=== PATIENT | female | born 1990 | race Caucasian/White ===

== ENCOUNTER 2019-06-29 12:14 | Inpatient (IN) | payer OTHER, MEDICAID, SELFPAY ==
[2019-06-29] VITALS (17 sets, daily range): BP systolic 86–144; BP diastolic 51–95; PULSE 86–166; RESP 13–28; TEMP 36.3–38.6; O2SAT 92–100; BMI 48.3
--- NOTE | ~2019-06-29 | XR_ITS ---
EXAMINATION: XR abdomen/kub 1V DATE: 06/29/2019 14:17 INDICATION: Left flank pain. TECHNIQUE: A supine view of the abdomen on 2 radiographs was obtained. COMPARISON: CT abdomen and pelvis 06/29/2019 FINDINGS: There are no dilated loops of bowel. There are surgical clips from cholecystectomy. There i s contrast in the left renal collecting system and bladder. There are stones in left kidney lower leah e. The kidneys are obscured by bowel. IMPRESSION: 1. Stones in left kidney lower pole. Reviewed, dictated and finalized at location E.
--- NOTE | ~2019-06-29 | XR_ITS ---
EXAMINATION: XR retrograde pyelo w/stent RT INDICATION: Right ureteral stone TECHNIQUE: 131 fluoroscopic images are submitted for review Fluoroscopy exposure time was 37.8 second s. The DAP for this procedure was 1.96 mGym2. COMPARISON: CT from today FINDINGS: Retrograde pyelogram demonstrates moderate right hydronephrosis. Final images demonstrate a right internal ureteral stent in expected position. IMPRESSION: 1. Right hydronephrosis and right internal ureteral stent in expected position. Please refer to proce dure note for full details. Reviewed, dictated and finalized at location A. IMPRESSION: 1. Right hydronephrosis and right internal ureteral stent in expected position. Please refer to procedure note for full details.
--- NOTE | ~2019-06-29 | CT_ITS ---
EXAMINATION: CT abdomen pelvis w con DATE: 06/29/2019 13:56 INDICATION: Right flank pain. Abdominal pain. Worsening urinary tract infection. Fever. TECHNIQUE: Computed tomography (CT) of the abdomen and pelvis was performed with 100 cc Omnipaque 350 intravenous contrast. Automated exposure control and iterative reconstruction technique were employe d. Exam dose: 1566.86 mGy-cm total exam DLP. COMPARISON: 12/28/2005 CT abdomen FINDINGS: The lung bases are clear. Normal heart size. No pericardial or pleural effusion. Status post cholecystectomy. No hepatic, splenic, pancreatic, and adrenal or renal space-occupying ma ss lesion is detected. Mild splenomegaly, the spleen measuring approximately 14.4 cm height. No bile duct or pancreatic duct dilatation. There is a 3.4 x 5.5 mm obstructing calculus of the right ureter at the L5-S1 level with moderately p rominent proximal right hydronephrosis. There are 2 contiguous lower pole nonobstructing right renal calculi, measuring approximately 4.4 x 6 .5 mm and 3.6 x 6.8 mm. There is a left renal pelvis calculus measuring approximately 4.2 x 8.3 mm. There are 2 nonobstructing lower pole left renal calyceal stones, measuring 6.4 x 12 mm and 6.4 x 9.8 mm, with attenuation of 1157 and 1131 Hounsfield units, respectively. No left ureteral calculus or left hydroureteronephrosis. Normal caliber of the abdominal aorta. No intraperitoneal or retroperitoneal or pelvic mass lesion or adenopathy or ascites. Mild colonic diverticulosis. No evidence of appendicitis. No bowel obstruction, bowel wall thickening , pneumatosis or intraperitoneal free air. Small fat-containing umbilical hernia. The uterus, adnexal areas and urinary bladder are unremarkable. No suspicious osteolytic or osteoblastic lesions.. IMPRESSION: 3.4 x 5.5 mm obstructing right ureteral calculus at L5-S1 level with moderate right hydr onephrosis Bilateral nephrolithiasis Mild colonic diverticulosis Status post cholecystectomy Splenomegaly Reviewed, dictated and finalized at Location A. Reviewed, dictated and finalized at location A. IMPRESSION: 3.4 x 5.5 mm obstructing right ureteral calculus at L5-S1 level wi moderate right hydronephrosis Bilateral nephrolithiasis Mild colonic diverticulosis Status post cholecystectomy Splenomegaly
--- NOTE | 2019-06-29 12:33 | ED.ABDPAIN ---
HPI - Abdominal Pain General Chief Complaint: Urogenital-Female Stated Complaint: sent by pmd due to worsening UTI Time Seen by Provider: 06/29/19 12:29 Source: RN notes reviewed History of Present Illness HPI narrative: Patient presents emergency department from home for right flank pain. Patient states that 3 days ago she began to have dysuria. She gone to the PCP at that time and was started on Bactrim for a urinary tract infection. States she is had a total of 4 doses of Bactrim. Patient states she began to have right flank pain yesterday progressively worsened associated with fevers and nausea. Denies any vomiting or diarrhea or any other symptoms at this time Related Data Allergies Allergy/AdvReac Type Severity Reaction Status Date / Time ciprofloxacin AdvReac Unknown SWELLING Verified 06/29/19 13:24 hydromorphone AdvReac Unknown EXTREME Verified 06/29/19 13:24 STOMACH CRAMPS naproxen AdvReac Unknown Swelling Verified 06/29/19 13:24 Review of Systems Review of Systems: Narrative: Gen.: Denies fevers or chills Eyes: Denies eye pain or visual change ENT: Denies congestion Respiratory: Denies shortness of breath or cough CV: Denies chest pain or palpitations GI: Denies abdominal pain, emesis or diarrhea reports right flank pain and nausea denies current dysuria Musculoskeletal: Denies back pain or muscle pain Neuro: Denies numbness, tingling, weakness or focal weakness Skin: Denies rash Except as documented, all other systems reviewed and negative PMFSH Past Medical History Medical History (Updated 06/29/19 @ 15:27 by Alberto Ramey DO) Patient denies significant medical history Social History Social History (Updated 06/29/19 @ 12:35 by Alberto Ramey DO) Smoking status: Current every day smoker Gender identity (if verbalized by the patient): Female Exam Narrative: Exam Narrative: APPEARANCE: No acute distress, nontoxic, resting in bed EYES: EOMI HEENT: Normocephalic, atraumatic, OMM RESPIRATORY: No respiratory distress Clear to auscultation bilaterally with no rhonchi wheezing or rales. CARDIOVASCULAR: Regular rate and rhythm without murmurs rubs or gallops. ABDOMINAL: Soft, nontender, nondistended, no rebound or guarding, right flank tenderness MUSCULOSKELETAl: Moves all extremities. No clubbing, cyanosis or edema. NEURO: Awake and alert. Following commands, speech normal, no focal deficits SKIN:: Warm, dry. No rashes lesions or abrasions PSYCHIATRIC: Normal affect/mood, Course Course Emergency Course: Discussed with Clarita for urology patient to proceed to the OR at this time for stent placement by Dr. Saha Discussed with ANNETTE Saldivar presentation work-up. Agrees with admission to Dr. Mcqueen at this time Discussed with patient and family results of workup and diagnosis. Discussed need for admission. Patient and family understand and agree to current treatment plan Vital Signs Vital signs: Vital Signs Temperature 100.1 F H 06/29/19 12:17 Pulse Rate 121 H 06/29/19 12:17 Respiratory Rate 20 06/29/19 12:17 Blood Pressure 144/83 H 06/29/19 12:17 Pulse Oximetry 100 06/29/19 12:17 Temperature 101.4 F H 06/29/19 12:33 Pulse Rate 102 H 06/29/19 14:16 Respiratory Rate 22 H 06/29/19 14:16 Blood Pressure 122/87 06/29/19 14:16 Pulse Oximetry 100 06/29/19 14:15 MDM - Abdominal Pain Lab Data Result diagrams: 06/29/19 12:41 06/29/19 12:40 Labs: Lab Results 06/29/19 06/29/19 06/29/19 Range/Units 12:39 12:40 12:41 WBC 9.2 (4.5-10.0) K/mm3 RBC 4.49 (4.2-5.4) M/mm3 Hgb 12.5 (12.0-15.0) g/dL Hct 39.2 (37.0-47.0) % MCV 87.3 (80-100) fl MCH 27.8 (26-34) pg MCHC 31.9 L (32-36) g/dl RDW 14.6 H (11.5-14.5) % Plt Count 262 (150-375) k/mm3 MPV 9.9 (7.4-10.4) fl Immature Gran % (Auto) 0.5 (0-0.5) % Neut % (Auto) 77.9 H (45.5-73.1) % Lymph % (Auto) 12.8 L (18.3-
[2019-06-29 12:49] LABS: Basophils Percent Auto 0.4 % (0.2-1.2); Eosinophils Absolute Auto 0.1 K/mm3 (0-0.3); Eosinophils Percent Auto 1.4 % (0-4.4); Hematocrit 39.2 % (37.0-47.0); Hemoglobin 12.5 g/dL (12.0-15.0); Immature Granulocyte Absolute 0.05 K/mm3 (0.00-0.031); Immature Granulocyte Percent A 0.5 % (0-0.5); Lymphocytes Absolute Auto 1.18 K/mm3 (0.9-3.2); Lymphocytes Percent Auto 12.8 % (18.3-44.2); Mean Corpuscular HGB Conc 31.9 g/dl (32-36); Mean Corpuscular Hemoglobin 27.8 pg (26-34); Mean Corpuscular Volume 87.3 fl (80-100); Mean Platelet Volume 9.9 fl (7.4-10.4); Monocytes Absolute Auto 0.7 K/mm3 (0.1-0.6); Neutrophils Absolute Auto 7.2 K/mm3 (1.3-6.7); Neutrophils Percent Auto 77.9 % (45.5-73.1); Platelet Count Result 262 k/mm3 (150-375); Red Blood Count 4.49 M/mm3 (4.2-5.4); Red Cell Distribution Width 14.6 % (11.5-14.5); White Blood Count 9.2 K/mm3 (4.5-10.0)
[2019-06-29 12:56] LABS: Add Urine Microscopic? YES; Appearance Urine Clear (Clear); Bacteria Urine Trace /hpf; Bilirubin Urine Negative (Negative); Blood Urine 1+ (Negative); Color Urine Amber (Yellow); Glucose Urine UA Negative (Negative); Ketones Urine Negative (Negative); Leukocyte Esterase Ur 2+ LEU/UL (Negative); Mucus Urine Rare /lpf; Nitrate Urine Positive (Negative); Protein Urine 2+ mg/dL (Negative); RBC Urine 21-50 /hpf (0-2); Specific Grav Ur 1.021 (1.001-1.035); Squamous Epithelial Cell Urine Many /hpf (Few); WBC Urine >75 /hpf
[2019-06-29 13:06] LABS: Blood Urea Nitrogen 11 mg/dL (7-17); Calcium 9.3 mg/dL (8.4-10.2); Carbon Dioxide 21 mmol/L (22-30); Chloride 104 mmol/L (98-107); Estimated CRCL calculation 71 ml/min; Estimated Glomerular Filt Rate 48; Glucose 119 mg/dL (65-105); Potassium 3.7 mmol/L (3.4-5.0); Sodium 136 mmol/L (137-145)
[2019-06-29] MEDS: SODIUM CHLORIDE 0.9% IV 1,000 ML 999 ML IV CONT ×2 (13:13)
--- NOTE | 2019-06-29 15:27 | WPDURCON ---
Assessment and Plan Assessment and plan (1) Urinary tract infection: Code(s): N39.0 - Urinary tract infection, site not specified Status: Acute Assessment and Plan: Continue IV antibiotics, tailor to culture results. (2) Kidney stone on right side: Code(s): N20.0 - Calculus of kidney Status: Acute Assessment and Plan: Plan to go to the OR today for Cystoscopy, right ureteral stent placement. Keep NPO Obtain Consent. Admit to medicine. Urology Consult Note HPI Date Seen: 06/29/19 Requesting Physician: Aldo Saha MD Primary Care Provider: Liam Rich MD Consult Narrative Narrative: Stephanie Norman is a 28 year old female who presents to the ER with worsening right flank pain that developed four days ago with dysuria, fever and chills. She is also nauseated, but no vomiting at this time. She has a positive UA, with blood and urine cultures pending. She also is febrile, but has a normal WBC and creatinine. Her CT/KUB abdomen and pelvis shows a right mid ureteral stone with mild hydronephrosis measuring 3x5mm. She initially went to her PCP whent he dysuria and flank pain started and was given Bactrim and has had several doses but without improvment. Review of Systems Cardiovascular: Cardiovascular: Denies chest pain Respiratory: Respiratory: Reports no additional respiratory complaints Gastrointestinal: Gastrointestinal: Reports abdominal pain, Reports nausea and Denies vomiting Genitourinary: Genitourinary: Denies dysuria, Reports flank pain and Reports urinary urgency PMFSH Past Medical History Medical History Morbid obesity Patient denies significant medical history Renal stones Smoker Surgical History Surgical History History of section History of cholecystectomy Social History Social History Smoking status: Current every day smoker Gender identity (if verbalized by the patient): Female Meds Home Medications and Allergies Allergies Allergy/AdvReac Type Severity Reaction Status Date / Time ciprofloxacin AdvReac Unknown SWELLING Verified 06/29/19 13:24 hydromorphone AdvReac Unknown EXTREME Verified 06/29/19 13:24 STOMACH CRAMPS naproxen AdvReac Unknown Swelling Verified 06/29/19 13:24 Vital Signs Vital Signs - 24 hr 06/29/19 12:17 06/29/19 12:33 06/29/19 14:04 Temperature 100.1 F H 101.4 F H Pulse Rate 121 H 126 H 99 Respiratory Rate 20 13 18 Blood Pressure 144/83 H 140/95 H Pulse Oximetry 100 100 100 06/29/19 14:15 06/29/19 14:16 Temperature Pulse Rate 99 102 H Respiratory Rate 17 22 H Blood Pressure 122/87 Pulse Oximetry 100 Exam Resp: Effort & Inspection: normal respiratory effort Cardio: Rate: regular rate GI: GI Palp: Yes Tenderness to palpation present (GI) : General: Yes CVA tenderness on the right Results Labs CBC & Chem 7: 06/29/19 12:41 06/29/19 12:40 Labs: Short CBC 06/29/19 Range/Units 12:41 WBC 9.2 (4.5-10.0) K/mm3 Hgb 12.5 (12.0-15.0) g/dL Hct 39.2 (37.0-47.0) % Plt Count 262 (150-375) k/mm3 BMP 06/29/19 12:40 Sodium 136 L Potassium 3.7 Chloride 104 Carbon Dioxide 21 L BUN 11 Creatinine 1.30 H Glucose 119 H Calcium 9.3 Urine 06/29/19 Range/Units 12:39 Urine Color Jessica (Yellow) Urine Appearance Clear (Clear) Urine pH 6.0 (5.0-9.0) Ur Specific [place] 1.021 (1.001-1.035) Urine Protein 2+ H (Negative) mg/dL Urine Glucose (UA) Negative (Negative) mg/dL
--- NOTE | 2019-06-29 15:38 | WPDANESEPPF ---
Anes - Initial Pre Proc Eval Procedure: Operation Date: 06/29/19 15:30 Proposed Procedures p Cysto, RPG, Stone Ext, Stent Placement(Right) - Aldo Saha MD Date/Time: 06/29/19 15:38 Surgeon: Aldo Saha MD Pre Op Diagnosis: sent by pmd due to worsening UTI Patient Data Age: 28 Gender: F Height: 5 ft 5 in Weight: 113.5 kg Last Vital Signs Temp 38.6 C H 06/29/19 12:33 Pulse 102 H 06/29/19 14:16 Resp 22 H 06/29/19 14:16 BP 122/87 06/29/19 14:16 Pulse Ox 100 06/29/19 14:15 Allergies Allergy/AdvReac Type Severity Reaction Status Date / Time ciprofloxacin AdvReac Unknown SWELLING Verified 06/29/19 13:24 hydromorphone AdvReac Unknown EXTREME Verified 06/29/19 13:24 STOMACH CRAMPS naproxen AdvReac Unknown Swelling Verified 06/29/19 13:24 Laboratory Tests 06/29/19 06/29/19 06/29/19 12:39 12:40 12:41 WBC 9.2 K/mm3 K/mm3 (4.5-10.0) RBC 4.49 M/mm3 M/mm3 (4.2-5.4) Hgb 12.5 g/dL g/dL (12.0-15.0) Hct 39.2 % % (37.0-47.0) MCV 87.3 fl fl (80-100) MCH 27.8 pg pg (26-34) MCHC 31.9 g/dl L g/dl (32-36) RDW 14.6 % H % (11.5-14.5) Plt Count 262 k/mm3 k/mm3 (150-375) MPV 9.9 fl fl (7.4-10.4) Immature Gran % (Auto) 0.5 % % (0-0.5) Neut % (Auto) 77.9 % H % (45.5-73.1) Lymph % (Auto) 12.8 % L % (18.3-44.2) [place] % (Auto) 7.0 % % (2.6-8.5) Eos % (Auto) 1.4 % % (0-4.4) Baso % (Auto) 0.4 % % (0.2-1.2) Lymph # (Auto) 1.18 K/mm3 K/mm3 (0.9-3.2) [place] # (Auto) 0.7 K/mm3 H K/mm3 (0.1-0.6) Eos # (Auto) 0.1 K/mm3 K/mm3 (0-0.3) Baso # (Auto) 0.0 K/mm3 K/mm3 (0.0-0.1) Abs Immat Gran (auto) 0.05 K/mm3 H K/mm3 (0.00-0.031) Absolute Neuts (auto) 7.2 K/mm3 H K/mm3 (1.3-6.7) Absolute Nucleated RBC 0.0 K/mm3 K/mm3 (0.0-0.012) Nucleated RBC % 0.0 % % (0.0-0.2) Sodium 136 mmol/L L mmol/L (137-145) Potassium 3.7 mmol/L mmol/L (3.4-5.0) Chloride 104 mmol/L mmol/L (98-107) Carbon Dioxide 21 mmol/L L mmol/L (22-30) BUN 11 mg/dL mg/dL (7-17) Creatinine 1.30 mg/dL H mg/dL (0.7-1.0) Estim Creat Clear Calc 71 ml/min ml/min Estimated GFR 48 L (59 - ) Glucose 119 mg/dL H mg/dL (65-105) Lactic Acid Calcium 9.3 mg/dL mg/dL (8.4-10.2) Urine Color Jessica (Yellow) Urine Appearance Clear (Clear) Urine pH 6.0 (5.0-9.0) Ur Specific [place] 1.021 (1.001-1.035) Urine Protein 2+ mg/dL H mg/dL (Negative) Urine Glucose (UA) Negative mg/dL mg/dL (Negative) Urine Ketones Negative mg/dL mg/dL (Negative) Ur Blood (Man) 1+ H (Negative) Urine Nitrate Positive H (Negative) Urine Bilirubin Negative (Negative) Urine Urobilinogen 4.0 mg/dL H mg/dL (<2.0) Leukocyte Esterase Rfl 2+ MAGDA/UL H MAGDA/UL (Negative) Urine RBC 21-50 /hpf H /hpf (0-2) Urine WBC >75 /hpf H /hpf Ur Squamous Epith Cells Many /hpf H /hpf (Few) Urine Bacteria Trace /hpf /hpf Urine Mucus Rare /lpf /lpf 06/29/19 12:41 WBC RBC Hgb Hct MCV MCH MCHC RDW Plt Count MPV Immature Gran % (Auto) Neut % (Auto) Lymph % (Auto) [place] % (Auto) Eos % (Auto) Baso % (Auto) Lymph # (Auto) [place] # (Auto) Eos # (Auto) Baso # (Auto) Abs Immat Gran (auto) Absolute Neuts (auto) Absolute Nucleated RBC Nucleated RBC % Sodium Potassium Chloride Carbon Dioxide BUN Creatinine Estim Creat Clear
[2019-06-29] MEDS: LACTATED RINGERS 1,000 ML 30 ML IV CONT ×3 (15:45→16:57)
[2019-06-29] MEDS: LIDOCAINE HCL 2% GEL UROJET 10 ML PKG MUCOUS MEM (16:12)
--- NOTE | 2019-06-29 16:26 | PM.PROC ---
Procedure Note - Detailed Date of procedure: 06/29/19 Pre-op diagnosis: sent by pmd due to worsening UTI Right ureteral stone, abnormal urinalysis consistent with infection, fever Procedure performed: Cystoscopy, right retrograde pyelogram, right ureteral stent placement Description of procedure: She was correctly identified and informed consent was obtained. She find the operating room. She was given anesthesia. She was prepped and draped in a sterile fashion after being placed in the lithotomy position. A time-out performed. Cystoscopy revealed a normal bladder. She had a single ureteral orifice bilaterally. I did a gentle retrograde pyelogram on the right. I reviewed the retrograde pyelogram. She has significant obesity but she appeared to have a single collecting system bilaterally without duplication. I placed a guidewire to the kidney. There is then significant purulence seen coming from the kidney. I placed a 4.8 variable length stent in standard fashion. Proximal coil in the renal pelvis. Distal coil in the bladder. The bladder was drained. She was awakened and transferred to the PACU in stable condition. Implants: 4.8 variable length stent Anesthesia: GLMA Surgeon: Aldo Saha MD Estimated blood loss (mL): 0 Drains: Yes (Stent) Packing: No Pathology: none sent Complications: No immediate complications Condition: stable Disposition: PACU
[2019-06-29] MEDS: MIDAZOLAM HCL 2 MG/2 ML VIAL IV PUSH (17:20)
--- NOTE | 2019-06-29 18:45 | ADMGEN ---
This patient, Stephanie Norman, was admitted to Medical Room 345-. Patient/family oriented to hospital policies and general routines including ID bracelet, bed and alarms, visiting hours, pain management, procedures, bathroom and other care routines, personal items, smoking policy, room service/diet, and visiting hours. Valuables list has been completed. Information on how to activate the Rapid Response Team has been discussed. Patient/Family are encouraged to report perceived risks to care and to ask questions if they do not understand what they are told or what they should do.
[2019-06-29] MEDS: OXYBUTYNIN CHLORIDE 5 MG TABLET PO (18:54)
[2019-06-29] MEDS: PHENAZOPYRIDINE HCL 100 MG TABLET 200 MG PO (18:54)
--- NOTE | 2019-06-29 20:23 | PM.IMHP ---
H&P: HPI History of Present Illness Chief complaint: sepsis/uti/right kidney stone Narrative: Stephanie Norman is a 28 year old female Who has a history of having kidney stones in the past. The patient stated that she had kidney stones approximately 12 years ago and she passed some on her own. The patient stated that she has a [id number] child and that she had urinary tract infections throughout her whole . The patient came to the emergency room from home for complaints of right flank pain. She saw her primary care doctor about 3 days ago who treated her with Bactrim for urinary tract infection. She had dysuria at that time. She has had a total of 4 doses of Bactrim so far and she was progressively getting worse and had a low-grade fever. She stated her temperature did not get over 100. She denies any nausea vomiting or diarrhea at that time. But today she was nauseated. Her temperature was recorded as 101.4 the T-max. Creatinine 1.3. Abdominal pelvis CT was read as 3.4 x 5.5 mm obstructing right ureteral calculus at L5-S1 level with moderate right hydronephrosis. Bilateral nephrolithiasis. Mild colonic diverticulosis. Bilateral nephro lysis. Is post cholecystectomy. Splenomegaly. Urology was consulted. The patient was taken for his cystoscopy with stone extraction and a right ureterstent placement. The patient has been treated with Rocephin for urinary tract infection. Date of service 06/29/2019 Review of Systems Review of Systems: All systems reviewed & are unremarkable except as noted in HPI and below Constitutional: Constitutional: Reports as per HPI and Reports no additional constitutional complaints Eyes: Eyes: Reports as per HPI and Reports no additional eye complaints ENT: Reports system reviewed and no additional complaints, except as documented and Reports Normal hearing present Cardiovascular: Cardiovascular: Reports no additional cardiovascular complaints Respiratory: Respiratory: Reports no additional respiratory complaints and Reports no additional respiratory complaints Gastrointestinal: Gastrointestinal: Reports as per HPI and Reports no additional gastrointestinal complaints Musculoskeletal: Musculoskeletal: Reports no additional musculoskeletal complaints Integumentary/Breasts: Skin/Breast: Reports system reviewed and no additional complaints, except as docu and Reports as per HPI Neurologic: Reports system reviewed and no additional complaints, except as documented, Reports as per HPI and Reports Normal hearing present Psychiatric: Psychiatric: Reports no additional psychiatric complaints and Reports as per HPI Endocrine: Endocrine: Reports no additional endocrine complaints Hematologic/Lymphatic: Hematologic/Lymphatic: Reports no additional hematologic/lymphatic complaints Allergic/Immunologic: Allergic/Immunologic: Reports no additional allergic/immunologic complaints PMFSH Past Medical History Medical History Morbid obesity Obesity BMI 48 Patient denies significant medical history Renal stones Smoker Surgical History Surgical History (Updated 06/29/19 @ 20:34 by Janna Burns NP) History of section x2 History of cholecystectomy History of gastric surgery sleeve 11 years ago S/P ureteral stent placement Family History Family History (Updated 06/29/19 @ 20:37 by Janna Burns NP) Father Lung cancer Hypertension Mother Hypertension Family history of thyroid problem Heart problem Depression Sibling Pneumonia is from pneumonia Social History Social History (Updated 06/29/19 @ 20:38 by Janna Burns NP) Social History: the patient is and her is the surrogate decision maker. Patient wishes to be full code. The patient has 2 step children and 2 biological children. 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 For 10 years. No alcohol marijuana or illi
[2019-06-29] MEDS: SODIUM CHLORIDE 0.9% IV 1,000 ML 125 ML IV CONT (23:54)
[2019-06-30] VITALS (7 sets, daily range): BP systolic 113–133; BP diastolic 71–88; PULSE 80–97; RESP 14–21; TEMP 36.4–37.5; O2SAT 99–100
[2019-06-30 00:21] LABS: Lactic Acid Reflex 1.1 mmol/L (0.7-2.1)
[2019-06-30 06:12] LABS: Basophils Absolute Auto 0.1 K/mm3 (0.0-0.1); Basophils Percent Auto 0.5 % (0.2-1.2); Eosinophils Absolute Auto 0.2 K/mm3 (0-0.3); Eosinophils Percent Auto 1.8 % (0-4.4); Hematocrit 29.8 % (37.0-47.0); Hemoglobin 9.5 g/dL (12.0-15.0); Immature Granulocyte Absolute 0.04 K/mm3 (0.00-0.031); Immature Granulocyte Percent A 0.4 % (0-0.5); Lymphocytes Absolute Auto 0.83 K/mm3 (0.9-3.2); Lymphocytes Percent Auto 7.6 % (18.3-44.2); Mean Corpuscular HGB Conc 31.9 g/dl (32-36); Mean Corpuscular Hemoglobin 27.6 pg (26-34); Mean Corpuscular Volume 86.6 fl (80-100); Mean Platelet Volume 9.7 fl (7.4-10.4); Monocytes Percent Auto 9.1 % (2.6-8.5); Neutrophils Absolute Auto 8.8 K/mm3 (1.3-6.7); Neutrophils Percent Auto 80.6 % (45.5-73.1); Platelet Count Result 188 k/mm3 (150-375); Red Blood Count 3.44 M/mm3 (4.2-5.4); Red Cell Distribution Width 14.9 % (11.5-14.5); White Blood Count 10.9 K/mm3 (4.5-10.0)
[2019-06-30 06:26] LABS: Blood Urea Nitrogen 8 mg/dL (7-17); Carbon Dioxide 24 mmol/L (22-30); Chloride 109 mmol/L (98-107); Estimated CRCL calculation 78 ml/min; Estimated Glomerular Filt Rate 48; Glucose 116 mg/dL (65-105); Potassium 4.1 mmol/L (3.4-5.0); Sodium 138 mmol/L (137-145)
[2019-06-30] MEDS: SODIUM CHLORIDE 0.9% IV 1,000 ML 125 ML IV CONT ×2 (08:17→17:20)
[2019-06-30] MEDS: OXYBUTYNIN CHLORIDE 5 MG TABLET PO ×3 (08:20→17:22)
[2019-06-30] MEDS: PHENAZOPYRIDINE HCL 100 MG TABLET 200 MG PO ×3 (08:20→17:22)
--- NOTE | 2019-06-30 10:11 | WPDANESPN ---
Anes - Prog Note Post-Op Date/Time: 06/30/19 10:11 Cardiovascular status: normal Respiratory status: normal Airway patency: baseline Mental status: baseline Post-Op hydration status: normal Vital Signs: Last Vital Signs Temp 36.8 C 06/30/19 08:00 Pulse 82 06/30/19 08:00 Resp 20 06/30/19 08:00 BP 115/74 06/30/19 08:00 Pulse Ox 100 06/30/19 08:00 I/O: Intake & Output 06/29/19 06/30/19 06/30/19 23:59 07:59 15:59 Intake Total 1979 1400 240 Output Total 100 2049 250 Balance 1880 -650 -10 Laboratory Tests 06/30/19 05:56 06/30/19 05:56 06/29/19 06/29/19 06/29/19 12:39 12:40 12:41 WBC 9.2 RBC 4.49 Hgb 12.5 Hct 39.2 MCV 87.3 MCH 27.8 MCHC 31.9 L RDW 14.6 H Plt Count 262 MPV 9.9 Immature Gran % (Auto) 0.5 Neut % (Auto) 77.9 H Lymph % (Auto) 12.8 L [place] % (Auto) 7.0 Eos % (Auto) 1.4 Baso % (Auto) 0.4 Lymph # (Auto) 1.18 [place] # (Auto) 0.7 H Eos # (Auto) 0.1 Baso # (Auto) 0.0 Abs Immat Gran (auto) 0.05 H Absolute Neuts (auto) 7.2 H Absolute Nucleated RBC 0.0 Nucleated RBC % 0.0 Sodium 136 L Potassium 3.7 Chloride 104 Carbon Dioxide 21 L BUN 11 Creatinine 1.30 H Estim Creat Clear Calc 71 Estimated GFR 48 L Glucose 119 H Lactic Acid Calcium 9.3 Urine Color Jessica Urine Appearance Clear Urine pH 6.0 Ur Specific [place] 1.021 Urine Protein 2+ H Urine Glucose (UA) Negative Urine Ketones Negative Ur Blood (Man) 1+ H Urine Nitrate Positive H Urine Bilirubin Negative Urine Urobilinogen 4.0 H Leukocyte Esterase Rfl 2+ H Urine RBC 21-50 H Urine WBC >75 H Ur Squamous Epith Cells Many H Urine Bacteria Trace Urine Mucus Rare 05/22/20 05/22/20 05/23/20 12:41 23:57 05:56 WBC 10.9 H RBC 3.44 L Hgb 9.5 L D Hct 29.8 L MCV 86.6 MCH 27.6 MCHC 31.9 L RDW 14.9 H Plt Count 188 MPV 9.7 Immature Gran % (Auto) 0.4 Neut % (Auto) 80.6 H Lymph % (Auto) 7.6 L [place] % (Auto) 9.1 H Eos % (Auto) 1.8 Baso % (Auto) 0.5 Lymph # (Auto) 0.83 L [place] # (Auto) 1.0 H Eos # (Auto) 0.2 Baso # (Auto) 0.1 Abs Immat Gran (auto) 0.04 H Absolute Neuts (auto) 8.8 H Absolute Nucleated RBC 0.0 Nucleated RBC % 0.0 Sodium Potassium Chloride Carbon Dioxide BUN Creatinine Estim Creat Clear Calc Estimated GFR Glucose Lactic Acid 2.0 1.1 Calcium Urine Color Urine Appearance Urine pH Ur Specific [place] Urine Protein Urine Glucose (UA) Urine Ketones Ur Blood (Man) Urine Nitrate Urine Bilirubin Urine Urobilinogen Leukocyte Esterase Rfl Urine RBC Urine WBC Ur Squamous Epith Cells Urine Bacteria Urine Mucus 06/30/19 05:56 WBC RBC Hgb Hct MCV MCH MCHC RDW Plt Count MPV Immature Gran % (Auto) Neut % (Auto) Lymph % (Auto) [place] % (Auto) Eos % (Auto) Baso % (Auto) Lymph # (Auto) [place] # (Auto) Eos # (Auto) Baso # (Auto) Abs Immat Gran (auto) Absolute Neuts (auto) Absolute Nucleated RBC Nucleated RBC % Sodium 138 Potassium 4.1 Chloride 109 H Carbon Dioxide 24 BUN 8 Creatinine 1.30 H Estim Creat Clear Calc 78 Estimated GFR 48 L Glucose 116 H Lactic Acid Calcium 8.0 L Urine Color Urine Appearance Urine pH Ur Specific [place] Urine Protein Urine Glucose (UA) Urine Ketones Ur Blood (Man) Urine Nitrate Urine Bilirubin Urine Urobilinogen Leukocyte Esterase Rfl Urine RBC Urine WBC Ur Squamous Epith Cells Urine Bacteria Urine Mucus Post-procedural complaints: none Patient Feedback: Patient satisfied with anesthetic care.
--- NOTE | 2019-06-30 11:49 | WPDUROPN2 ---
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 em- tachycardic overnight, now VSS this AM and feels much better. good uop, wbc okay, creat stable, cultures still pending. Review of Systems Review of Systems: All systems reviewed & are unremarkable except as noted in HPI and below Exam Const: General: comfortable and no acute distress Eyes: General: appearance normal, both eyes and all related structures Resp: Effort & Inspection: normal respiratory effort Auscultation: no wheezes Cardio: Rate: regular rate and not tachycardic Rhythm: regular rhythm Skin: General skin exam: normal color and no rashes or lesions noted Neuro: Cognition (Neuro): normal cognition Speech: normal speech Psych: Mental Status: mental status grossly normal Affect: Anxious affect present Objective Data Vital Signs Vital Signs: Vital Signs - 24 hr 06/29/19 12:17 06/29/19 12:33 06/29/19 14:04 Temperature 37.8 C H 38.6 C H Pulse Rate 121 H 126 H 99 Respiratory Rate 20 13 18 Blood Pressure 144/83 H 140/95 H Pulse Oximetry 100 100 100 06/29/19 14:15 06/29/19 14:16 06/29/19 15:35 Temperature 36.3 C L Pulse Rate 99 102 H 93 Respiratory Rate 17 22 H 20 Blood Pressure 122/87 110/68 Pulse Oximetry 100 99 06/29/19 16:27 06/29/19 16:42 06/29/19 16:57 Temperature 36.3 C L Pulse Rate 92 86 118 H Respiratory Rate 20 15 28 H Blood Pressure 86/51 L 96/63 L 130/91 H Pulse Oximetry 98 100 100 06/29/19 17:12 06/29/19 17:27 06/29/19 17:42 Temperature Pulse Rate 166 H 145 H 143 H Respiratory Rate 18 26 H 17 Blood Pressure 108/87 123/77 125/73 Pulse Oximetry 92 98 94 06/29/19 17:57 06/29/19 18:00 06/29/19 19:27 Temperature 37.6 C Pulse Rate 150 H 150 H 123 H Respiratory Rate 20 20 16 Blood Pressure 129/73 127/70 117/60 Pulse Oximetry 93 95 98 06/29/19 21:11 06/29/19 23:29 06/30/19 04:00 Temperature 36.8 C 36.7 C 36.4 C Pulse Rate 98 87 Respiratory Rate 16 14 Blood Pressure 120/68 113/76 Pulse Oximetry 98 99 06/30/19 08:00 Temperature 36.8 C Pulse Rate 82 Respiratory Rate 20 Blood Pressure 115/74 Pulse Oximetry 100 Intake/Output Intake/Output: Intake & Output 06/27/19 06/28/19 06/29/19 06/30/19 23:59 23:59 23:59 23:59 Intake Total 4130 1640 Output Total 100 2300 Balance 4030 -660 Meds/Results Medications: Active Medications Generic Name Dose Route Start Last Admin Trade Name Freq PRN Reason Stop Dose Admin Fentanyl Citrate 25 mcg 06/29/19 20:08 Sublimaze IV PUSH Q4H PRN Pain Rated 7-10 Ceftriaxone Sodium/Dextrose 1 gm in 50 mls @ 100 mls/hr 06/30/19 14:00 Rocephin 1 Gm/D5w 50 Ml IVPB Q24H ADDISON Acetaminophen 1,000 mg in 100 mls @ 400 mls/hr 06/29/19 20:08 06/30/19 06:19 Ofirmev 1,000 Mg Ivpb IVPB 06/30/19 20:09 Infused Q6H PRN Infusion Pain Rated 4-6 Sodium Chloride 1,000 mls @ 125 mls/hr 06/29/19 23:50 06/30/19 08:17 Normal Saline Iv IV CONT 125 mls/hr .Q8H ADDISON Administration Ondansetron HCl 4 mg 06/29/19 15:40 Zofran Inj IV PUSH ONCE PRN Nausea Oxybutynin Chloride 5 mg 06/29/19 18:09 06/30/19 08:20 Ditropan PO 5 mg TID ADDISON Administration Phenazopyridine HCl 200 mg 06/29/19 18:09 06/29
--- NOTE | 2019-06-30 14:41 | PM.IMPN ---
Progress Note: A&P Assessment and Plan (1) Sepsis: Qualifiers: Sepsis type: sepsis due to unspecified organism Sepsis acute organ dysfunction status: unspecified Qualified Code(s): A41.9 - Sepsis, unspecified organism Code(s): A41.9 - Sepsis, unspecified organism Status: Acute Assessment and Plan: She met SIRS criteria at presentation with tachycardia and fever tmax 101.4F. The presumed source is UTI. Blood cultures were obtained and are pending. WBC is 10,900 with a neutrophil predominance. Await blood cultures Continue IV fluids Continue to monitor (2) Pyelonephritis: Code(s): N12 - Tubulo-interstitial nephritis, not specified as acute or chronic Status: Acute Assessment and Plan: She endorsed recent onset of dysuria and was treated with bactrim initially but her sx continued to worsen and she developed right flank pain, fever, and nausea. She completed 4 doses of bactrim. She was also found to have an obstructing calculi (3.4x5.5mm) of the right ureter and is s/p right ureteral stent placement which revealed significant purulence coming from the kidney. Continue empiric ceftriaxone Continue IV fluids Continue analgesics PRN Await final urine cultures and sensitivities Urology has recommended 14 days of antibiotic therapy (3) Kidney stone on right side: Code(s): N20.0 - Calculus of kidney Status: Acute Assessment and Plan: The patient presented with right flank pain, low-grade fever, and nausea. CT abd/pelvis revealed 3.4 x 5.5 mm obstructing right ureteral calculus at L5-S1 level with moderate right hydronephrosis and bilateral nephrolithiasis. She underwent cystoscopy with right retrograde pyelogram and right ureteral stent placement by urology 06/29/19. Management per nephrology Continue to strain urine Continue analgesics Continue IV fluids (4) Obesity: Qualifiers: Obesity type: unspecified obesity type Obesity classification: adult class 3 (BMI >= 40) Serious obesity comorbidity presence: without serious comorbidity Body mass index: BMI 45.0-49.9 Qualified Code(s): E66.01 - Morbid (severe) obesity due to excess calories; Z68.42 - Body mass index (BMI) 45.0-49.9, adult Code(s): E66.9 - Obesity, unspecified Status: Chronic Assessment and Plan: She is s/p gastric sleeve 11 years ago. Continue to encourage lifestyle interventions of diet and exercise (5) Acute renal failure: Qualifiers: Acute renal failure type: unspecified Qualified Code(s): N17.9 - Acute kidney failure, unspecified Code(s): N17.9 - Acute kidney failure, unspecified Status: Acute Assessment and Plan: Cr is 1.3 and BUN 11. BUN:Cr ratio suggests post-renal etiology, likely due to her obstructing stone with hydronephrosis. Labs from 02/2014 reveal Cr 0.7 and BUN 9. Continue IV fluids Continue to monitor Time Spent With Patient Time with patient: 15 - 25 minutes Subjective Date/time seen: 06/30/19 14:41 Interval history: Mrs. Norman is seen and examined at bedside in follow-up for nephrolithiasis and UTI. She reports mild right flank discomfort this afternoon which is well-controlled on tylenol. She reports that she just voided and I visualized two stones in the strained urine. She denies nausea and vomiting. She reports that her appetite is good. She denies diarrhea and constipation. She denies subjective fever and chills. She denies headaches, dizziness, and lightheadedness. Review of Systems Review of Systems: All systems reviewed & are unremarkable except as noted in HPI and below Exam Narrative: Exam Narrative: General: Obese, well-developed 28 y.o. female sitting in the morse's position in bed in no acute distress. HEENT: Normocephalic and atraumatic. Conjunctivae and lids normal. EOMI. Mucous membranes moist. Neck: Supple without lymphadenopathy or [place]
[2019-07-01] MEDS: SODIUM CHLORIDE 0.9% IV 1,000 ML 125 ML IV CONT ×2 (01:39→10:13)
[2019-07-01 06:00] VITALS: BP 106/72; PULSE 78; RESP 20; TEMP 36.1; O2SAT 98
[2019-07-01 06:25] LABS: Basophils Absolute Auto 0.1 K/mm3 (0.0-0.1); Basophils Percent Auto 0.7 % (0.2-1.2); Eosinophils Absolute Auto 0.3 K/mm3 (0-0.3); Eosinophils Percent Auto 3.8 % (0-4.4); Hematocrit 29.5 % (37.0-47.0); Hemoglobin 9.1 g/dL (12.0-15.0); Immature Granulocyte Absolute 0.05 K/mm3 (0.00-0.031); Immature Granulocyte Percent A 0.6 % (0-0.5); Lymphocytes Absolute Auto 1.79 K/mm3 (0.9-3.2); Mean Corpuscular HGB Conc 30.8 g/dl (32-36); Mean Corpuscular Hemoglobin 27.2 pg (26-34); Mean Corpuscular Volume 88.1 fl (80-100); Mean Platelet Volume 10.2 fl (7.4-10.4); Monocytes Absolute Auto 1.1 K/mm3 (0.1-0.6); Monocytes Percent Auto 11.8 % (2.6-8.5); Neutrophils Absolute Auto 5.7 K/mm3 (1.3-6.7); Neutrophils Percent Auto 63.1 % (45.5-73.1); Platelet Count Result 184 k/mm3 (150-375); Red Blood Count 3.35 M/mm3 (4.2-5.4); Red Cell Distribution Width 15.2 % (11.5-14.5)
[2019-07-01 06:39] LABS: Blood Urea Nitrogen 5 mg/dL (7-17); Carbon Dioxide 25 mmol/L (22-30); Chloride 111 mmol/L (98-107); Estimated CRCL calculation 100 ml/min; Estimated Glomerular Filt Rate > 60; Glucose 89 mg/dL (65-105); Potassium 3.5 mmol/L (3.4-5.0); Sodium 140 mmol/L (137-145)
[2019-07-01] MEDS: OXYBUTYNIN CHLORIDE 5 MG TABLET PO ×2 (08:12→12:11)
[2019-07-01] MEDS: PHENAZOPYRIDINE HCL 100 MG TABLET 200 MG PO ×2 (08:12→12:11)
--- NOTE | 2019-07-01 11:49 | PM.DS ---
DS: Admitting Diagnosis Admitting Diagnosis Admitting Diagnosis: Urinary tract infection, site not specified DS: Discharge Diagnosis Discharge Diagnosis (1) Sepsis: Qualifiers: Sepsis acute organ dysfunction status: unspecified Sepsis type: sepsis due to unspecified organism Qualified Code(s): A41.9 - Sepsis, unspecified organism Code(s): A41.9 - Sepsis, unspecified organism Status: Acute (2) Pyelonephritis: Code(s): N12 - Tubulo-interstitial nephritis, not specified as acute or chronic Status: Acute (3) Kidney stone on right side: Code(s): N20.0 - Calculus of kidney Status: Acute (4) Obesity: Qualifiers: Body mass index: BMI 45.0-49.9 Obesity classification: adult class 3 (BMI >= 40) Obesity type: unspecified obesity type Serious obesity comorbidity presence: without serious comorbidity Qualified Code(s): E66.01 - Morbid (severe) obesity due to excess calories; Z68.42 - Body mass index (BMI) 45.0-49.9, adult Code(s): E66.9 - Obesity, unspecified Status: Chronic (5) Acute renal failure: Qualifiers: Acute renal failure type: unspecified Qualified Code(s): N17.9 - Acute kidney failure, unspecified Code(s): N17.9 - Acute kidney failure, unspecified Status: Resolved DS: Summary Hospital Course Reason for hospitalization: Flank pain, dysuria, nausea Hospital Course: Mrs. Norman is a 28 y.o. female with PMH significant for morbid obesity, tobacco dependence, and hx of nephrolithiasis who presented to the emergency department for the evaluation of flank pain with associated nausea and fever. She reported dysuria 3 days prior and was prescribed bactrim and completed 4 doses. Subsequently, she developed the aforementioned complaints so she presented to the ED for further evaluation. Initial workup in the ED revealed UA suspicious for UTI, WBC 9,200, Hb 12.5, Hct 39.2, CO2 21, Cr 1.3, and BUN 11. She met SIRS criteria at presentation with tachycardia and fever tmax 101.4F. Blood cultures were obtained and she was treated with IV fluids. IV ceftriaxone was initiated. CT abd/pelvis revealed 3.4 x 5.5 mm obstructing right ureteral calculus at L5-S1 level with moderate right hydronephrosis and bilateral nephrolithiasis. Urology was consulted and she was admitted to the hospitalist service for further evaluation and treatment. She underwent cystoscopy with right retrograde pyelogram and right ureteral stent placement by urology 06/29/19. Purulence was seen coming from the right kidney on cystoscopy indicating pyelonephritis. Urology recommended she continue PO antibiotics for 14 day. Urine culture revealed E. coli susceptible to ceftriaxone so she was discharged on PO cefdinir. I discussed the importance of smoking cessation and lifestyle interventions for weight loss. Renal function returned to baseline with Cr 1.00 and BUN 5 on the day of discharge. She was discharged in stable condition on the morning of 07/01/19 with instructions to follow-up with urology for stent removal outpatient. Time spent discussing smoking cessation with patient: more than 10 minutes Status at Discharge Functional status at discharge: independent ambulation Overall status at discharge: patient is back to baseline Time Spent with Patient Time attestation: Total time spent providing and/or coordinating discharge services: 30 minutes Exam Narrative: Exam Narrative: Vital Signs at Presentation: Temp Pulse Resp BP Pulse Ox 100.1 F H 121 H 20 144/83 H 100 06/29/19 12:17 06/29/19 12:17 06/29/19 12:17 06/29/19 12:17 06/29/19 12:17 Vital Signs at Discharge: Temp Pulse Resp BP Pulse Ox 97.0 F L 78 20 106/72 98 07/01/19
--- NOTE | 2019-07-05 08:35 | PC.NURSE ---
Blood cx are negative.
== END 2019-07-01 12:45 | disposition home or self-care (01) | DRG 660 ==
LOC: ANHED 15:00 → ANHSURGERY 15:27 → ANH3MED 18:24 → ANHED 07-05 09:31 → ANH3MED 07-05 09:40 → ANHED 07-05 09:40 → ANHSURGERY 07-05 09:40
PROVIDERS: Family Medicine; Physician Assistant; Urology; Admitting Provider Hospitalist; Emergency Provider Emergency Medicine; PCP Emergency Medicine; Visit Provider Internal Medicine
PROC: 0T768DZ Dilation of Right Ureter with Intraluminal Device, Via Natural or Artificial Opening Endoscopic (ICD-10-PCS; CPT 52352; principal; 2019-06-29 15:30)
DX: N17.9 Acute kidney failure, unspecified (principal); Z68.42 Body mass index [BMI] 45.0-49.9, adult; N13.6 Pyonephrosis; E66.01 Morbid (severe) obesity due to excess calories; B96.20 Unspecified Escherichia coli [E. coli] as the cause of diseases classified elsewhere; F17.210 Nicotine dependence, cigarettes, uncomplicated; Z98.84 Bariatric surgery status
CPT/HCPCS: 36415; 74018; 74177; 74420; 80048; 81001; 81025; 83605; 85025; 87040; 87077; 87086; 87088; 87186; 96361; 96374; 96375; 99285; A9270; C1769; C2617; J0131; J0696; J2250; J2405; J2704; J3010; J7030; J7120; Q9966; Q9967

== ENCOUNTER 2019-07-10 08:33 | Outpatient (CLI) | payer OTHER, MEDICAID, SELFPAY ==
[2019-07-10 09:12] LABS: Add Urine Microscopic? YES; Appearance Urine Cloudy (Clear); Bacteria Urine Trace /hpf; Bilirubin Urine Negative (Negative); Blood Urine 2+ (Negative); Budding Yeast Urine Present /hpf; Color Urine Yellow (Yellow); Glucose Urine UA Negative (Negative); Ketones Urine Negative (Negative); Leukocyte Esterase Ur 3+ LEU/UL (Negative); Mucus Urine Rare /lpf; Nitrate Urine Negative (Negative); Protein Urine 1+ mg/dL (Negative); RBC Urine 21-50 /hpf (0-2); Specific Grav Ur 1.012 (1.001-1.035); Squamous Epithelial Cell Urine Many /hpf (Few); Transitional Epi Cells Urine Rare /hpf (None Seen); Urobilinogen Urine Negative mg/dL (<2.0); WBC Urine 51-75 /hpf
== END 2019-07-10 08:34 | disposition home or self-care (01) ==
LOC: ANHLAB 08:35
PROVIDERS: PCP Emergency Medicine; Visit Provider Urology
DX: N20.0 Calculus of kidney (principal)
CPT/HCPCS: 81001; 87086

== ENCOUNTER 2019-07-11 00:29 | Outpatient (CLI) | payer OTHER, MEDICAID, SELFPAY ==
[2019-07-11 17:43] LABS: SARS-CoV-2 RNA PCR Negative
== END 2019-07-11 00:30 | disposition home or self-care (01) ==
LOC: ANHCOVIDDT 00:29
PROVIDERS: PCP Emergency Medicine; Visit Provider Urology
DX: Z01.818 Encounter for other preprocedural examination (principal); Z11.59 Encounter for screening for other viral diseases
CPT/HCPCS: 87635; C9803; U0003

== ENCOUNTER 2019-07-13 01:53 | Day surgery (SDC) | payer OTHER, MEDICAID, SELFPAY ==
[2019-07-09 09:33] VITALS: BMI 48.2
[2019-07-13] VITALS (7 sets, daily range): BP systolic 114–119; BP diastolic 72–89; PULSE 79–93; RESP 13–20; TEMP 36–36.8; O2SAT 94–99
--- NOTE | ~2019-07-13 | XR_ITS ---
EXAMINATION: XR fluoroscopy no charge DATE: 07/13/2019 11:37 INDICATION: Right ureteral stent placement TECHNIQUE: 3 fluoroscopic spot images of the abdomen and pelvis were obtained during procedure perfor med by Dr. Saha. Radiologist was not present for the imaging or procedure. The amount of fluorosco py time used during this procedure was 0.1 minutes. COMPARISON: 06/29/2019 FINDINGS: [employer] Hand image demonstrates a right internal ureteral stent in expected position. There are couple uncha nged stones project over the lower pole of the left kidney. The previously seen stones in the right u reter and kidney are not clearly visualized on the fluoroscopic images. Final image demonstrates manav lisette of the prior internal ureteral stent with a ureteroscope in the distal ureter and a wire extendin g more cephalad along the right ureter into the renal pelvis. IMPRESSION: 1. Fluoroscopy utilized during urologic procedure including removal of a prior right internal uretera l stent. See procedure note for further detail. 2. Left-sided nephrolithiasis. Reviewed, dictated and finalized at location A. IMPRESSION: 1. Fluoroscopy utilized during urologic procedure including removal of a prior right internal ureteral stent. See procedure note for further detail. 2. Left-sided nephrolithiasis.
--- NOTE | 2019-07-13 07:20 | WPDHPUPDATE1 ---
History and Physical Update Update Date/Time: 07/13/19 07:20 History and Physical has been reviewed, including an updated exam of the patient. There are NO changes in the patient's condition. Risks, benefits, and alternatives have been discussed and questions answered. Patient agrees to proceed with procedure.
[2019-07-13] MEDS: LACTATED RINGERS 1,000 ML 30 ML IV CONT (10:30)
[2019-07-13] MEDS: ceFAZolin 3 GM/D5W 100 ML 100 ML IVPB (11:12)
[2019-07-13] MEDS: LIDOCAINE HCL 2% GEL UROJET 10 ML PKG MUCOUS MEM (11:30)
--- NOTE | 2019-07-13 11:37 | P.OP_ITS ---
Procedure Note - Detailed Date of procedure: 07/13/19 Pre-op diagnosis: right ureteral stone Post-op diagnosis: same Procedure performed: Cystoscopy, right ureteroscopy, stone extraction Description of procedure: She was correctly identified informed consent obtained. She from the operating room. She was given general anesthesia. She was placed in dorsal thigh position. She was prepped and draped in a sterile fashion. Time-out performed. I performed cystoscopy. The bladder is normal other than the ureteral stent. It was grasped and brought out to the meatus. A guidewire was placed into the kidney. I performed ureteroscopy. I went up to the mid ureter. The stone was encountered and it was basketed intact. I removed the stone in its entirety. I reperformed ureteroscopy and there was no significant trauma to the ureter and no significant manipulation. I opted to not leave ureteral stent per the patient request if I felt was reasonable. The guidewires and removed she is awake and transferred to the PACU in stable co ndition. Implants: None Anesthesia: GETA Surgeon: Aldo Saha MD Estimated blood loss (mL): 0 Drains: No Packing: No Pathology: yes (Stone) Complications: No immediate complications Disposition: PACU
[2019-07-13] MEDS: TRAMADOL HCL 50 MG TABLET PO (12:19)
== END 2019-07-13 13:08 | disposition home or self-care (01) ==
PROVIDERS: PCP Emergency Medicine; Visit Provider Urology
PROC: (CPT 52352; principal; 2019-07-13 12:15)
DX: N20.1 Calculus of ureter (principal)
CPT/HCPCS: 52352; 82365; 88300; A9270; C1769; J0690; J1100; J2250; J2405; J2704; J3010; J7120

== ENCOUNTER 2020-01-03 14:12 | Emergency (ER) | payer OTHER, MEDICAID, SELFPAY ==
--- NOTE | ~2020-01-03 | CT_ITS ---
EXAMINATION: CT abdomen pelvis wo con DATE: 01/03/2020 15:23 INDICATION: Right flank pain. Right abdominal pain. TECHNIQUE: Computed tomography (CT) of the abdomen and pelvis was performed without intravenous contr ast. Automated exposure control and iterative reconstruction technique were employed. The dose-length product was 1426.11 mGy-cm. COMPARISON: CT abdomen and pelvis 06/29/2019 FINDINGS: The visualized portions of the lung bases are clear without pneumonia or pleural effusion. The heart size is normal. No pericardial effusion. There are surgical changes of the stomach. There i s a small sliding hiatal hernia. There is diffuse hepatic steatosis. There are changes of cholecystec franklyn. There is mild splenomegaly measuring 14.1 cm, likely secondary to obesity. The pancreas and adr enal glands are normal. There are 2 stones in right kidney with the larger measuring 6 mm. There is a symmetric edema around right kidney. There is mild right hydronephrosis and hydroureter. There is a 4 mm stone in distal right ureter. There are 3 stones in left kidney measuring up to 9 mm. The appendi x is normal. There are no dilated loops of bowel. There are no pathologically enlarged lymph nodes. T here is no free intraperitoneal fluid. There is mild thoracolumbar spondylosis. There is mild chronic height loss of multiple thoracic vertebral bodies. IMPRESSION: 1. 4 mm stone in distal right ureter with mild right hydronephrosis and hydroureter. 2. Bilateral nonobstructing kidney stones. Reviewed, dictated and finalized at location A. [employer]ON [employer]IST IMPRESSION: 1. 4 mm stone in distal right ureter with mild right hydronephrosis and hydrour eter. 2. Bilateral nonobstructing kidney stones.
[2020-01-03 14:17] VITALS: BP 127/85; PULSE 117; RESP 16; TEMP 37.2; O2SAT 100
[2020-01-03] MEDS: ONDANSETRON INJ 4 MG/2 ML VIAL IV PUSH (14:58)
[2020-01-03] MEDS: SODIUM CHLORIDE 0.9% IV 1,000 ML 999 ML IV CONT (14:58)
[2020-01-03] MEDS: fentaNYL CITRATE INJ (*CRX) 100 MCG/2 ML VIAL 50 MCG IV PUSH (14:59)
[2020-01-03 15:11] LABS: Hematocrit 39.5 % (37.0-47.0); Hemoglobin 12.6 g/dL (12.0-15.0); Mean Corpuscular HGB Conc 31.9 g/dl (32-36); Mean Corpuscular Hemoglobin 28.5 pg (26-34); Mean Corpuscular Volume 89.4 fl (80-100); Platelet Count Result 237 k/mm3 (150-375); Red Blood Count 4.42 M/mm3 (4.2-5.4); Red Cell Distribution Width 14.5 % (11.5-14.5); White Blood Count 13.1 K/mm3 (4.5-10.0)
[2020-01-03 15:22] LABS: Add Urine Microscopic? YES; Appearance Urine Clear (Clear); Bacteria Urine 1+ /hpf; Bilirubin Urine Negative (Negative); Blood Urine 3+ (Negative); Color Urine Amber (Yellow); Glucose Urine UA Negative (Negative); Ketones Urine Negative (Negative); Leukocyte Esterase Ur 2+ LEU/UL (Negative); Nitrate Urine Positive (Negative); Protein Urine 2+ mg/dL (Negative); RBC Urine >75 /hpf (0-2); Specific Grav Ur 1.018 (1.001-1.035); Squamous Epithelial Cell Urine Many /hpf (Few); WBC Urine >75 /hpf
[2020-01-03 15:25] LABS: Anion Gap 12 mmol/L (8-16); Blood Urea Nitrogen 14 mg/dL (7-17); Calcium 8.5 mg/dL (8.4-10.2); Carbon Dioxide 22 mmol/L (22-30); Chloride 109 mmol/L (98-107); Estimated CRCL calculation 88 ml/min; Estimated Glomerular Filt Rate 58; Glucose 83 mg/dL (65-105); Potassium 3.7 mmol/L (3.4-5.0); Sodium 143 mmol/L (137-145)
[2020-01-03 15:31] LABS: Band Neutrophils Percent 14 % (0-6); Lymphocytes Absolute Manual 0.26 K/mm3 (1.1-4.5); Monocytes Absolute Manual 0.78 K/mm3 (0.1-0.90); Monocytes Percent Manual 6 % (3-9); Neutrophils Absolute Manual 12.05 K/mm3 (1.7-7.2); Neutrophils Percent Manual 78 % (46-73); Platelet Estimate Adequate (Adequate); Total Cells Counted 100
--- NOTE | 2020-01-03 15:51 | ED.GENADULT ---
HPI - General Adult General Chief complaint: Back Pain/Injury Stated complaint: R FLANK PAIN, HX KIDNEY STONES Time Seen by Provider: 01/03/20 14:21 History of Present Illness HPI narrative: Patient is a 29-year-old female who presents to the ER with abdominal pain. Patient reports symptoms began yesterday. Starts in her right flank and goes to her right upper and lower abdomen. Associate with urinary frequency. She has had no dysuria or fever or chills. She has had some nausea with vomiting. Feels similar to previous kidney stone she is passed. She tried taking some Azo to see if that would help this morning. Patient is currently on the last day of her period. Related Data Allergies Allergy/AdvReac Type Severity Reaction Status Date / Time ciprofloxacin AdvReac Unknown SWELLING Verified 07/13/19 10:40 hydromorphone AdvReac Unknown EXTREME Verified 07/13/19 10:40 STOMACH CRAMPS naproxen AdvReac Unknown Swelling Verified 07/13/19 10:40 Review of Systems Review of Systems: All systems reviewed & are unremarkable except as noted in HPI and below Constitutional: Constitutional: Denies chills, Denies fever(s) and Denies weakness ENT: Denies nasal congestion and Denies sore throat Gastrointestinal: Gastrointestinal: Reports abdominal pain, Denies diarrhea, Reports nausea and Reports vomiting Genitourinary: Genitourinary: Reports nocturia, Denies dysuria and Reports flank pain PMFSH Past Medical History Medical History Morbid obesity Obesity BMI 48 Patient denies significant medical history Renal stones Smoker Surgical History Surgical History (Updated 06/29/19 @ 20:34 by Janna Burns NP) History of section x2 History of cholecystectomy History of gastric surgery sleeve 11 years ago S/P ureteral stent placement Family History Family History (Updated 06/29/19 @ 20:37 by Janna Burns NP) Father Lung cancer Hypertension Mother Hypertension Family history of thyroid problem Heart problem Depression Sibling Pneumonia is from pneumonia Social History Social History (Updated 06/29/19 @ 20:38 by Janna Burns NP) Social History: the patient is and her is the surrogate decision maker. Patient wishes to be full code. The patient has 2 step children and 2 biological children. The patient works for the [employer]. She continues to smoke half pack a cigarettes a day. For 10 years. No alcohol marijuana or illicit drugs. Smoking packs per day: 0.5 Smoking cigarettes per day: 10.0 Years smoked: 15 Smoking pack-years: 7.50 Smoking status: Current every day smoker Tobacco type: cigarettes Second hand tobacco smoke exposure: Yes Alcohol intake: current Substance use: never Substance use type: does not use Gender identity (if verbalized by the patient): Female Spiritual care concerns: No Exam Narrative: Exam Narrative: GENERAL: Uncomfortable appearing, well-nourished, and in no acute distress. HEAD: Normocephalic, atraumatic. ENT: Mucous membranes moist. CHEST: Clear to auscultation. No respiratory distress. HEART: Regular rate and rhythm. Normal peripheral pulses. ABDOMEN: Soft, tender palpation right upper and right lower quadrants, nondistended, right flank pain. EXTREMITIES: Normal range of motion. No edema. NEURO: Alert and oriented x3. PSYCH: Normal mood and affect. Course Course Emergency Course: Patient informed of results. Feels like she could manage her pain at home. Discussed case with urology. Patient will receive some antibiotics and be discharged on antibiotics/Flomax/pain control. Patient has received a liter of fluid. Vital Signs Vital signs: Vital Signs Temperature 99 F 01/03/20 14:17 Pulse Rate 117 H 01/03/20 14:17 Respiratory Rate 16 01/03/20 14:17 Blood Pressure 127/85 01/03/20 14:17 Pulse Oximetry 100 01/03/20 14:17 Temperature 99 F
[2020-01-03 17:15] VITALS: BP 90/56; PULSE 88; RESP 16
--- NOTE | 2020-01-10 16:20 | PC.NURSE ---
Late Entry note: Per APR, NS was stopped and 1000cc infused 01/03/20 @ 1537. Per Apr, Ceftriaxone was stopped and 50cc infused 01/03/20 @ 1637.
== END 2020-01-03 17:17 | disposition home or self-care (01) ==
PROVIDERS: Emergency Provider Emergency Medicine; PCP Emergency Medicine
DX: N13.2 Hydronephrosis with renal and ureteral calculous obstruction (principal); N39.0 Urinary tract infection, site not specified; E66.01 Morbid (severe) obesity due to excess calories; Z68.42 Body mass index [BMI] 45.0-49.9, adult; Z87.442 Personal history of urinary calculi; F17.210 Nicotine dependence, cigarettes, uncomplicated
CPT/HCPCS: 36415; 74176; 80048; 81001; 81025; 85025; 87077; 87086; 87088; 87186; 96361; 96374; 96375; 99284; J0696; J2405; J3010; J7030

== ENCOUNTER → 2021-07-24 05:00 | Outpatient (CLI) | payer OTHER, MEDICAID, SELFPAY ==
[2021-07-24 11:59] LABS: SARS-CoV-2 RNA PCR Negative
== END ==
PROVIDERS: PCP Emergency Medicine; Visit Provider Emergency Medicine
DX: Z20.822 Contact with and (suspected) exposure to COVID-19 (principal)
CPT/HCPCS: C9803; U0003; U0005

== ENCOUNTER 2022-06-15 00:45 | Inpatient (IN) | payer OTHER, MEDICAID, SELFPAY ==
[2022-06-15] VITALS (10 sets, daily range): BP systolic 108–152; BP diastolic 64–104; PULSE 78–97; RESP 12–18; TEMP 36.5–37.2; O2SAT 96–100
--- NOTE | ~2022-06-15 | XR_ITS ---
XR abdomen/kub 1V 06/15/2022 08:40 Indication: Right ureteral stone Procedure: KUB Comparison: CT dated 06/15/2022 and KUB dated 06/29/2019 Findings: There are bilateral renal stones, largest on the right measuring 1.5 cm. There are cholecys tectomy clips. Bowel gas pattern is nonobstructive. No acute osseous abnormality. There is levoscolio sis. There are pelvic phleboliths. Impression: 1: Bilateral nephrolithiasis. Reviewed, dictated and finalized at location L. Impression: 1: Bilateral nephrolithiasis.
--- NOTE | ~2022-06-15 | CT_ITS ---
Non-contrast CT scan of the Abdomen and Pelvis Clinical indication: Right flank pain Technique: 2.5 mm axial scans were obtained through the abdomen and pelvis without intravenous or or al contrast. Dose reduction technique was used on this scan by utilizing automated exposure control a nd iterative reconstruction technique. The dose-length product (DLP) was 1250.89 mGy-cm. COMPARISON: 01/03/2020 Findings: Images through the lung bases reveal no abnormalities. Nonobstructing left lower pole renal stones measuring up to 8 mm in diameter. No left ureteral stone or left hydronephrosis. There is a 6 x 4 mm stone in the very proximal right ureter (axial image 89), with mild right hydronephrosis. Additional nonobstructing right renal stone measures 1 cm in diamete r. The liver, spleen, pancreas, and adrenals appear normal. Cholecystectomy clips are present. There is no aortic aneurysm. There is no evidence of bowel obstruction. There is evidence of prior bariatric surgery. Normal appen damari. Images through the pelvis were performed. There is no evidence of ascites or lymphadenopathy. Urinary bladder unremarkable. No adnexal mass seen. Impression: 6 x 4 mm stone in the very proximal right ureter, with mild right hydronephrosis. Additional bilateral nonobstructing stones, as detailed above. Reviewed, dictated and finalized at location M. Impression: 6 x 4 mm stone in the very proximal right ureter, with mild right hydronephrosi s. Additional bilateral nonobstructing stones, as detailed above.
--- NOTE | ~2022-06-15 | XR_ITS ---
EXAMINATION: XR retrograde pyelo w/stent RT DATE: 06/15/2022 14:30 CDT INDICATION: RIGHT STENT PLACEMENT . TECHNIQUE: 6 fluoroscopic images of the abdomen and pelvis were obtained during right ureteral stent placement performed by the surgeon. I was not present in the operating room. Fluoroscopy exposure lacie e was 23.9 seconds. DAP [id number] mGym2. COMPARISON: CT abdomen and pelvis 06/15/2022 FINDINGS: 6 mm proximal right ureteral stone. Contrast fills a mildly dilated collecting system and subsequent images. Post stent deployment image demonstrates the distal coil over the bladder. IMPRESSION: Fluoroscopic documentation of right ureteral stent placement. Please refer to the operative note for complete procedural details . Reviewed, dictated and finalized at location K. IMPRESSION: Fluoroscopic documentation of right ureteral stent placement. Please refer to [facility]al del rio operative note for complete procedural details .
--- NOTE | 2022-06-15 02:42 | ED.ABDPAIN ---
HPI - Abdominal Pain General Chief Complaint: Abdominal Pain <LITTLE Dyer Last Filed: 06/15/22 02:56> Stated Complaint: right low back pain, radiates to abd <LITTLE Dyer Last Filed: 06/15/22 02:56> Time Seen by Provider: 06/15/22 02:36 <LITTLE Dyer Last Filed: 06/15/22 02:56> History of Present Illness HPI narrative: 31-year-old female with history of kidney stones here for evaluation of right flank pain x3 hours. Patient states that the pain woke her up from her sleep, and is present in her right flank and wraps around to her right lower quadrant. History of kidney stones and states feels very similar. Reports nausea but no vomiting. Took 4 ibuprofen without relief of her symptoms. No urinary symptoms, fevers, chills. Her kidney stone in 2019 required a stent. <LITTLE Dyer Last Filed: 06/15/22 02:56> Related Data Allergies/Adverse Reactions: Allergies Allergy/AdvReac Type Severity Reaction Status Date / Time ciprofloxacin AdvReac Unknown SWELLING Verified 06/15/22 02:41 hydromorphone AdvReac Unknown EXTREME Verified 06/15/22 02:41 STOMACH CRAMPS naproxen AdvReac Unknown Swelling Verified 06/15/22 02:41 <LITTLE Dyer Last Filed: 06/15/22 02:56> Review of Systems Review of Systems: Gen.: Denies fevers or chills Eyes: Denies eye pain or visual change ENT: Denies congestion Respiratory: Denies shortness of breath or cough CV: Denies chest pain or palpitations GI: Reports nausea : denies burning, urgency, frequency or hematuria Musculoskeletal: Reports back pain Neuro: Denies numbness, tingling, weakness or focal weakness Skin: Denies rash Except as documented, all other systems reviewed and negative <LITTLE Dyer Last Filed: 06/15/22 02:56> [facility] Past Medical History Medical History: Medical History Morbid obesity Obesity BMI 48 Patient denies significant medical history Renal stones Smoker <Margarita Montejo PA-C - Last Filed: 06/15/22 02:56> Surgical History Surgical History: Surgical History History of section x2 History of cholecystectomy History of gastric surgery sleeve 11 years ago S/P ureteral stent placement <Margarita Montejo PA-C - Last Filed: 06/15/22 02:56> Family History Family History: Family History (Updated 06/29/19 @ 20:37 by Janna Burns NP) Father Lung cancer Hypertension Mother Hypertension Family history of thyroid problem Heart problem Depression Sibling Pneumonia is from pneumonia <Margarita Montejo PA-C - Last Filed: 06/15/22 02:56> Social History Social History: Social History (Updated 06/29/19 @ 20:38 by Janna Burns NP) Social History: the patient is and her is the surrogate decision maker. Patient wishes to be full code. The patient has 2 step children and 2 biological children. 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 For 10 years. No alcohol marijuana or illicit drugs. Smoking packs per day: 0.5 Smoking cigarettes per day: 10.0 Years smoked: 15 Smoking pack-years: 7.50 Smoking status: Current every day smoker Tobacco type: cigarettes Second hand tobacco smoke exposure: Yes Alcohol intake: current Substance use: never Substance use type: does not use Gender identity (if verbalized by the patient): Female Spiritual care concerns: No <Margarita Montejo PA-C - Last Filed: 06/15/22 02:56> Exam Narrative: APPEARANCE: Well appearing, no pain in distress, well-nourished. Head: Normocephalic and atraumatic. EYES: PERRLA/EOMI, conjunctivae clear NOSE: No nasal drainage EARS: External ear normal in appearance THROAT: Oropharynx is clear. Mucous membranes are moist
[2022-06-15] MEDS: MORPHINE SULFATE (*CRX) 4 MG/ML INJ IV PUSH (02:57)
[2022-06-15] MEDS: ONDANSETRON INJ 4 MG/2 ML VIAL IV PUSH (02:57)
[2022-06-15] MEDS: SODIUM CHLORIDE 0.9% IV 1,000 ML 999 ML IV CONT (02:57)
[2022-06-15 03:20] LABS: Basophils Absolute Auto 0.1 K/mm3 (0.0-0.1); Basophils Percent Auto 0.5 % (0.2-1.2); Eosinophils Absolute Auto 0.2 K/mm3 (0-0.3); Eosinophils Percent Auto 1.7 % (0-4.4); Hematocrit 40.7 % (37.0-47.0); Hemoglobin 12.9 g/dL (12.0-15.0); Immature Granulocyte Absolute 0.04 K/mm3 (0.00-0.031); Immature Granulocyte Percent A 0.4 % (0-0.5); Lymphocytes Percent Auto 9.7 % (18.3-44.2); Mean Corpuscular HGB Conc 31.7 g/dl (32-36); Mean Corpuscular Hemoglobin 28.9 pg (26-34); Mean Corpuscular Volume 91.1 fl (80-100); Mean Platelet Volume 9.7 fl (7.4-10.4); Monocytes Absolute Auto 0.1 K/mm3 (0.1-0.6); Monocytes Percent Auto 0.7 % (2.6-8.5); Platelet Count Result 223 k/mm3 (150-375); Red Blood Count 4.47 M/mm3 (4.2-5.4); Red Cell Distribution Width 14.9 % (11.5-14.5); White Blood Count 10.3 K/mm3 (4.5-10.0)
[2022-06-15 03:27] LABS: Appearance Urine Turbid (Clear); Bacteria Urine 4+ /hpf; Bilirubin Urine Negative (Negative); Blood Urine 1+ (Negative); Color Urine Yellow (Yellow); Glucose Urine UA Negative (Negative); Ketones Urine Negative (Negative); Leukocyte Esterase Ur 3+ LEU/UL (Negative); Nitrate Urine Negative (Negative); Non Pathogenic Casts 0-2; Protein Urine Trace mg/dL (Negative); Specific Grav Ur 1.018 (1.001-1.035); Squamous Epithelial Cell Urine Occasional /hpf (Few); Urobilinogen Urine 0.2 mg/dL (<2.0); WBC Urine >100 /hpf
[2022-06-15 03:38] LABS: Alanine Aminotransferase 47 U/L (6-35); Albumin Level 4.2 g/dL (3.5-5.1); Alkaline Phosphatase 86 U/L (38-126); Anion Gap 7 mmol/L (8-16); Aspartate Amino Transferase 34 U/L (14-36); Bilirubin,Total 0.6 mg/dL (0.2-1.3); Blood Urea Nitrogen 13 mg/dL (7-17); Calcium 8.7 mg/dL (8.4-10.2); Carbon Dioxide 26 mmol/L (22-30); Chloride 105 mmol/L (98-107); Estimated CRCL calculation 117 ml/min; Estimated Glomerular Filt Rate > 60; Glucose 103 mg/dL (65-110); Potassium 3.7 mmol/L (3.4-5.0); Sodium 138 mmol/L (137-145)
[2022-06-15 04:00] LABS: Add Urine Microscopic? YES
[2022-06-15] MEDS: PROCHLORPERAZINE EDISYLATE 10 MG/2 ML VIAL IV PUSH (04:13)
--- NOTE | 2022-06-15 05:28 | PM.IMHP ---
H&P: HPI History of Present Illness Date/Time: 06/15/22 05:28 Chief Complaint: right flank pain Narrative: this is a 31-year-old female with past medical history significant for morbid obesity, kidney stones, tobacco dependence smokes half a pack a day, patient presents to the emergency room due to right-sided flank pain with radiation to the groin area, denies any fevers rigors or chills had some nausea and vomiting, rates her pain at 10/10 in intensity at its worst for only relieved by pain medication patient has been in her usual state of health up until this point, denies hematuria, denies pain or burning with urination. preliminary workup was significant for CT of abdomen and pelvis was reported as: Non-contrast CT scan of the Abdomen and Pelvis Clinical indication: Right flank pain Technique:? 2.5 mm axial scans were obtained through the abdomen and pelvis without intravenous or oral contrast. Dose reduction technique was used on this scan by utilizing automated exposure control and iterative reconstruction technique. The dose-length product (DLP) was 1250.89 mGy-cm. COMPARISON: 01/03/2020 Findings:? Images through the lung bases reveal no abnormalities. Nonobstructing left lower pole renal stones measuring up to 8 mm in diameter. No left ureteral stone or left hydronephrosis. There is a 6 x 4 mm stone in the very proximal right ureter (axial image 89), with mild right hydronephrosis. Additional nonobstructing right renal stone measures 1 cm in diameter. The liver, spleen, pancreas, and adrenals appear normal. Cholecystectomy clips are present. There is no aortic aneurysm. ? There is no evidence of bowel obstruction. There is evidence of prior bariatric surgery. Normal appendix. Images through the pelvis were performed. There is no evidence of ascites or lymphadenopathy. Urinary bladder unremarkable. No adnexal mass seen. Impression: 6 x 4 mm stone in the very proximal right ureter, with mild right hydronephrosis. patient is been admitted for further evaluation management and treatment. Review of Systems Review of Systems: right-sided flank pain, nausea, vomit Constitutional: Constitutional: Denies chills, Denies fever(s) and Denies night sweats Eyes: Eyes: Denies change in vision ENT: Denies dysphagia and Denies odynophagia Cardiovascular: Cardiovascular: Denies chest pain, Denies radiating jaw, neck or arm pain, Denies palpitations and Denies dyspnea Respiratory: Respiratory: Denies chest congestion, Denies cough, Denies excessive phlegm production and Denies dyspnea Gastrointestinal: Gastrointestinal: Denies dyspepsia, Denies heartburn, Denies diarrhea, Reports nausea and Reports vomiting Genitourinary: Genitourinary: Denies dysuria and Reports flank pain Integumentary/Breasts: Skin/Breast: Denies rash Neurologic: Denies focal weakness and Denies Sensory deficit (Neuro) Psychiatric: Psychiatric: Reports no additional psychiatric complaints and Reports as per HPI Endocrine: Endocrine: Denies cold intolerance, Denies flushing, Denies heat intolerance, Denies polyphagia, Denies polydipsia and Denies palpitations Hematologic/Lymphatic: Hematologic/Lymphatic: Reports no additional hematologic/lymphatic complaints and Reports as per HPI Allergic/Immunologic: Allergic/Immunologic: Reports no additional allergic/immunologic complaints and Reports as per HPI PMFSH Past Medical History Medical History Depression Morbid obesity Renal stones Smoker Surgical History Surgical History History of section x2 History of cholecystectomy History of gastric surgery sleeve 11 years ago S/P ureteral stent placement Family History Family History Father Lung cancer Hypertension Mother Hypertension Family history of thyroid problem Heart problem Depression Si
[2022-06-15] MEDS: SODIUM CHLORIDE 0.9% IV 1,000 ML 125 ML IV CONT (06:11)
--- NOTE | 2022-06-15 06:16 | PC.NURSE ---
This patient, Stephanie Norman, was admitted to Medical Room 340-01. Patient/family oriented to hospital policies and general routines including ID bracelet, bed and alarms, visiting hours, pain management, procedures, bathroom and other care routines, personal items, smoking policy, room service/diet, and visiting hours. Information on how to activate the Rapid Response Team has been discussed. Patient/Family are encouraged to report perceived risks to care and to ask questions if they do not understand what they are told or what they should do.
--- NOTE | 2022-06-15 08:39 | PM.IMPN ---
Progress Note: A&P Assessment and Plan (1) Ureterolithiasis: Code(s): N20.1 - Calculus of ureter Status: Acute Assessment and Plan: Patient presented with right flank pain radiating to her right lower abdomen. She has h/o kidney stones with ureteral stent placed in 2019. CT abdomen/pelvis demonstrates 6x4 mm proximal right ureter with mild hydronephrosis, additional 1 cm stone nonobstructing right renal stone also noted, and 8 mm nonobstructing stone left lower pole Urology consulted. NPO for possible stent placement continue IV fluids supportive care with IV analgesics and antiemetics. (2) UTI (urinary tract infection): Qualifiers: Hematuria presence: without hematuria Urinary tract infection type: acute cystitis Qualified Code(s): N30.00 - Acute cystitis without hematuria Code(s): N39.0 - Urinary tract infection, site not specified Status: Acute Assessment and Plan: UA with 3+ leukocytes esterase, 4+ bacteria, >100 WBC, occasional squamous cells and no nitrates. WBC 10.3 on admission. Rocephin 1 gram IV given in ED on 06/15/22. c continue IV Rocephin and adjust antibiotics per urine culture. (3) Obesity: Qualifiers: Body mass index: BMI 45.0-49.9 Obesity classification: adult class 3 (BMI >= 40) Obesity type: unspecified obesity type Serious obesity comorbidity presence: without serious comorbidity Qualified Code(s): E66.01 - Morbid (severe) obesity due to excess calories; Z68.42 - Body mass index (BMI) 45.0-49.9, adult Code(s): E66.9 - Obesity, unspecified Status: Chronic Assessment and Plan: BMI 46. Recommend weight loss with lifestyle modifications. (4) Depression: Qualifiers: Active/Remission status: remission status unspecified Depression Type: major depressive disorder Major depression recurrence: unspecified whether recurrent Qualified Code(s): F32.9 - Major depressive disorder, single episode, unspecified Code(s): F32.A - Depression, unspecified Status: Chronic Assessment and Plan: Chronic, does not appear to be in acute exacerbation. Continue Auvelity if patient is able to bring from home. Time Spent With Patient Time: minutes time spent with patient assessment, patient education, review of labs, vitals and nursing documentation. All questions answered to the best of my ability. Subjective Date/time seen: 06/15/22 08:39 Exam Narrative: General: No acute distress.? Mental Status/Psych: Awake, alert and oriented x4 with clear speech. Pleasant and cooperative. Skin: Skin fair, warm, dry and intact without rashes or lesions. No open wounds. Good turgor.? HEENT: Normocephalic. Sclera is non-icteric. Pupils equal and round. Oral mucosa pink and moist. Neck: No JVD. Heart: S1 and S2 regular rate and rhythm. No murmurs, gallops, or rubs auscultated. Chest: Respirations even and unlabored. Lung sounds are clear to auscultation without wheezes, rhonchi, or rales. Abdomen: Soft, obese and non-tender to palpation.? Bowel sounds present in all 4 quadrants. No guarding. Extremities:? No edema, erythema or calf tenderness. Point tenderness right knee with palpation. No effusion. Grossly normal ROM. Neurological: No focal deficits. Sensation intact all extremities Objective Data Vital Signs Vital Signs: Vital Signs - 24 hr 06/15/22 00:49 06/15/22 02:38 06/15/22 03:52 Temperature 98.1 F 97.8 F Pulse Rate 85 78 Respiratory Rate 16 15 Blood Pressure 152/104 H 144/100 H Pulse Oximetry 99 99 Oxygen Delivery Room Air 06/15/22 04:54 06/15/22 06:01 Temperature 98.2 F Pulse Rate 96 92 Respiratory Rate 15 18 Blood Pressure 108/64 121/73 Pulse Oximetry 98 96 Oxygen Delivery Intake/Output Intake/Output: Intake & Output 06/12/22 06/13/22 06/14/22 06/15/22 23:59 23:59 23:59 23:59 Intake Total 1050 Balance 1050 Meds/Results Medications:
--- NOTE | 2022-06-15 13:45 | WPDANESEPPF ---
Anes - Initial Pre Proc Eval Procedure: Operation Date: 06/15/22 15:00 Proposed Procedures p Cystoscopy, Right Retrograde Pyelogram, Right Stent Placement, Possible Right Ureteroscopy, Possible Right Stone Extraction, Possiblel Jeraldium Laser - Bertt Stauffer MD Date/Time: 06/15/22 13:45 Surgeon: Jun Munguia MD Pre Op Diagnosis: Right-sided Ureterolithiasis w/obstruction and UTI Patient Data Age: 31 Gender: F Height: 1.65 m Weight: 127.2 kg Last Vital Signs Temp 36.8 C 06/15/22 06:01 Pulse 92 06/15/22 06:01 Resp 18 06/15/22 06:01 BP 121/73 06/15/22 06:01 Pulse Ox 96 06/15/22 06:01 O2 Del Method Room Air 06/15/22 00:49 Allergies Allergy/AdvReac Type Severity Reaction Status Date / Time ciprofloxacin AdvReac Unknown SWELLING Verified 06/15/22 02:41 hydromorphone AdvReac Unknown EXTREME Verified 06/15/22 02:41 STOMACH CRAMPS naproxen AdvReac Unknown Swelling Verified 06/15/22 02:41 Home Medications Medication Instructions Recorded Confirmed Type dextromethorphan IR 45 1 tablet PO BID 06/15/22 06/15/22 History mg-bupropion ER 105 mg biphasic tablet (Auvelity) Laboratory Tests 06/15/22 06/15/22 02:58 02:59 WBC 10.3 H K/mm3 (4.5-10.0) RBC 4.47 M/mm3 (4.2-5.4) Hgb 12.9 g/dL (12.0-15.0) Hct 40.7 % (37.0-47.0) MCV 91.1 fl (80-100) MCH 28.9 pg (26-34) MCHC 31.7 L g/dl (32-36) RDW 14.9 H % (11.5-14.5) Plt Count 223 k/mm3 (150-375) MPV 9.7 fl (7.4-10.4) Immature Gran % (Auto) 0.4 % (0-0.5) Neut % (Auto) 87.0 H % (45.5-73.1) Lymph % (Auto) 9.7 L % (18.3-44.2) Bowie % (Auto) 0.7 L % (2.6-8.5) Eos % (Auto) 1.7 % (0-4.4) Baso % (Auto) 0.5 % (0.2-1.2) Lymph # (Auto) 1.00 K/mm3 (0.9-3.2) Bowie # (Auto) 0.1 K/mm3 (0.1-0.6) Eos # (Auto) 0.2 K/mm3 (0-0.3) Baso # (Auto) 0.1 K/mm3 (0.0-0.1) Abs Immat Gran (auto) 0.04 H K/mm3 (0.00-0.031) Absolute Neuts (auto) 9.0 H K/mm3 (1.3-6.7) Absolute Nucleated RBC 0.0 K/mm3 (0.0-0.012) Nucleated RBC % 0.0 % (0.0-0.2) Sodium 138 mmol/L (137-145) Potassium 3.7 mmol/L (3.4-5.0) Chloride 105 mmol/L (98-107) Carbon Dioxide 26 mmol/L (22-30) Anion Gap 7 L mmol/L (8-16) BUN 13 mg/dL (7-17) Creatinine 0.80 mg/dL (0.7-1.0) Estim Creat Clear Calc 117 ml/min Estimated GFR > 60 (59 - ) Glucose 103 mg/dL (65-110) Calcium 8.7 mg/dL (8.4-10.2) Total Bilirubin 0.6 mg/dL (0.2-1.3) AST 34 U/L (14-36) ALT 47 H U/L (6-35) Alkaline Phosphatase 86 U/L (38-126) Total Protein 7.0 g/dL (6.3-8.2) Albumin 4.2 g/dL (3.5-5.1) Urine Color Yellow (Yellow) Urine Appearance Turbid H (Clear) Urine pH 6.0 (5.0-9.0) Ur Specific Howell 1.018 (1.001-1.035) Urine Protein Trace mg/dL (Negative) Urine Glucose (UA) Negative mg/dL (Negative) Urine Ketones Negative mg/dL (Negative) Ur Blood (Man) 1+ H (Negative) Urine Nitrate Negative (Negative) Urine Bilirubin Negative (Negative) Urine Urobilinogen 0.2 mg/dL (<2.0) Leukocyte Esterase Rfl 3+ H MAGDA/UL (Negative) Urine RBC 3-5 H /hpf (0-2) Urine WBC >100 H /hpf Ur Squamous Epith Cells Occasional /hpf (Few) Urine Bacteria 4+ H /hpf Urine Casts 0-2 Patient hx anesthesia problems: none Family hx anesthesia problems: none Results Review: All pre-operative results and documents have been reviewed as part of the pre-operative evaluation. [facility] Past Medical History Medical History Depression Morbid obesity Renal stones Smoker Surgical History Surgical History (Reviewed 06/15/22 @ 13
--- NOTE | 2022-06-15 14:04 | WPDURCON ---
Assessment and Plan Assessment and plan (1) Ureterolithiasis: Code(s): N20.1 - Calculus of ureter Status: Acute Assessment and Plan: Plan for cysto, right retrograde pyelogram, right ureteral stent placement. Given her urinary tract infection will need to get over this acute event and plan on outpatient ureteroscopy with laser in the future. (2) UTI (urinary tract infection): Qualifiers: Hematuria presence: without hematuria Urinary tract infection type: acute cystitis Qualified Code(s): N30.00 - Acute cystitis without hematuria Code(s): N39.0 - Urinary tract infection, site not specified Status: Acute Assessment and Plan: Awaiting final cultures. See above Urology Consult Note HPI Date Seen: 06/15/22 Time Seen: 14:04 Requesting Physician: Jun Munguia MD Primary Care Provider: Liam Rich MD Consult Narrative Reason for consult: Obstructing right ureteral calculus with urinary tract infection Narrative: Stephanie Norman is a 31 year old female with prior history of stones requiring intervention. She presented the emergency room with right flank pain. She was found to have a 6 x 4 mm obstructing right proximal stone with some mild hydro. Her urinalysis also had bacteria with greater than 100 white cells present. She is admitted for further management. At the present time she is resting comfortably but does have narcotics on board. She also has a 1 cm stone in the kidney on the right. An 8 mm stone in the left kidney. Review of Systems Review of Systems: All systems reviewed & are unremarkable except as noted in HPI and below PMFSH Past Medical History Medical History Depression Morbid obesity Renal stones Smoker Surgical History Surgical History History of section x2 History of cholecystectomy History of gastric surgery sleeve 11 years ago S/P ureteral stent placement Family History Family History Father Lung cancer Hypertension Mother Hypertension Family history of thyroid problem Heart problem Depression Sibling Pneumonia is from pneumonia Social History Social History Social History: the patient is and her is the surrogate decision maker. Patient wishes to be full code. The patient has 2 step children and 2 biological children. 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 For 10 years. No alcohol marijuana or illicit drugs. Smoking packs per day: 0.5 Smoking cigarettes per day: 10.0 Years smoked: 15 Smoking pack-years: 7.50 Smoking status: Current every day smoker Tobacco type: cigarettes Second hand tobacco smoke exposure: Yes Alcohol intake: current Substance use: never Substance use type: does not use Lack of Transportation: No Lack of Food: Never True Current Housing: I Have Housing Concerned About Future Housing: Decline to Answer Difficulty Paying Gas/Electric Bills: Decline to Answer Difficulty Paying for Meds: Decline to Answer Currently Unemployed: Decline to Answer Education: Associate Degree Difficulty w/ Childcare or Family Care: No Gender identity (if verbalized by the patient): Female Spiritual care concerns: No Meds Home Medications and Allergies Home Medications Medication Instructions Recorded Confirmed Type dextromethorphan IR 45 1 tablet PO BID 06/15/22 06/15/22 History mg-bupropion ER 105 mg biphasic tablet (Auvelity) Allergies Allergy/AdvReac Type Severity Reaction Status Date / Time ciprofloxacin AdvReac Unknown SWELLING Verified 06/15/22 02:41 hydromorphone AdvReac Unknown EXTREME Verified 06/15/22 02:41 STOMACH CRAMPS naproxen AdvReac Unknown Sw
--- NOTE | 2022-06-15 14:07 | WPDHPUPDATE1 ---
History and Physical Update Update Date/Time: 06/15/22 14:07 History and Physical has been reviewed, including an updated exam of the patient. There are NO changes in the patient's condition. Risks, benefits, and alternatives have been discussed and questions answered. Patient agrees to proceed with procedure. Proceed with cysto, right retrograde pyelogram, right ureteral stent placement
[2022-06-15] MEDS: LACTATED RINGERS 1,000 ML 30 ML IV CONT (14:14)
--- NOTE | 2022-06-15 14:39 | SUR.OPER ---
4.8FR STENT RIGHT EXP 2025-03-28, LOT [id number]
[2022-06-15] MEDS: LIDOCAINE HCL 2% GEL UROJET 10 ML PKG MUCOUS MEM (14:42)
--- NOTE | 2022-06-15 14:42 | P.OP_ITS ---
Procedure Note - Detailed Date of Procedure 06/15/22 Pre-op Diagnosis Right-sided Ureterolithiasis w/obstruction and UTI Post-op Diagnosis Same Procedure Performed Cystoscopy, right retrograde pyelogram, right ureteral stent placement 4.8 [place] contour Surgeon Brett Stauffer MD Anesthesia General Description of Procedure Patient is taken the operative suite correctly identified. Once anesthesia was obtained she was placed in dorsal lithotomy position and prepped and draped usual sterile fashion. Twenty-two South African scope was inserted the bladder. The right ureteral orifice was cannulated with a Mobile catheter a pyelogram was performed. Contrast made its way into the kidney. Was unable to visualize the stone. Five guidewire was then inserted up to the kidney. 4.8 [place] contour stent was placed with the proximal end coiled in the renal pelvis and the distal in the bladder. There was some debris which was seen coming from the ureteral orifice. Bladder was drained. 2% viscous lidocaine was inserted urethra patient is taken recovery stable condition. Will plan on a outpatient cysto retrograde right ureteroscopy with laser and stent exchange once she gets over her acute infection. This completes the taken please send a copy to my office Estimated Blood Loss 0 Drains Yes Packing No Pathology None sent Complications No immediate complications Condition Stable Disposition PACU
--- NOTE | 2022-06-15 17:05 | PM.DS ---
DS: Admitting Diagnosis Discharge Date 06/15/2022 Admitting Diagnosis Ureterolithiasis UTI (urinary tract infection) DS: Discharge Diagnosis Discharge Diagnosis (1) Ureterolithiasis: Code(s): N20.1 - Calculus of ureter Status: Acute Assessment and Plan: Patient presented with right flank pain radiating to her right lower abdomen. She has h/o kidney stones with ureteral stent placed in 2019. CT abdomen/pelvis demonstrates 6x4 mm proximal right ureter with mild hydronephrosis, additional 1 cm stone nonobstructing right renal stone also noted, and 8 mm nonobstructing stone left lower pole Urology consulted. Treated with IV fluids, IV analgesics and antiemetics. 06/15/22 patient underwent ureteral stent placement. (2) UTI (urinary tract infection): Qualifiers: Hematuria presence: without hematuria Urinary tract infection type: acute cystitis Qualified Code(s): N30.00 - Acute cystitis without hematuria Code(s): N39.0 - Urinary tract infection, site not specified Status: Acute Assessment and Plan: UA with 3+ leukocytes esterase, 4+ bacteria, >100 WBC, occasional squamous cells and no nitrates. WBC 10.3 on admission. Rocephin 1 gram IV given in ED on 06/15/22. Transitioned to cefdinir 300 mg PO BID x6 more days for total 7-day course. urine culture results had not yet been finalized prior to discharge. (3) Obesity: Qualifiers: Body mass index: BMI 45.0-49.9 Obesity classification: adult class 3 (BMI >= 40) Obesity type: unspecified obesity type Serious obesity comorbidity presence: without serious comorbidity Qualified Code(s): E66.01 - Morbid (severe) obesity due to excess calories; Z68.42 - Body mass index (BMI) 45.0-49.9, adult Code(s): E66.9 - Obesity, unspecified Status: Chronic Assessment and Plan: BMI 46. Recommend weight loss with lifestyle modifications. (4) Depression: Qualifiers: Active/Remission status: remission status unspecified Depression Type: major depressive disorder Major depression recurrence: unspecified whether recurrent Qualified Code(s): F32.9 - Major depressive disorder, single episode, unspecified Code(s): F32.A - Depression, unspecified Status: Chronic Assessment and Plan: Chronic, does not appear to be in acute exacerbation. Continue Auvelity if patient is able to bring from home. DS: Summary Hospital Course Reason for hospitalization: Right flank pain Hospital Course: Patient is a 31-year-old female with morbid obesity, kidney stones, and tobacco dependence, who presented to the emergency room due to right-sided flank pain with radiation to the groin area. The patient started just prior to presentation and was similar to previous pain with kidney stones. She denied fevers, rigors, or chills. She had some nausea and vomiting. The pain was 10/10 in intensity at its worst and relieved only by IV pain medication. she denied hematuria, pain or burning with urination. Preliminary workup was significant for CT of abdomen and pelvis showed right proximal ureteral stone 6x4 mm with mild right hydronephrosis. She was treated with IV Rocephin 1 gram for abnormal UA concerning for UTI, IV morphine and IV zofran. She was admitted to the medical floor for further management. Urology was consulted and she underwent cystoscopy with right ureteral stent placement and retrograde pyelograam. She returned to the medical floor with significantly improved CVA tenderness, nausea and vomiting. She was tolerating diet and vitals were stable post-procedure. She was cleared by Urology to discharge home. She was transitioned to oral cefdinir 300 mg PO BID x 6 more days to start 06/16/22. She was given stone collection kit for analysis if passed. She will follow up with Urology in 1 week. Status at Discharge Cognitive/behavioral status at discharge: AOx4 Functional status at discharge:
--- NOTE | 2022-06-15 18:01 | PC.NURSE ---
Spoke with Dr Anderson, quality control engineer for urology, and it is ok for the patient to discharge . Follow up with Dr Stauffer in one week.
--- NOTE | 2022-06-15 18:14 | PC.NURSE ---
Pt discharging with mother. Patient educated not to drive self.
== END 2022-06-15 18:30 | disposition home or self-care (01) | DRG 690 ==
LOC: ANHED 04:52 → ANH3MED 05:29
PROVIDERS: Physician Assistant; Urology; Admitting Provider Internal Medicine; Emergency Provider Emergency Medicine; PCP Emergency Medicine; Visit Provider Nurse Practitioner Family
PROC: 0T9680Z Drainage of Right Ureter with Drainage Device, Via Natural or Artificial Opening Endoscopic (ICD-10-PCS; CPT 52352; principal; 2022-06-15 15:00)
DX: N13.6 Pyonephrosis (principal); Z68.42 Body mass index [BMI] 45.0-49.9, adult; E66.9 Obesity, unspecified; F32.A Depression, unspecified; F17.210 Nicotine dependence, cigarettes, uncomplicated; Z87.442 Personal history of urinary calculi; Z98.84 Bariatric surgery status
CPT/HCPCS: 36415; 74018; 74176; 74420; 80053; 81001; 81025; 85025; 87077; 87086; 87186; 96361; 96365; 96375; 99285; C1758; C1769; C2617; G0378; J0696; J0780; J2250; J2270; J2405; J2704; J3010; J7030; J7120

== ENCOUNTER 2022-06-22 14:33 | Outpatient (CLI) | payer OTHER, MEDICAID, SELFPAY ==
[2022-06-22 15:33] LABS: Prothrombin Time 13.6 Seconds (11.1-14.7)
[2022-06-22 15:34] LABS: Partial Thromboplastin Time 36.7 SECONDS (22.3-36.8)
== END 2022-06-22 14:34 | disposition home or self-care (01) ==
LOC: ANHSURGERY 14:37
PROVIDERS: Visit Provider Urology
DX: N20.1 Calculus of ureter (principal); Z01.818 Encounter for other preprocedural examination
CPT/HCPCS: 36415; 85610; 85730; 87086; 87088

== ENCOUNTER 2022-06-25 01:52 | Day surgery (SDC) | payer OTHER, MEDICAID, SELFPAY ==
[2022-06-18 14:28] VITALS: BMI 46.5
--- NOTE | 2022-06-18 14:31 | PC.NURSE ---
Report to the Outpatient Waiting Room, entrance under the green pavilion located off [facility], at time 10:30 on date 06/25/22. Planned Procedure Time: 12:30. Time changes happen often and if your time is changed the preop area will call you the afternoon before. - You and your visitor will be asked to self-screen and do not enter if you have any COVID symptoms. - A mask is optional within the hospital at this time. Patients may have clear liquids (water, carbonated beverages, clear teas, apple juice) until 3 hours prior to surgery with a maximum of 20 ounces. - No food from midnight until time of surgery Take the following medications with a SIP of water the morning of surgery: ANTIBIOTIC, AUVELITY DO NOT STOP ANY OF YOUR OTHER PRESCRIPTION MEDICATIONS PRIOR TO SURGERY?EXCEPT THE FOLLOWING Medications to discontinue per physician: VITAMINS Date to take last dose: 06/21/22 Please no make-up, nail pashto, hairspray, perfume, deodorant, or body powder the day of surgery. No jewelry (including any body piercings) or valuables the day of surgery, leave them at home. Please take a shower or bath the night before, or the morning of, surgery with an antibacterial soap. Wear comfortable, loose fitting clothing. - Jewelry must be removed prior to entering the operating room. Rings and piercings that are not removed may be cut off. - The hospital will not accept responsibility for valuables. - Please leave all valuables, including medications, at home the day of surgery. If you are going home after surgery, a licensed otr driver must drive you home. - NO public transportation without another adult if you receive anesthesia. - We recommend that an adult stay with you for 24 hours following discharge. - We also recommend that you do not drive, make important decision, drink alcoholic beverages, or take any drugs that were not prescribed by your health care provider for at least 24 hours after your discharge time. Follow any additional instructions given to you from your surgeon. If you or anyone in your household have experienced Covid symptoms in the past week, please notify your surgeon or the nurse liaison at the phone number below for possible testing. Telephone instructions given to PT - ALLI GIORDANO and asked if any additional questions and then verbalized understanding. Patient advised to call surgeon office or pre surgery nurse liaison [phone] if any additional questions.
--- NOTE | 2022-06-21 18:38 | PM.HPGS ---
History of Present Illness History of Present Illness Consent: Risks, benefits, and alternatives have been discussed and questions answered. Patient agrees to proceed with procedure. Chief complaint: Right ureteral kidney stone Narrative: Stephanie Norman is a 31 year old female recently admitted with right flank pain on 06/15/2022. Dr. OLGA LIDIA CRAIG is placed a right ureteral stent for an obstructing 6-8 mm right proximal ureteral stone. She additionally has larger stones in the right kidney. She was discharged and arrangements made for right ESWL. She is aware the risk including, but not limited to, perinephric hematoma, hematuria, need for additional procedures. Review of Systems Review of Systems: All systems reviewed & are unremarkable except as noted in HPI and below PMFSH Past Medical History Medical History Depression Morbid obesity Renal stones Smoker Surgical History Surgical History History of section x2 History of cholecystectomy History of gastric surgery sleeve 11 years ago S/P ureteral stent placement Family History Family History Father Lung cancer Hypertension Mother Hypertension Family history of thyroid problem Heart problem Depression Sibling Pneumonia is from pneumonia Social History Social History Social History: the patient is and her is the surrogate decision maker. Patient wishes to be full code. The patient has 2 step children and 2 biological children. 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 For 10 years. No alcohol marijuana or illicit drugs. Smoking packs per day: 0.5 Smoking cigarettes per day: 10.0 Years smoked: 20 Smoking pack-years: 10.00 Smoking status: Current every day smoker Tobacco type: cigarettes Second hand tobacco smoke exposure: Yes Alcohol intake: current Alcohol use details: VERY RARE Substance use: never Substance use type: does not use Lack of Transportation: No Lack of Food: Never True Current Housing: I Have Housing Concerned About Future Housing: Decline to Answer Difficulty Paying Gas/Electric Bills: Decline to Answer Difficulty Paying for Meds: Decline to Answer Currently Unemployed: Decline to Answer Education: Associate Degree Difficulty w/ Childcare or Family Care: No Living arrangements: with family Gender identity (if verbalized by the patient): Female Spiritual care concerns: No Meds Home Medications and Allergies Home Medications Medication Instructions Recorded Confirmed Type cefdinir 300 mg capsule 300 mg PO Q12H #12 caps 06/15/22 06/18/22 Rx dextromethorphan IR 45 1 tablet PO BID 06/15/22 06/18/22 History mg-bupropion ER 105 mg biphasic tablet (Auvelity) multivitamin 1 tablet PO DAILY 06/18/22 06/18/22 History Allergies Allergy/AdvReac Type Severity Reaction Status Date / Time ciprofloxacin AdvReac Unknown SWELLING Verified 06/18/22 14:26 hydromorphone AdvReac Unknown EXTREME Verified 06/18/22 14:26 STOMACH CRAMPS naproxen AdvReac Unknown Swelling Verified 06/18/22 14:26 Exam Const: General: no acute distress Resp: Effort & Inspection: normal respiratory effort GI: Inspection: non-distended GI Palp: No abdominal tenderness and No Guarding due to palpation present (GI) Auscultation: normal bowel sounds Assessment and Plan Assessment and plan (1) Kidney stone on right side: Code(s): N20.0 - Calculus of kidney Status: Inactive Assessment and Plan: Right ESWL
--- NOTE | 2022-06-24 09:33 | WPDANESEPPF ---
Anes - Initial Pre Proc Eval Procedure: Operation Date: 06/25/22 08:30 Proposed Procedures p Right Extracorporeal Shock Wave Lithotripsy - Demario Padilla MD Date/Time: 06/24/22 09:33 Surgeon: Demario Padilla MD Pre Op Diagnosis: Right ureteral kidney stone Patient Data Age: 31 Gender: F Height: 1.65 m Weight: 127 kg Allergies Allergy/AdvReac Type Severity Reaction Status Date / Time ciprofloxacin AdvReac Severe SWELLING Verified 06/25/22 07:16 naproxen AdvReac Severe Swelling Verified 06/25/22 07:16 hydromorphone AdvReac Intermediate EXTREME Verified 06/25/22 07:16 STOMACH CRAMPS Home Medications Medication Instructions Recorded Confirmed Type dextromethorphan IR 45 1 tablet PO BID 06/15/22 06/25/22 History mg-bupropion ER 105 mg biphasic tablet (Auvelity) multivitamin 1 tablet PO DAILY 06/18/22 06/25/22 History Patient hx anesthesia problems: none Family hx anesthesia problems: none Results Review: All pre-operative results and documents have been reviewed as part of the pre-operative evaluation. [facility] Past Medical History Medical History Depression Morbid obesity Renal stones Smoker Surgical History Surgical History History of section x2 History of cholecystectomy History of gastric surgery sleeve 11 years ago S/P ureteral stent placement Family History Family History Father Lung cancer Hypertension Mother Hypertension Family history of thyroid problem Heart problem Depression Sibling Pneumonia is from pneumonia Social History Social History Social History: the patient is and her is the surrogate decision maker. Patient wishes to be full code. The patient has 2 step children and 2 biological children. 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 She continues to smoke half pack a cigarettes a day. For 10 years. No alcohol marijuana or illicit drugs. Smoking packs per day: 0.5 Smoking cigarettes per day: 10.0 Years smoked: 20 Smoking pack-years: 10.00 Smoking status: Current every day smoker Tobacco type: cigarettes Second hand tobacco smoke exposure: Yes Alcohol intake: current Alcohol use details: VERY RARE Substance use: never Substance use type: does not use Lack of Transportation: No Lack of Food: Never True Current Housing: I Have Housing Concerned About Future Housing: Decline to Answer Difficulty Paying Gas/Electric Bills: Decline to Answer Difficulty Paying for Meds: Decline to Answer Currently Unemployed: Decline to Answer Education: Associate Degree Difficulty w/ Childcare or Family Care: No Living arrangements: with family Gender identity (if verbalized by the patient): Female Spiritual care concerns: No Anes - Eval Final PreProcedure Day of Procedure 06/24/22 09:33 Patient weight: morbidly obese Heart: regular rate and rhythm Lungs: clear to auscultation Airway: Mallampati scale class III Neurological: alert and oriented Last oral intake: >/= 8 hours ASA classification: III Emergent: no Anesthetic plan: proceed Anesthesia type and monitoring: general LMA and standard monitoring Results Review: All pre-operative results and documents have been reviewed as part of the pre-operative evaluation. Informed Consent: The patient's anesthetic plan and its attendant risks and benefits were discussed with the patient/family/POA. Questions were solicited and answers provided to the satisfaction of the patient/family/POA.
--- NOTE | ~2022-06-25 | CT_ITS ---
Non-contrast CT scan of the Abdomen and Pelvis Clinical indication: Right ureteral stone Technique: 2.5 mm axial scans were obtained through the abdomen and pelvis without intravenous or or al contrast. Dose reduction technique was used on this scan by utilizing automated exposure control a nd iterative reconstruction technique. The dose-length product (DLP) was 1135.90 mGy-cm. COMPARISON: 06/15/2022 Findings: Images through the lung bases reveal no abnormalities. 4 mm right ureteral stone has migrated into the mid ureter, adjacent to the right ureteral stent whic h is now present (axial image 127). Additional bilateral nonobstructing renal stones are otherwise st able from prior exam. Right hydronephrosis is largely resolved. The liver, spleen, pancreas, and adrenals appear normal. Cholecystectomy clips are present. There is no aortic aneurysm. There is no evidence of bowel obstruction. There is evidence of prior bariatric surgery. Images through the pelvis were performed. There is no evidence of ascites or lymphadenopathy. Urinary bladder unremarkable aside from the distal portion of the ureteral stent which is now present. No ad nexal mass seen. Impression: Status post interval placement of right ureteral stent. 4 mm stone has migrated to the mid right uret er, as detailed above. Additional bilateral nonobstructing renal stones are unchanged. Right hydronephrosis is nearly completely resolved. Reviewed, dictated and finalized at location . Impression: Status post interval placement of right ureteral stent. 4 mm stone has migrated to the mid right ureter, as detailed above. Additional bilateral nonobstructing renal stones are unchanged. Right hydronephrosis is nearly completely resolved.
--- NOTE | ~2022-06-25 | XR_ITS ---
Supine and upright views of the abdomen Clinical history: Lithotripsy COMPARISON: 06/15/2022 Findings: Bowel gas pattern is nonspecific. No evidence for obstruction or free air. Right ureteral s tent is now present. 1.3 cm ovoid stone at the right midpole is similar to prior exam. Left renal sto jeffery are unchanged from prior exam, measuring up to approximately 1 cm in diameter. Osseous structures are intact. Impression: Stable bilateral renal stones, as detailed above. Right ureteral stent now present. Reviewed, dictated and finalized at location . Impression: Stable bilateral renal stones, as detailed above. Right ureteral stent now present.
--- NOTE | 2022-06-25 06:50 | WPDHPUPDATE1 ---
History and Physical Update Update Date/Time: 06/25/22 06:50 History and Physical has been reviewed, including an updated exam of the patient. There are NO changes in the patient's condition. Risks, benefits, and alternatives have been discussed and questions answered. Patient agrees to proceed with procedure.
[2022-06-25 07:03] VITALS: BP 125/77; PULSE 90; RESP 16; TEMP 36.2; O2SAT 99
[2022-06-25] MEDS: LACTATED RINGERS 1,000 ML 30 ML IV CONT (07:25)
--- NOTE | 2022-06-25 07:28 | SUR.PREOP ---
pt went to ct scan to visualize kidney stones as ordered by dr hamilton [id number]
[2022-06-25] MEDS: ceFAZolin 3 GM/D5W 100 ML 100 ML IVPB (08:34)
--- NOTE | 2022-06-25 09:23 | P.OP_ITS ---
Procedure Note - Detailed Date of Procedure 06/25/22 Pre-op Diagnosis Right ureteral and kidney stone Post-op Diagnosis Same Procedure Performed cystoscopy, right ureteral stent removal, right ureteroscopy with laser lithotripsy and stone extraction, stent replacement and right ESWL Surgeon Demario Padilla MD Anesthesia General Description of Procedure presents right ureteral stone was situated over the sacrum so opted to do endoscopic procedure for that stone and ESWL to her 12-13 mm right lower calycea l stone. After the uneventful induction of general anesthesia she was prepped and draped in routine sterile fashion while in dorsal lithotomy position. Twenty-one F rigid cystoscope was placed in the indwelling stent is grasped and brought to the external with a meatus. A 0.035 in glidewire was advanced to the right renal pelvis. Right ureteroscopy was undertaken with a short tapered semi-rigid ureteral scope. Her mid ureteral stone was grasped. It is too big to extract with a basket so I used a 200 micron holmium laser fiber to fracture into tiny pieces, all of which were extracted with a 1 5 F disposable stone basket. She was then repositioned in the supine position and the door knee a Lithotripter was used to administer 2500 shocks at a power setting of 4 to her right lower pole stone. She tolerated these procedures well was taken recovery room good condition. Drains Yes Packing No Pathology Yes Complications No immediate complications Condition Stable
[2022-06-25 10:00] VITALS: BP 133/81; PULSE 88; RESP 17; TEMP 36.1; O2SAT 100
[2022-06-25 10:15] VITALS: BP 124/87; PULSE 84; RESP 15; O2SAT 97
[2022-06-25 10:30] VITALS: BP 107/76; PULSE 84; RESP 13; O2SAT 98
[2022-06-25 10:40] VITALS: BP 138/79; PULSE 86; RESP 16
== END 2022-06-25 11:22 | disposition home or self-care (01) ==
PROVIDERS: Visit Provider Urology
PROC: (CPT 50590; principal; 2022-06-25 08:30)
DX: N20.2 Calculus of kidney with calculus of ureter (principal); F17.210 Nicotine dependence, cigarettes, uncomplicated; E66.01 Morbid (severe) obesity due to excess calories; Z68.42 Body mass index [BMI] 45.0-49.9, adult
CPT/HCPCS: 52356; 50590; 36415; 74018; 74176; 82365; 85610; 85730; 87086; 87088; 88300; C1769; C1887; C2617; J0690; J1100; J2250; J2405; J2704; J3010; J7030; J7120

== ENCOUNTER 2022-07-30 10:31 | Outpatient (CLI) | payer OTHER, MEDICAID, SELFPAY ==
[2022-07-30 11:14] LABS: Prothrombin Time 13.9 Seconds (11.1-14.7)
[2022-07-30 11:15] LABS: Partial Thromboplastin Time 34.2 SECONDS (22.3-36.8)
== END 2022-07-30 10:32 | disposition home or self-care (01) ==
PROVIDERS: Visit Provider Urology
DX: Z01.818 Encounter for other preprocedural examination (principal); N20.1 Calculus of ureter
CPT/HCPCS: 36415; 85610; 85730; 87077; 87086; 87186

== ENCOUNTER 2022-08-06 00:44 | Day surgery (SDC) | payer OTHER, MEDICAID, SELFPAY ==
[2022-07-27 14:06] VITALS: BMI 47.3
--- NOTE | 2022-07-27 14:09 | PC.NURSE ---
Report to the Outpatient Waiting Room, entrance under the green pavilion located off [facility], at time 7:30 on date 08/06/22. Planned Procedure Time: 9:30. Time changes happen often and if your time is changed the preop area will call you the afternoon before. - You and your visitor will be asked to self-screen and do not enter if you have any COVID symptoms. - A mask is optional within the hospital at this time. Patients may have clear liquids (water, carbonated beverages, clear teas, apple juice) until 3 hours prior to surgery (6:30) with a maximum of 20 ounces. - No food from midnight until time of surgery Take the following medications with a SIP of water the morning of surgery: AUVELITY DO NOT STOP ANY OF YOUR OTHER PRESCRIPTION MEDICATIONS PRIOR TO SURGERY EXCEPT THE FOLLOWING Medications to discontinue per physician: VITAMIN Date to take last dose: 7 DAYS PRE-OP (PER PT) Please no make-up, nail azeri, hairspray, perfume, deodorant, or body powder the day of surgery. No jewelry (including any body piercings) or valuables the day of surgery, leave them at home. Please take a shower or bath the night before, or the morning of, surgery with an antibacterial soap. Wear comfortable, loose fitting clothing. - Jewelry must be removed prior to entering the operating room. Rings and piercings that are not removed may be cut off. - The hospital will not accept responsibility for valuables. - Please leave all valuables, including medications, at home the day of surgery. If you are going home after surgery, a licensed front end driver must drive you home. - NO public transportation without another adult if you receive anesthesia. - We recommend that an adult stay with you for 24 hours following discharge. - We also recommend that you do not drive, make important decision, drink alcoholic beverages, or take any drugs that were not prescribed by your health care provider for at least 24 hours after your discharge time. Follow any additional instructions given to you from your surgeon. If you or anyone in your household have experienced Covid symptoms in the past week, please notify your surgeon or the nurse liaison at the phone number below for possible testing. Telephone instructions given to PT - ALLI GIORDANO and asked if any additional questions and then verbalized understanding. Patient advised to call surgeon office or pre surgery nurse liaison [phone] if any additional questions.
[2022-08-06] VITALS (8 sets, daily range): BP systolic 123–146; BP diastolic 78–95; PULSE 75–83; RESP 14–20; TEMP 36.1–36.8; O2SAT 94–100
--- NOTE | ~2022-08-06 | XR_ITS ---
Supine and upright views of the abdomen Clinical history: Renal stone COMPARISON: 06/25/2022 Findings: Bowel gas pattern is nonspecific. No evidence for obstruction or free air. Left lower pole renal stones are unchanged from prior exam. No right renal stone identified. Right ureteral stent is no longer present.. Osseous structures are intact. Impression: Stable left nephrolithiasis. Previously noted right renal stone no longer visualized. Right ureteral stent has been removed since prior exam. Reviewed, dictated and finalized at location . Impression: Stable left nephrolithiasis. Previously noted right renal stone no longer visualized. Right ureteral stent has been removed since prior exam.
--- NOTE | 2022-08-06 06:22 | WPDHPUPDATE1 ---
History and Physical Update Update Date/Time: 08/06/22 06:22 History and Physical has been reviewed, including an updated exam of the patient. There are NO changes in the patient's condition. Risks, benefits, and alternatives have been discussed and questions answered. Patient agrees to proceed with procedure.
--- NOTE | 2022-08-06 07:50 | WPDANESEPPF ---
Anes - Initial Pre Proc Eval Procedure: Operation Date: 08/06/22 09:30 Proposed Procedures p Right Extracorporeal Shock Wave Lithotripsy - Demario Padilla MD Date/Time: 08/06/22 07:50 Surgeon: Demario Padilla MD Pre Op Diagnosis: right ureteral stone Patient Data Age: 31 Gender: F Height: 1.65 m Weight: 129 kg Allergies Allergy/AdvReac Type Severity Reaction Status Date / Time ciprofloxacin AdvReac Severe SWELLING Verified 07/27/22 14:06 naproxen AdvReac Severe Swelling Verified 07/27/22 14:06 hydromorphone AdvReac Intermediate EXTREME Verified 07/27/22 14:06 STOMACH CRAMPS Home Medications Medication Instructions Recorded Confirmed Type dextromethorphan IR 45 1 tablet PO BID 07/27/22 07/27/22 History mg-bupropion ER 105 mg biphasic tablet (Auvelity) multivitamin 1 tablet PO DAILY 07/27/22 07/27/22 History Patient hx anesthesia problems: post op nausea/vomiting Family hx anesthesia problems: none Results Review: All pre-operative results and documents have been reviewed as part of the pre-operative evaluation. [facility] Past Medical History Medical History Depression Morbid obesity PONV (postoperative nausea and vomiting) Renal stones Smoker Surgical History Surgical History History of section x2 History of cholecystectomy History of gastric surgery sleeve 11 years ago S/P ureteral stent placement Family History Family History Father Lung cancer Hypertension Mother Hypertension Family history of thyroid problem Heart problem Depression Sibling Pneumonia is from pneumonia Social History Social History Social History: the patient is and her is the surrogate decision maker. Patient wishes to be full code. The patient has 2 step children and 2 biological children. 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 She continues to smoke half pack a cigarettes a day. For 10 years. No alcohol marijuana or illicit drugs. Smoking packs per day: 0.5 Smoking cigarettes per day: 10.0 Years smoked: 20 Smoking pack-years: 10.00 Smoking status: Current every day smoker Tobacco type: cigarettes Second hand tobacco smoke exposure: Yes Alcohol intake: current Alcohol use details: VERY RARE Substance use: never Substance use type: does not use Lack of Transportation: No Lack of Food: Never True Current Housing: I Have Housing Concerned About Future Housing: Decline to Answer Difficulty Paying Gas/Electric Bills: Decline to Answer Difficulty Paying for Meds: Decline to Answer Currently Unemployed: Decline to Answer Education: Associate Degree Difficulty w/ Childcare or Family Care: No Living arrangements: with family Gender identity (if verbalized by the patient): Female Spiritual care concerns: No Anes - Eval Final PreProcedure Day of Procedure 08/06/22 07:50 Patient weight: morbidly obese Heart: regular rate and rhythm Lungs: clear to auscultation Airway: Mallampati scale class II Neurological: alert and oriented Last oral intake: >/= 8 hours ASA classification: III Emergent: no Anesthetic plan: proceed Anesthesia type and monitoring: general LMA and standard monitoring Results Review: All pre-operative results and documents have been reviewed as part of the pre-operative evaluation. Informed Consent: The patient's anesthetic plan and its attendant risks and benefits were discussed with the patient/family/POA. Questions were solicited and answers provided to the satisfaction of the patient/family/POA.
[2022-08-06] MEDS: LACTATED RINGERS 1,000 ML 30 ML IV CONT (08:46)
[2022-08-06] MEDS: ceFAZolin 3 GM/D5W 100 ML 100 ML IVPB (09:43)
--- NOTE | 2022-08-06 10:20 | W.PM.PROC2 ---
Procedure Note - Detailed Date of Procedure 08/06/22 Pre-op Diagnosis Left renal stones Post-op Diagnosis Same Procedure Performed Left ESWL Surgeon Demario Padilla MD Anesthesia General Description of Procedure Patient is brought to the operative suite where she was prepped and draped in routine sterile fashion while in the supine position after the uneventful induction of a general LMA anesthetic. She had 2 stones in the lower part of her left kidney. The focal point of the Lithotripter was 1st placed at the larger stone were 1550 shocks were delivered at a power setting of 4. Appeared to be good fragmentation. We did delivered an additional 750 shocks to the lower pole stone. Patient tolerated procedure well was taken recovery in good condition. Estimated Blood Loss 0 Drains No Pathology None sent Complications No immediate complications Condition Stable
--- NOTE | 2022-08-11 06:23 | PM.IMHP ---
H&P: HPI History of Present Illness Date/Time: 08/11/22 06:23 Chief Complaint: Left kidney stones Narrative: This H&P applies to procedure on 08/06. Pt. with known bilateral kidney stones. She's s/p recent ESWL to right ureteral stones and has known residual left renal stones for which she now seeks treatment. She's aware of risks of ESWL including, not limited to, residual fragments requiring additional procedures, hematuria, renal injury and perinephric hematoma. Review of Systems Review of Systems: All systems reviewed & are unremarkable except as noted in HPI and below PMFSH Past Medical History Medical History Depression Morbid obesity PONV (postoperative nausea and vomiting) Renal stones Smoker Surgical History Surgical History History of section x2 History of cholecystectomy History of gastric surgery sleeve 11 years ago S/P ureteral stent placement Family History Family History Father Lung cancer Hypertension Mother Hypertension Family history of thyroid problem Heart problem Depression Sibling Pneumonia is from pneumonia Social History Social History Social History: the patient is and her is the surrogate decision maker. Patient wishes to be full code. The patient has 2 step children and 2 biological children. 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 For 10 years. No alcohol marijuana or illicit drugs. Smoking packs per day: 0.5 Smoking cigarettes per day: 10.0 Years smoked: 20 Smoking pack-years: 10.00 Smoking status: Current every day smoker Tobacco type: cigarettes Second hand tobacco smoke exposure: Yes Alcohol intake: current Alcohol use details: VERY RARE Substance use: never Substance use type: does not use Lack of Transportation: No Lack of Food: Never True Current Housing: I Have Housing Concerned About Future Housing: Decline to Answer Difficulty Paying Gas/Electric Bills: Decline to Answer Difficulty Paying for Meds: Decline to Answer Currently Unemployed: Decline to Answer Education: Associate Degree Difficulty w/ Childcare or Family Care: No Living arrangements: with family Gender identity (if verbalized by the patient): Female Spiritual care concerns: No Meds Home Medications and Allergies Home Medications Medication Instructions Recorded Confirmed Type dextromethorphan IR 45 1 tablet PO BID 07/27/22 08/06/22 History mg-bupropion ER 105 mg biphasic tablet (Auvelity) multivitamin 1 tablet PO DAILY 07/27/22 07/27/22 History ampicillin 500 mg capsule 500 mg PO DAILY 08/06/22 08/06/22 History ampicillin 500 mg capsule 500 mg PO Q8H #10 caps 08/06/22 Rx tramadol 50 mg tablet 50 mg PO Q6H PRN pain #20 tabs 08/06/22 Rx Allergies Allergy/AdvReac Type Severity Reaction Status Date / Time ciprofloxacin AdvReac Severe SWELLING Verified 08/06/22 08:47 naproxen AdvReac Severe Swelling Verified 08/06/22 08:47 hydromorphone AdvReac Intermediate EXTREME Verified 08/06/22 08:47 STOMACH CRAMPS Exam Const: General: no acute distress Resp: Effort & Inspection: normal respiratory effort GI: Inspection: non-distended GI Palp: No abdominal tenderness and No Guarding due to palpation present (GI) Auscultation: normal bowel sounds Assessment and Plan Assessment and plan (1) Left renal stone: Code(s): N20.0 - Calculus of kidney Status: Acute Assessment and Plan: Left ESWL
== END 2022-08-06 12:04 | disposition home or self-care (01) ==
PROVIDERS: Visit Provider Urology
PROC: (CPT 50590; principal; 2022-08-06 09:30)
DX: N20.0 Calculus of kidney (principal); Z98.84 Bariatric surgery status; E66.01 Morbid (severe) obesity due to excess calories; Z68.42 Body mass index [BMI] 45.0-49.9, adult
CPT/HCPCS: 50590; 36415; 74018; 85610; 85730; 87077; 87086; 87186; J0690; J1100; J2250; J2405; J2704; J7120

== ENCOUNTER 2022-10-01 16:21 | Outpatient (CLI) | payer OTHER, MEDICAID, SELFPAY ==
[2022-10-01 17:09] LABS: Basophils Absolute Auto 0.1 K/mm3 (0.0-0.1); Basophils Percent Auto 0.5 % (0.2-1.2); Eosinophils Absolute Auto 0.2 K/mm3 (0-0.3); Eosinophils Percent Auto 1.7 % (0-4.4); Hematocrit 42.1 % (37.0-47.0); Hemoglobin 13.1 g/dL (12.0-15.0); Immature Granulocyte Absolute 0.03 K/mm3 (0.00-0.031); Immature Granulocyte Percent A 0.3 % (0-0.5); Lymphocytes Absolute Auto 3.01 K/mm3 (0.9-3.2); Mean Corpuscular HGB Conc 31.1 g/dl (32-36); Mean Corpuscular Hemoglobin 29.3 pg (26-34); Mean Corpuscular Volume 94.2 fl (80-100); Mean Platelet Volume 9.5 fl (7.4-10.4); Monocytes Absolute Auto 0.8 K/mm3 (0.1-0.6); Monocytes Percent Auto 7.7 % (2.6-8.5); Neutrophils Percent Auto 59.8 % (45.5-73.1); Platelet Count Result 254 k/mm3 (150-375); Red Blood Count 4.47 M/mm3 (4.2-5.4); Red Cell Distribution Width 14.8 % (11.5-14.5)
[2022-10-01 17:18] LABS: INR 0.9; Prothrombin Time 13.1 Seconds (11.1-14.7)
[2022-10-01 17:19] LABS: Partial Thromboplastin Time 33.5 SECONDS (22.3-36.8)
[2022-10-01 17:22] LABS: Alanine Aminotransferase 40 U/L (6-35); Albumin Level 4.3 g/dL (3.5-5.1); Alkaline Phosphatase 69 U/L (38-126); Anion Gap 4 mmol/L (8-16); Aspartate Amino Transferase 32 U/L (14-36); Bilirubin,Total 0.3 mg/dL (0.2-1.3); Blood Urea Nitrogen 14 mg/dL (7-17); Calcium 9.2 mg/dL (8.4-10.2); Carbon Dioxide 28 mmol/L (22-30); Chloride 102 mmol/L (98-107); Estimated Glomerular Filt Rate > 60; Glucose 91 mg/dL (65-110); Potassium 3.8 mmol/L (3.4-5.0); Sodium 134 mmol/L (137-145)
[2022-10-01 17:28] LABS: Hemoglobin A1C 4.9 % (<5.7)
[2022-10-01 17:35] LABS: Urine Cotinine NEGATIVE
[2022-10-01 17:44] LABS: Beta HCG Quantitative < 2.39 mIU/ML
== END 2022-10-01 16:22 | disposition home or self-care (01) ==
LOC: ANHLAB 16:24
PROVIDERS: Visit Provider Surgery
DX: E66.1 Drug-induced obesity (principal); Z81.2 Family history of tobacco abuse and dependence
CPT/HCPCS: 80053; 80307; 82375; 83036; 84443; 84702; 85025; 85610; 85730

== ENCOUNTER 2022-12-23 13:02 | Emergency (ER) | payer OTHER, MEDICAID, SELFPAY ==
[2022-12-23 13:13] VITALS: BP 114/77; PULSE 86; RESP 18; TEMP 36.8; O2SAT 98
[2022-12-23 13:14] VITALS: BP 114/77; PULSE 86; RESP 18; TEMP 36.8; O2SAT 98
--- NOTE | 2022-12-23 13:21 | ED.URI ---
HPI - URI/Sore Throat General Chief Complaint: Upper Respiratory Infection Stated Complaint: Sinus Time Seen by Provider: 12/23/22 13:19 Source: patient and RN notes reviewed Mode of arrival: ambulatory Limitations: no limitations History of Present Illness HPI Narrative: 32-year-old female presents concern for one-month history of cough, nasal congestion, rhinorrhea. She reports she had telehealth visit a week and a half ago and was given Mucinex, Tessalon Perles and an inhaler. Reports she has been using the inhaler. She denies these medications are helping. Reports cough is worsening. MD elicited complaint: cough and nasal congestion Related Data Home Medications Medication Instructions Recorded Confirmed dextromethorphan IR 45 1 tablet PO BID 07/27/22 08/31/22 mg-bupropion ER 105 mg biphasic tablet (Auvelity) multivitamin 1 tablet PO DAILY 07/27/22 08/31/22 omeprazole 40 mg capsule,delayed mg 12/23/22 release Allergies Allergy/AdvReac Type Severity Reaction Status Date / Time ciprofloxacin AdvReac Severe SWELLING Verified 12/23/22 13:14 naproxen AdvReac Severe Swelling Verified 12/23/22 13:14 hydromorphone AdvReac Intermediate EXTREME Verified 12/23/22 13:14 STOMACH CRAMPS Review of Systems Review of Systems: CONSTITUTIONAL: Denies malaise, chills, sweats, or fever. EYES: Denies visual changes, redness, or discharge. ENT: Reports rhinorrhea, congestion, sinus pain CARDIOVASCULAR: Denies chest pain, palpitations, or edema. RESPIRATORY: Reports persistent cough. Denies dyspnea. GASTROINTESTINAL: Denies abdominal pain, nausea, vomiting, diarrhea SKIN: Denies rash or itching. MUSCULOSKELETAL: Denies myalgia. NEUROLOGIC: Denies headache. All systems reviewed & are unremarkable except as noted in HPI and below PMFSH Past Medical History Medical History Depression Morbid obesity PONV (postoperative nausea and vomiting) Renal stones Smoker Surgical History Surgical History History of section x2 History of cholecystectomy History of gastric surgery sleeve 11 years ago S/P ureteral stent placement Family History Family History Father Lung cancer Hypertension Mother Hypertension Family history of thyroid problem Heart problem Depression Sibling Pneumonia is from pneumonia Social History Social History Social History: the patient is and her is the surrogate decision maker. Patient wishes to be full code. The patient has 2 step children and 2 biological children. 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 For 10 years. No alcohol marijuana or illicit drugs. Smoking packs per day: 0.5 Smoking cigarettes per day: 10.0 Years smoked: 20 Smoking pack-years: 10.00 Smoking status: Current every day smoker Tobacco type: cigarettes Second hand tobacco smoke exposure: Yes Alcohol intake: current Alcohol use details: VERY RARE Substance use: never Substance use type: does not use Lack of Transportation: No Lack of Food: Never True Current Housing: I Have Housing Concerned About Future Housing: Decline to Answer Difficulty Paying Gas/Electric Bills: Decline to Answer Difficulty Paying for Meds: Decline to Answer Currently Unemployed: Decline to Answer Education: Associate Degree Difficulty w/ Childcare or Family Care: No Living arrangements: with family Gender identity (if verbalized by the patient): Female Spiritual care concerns: No Comments At time of signature, agree with nursing past medical, surgical, social and family history. There is no relevant family history pertinent to the presenting complaint Exam Narrative: GENERAL: Well-appearing,
== END 2022-12-23 13:33 | disposition home or self-care (01) ==
PROVIDERS: Emergency Provider Nurse Practitioner; PCP Nurse Practitioner Family
DX: J32.9 Chronic sinusitis, unspecified (principal); J40 Bronchitis, not specified as acute or chronic; F17.210 Nicotine dependence, cigarettes, uncomplicated; F32.A Depression, unspecified; E66.01 Morbid (severe) obesity due to excess calories; Z68.41 Body mass index [BMI] 40.0-44.9, adult; Z98.84 Bariatric surgery status; Z96.0 Presence of urogenital implants
CPT/HCPCS: 99213; G0463

== ENCOUNTER 2024-03-09 09:49 | Day surgery (SDC) | payer OTHER, MEDICAID, SELFPAY ==
[2024-03-09] VITALS (12 sets, daily range): BP systolic 91–147; BP diastolic 63–84; PULSE 93–113; RESP 14–20; TEMP 36.2–37.3; O2SAT 97–100
--- NOTE | ~2024-03-09 | XR_ITS ---
EXAMINATION: XR retrograde pyelo w/stent LT DATE: 03/09/2024 16:15 INDICATION: Left ureteral stone. TECHNIQUE: 4 intraoperative fluoroscopic views of the abdomen and pelvis were obtained. I was not pre sent. Fluoroscopy exposure time was 26 seconds. COMPARISON: CT abdomen and pelvis 03/09/2024 FINDINGS: There is contrast in the ureters from the prior CT. The left-sided retrograde pyelogram dem onstrates mild hydronephrosis. There is a left internal ureteral stent in expected position. IMPRESSION: 1. Mild left hydronephrosis. 2. Left internal ureteral stent in expected position. Reviewed, dictated and finalized at location A. SCALER
--- NOTE | ~2024-03-09 | CT_ITS ---
EXAMINATION: CT abdomen pelvis w con DATE: 03/09/2024 13:48 INDICATION: Abdominal pain. Flank pain. TECHNIQUE: Computed tomography (CT) of the abdomen and pelvis was performed with 100 mL Omnipaque 350 intravenous contrast. Automated exposure control and iterative reconstruction technique were employe d. The dose-length product was 981.29 mGy-cm. COMPARISON: CT abdomen and pelvis 06/25/2022 FINDINGS: The visualized portions of lung bases demonstrate mild atelectasis. No pleural effusion. Th e heart size is normal. No pericardial effusion. There are surgical changes in the stomach. The liver is normal. There is a 7 mm cyst in the spleen. There are changes of cholecystectomy. The pancreas an d adrenal glands are normal. There is cortical thinning in the kidneys. There are least 4 stones in l eft kidney measuring up to 8 mm. There is a 6 mm stone at left ureteropelvic junction. There is moder ate left hydronephrosis with urothelial thickening. There is fat stranding around the left renal pelv is. There are no dilated loops of bowel. The appendix is normal. There are no pathologically enlarged lymph nodes. There is a 3.9 cm cyst in right ovary, likely a follicular cyst. There is mild chronic anterior wedging of multiple thoracic vertebral bodies. There is moderate thoracic spondylosis and mi ld lumbar spondylosis. IMPRESSION: 1. 6 mm stone at left ureteropelvic junction with moderate kyphosis and left-sided pyelitis. 2. Nonobstructing left kidney stones. 3. 3.9 cm cyst in right ovary, likely a follicular cyst. Reviewed, dictated and finalized at location A. E ECOLOGIST IMPRESSION: 1. 6 mm stone at left ureteropelvic junction with moderate kyphosis and left-si ded pyelitis. 2. Nonobstructing left kidney stones. 3. 3.9 cm cyst in right ovary, likely a follicular cyst.
--- NOTE | ~2024-03-09 | XR_ITS ---
EXAMINATION: XR abdomen/kub 1V DATE: 03/09/2024 14:18 INDICATION: Left urolithiasis TECHNIQUE: A supine view of the abdomen on 2 radiographs was obtained. COMPARISON: CT dated 03/09/2024 FINDINGS: Excreted contrast seen in the bladder, at the bilateral renal collecting systems and along the mid ri ght ureter which appears normal in caliber. Again seen is an 8 x 4 mm stone at the left ureteropelvic junction. There is asymmetric delayed mild left nephrogram. There is a small amount of contrast at t he left renal pelvis which is of lower density than the excreted contrast the right renal collecting system which could represent dilution related to the previously noted hydronephrosis. No evident cont rast along the left ureter. Cholecystectomy clips in right upper quadrant with a couple likely droppe d clips more caudally in the left and right abdomen. There is a small bowel anastomotic suture line i n the left lower quadrant. Normal bowel gas pattern. Visualized portions of the lung bases are clear. Heart size is normal. IMPRESSION: 1. Unchanged 8 x 4 mm stone at the left ureteropelvic junction. 2. Asymmetric delayed left nephrogram and decreased density of the excreted contrast at the left bay l pelvis relative to the right secondary to the previously noted hydronephrosis secondary to the UPJ stone. Reviewed, dictated and finalized at location B. DER MACHINE SETTER IMPRESSION: 1. Unchanged 8 x 4 mm stone at the left ureteropelvic junction. 2. Asymmetric delayed left nephrogram and decreased density of the excreted con trast at the left renal pelvis relative to the right secondary to the previousl y noted hydronephrosis secondary to the UPJ stone.
--- OUTSIDE RECORDS SUMMARY | 2024-03-09 10:06 | XMS_ITS | Clinical Summary ---
Author Organization [facility] Address [address] [place] [address] Phone Care Team Providers Care Actuary Clerk Name Role Phone Unknown, Notinfile Unavailable Unavailable Maddy Shen NP Primary Care Provider [phone] Allergies Active Allergy Reactions Criticality Noted Date Comments Ciprofloxacin Anxiety,Hives,Rash,S well ing Medium 02/11/2009 Hydromorphone Anxiety,Hives,Nausea & Vomiting,Stomach upset,Urticaria Medium 05/05/2018 Other reaction(s): Urticaria Naproxen Swelling Medium 02/11/2009 Patient tolerates Advil Medications omeprazole (PriLOSEC) 40 mg capsule Take 1 capsule (40 mg total) by mouth daily before breakfast 3 Active escitalopram (LEXAPRO) 5 mg tablet Take 1 tablet (5 mg total) by mouth daily 90 tablet 4 Active buPROPion XL (WELLBUTRIN XL) 300 mg 24 hr tablet Take 1 tablet (300 mg total) by mouth daily 4 Active hydrOXYzine (ATARAX) 25 mg tablet Take 1 tablet (25 mg total) by mouth 3 (three) times a day as needed 4 Active topiramate (TOPAMAX) 50 mg tabletIndicatio ns:Weight gain Take 1 tablet (50 mg total) by mouth 2 (two) times a day 180 tablet 4 07/01/19 25 Active Active Problems Problem Noted Date Diagnosed Date Hyperglycemia 11/15/2022 Overview (11/15/2022): A1c is 4.8. You are not diabetic Weight gain 08/17/2022 Assessment & Plan (08/17/2022 7:39 AM CDT): This is a significant, separately identifiable problem that was evaluated and managed on the same day as the wellness exam History of gastric bypass 08/17/2022 H/O gastric sleeve 08/16/2022 Kidney stones, calcium oxalate 08/16/2022 BMI 40.0-44.9, adult 08/16/2022 Assessment & Plan (07/01/2023 9:34 AM CDT): Discussed the patient's BMI. The BMI is above average. BMI management plan is completed. BMI Follow-up includes: nutrition counseling, exercise counseling and education provided. Assessment & Plan (05/05/2023 10:34 AM CDT): Discussed the patient's BMI. The BMI is above average. BMI management plan is completed. BMI Follow-up includes: nutrition counseling, exercise counseling and education provided. Assessment & Plan (11/15/2022 9:15 AM CDT): Discussed the patient's BMI. The BMI is above average. BMI management plan is completed. BMI Follow-up includes: nutrition counseling, exercise counseling and education provided. Assessment & Plan (08/16/2022 3:37 PM CDT): Discussed the patient's BMI. The BMI is above average. BMI management plan is completed. BMI Follow-up includes: nutrition counseling, exercise counseling and education provided. Screening for thyroid disorder 06/21/2021 Smoker 05/05/2018 Resolved Problems Problem Noted Date Diagnosed Date Resolved Date Obesity (BMI 30-39.9) 08/16/20222023 Immunizations Name Administration Dates Next Due Influenza, Quadrivalent, Spl it, Preservative Free, Intramuscular 11/15/2022 Influenza, Unspecified 08/16/2022(Deferr ed: Patient Refused),03/10/2021(Deferred: Patient Refused) MMR 08/19/2018 Tdap 08/19/2018 Surgical History Surgery Date Site/Laterality Comments GALLBLADDER SURGERY SECTION GASTRIC BYPASS Medical History Medical History Date Comments H/O gastric sleeve Obesity Kidney stones, calcium oxalate Family History Medical History Relation Name Comments ventalator Father Relation Name Status Comments Father Alive Mother Alive Social History Tobacco Use Types Packs/Day Years Used Date Smoking Tobacco: Every Day Cigarettes 0.1 15 Tobacco Cessation:Ready to Q uit: Not Asked; Counseling Given: Not Answered PHQ-2 Answer Date Recorded PHQ-2 Total Score (If total score is 3 or more points, staff should administer the PHQ-9) 1 07/01/2023 Personal Safety Answer Date Recorded Getting School Help Needed Not on file 02/04 Comments Unknown Sex and Gender Information Value Date Recorded Sex Assigned at Not on file 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 Gender Identity Not on file Sexual Orientation Straight 08/09/2022 3: 53 PM CDT Obstetrics History Last Filed Vital Signs Vital Sign Reading Time Taken Comments Blood Pressure 122/78 07/01/2023 9:30 AM CDT Pulse 88 07/01/2023 9:30 AM CDT Temperature 37.1 ??C (98.7 ??F) 07/01/2023 9:30 AM CD T Respiratory Rate - - Oxygen Saturation 97% 07/01/2023 9:30 AM CDT Inhaled Oxygen Concentration - - Weight 107.5 kg (237 lb) 07/01/2023 9:30 AM CDT Height 162.6 cm (5' 4 ) 07/01/2023 9:30 AM CDT Body Mass Index 40.68 07/01/2023 9:30 AM CDT Plan of Treatment Health Maintenance Due Date Last Done Comments Cervical Cancer Screening 1988 Hepatitis C Screening 1988 Pneumococcal vaccine <65 (1 of 2 - PCV) 1994 Varicella Vaccines (1 of 2 - 13+ 2-dose series) 2001 Hepatitis B Screening 2006 Regular Well Visit/Exam 18-64 08/17/2023 08/16/2022 Covid-19 Vaccine ( season) 2023 01/12/2021, 04/19/2020, 03/21/2020 Influenza Vaccine (#1) 2023 11/15/2022 Depression Screening 06/30/2024 07/01/2023, 05/05/2023, 11/15/2022, Additional history exists DTaP/Tdap/Td Vaccine (2 - Td or Tdap) 08/19/2028 08/19/2018 HPV Vaccines Aged Out No longer eligi ble based on patient's age to complete this topic Insurance [address] [place] [id number] [facility] CHOICE [facility]US [facility] HMO/PPO Address: [address] [place] [address] [address] [place] [id number] [facility] [employer] [facility] H[facility]/PPO Address: [address] [address] [place] [phone] Care Teams Actuary Clerk Relationship Specialty Start Date End Date Maddy Shen NP [address] [place] [address] PCP - General Internal Medicine 08/16/22 Unknown, Notinfile 07/19/22
--- OUTSIDE RECORDS SUMMARY | 2024-03-09 10:06 | XMS_ITS | Referral Summary ---
Author Organization [facility] Address [address] [place] [address] Care Team Providers Care Office Inspector Name Role Phone Kush Llanos MD Primary Care Provider [phone] Source Comments [facility],non-owned Affiliates and Associated Physician Practices is amultiple site organization consisting of ambulatory clinics and hospital sitesin [place], [place], [place] and [place]. This disclosure is being madepursuant to the Care Everywhere program and may not contain all information available regarding this patient. Last updated 17.[facility] Allergies Active Allergy Reactions Criticality Noted Date Comments Hydromorphone Urticaria Medium 05/05/2018 Naproxen Swelling 05/05/2018 Medications * Be aware that medications may not be up to date on this document. Alwaysverify current medications with the patient. Medication Sig Dispensed Refills Start Date End Date Status venlafaxine XR 24hr (EFFEXOR XR) 75 MG capsule TAKE 1 CAPSULE BY MOUTH EVERY DAY WITH FOOD 11/30/2018 Active Active Problems Problem Noted Date Diagnosed Date hydronephrosis during , antepartum, not applicable or unspecified fetus 06/05/2018 History of gastric surgery 06/05/2018 Second 05/05/2018 Abnormal ultrasound 05/05/2018 Obesity affecting , antepartum 05/06/19 19 Smoker 05/05/2018 Resolved Problems Problem Noted Date Diagnosed Date Resolved Date Depression screen- initial 4.29.19 06/05/2018 08/31/2018 Overview (08/29/2018): 06/05/2018 Stephanie Vallecillo was screened for depression using the [place] Depression Scale (EPDS) at her [facility] initial evaluation on 06/05/2018. Her initial score at baseline was 15. Based off of her score of 15, Stephanie will receive follow up call from [facility] group social worker, Jo Reyes, within the week. Patient will continue to be screened throughout , at intervals no closer than two weeks, for continued surveillance and early identification of depression until delivery. Patient reports mental health history. Diagnoses include depression, depression, anxiety. Stephanie was provided with a packet for further assistance including information on both the MOMs line and MOMs support group, 24-hr crisis services, and additional resources for further guidance and support. 06/05/18- SW aware of score, resources were given along with notification of [facility] SW follow up- pt sleeps during the day so follow up will take place via email 06/22/18-Attempted follow up X2(email)- response received 06/22/18- please see encounter dated 06.22.18 07/04/18- Attempted follow up X2(email)- no response at this time 07/06/18-Followed up with patient via email 07/06/18- please see encounter with that date 07/20/18- Follow Up EPDS score=14 07/20/18- Followed up with patient at [facility] visit, please see note dated 07.20.18 07/31/18- Followed up with patient via email 07/31/18- please see encounter on this date 08/14/18- Follow Up EPDS score=14 08/14/18- Followed up with patient at [facility] visit, please see note dated 08.14.18 08/29/18- Followed up with patient, please see encounter dated 08.29.18 abnormality in pregnan cy - renal pelvis dilation 05/05/2018 08/31/2018 Overview (08/14/2018): Images from the original note were not included. [facility] PATIENT--PLEASE CALL [phone] (ex 2) IF TRIAGED OR ADMITTED Care Provider: Dr. Kaur [facility] consultants involved: RN- Zakiya; KRISTYN- Sabra/Macy; Pediatric Urologist- Dr. Kuhn Diagnosis: Renal Pelvis Dilation follow up: (Urology): Plan for antibiotic prophylaxis, imaging at > 48h of life but <1mo, and outpatient urology follow up. (Please call clinical nurse, Katharine Jasso, at [phone] to schedule follow-up appointment) Jboss Developer: Undecided Planned surveillance: Initial [facility] appointment and consults scheduled for 06.05.18. Returning to [facility] 07.20.18 and 08.14.18 for follow-up ultrasound. Weekly BPP/NST (one week with primary OB; one week through [place]). Returning to [facility] 08.14.18 to reassess kidneys. Released from [facility] 08.14.18 Delivery location, mode, and GA: In discussion with pediatric urology (Dr. Dunbar), we agree that Stephanie can deliver in [place] per routine obstetrical indications. Delivery at 39 weeks, unless earlier delivery is warranted by equivocal or normal testing, oligohydramnios as defined by a deepest vertical pocket less than 2 cm or decreased movement. Repeat scheduled 09.01.18 at [facility] [place] Concerns: 06/05/18- Patient with history of depression, anxiety and PPD- does take Zoloft Care plan based on evaluation and is subject to change based on assessment. See Images or Cardiac under Chart Review for US/ ECHO/ MRI reports. 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 Pulse 84 02/14/2019 9:16 AM AUTISM MOTOR SPECIALIST Temperature 36.6 ??C (97.9 ??F) 02/14/2019 9:16 AM CS T Respiratory Rate 16 02/14/2019 9:16 AM AUTISM MOTOR SPECIALIST Oxygen Saturation 98% 02/14/2019 9:16 AM AUTISM MOTOR SPECIALIST Inhaled Oxygen Concentration - - Weight 136.1 kg (300 lb) 02/14/2019 9:16 AM AUTISM MOTOR SPECIALIST Height 165.1 cm (5' 5 ) 02/14/2019 9:16 AM AUTISM MOTOR SPECIALIST Body Mass Index 49.92 02/14/2019 9:16 AM AUTISM MOTOR SPECIALIST Plan of Treatment Not on file Administered Medications Care Teams Office Inspector Relationship Specialty Start Date End Date Kush Llanos MD [address] [place] [address] PCP - General 05/26/10
--- OUTSIDE RECORDS SUMMARY | 2024-03-09 10:06 | XMS_ITS | Clinical Summary ---
Author Organization [facility] Address [address] [place] [address]. [place], [place] [id number] [place] [id number] Care Team Providers Care Bricklayer Sewer Name Role Phone None, Provider MD Primary Care Provider Unavaila ble Allergies Active Allergy Reactions Criticality Noted Date Comments Ciprofloxacin Rash Low 01/23/2021 Hydromorphone Hives Medium 05/05/2018 Other reaction(s): Urticaria Naproxen Swelling Medium 05/05/2018 Patient tolerates Advil Social History Tobacco Use Types Packs/Day Years Used Date Smoking Tobacco: Never Assessed Comments Unknown Sex and Gender Information Value Date Recorded Sex Assigned at Not on file Legal Sex Female 7:28 PM CDT Gender Identity Not on file Sexual Orientation Not on file Last Filed Vital Signs Vital Sign Reading Time Taken Comments Blood Pressure 138/96 01/28/2022 10:57 PM EQUIPMENT TECHNICIAN Pulse 93 01/28/2022 10:57 PM EQUIPMENT TECHNICIAN Temperature 36.6 ??C (97.8 ??F) 01/28/2022 10:[address] Respiratory Rate 18 01/28/2022 10:57 PM EQUIPMENT TECHNICIAN Oxygen Saturation 98% 01/28/2022 10:57 PM EQUIPMENT TECHNICIAN Inhaled Oxygen Concentration - - Weight 127 kg (280 lb) 01/28/2022 10:26 PM EQUIPMENT TECHNICIAN Height 165.1 cm (5' 5 ) 01/28/2022 10:26 PM EQUIPMENT TECHNICIAN Body Mass Index 46.59 01/28/2022 10:26 PM EQUIPMENT TECHNICIAN Plan of Treatment Health Maintenance Due Date Last Done Comments Cervical Cancer Screening Pa p Smear (Age 30 to 64) Every 3 Years 1988 Annual Physical 10/08/1991 Hepatitis C 2006 Hepatitis B Vaccines (1 of 3 - 19+ 3-dose series) 10/08/2007 Cervical Cancer Screening Pa p with HPV Testing (Age 30 to 64) Every 5 Years 2018 Cervical Cancer Screening wi th HPV 2018 COVID-19 Vaccine (2023-2 5 season) 2023 01/12/2021, 04/19/2020, 03/21/2020 Influenza Adult (#1) 2023 DTaP, Tdap and Td Vaccines ( 2 - Td or Tdap) 08/19/2028 08/19/2018 HPV Vaccines Aged Out No longer eligi ble based on patient's age to complete this topic Meningococcal B Vaccine Aged Out No l onger eligible based on patient's age to complete this topic Meningococcal Vaccine Aged Out No luz elena manuel eligible based on patient's age to complete this topic Pneumococcal Vaccine: Pediatrics (0 to 5 Years) and At-Risk Patients (6 to 64 Years) Aged Out No longer eligible b ased on patient's age to complete this topic RSV Immunizations Under 20 Months Aged Out No longer eligible b ased on patient's age to complete this topic Insurance MEDICAID DEPT OF [address] Care Teams Bricklayer Sewer Relationship Specialty Start Date End Date None, Provider, PCP - General UNKNOWN PHYSICIAN SPECIALTY 01/28/22
--- OUTSIDE RECORDS SUMMARY | 2024-03-09 10:06 | XMS_ITS | Clinical Summary ---
Author Organization [facility] Address [address] [place] [address] Care Team Providers Care Sourcer Name Role Phone Kush Llanos MD Primary Care Provider [phone] Source Comments [facility],non-owned Affiliates and Associated Physician Practices is amultiple site organization consisting of ambulatory clinics and hospital sitesin [place], [place], [place] and [place]. This disclosure is being madepursuant to the Care Everywhere program and may not contain all information available regarding this patient. Last updated 17.[facility] Allergies Active Allergy Reactions Criticality Noted Date [...] Vallecillo was screened for depression using the [place] Depression Scale (EPDS) at her [facility] initial evaluation on 06/05/2018. Her initial score at baseline was 15. Based off of her score of 15, Stephanie will receive follow up call from [facility] social science professor, Jo Reyes, within the week. Patient will [...] resources were given along with notification of [facility] SW follow up- pt sleeps during the day so follow up will take place via email 06/22/18-Attempted follow up X2(email)- response received 06/22/18- please see encounter dated 06.22.18 07/04/18- Attempted follow up X2(email)- no response at this time 07/06/18-Followed up with patient via email 07/06/18- please see encounter with that date 07/20/18- Follow Up EPDS score=14 07/20/18- Followed up with patient at [facility] visit, please see note dated 07.20.18 07/31/18- Followed up with patient via email 07/31/18- please see encounter on this date 08/14/18- Follow Up EPDS score=14 08/14/18- Followed up with patient at [facility] visit, please see note dated 08.14.18 08/29/18- Followed up with patient, please see encounter dated 08.29.18 abnormality in pregnan cy - renal pelvis dilation 05/05/2018 08/31/2018 Overview (08/14/2018): Images from the original note were not included. [facility] PATIENT--PLEASE CALL [phone] (ex 2) IF TRIAGED OR ADMITTED Care Provider: Dr. Kaur [facility] consultants involved: RN- Zakiya; KRISTYN- Sabra/Macy; Pediatric Urologist- Dr. Kuhn Diagnosis: Renal Pelvis Dilation follow up: (Urology): Plan for antibiotic prophylaxis, imaging at > 48h of life but <1mo, and outpatient urology follow up. (Please call clinical nurse, Katharine Jasso, at [phone] to schedule follow-up appointment) Air Quality Specialist: Undecided Planned surveillance: Initial [facility] appointment and consults scheduled for 06.05.18. Returning to [facility] 07.20.18 and 08.14.18 for follow-up ultrasound. Weekly BPP/NST (one week with primary OB; one week through [place]). Returning to [facility] 08.14.18 to reassess kidneys. Released from [facility] 08.14.18 Delivery location, mode, and GA: In discussion with pediatric urology (Dr. Dunbar), we agree that Stephanie can deliver in [place] per routine obstetrical indications. Delivery at 39 weeks, unless earlier delivery is warranted by equivocal or normal testing, oligohydramnios as defined by a deepest vertical pocket less than 2 cm or decreased movement. 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 Pulse 84 02/14/2019 9:16 AM WATER HYDRANT INSTALLER Temperature 36.6 ??C (97.9 ??F) 02/14/2019 9:16 AM CS T Respiratory Rate 16 02/14/2019 9:16 AM WATER HYDRANT INSTALLER Oxygen Saturation 98% 02/14/2019 9:16 AM WATER HYDRANT INSTALLER Inhaled Oxygen Concentration - - Weight 136.1 kg (300 lb) 02/14/2019 9:16 AM WATER HYDRANT INSTALLER Height 165.1 cm (5' 5 ) 02/14/2019 9:16 AM WATER HYDRANT INSTALLER Body Mass Index 49.92 02/14/2019 9:16 AM WATER HYDRANT INSTALLER Plan of Treatment Health Maintenance Due Date Last Done Comments PAP SMEAR 1990 HIV SCREENING 10/08/2003 HEPATITIS C SCREENING 10/03/2006 DTAP/TDAP/TD VACCINES (1 - Tdap) 10/08/2007 HEPATITIS B VACCINE (1 of 3 - 19+ 3-dose series) 10/08/2007 PNEUMOCOCCAL VACCINE (1 of 2 - PCV) 10/08/2007 COVID-19 VACCINE (1 - 2023-2 5 season) 2023 INFLUENZA VACCINE (#1) 2023 DEPRESSION SCREENING 02/08/2024 ZOSTER VACCINE (1 of 2) 2038 HIB VACCINE Aged Out No longer eligi ble based on patient's age to complete this topic HPV VACCINE Aged Out No longer eligi ble based on patient's age to complete this topic MENINGOCOCCAL (Group B) VACCINE Aged Out No longer eligible based on patient's age to complete this topic MENINGOCOCCAL VACCINE Aged Out No luz elena manuel eligible based on patient's age to complete this topic Care Teams Sourcer Relationship Specialty Start Date End Date Kush Llanos MD [address] [place] [address] PCP - General 05/26/10
--- OUTSIDE RECORDS SUMMARY | 2024-03-09 10:06 | XMS_ITS | Clinical Summary ---
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 Gender Identity Not on file Sexual Orientation Not on file Plan of Treatment Health Maintenance Due Date Last Done Comments Hepatitis C Virus (HCV) Screening 1990 Hepatitis B Immunization (1 of 3 - 19+ 3-dose series) 10/08/2007 Pap Smear 2009 Cervical Cancer Screening (CCS) 2018 HPV/Cotest 2018 Influenza Immunization (#1) 2023 SARS-COV-2 Immunization ( season) 2023 01/12/2021, 04/19/2020, 03/21/2020 Respiratory Syncytial Virus (RSV) Immunization (Adult) (1 - 1-dose 75+ series) 10/08/2063 DTaP/Tdap/Td Immunization Discontinued 08/19/2018 TdaP Immunization Completed 08/19/2018 Meningococcal Immunization (ACWY) Aged Out No longer eligible based on patient's age to complete this topic Pneumococcal Immunization Combined Aged Out No longer eligible based on patient's age to complete this topic Rotavirus Immunization Aged Out No lo nger eligible based on patient's age to complete this topic
--- OUTSIDE RECORDS SUMMARY | 2024-03-09 10:06 | XMS_ITS | Referral Summary ---
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 Gender Identity Not on file Sexual Orientation Straight 08/09/2022 3: 53 PM CDT Last Filed Vital Signs Vital Sign Reading [...] 07/01/2023 9:30 AM CDT Plan of Treatment Not on file Insurance [facility] CHOICE PLUS Member Subscriber Plan / Payer (Ef fective 2022-Present) Name:Ester Jakithompson Benito Relation to Subscriber:Self Name:EsterStephanie Payer ID:[id number] ([facility]) Type:[facility] HMO/PPO Address: [place] [id number] Care Teams Director Of Clinical Applications Relationship Specialty Start Date End Date Maddy Shen NP [address] [facility] [place] [address] [place] [address] PCP - General Internal Medicine 08/16/22 Unknown, Notinfile 07/19/22
--- OUTSIDE RECORDS SUMMARY | 2024-03-09 10:06 | XMS_ITS | Patient Health Summary ---
Author Organization [facility] Address [address] [place] [address] Care Team Providers Care Break Off Worker Name Role Phone Kush Llanos MD Primary Care Provider [phone] [facility],non-owned Affiliates and Associated Physician Practices is amultiple site organization consisting of ambulatory clinics and hospital sitesin [place], [place], [place] and [place]. This disclosure is being madepursuant to the Care Everywhere program and may not contain all information available regarding this patient. Last updated 17.[facility] Allergies * Hydromorphone(Urticaria) -Medium Criticality * Naproxen(Swelling) Medications * Be aware that medications may not be up to date on this document. Alwaysverify current medications with the patient. * venlafaxine XR 24hr (EFFEXOR XR) 75 MG capsule(Started 11/30/2018) TAKE 1 CAPSULE BY MOUTH EVERY DAY WITH FOOD Active Problems Problem Noted Date Diagnosed Date hydronephrosis during , antepartum, not applicable or unspecified fetus 06/05/2018 History of gastric surgery 06/05/2018 Second 05/05/2018 Abnormal ultrasound 05/05/2018 Obesity affecting , antepartum 05/06/19 19 Smoker 05/05/2018 Resolved Problems Problem Noted Date Diagnosed Date Resolved Date Depression screen- initial 4.29.19 06/05/2018 08/31/2018 abnormality in pregnan cy - renal pelvis dilation 05/05/2018 08/31/2018 Social History Tobacco Use Types Packs/Day Years [...] Comments Blood Pressure 118/80 02/14/2019 9:16 AM 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 Pulse 84 02/14/2019 9:16 AM DRIVER WHEELCHAIR Temperature 36.6 ??C (97.9 ??F) 02/14/2019 9:16 AM CS T Respiratory Rate 16 02/14/2019 9:16 AM DRIVER WHEELCHAIR Oxygen Saturation 98% 02/14/2019 9:16 AM DRIVER WHEELCHAIR Inhaled Oxygen Concentration - - Weight 136.1 kg (300 lb) 02/14/2019 9:16 AM DRIVER WHEELCHAIR Height 165.1 cm (5' 5 ) 02/14/2019 9:16 AM DRIVER WHEELCHAIR Body Mass Index 49.92 02/14/2019 9:16 AM DRIVER WHEELCHAIR Procedures * SKIN TEST PPD - POINT OF CARE(Performed 12/14/2018) Performed for PPD screening test * NON-STRESS TEST(Performed 08/15/2018) * BIOPHYSICAL PROFILE W NST(Performed 08/14/2018) Performed for Obesity affecting , antepartum (HCC), hydronephrosis during ,antepartum, not applicable or unspecified fetus (HCC) * BIOPHYSICAL PROFILE W NST(Performed 08/04/2018) Performed for Obesity affecting , antepartum (HCC), hydronephrosis during ,antepartum, not applicable or unspecified fetus (HCC) * SONOGRAM - COMPLETE(Performed 07/20/2018) * SONOGRAM - COMPLETE(Performed 06/27/2018) Performed for Evaluate anatomy not seen on prior sonogram, Obesity affecting , antepartum (HCC), abnormality affecting management of mother, single or unspecified fetus (HCC) * SONOGRAM - COMPLETE(Performed 06/05/2018) Performed for abnormality affecting management of mother, single or unspecified fetus (HCC) * SONOGRAM - COMPLETE(Performed 05/05/2018) Performed for Second (HCC) Results * SKIN TEST PPD - POINT OF CARE (12/14/2018 10:44 AM DRIVER WHEELCHAIR) PPD 0 MM Comment:negative Other MISCELLANEOUS SAMPLE S / Unknown 12/14/2018 10:44 AM DRIVER WHEELCHAIR Tanvi Unger FINANCIAL SALES ASSOCIATE-RESEARCH PROGRAMMER LAB - POINT OF CARE ORDERABLES * NON-STRESS TEST (08/15/2018 6:48 PM CDT) Anatomical Region Laterality Modality Other Narrative 08/15/2018 6:48 PM CDT Cassandra Haney RN ? 08/14/2018 ??9:47 AM Name: ??Stephanie Norman Date of : ??1990 Today's Date: ??08/14/2018 ?NST RESULTS (JACK) OBJECTIVE FINDINGS , Pulse: 88, ??, BP: 124/80 NST Indication(s): Other (Comment) (UTD) Uterine Irritability: No Contractions: Not present OBJECTIVE FINDINGS Movement: Present Monitoring Mode: External Baseline: 125 BPM Variability: Moderate Decelerations: None Accelerations: Yes OTHER INFORMATION Cassandra Haney RN Tammy Russell MD [facility] ORDERABLES * BIOPHYSICAL PROFILE W NST (08/14/2018 8:06 AM CDT) Only the most recent of2 resultswithin the time period is included. Anatomical Region Laterality Modality Other 08/14/2018 8:06 AM CDT Narrative 08/14/2018 10:25 AM CDT ?[facility] ? [facility] ?FAX: [phone] Pat. Name: ?STEPHANIE NORMAN Pat. No: ?[id number] Study Date: ?? 08/14/2018 ??8:06am , Age: ? 1990, 27 Pregnancies: ?? 2, Para 1 Height: ? 65 in Weight: ? 266 lb LMP: ?Unknown GA by Base: ?? 36w3d ?? SHANNON: 09/08/2018 GA by US: ? 36w3d ?? SHANNON: 09/08/2018 GA Selected: ??36w3d [facility] SHANNON: ?09/08/2018 Referring MD: Homero Kaur MD Nurses' Aide: ??Salma Michel [facility] CPT4: ? 87392,82133 BMI: ?44.26 Hist/Ind: ? urinary tract dilation: A2-3 ?Class III obesity ?History of gastic sleeve ?Prior CD MEASUREMENTS & AGE ? GROWTH EVALUATION Measurement ??GA ? Range ? Srce %for GA Ratios ----- ---- ------- BPD ??9.2 cm 37w1d (08t0l-82u1f) Hadl BPD 78% FL/BPD 0.76 (0.71 - 0.87) HC ??33.9 cm 39w0d (24a1d-22v2m) Hadl HC ??82% FL/AC ??0.22 (0.20 - 0.24) AC ??32.0 cm 36w0d (58c4s-70f8f) Hadl AC ??47% HC/AC ??1.06 (0.92 - 1.11) FL ?? 6.9 cm 35w4d (08r1y-32w6t) Hadl FL ??25% CI ? 0.76 (0.70 - 0.86) HL ?? 5.8 cm 33w5d (60z5d-45u0l) Fran HL ??<05 GA for sonogram 36w3d (93j8k-89v4i) ?? Weight Estimate: based on (BPD,HC,AC,FL) Hadlock ?Weight: 2900 gm (2476-3323gm) Had ? : 6lbs, 6oz ? Normal: 2905 gm (2179- 3631gm) Had ? Wt% ? 49% for 36w3d Heart Rate: 122 bpm Amniotic Fluid Index: 18.3cm (07.6-24.7) Q1: 5.0cm ??Q2: 3.2cm ??Q3: 5.1cm ??Q4: 5.0cm ?? Biophysical Profile: 11/16 Breathin ?? Tone: 2 ?? NST: 2 Movement: ??2 ?? AFV: ??2 EVAL, PLACENTA Presentation: cephalic Placenta: posterior Heart Rate: 122 bpm Amniotic Fluid Volume: normal CLINICAL SUMMARY Study Number: 6 ?? This is complicated by bilateral urinary tract dilation. Both kidneys have increased echogenicity. ??The left kidney has central and peripheral calyceal dilatation; a renal polar length 60 mm (greater than the 95th percentile) and a pelvic diameter of 16 mm. ??There is left proximal ureteral nephrosis. ??The right renal polar length 51 mm (greater than the 95th percentile) and a pelvic dilation 10 mm. ??While the bladder wall is prominent in thickness, it does not appear greater than 3 mm. ??The amniotic fluid volume is normal, which is reassuring. ?? NST: baseline 120, moderate variability, appropriate accelerations without significant decelerations; Impression: Reactive. IMPRESSION: Single live IUP at 36w3d. ?? Overall appropriate growth normal amniotic fluid. bilateral urinary tract dilation A 2-3 --Generally stable compared to last exam No bladder wall hypertrophy Short humerus Reassuring testing. ?? See separate discussion note. RECOMMEND: Continue weekly 10 point biophysical profile Thank you for the opportunity to participate in the care of your patient. Tammy Russell MD <Electronic Signature> ??08/14/2018 10:15am Roxi Cavazos MD [facility] ORDERABLES * SONOGRAM - COMPLETE (07/20/2018 11:38 AM CDT) Only the most recent of4 resultswithin the time period is included. Anatomical Region Laterality Modality Other 07/20/2018 11:3 8 AM CDT Narrative 07/20/2018 4:55 PM CDT ?[facility] ? [facility] ?FAX: [phone] Pat. Name: ?STEPHANIE NORMAN Pat. No: ?[id number] Study Date: ?? 07/20/2018 ??11:38am , Age: ? 1990, 27 Pregnancies: ?? 2, Para 1 Height: ? 65 in Weight: ? 266 lb LMP: ?Unknown GA by Base: ?? 32w6d ?? SHANNON: 09/08/2018 GA by US: ? 33w5d ?? SHANNON: 09/02/2018 GA Selected: ??32w6d (From Known E) SHANNON: ?09/08/2018 Referring MD: Homero Kaur MD Nurses' Aide: ??Salma Michel RDMS CPT4: ? 18649 BMI: ?44.26 Hist/Ind: ? urinary tract dilation: A2-3 ?Class III obesity ?History of gastic sleeve ?Prior CD MEASUREMENTS & AGE ? GROWTH EVALUATION Measurement ??GA ? Range ? Srce %for GA Ratios ----- ---- ------- BPD ??8.8 cm 35w4d (28f3o-66l7q) Hadl BPD 97% FL/BPD 0.71 (0.71 - 0.87* HC ??31.9 cm 35w6d (90p7d-73c9i) Hadl HC ??87% FL/AC ??0.21 (0.20 - 0.24) AC ??29.3 cm 33w2d (31r2o-71t0l) Hadl AC ??65% HC/AC ??1.09 (0.95 - 1.14) FL ?? 6.2 cm 32w2d (44r2r-26i4v) Hadl FL ??22% CI ? 0.78 (0.70 - 0.86) HL ?? 5.4 cm 31w2d (87y0k-02f7h) Fran HL ??23% GA for sonogram 33w5d (49j3i-87f8m) ?? Weight Estimate: based on (HL,BPD,HC,AC,FL) Avg ? Weight: 2203 gm (1882-2525gm) Had ? : 4lbs, 13oz ? Normal: 2133 gm (1600- 2666gm) Had ? Wt% ? 60% for 32w6d Heart Rate: 134 bpm Amniotic Fluid Index: 19.4cm (08.3-24.5) Q1: 5.1cm ??Q2: 5.1cm ??Q3: 5.1cm ??Q4: 4.1cm ?? EVAL, PLACENTA Presentation: cephalic Umbilical Cord: 3 Vessels Placenta: posterior Heart Rate: 134 bpm Amniotic Fluid Volume: normal Anatomy!Normal!Abnormal!Suboptimal!Prev. Seen!Comments Cranium ?! ?! ?! ?! ? x ?! Mdl (CSP/Thal! ?! ?! ?! ? x ?! Ventricles ?? ! ?! ?! ?! ? x ?! Choroid Plexu! ?! ?! ?! ? x ?! Cerebellum ?? ! ?! ?! ?! ? x ?! Cisterna M. ??! ?! ?! ? x ?! ?! Profile ?! ?! ?! ?! ? x ?! Nasal Bone ?? ! ?! ?! ?! ? x ?! Lip ?! ?! ?! ?! ? x ?! Spine ?! ?! ?! ? x ?! ?! Lungs ?! ?! ?! ?! ? x ?! 4 Chamber Hea! ?? x ??! ?! ?! ? x ?! LVOT ? ! ?! ?! ? x ?! ?! RVOT ? ! ?! ?! ? x ?! ?! 3 Vessel View! ?! ?! ?! ? x ?! Cross-over ?? ! ?! ?! ? x ?! ?! Ductal Arch ??! ?! ?! ? x ?! ?! Aortic Arch ??! ?! ?! ? x ?! ?! Caval View ?? ! ?! ?! ?! ? x ?! Situs ?! ?! ?! ?! ? x ?! Diaphragm ?! ?! ?! ?! ? x ?! Stomach ?! ?! ?! ?! ? x ?! Bowel ?! ?! ?! ?! ? x ?! Kidneys ?! ?! ?x ?? ! ?! ?! Bladder ?! ?! ?! ?! ? x ?! 3 Vessel Cord! ?! ?! ?! ? x ?! Cord In! ?! ?! ?! ? x ?! Upper Extremi! ?! ?! ?! ? x ?! Hands ?! ?! ?! ? x ?! ?! Lower Extreme! ?! ?! ?! ? x ?! Feet ? ! ?! ?! ?! ? x ?! External Sanjuana! ?! ?! ?! ? x ?! Placental Cor! ?! ?! ?! ? x ?! CLINICAL SUMMARY Study Number: 4 ?? A single fetus is identified cephalic presentation. ??The measurements today are consistent with appropriate growth compared to the previous examination. ??The SHANNON selected is based on a prior ultrasound. ??The amniotic fluid volume is normal. ??The placenta is posterior. ??The patient was advised that ultrasound does not allow detection of all structural or chromosomal abnormalities. Bilateral UTD A2-3 was again seen today. The left renal pelvis measures 1.6 cm and the right renal pelvis measures 0.78 cm. The left kidney does have calyceal involvement, although there is normal-appearing renal parenchyma. There is proximal dilation of the left ureter to 0.76 cm. The bladder appears normal. The genitalia appears normal. IMPRESSION: ?? Single IUP at 32w6d ?? Appropriate growth. ?? Bilateral UTD A2-3, left > right. Normal bladder and amniotic fluid. COUNSELING: Stephanie was previously counseled regarding the potential underlying etiologies and need for follow-up for further investigation. Today we discussed the progression of the dilation of the left kidney, which further increases the likelihood of requiring intervention. While the right kidney also has mild dilation, it is not as extensive as that on the left. This picture is less concerning for a lower urinary tract obstruction than the previous evaluation. ??In discussion with pediatric urology (Dr. Dunbar), we agree that Stephanie can deliver in [place] and be scheduled for outpatient urologic evaluation. We will evaluate the kidneys one more time around 36 weeks to ensure that this plan remains appropriate closer to the time of anticipated delivery. We recommend weekly BPP/NST until delivery. Delivery can be per routine obstetric indications. RECOMMEND: - Weekly NST/BPP/RADHA - Reassess kidney appearance at 36 weeks at [facility] - If stable continue to plan delivery at [place] - Plan for antibiotic prophylaxis, imaging at > 48h of life, and outpatient urology follow up. ?? Consult time: total time spent discussing the above issues was 45 minutes Thank you for allowing us the opportunity to care for your patient. Roxi Cavazos MD <Electronic Signature> ??07/20/2018 04:55pm Roxi Cavazos MD [facility] ORDERABLES Care Teams Break Off Worker Relationship Specialty Start Date End Date Kush Llanos MD [address] [facility] [place] [id number] PCP - General 05/26/10
--- OUTSIDE RECORDS SUMMARY | 2024-03-09 10:06 | XMS_ITS | Data Portability ---
Author Organization [facility] Address [address] [place] [address] Care Team Providers Care Wash Operator Name Role Phone CHRIS HARO Primary Care Provider [phone] KIM HERNADEZ Primary Care Provider [phone] Assessment Encounter Date Assessment Date Assessment LastModified by Organization Details LastModified Time 07/30/2022 07/30/2022 Annual gynecological exam performed. Patient will come back in a year unless there are new symptoms. Not available 07/30/2022 12:33:30 Plan of Treatment Reminders Order Date Submit Date Provider Last Modified By Organization Details Last Modified Time Details Appointments None recorded. Lab dhea-sulfat e, serum 2022 023 [facility] (Lab), [address] , [place], [address], 3 13:04:57 hormone panel, serum or plasma 2022 023 [facility] (Lab), [address], [place], [address], 3 13:04:58 progesteron e, serum 2022 023 [facility] (Lab), [address] [place], [address], 3 13:04:58 prolactin, serum 2022 023 [facility] (Lab), [address], [place], [address], 3 13:04:58 shbg (sex hormone-bin ding globulin), serum 2022 023 [facility] (Lab), [address], [place], [address], 3 13:04:59 TSH, serum or plasma 2022 023 [facility] (Lab), [address], [place], [address], 3 13:04:59 testosteron e free/testos terone total, ratio, serum 2022 023 [facility] (Lab), [address], [place], [address], 3 13:05:00 hsv-2 igg Ab, serum 2024 025 [facility] (Lab), [address], [place], [address], 5 11:36:41 HBsAg (hepatitis B surface Ag), serum 2024 025 [facility] (Lab), [address], [place], [address], 5 11:36:41 hsv-1 igg Ab, serum 2024 025 [facility] (Lab), [address], [place], [address], 5 11:36:41 unlisted lab - women's health swab plus, EULOGIO 2024 025 [facility] (Lab), [address], [place], [address], 5 15:54:07 herpes simplex, culture, unspecified specimen 2024 025 [facility] (Lab), [address], [place], [address], 5 15:54:08 Referral None recorded. Procedures None recorded. Surgeries hysteroscop y, with endometrial ablation (SURG) 2022 023 [email or web address] [facility], [address], [place], [address], 3 11:23:34 Imaging US, pelvis, complete 2022 023 [email or web address] [facility], [address], [address], [place], [address], 3 15:37:05 US, pelvis 2022 023 [email or web address] [facility], [address], [address], [place], [address], 3 19:01:04 US, transvagina l 2022 023 [email or web address] [facility], [address], [address], [place], [address], 3 19:01:04 Medication Orders Addyi 100 mg tablet 2020 021 [email or web address] [facility], [address] [facility], [place], [address], 5 12:24:18 NuvaRing 0.12 mg-0.015 mg/24 hr vaginal 2020 021 [email or web address] [facility], [address], [place], [address], 3 12:35:15 spironolact one 100 mg tablet 2022 023 [facility], [address] [place], [address], 3 12:25:12 metformin ER 500 mg tablet,exte nded release 24 hr 2022 023 [email or web address] [facility], [address] [place] [address], [address], 5 12:25:02 nystatin-tr iamcinolone 100,000 unit/gram-0 .1 % topical ointment 2024 025 [facility], [facility] [place], [address], 5 12:45:26 fluconazole 150 mg tablet 2024 025 [facility], [address] [place] [address], [address], 5 12:45:25 Patient TargetsNo targets recorded. Patient InstructionsNo instructions recorded. Reason for Referral None Reported. Results Created Date Observation Date Name Description Value Unit Range Abnormal Flag Note LastModifiedBy Organization Detail LastModifiedTime 07/31/19 23 07/30/2022 IMAGE GUIDE D PAP AND HPV REGAR DLESS image guided Pap, HPV regardless of Pap result SEE RESULT S BELOW CASE REPOR T: Cytol ogy Gynec ologi karol Repor t Case: [id number] Autho akil conner Provi kimberly: Stephan Mora Colle cted: 07/30 1426 COMB SETTER Order ing Locat ion: [place] [facility] Recei sri: 08/02 0625 First Scree n: Filippognjomar r, Kelly ica Rescr een: Jacky Almanzar am, CT Speci men: Scree matilda Pap - Image d, Cervi x STATE MENT OF ADEQU ACY: Satis facto ry for evalu ation Trans forma tion zone compo nent prese nt FINAL DIAGN OSIS: Negat yoli for Intra epith elial Lesio n or Malig francoise (NIL) . Elect martinez morales tan d by Jacky Almanzar am, CT on 2022 at 1:17 PM ----- ----- ----- ----- ----- ----- ----- ----- ----- ----- ----- ----- ----- ----- ----- ----- ----- ---- HPV RESUL TS: HPV mRNA E6/E7 : No HPV mRNA Detec bandar NOTE: This high risk HPV mRNA assay detec ts fourt een high- risk HPV types (16, 18, 31, 33, 35, 39, 45, 51, 52, 56, 58, 59, 66, 68) witho ut diffe renti ation . COMME NT: This speci men was revie wed by a Cytot echno logis t and/o r Patho logis t (as indic ated in this repor t) after evalu ation using the Thinp rep Imagi ng Syste m. CLINI KAROL INFOR MATIO N: Menst rual Statu s: LMP (if appli cable ): Clini karol Histo ry/Pr eviou s Pap: Type of Neopl padmaja (if appli cable ): Signi fican t Clini karol Findi ngs: Other Histo ry: Hormo jeffery (if appli cable ): PAP EDUCA OSMANY L NOTE: The Pap Test is a scree matilda test with an inher ent false negat yoli rate. Liqui d-bas ed sampl ing may decre ase, but will not elimi madonna, false negat yoli resul ts. A negat yoli resul t does not precl ude the prese nce and/o r devel opmen t of disea se, since the prese nce of abnor mal cells in the sampl e depen ds on the locat ion of the lesio n and sampl ing techn ique. Kandi nued regul ar scree matilda is the best metho d of cance r preve ntion . If repor bandar cytol ogic findi ng do not corre late with physi karol and/o r histo rical findi ngs, fur er inves tigat ion is recom heidi d, as clini madai clarke nted. Not Available [facility] (Lab) [address] [facility], [place], [address], 08/03/2022 14:20:53 07/31/19 23 07/30/2022 DHEA SULFA TE DHEA-sulfate 138 ug/dL Femal e Range s Age(y ) Range (ug/d L) 10-15 34-28 0 15-20 65-36 8 20-25 148-4 07 25-35 99-34 0 35-45 61-33 7 45-55 35-25 6 55-65 19-20 5 65-75 9-246 > 75 12-15 4 Not Available [facility] (Lab) [address] [facility], [place], [address], 08/07/2022 13:04:57 07/31/19 23 07/30/2022 PROGE STERO NE progesterone 0.54 NG/mL This assay was perfo rmed using [employer] ratio n reage nts and test kits. Value s obtai choco with other assay metho ds or kits canno t be used inter de la fuente eay . Femal e Proge stero ne Range s: Folli cular phase 0.06- 0.89 ng/mL Ovula tion phase 0.12- 12.00 ng/mL Lutea l phase 1.83- 23.90 ng/mL Postm enopa usal< 0.05- 0.13 ng/mL Healt hy Pregn ant Women 1st Trime ster1 1.0-4 4.30 2nd Trime ster2 5.40- 83.30 3rd Trime ster5 8.70- 214.0 0 Not Available [facility] (Lab) [address] [facility], [place], [address], 08/07/2022 13:04:58 07/31/19 23 07/30/2022 PROLA CTIN prolactin, total 16.00 NG/mL 4.79-2 3.30 This assay was perfo rmed using [employer] ratio n reage nts and test kits. Value s obtai choco with other assay metho ds or kits canno t be used inter de la fuente eably . Not Available [facility] (Lab) [address] [place], [address], 08/07/2022 13:04:58 07/31/1907/30/2022 FSH, LH, ESTRA DIOL estradiol 227.0 pg/mL This assay was perfo rmed using [employer] ratio n reage nts and test kits. Value s obtai choco with other assay metho ds or kits canno t be used inter [facility] . Femal e Estra diol Range s: Folli cular phase 12.4- 233 pg/mL Ovula tion phase 41.0- 398 pg/mL Lutea l phase 22.3- 341 pg/mL Postm enopa usal< 5-138 pg/mL Healt hy Pregn ant Women 1st Trime ster1 54-32 43 pg/mL 2nd Trime ster1 561-2 1280 pg/mL 3rd Trime ster8 525-> 07975 pg/mL Not Available [facility] (Lab) [address] [place], [address], 08/07/2022 13:04:58 07/31/19 23 07/30/2022 FSH, LH, ESTRA DIOL FSH 8.0 mIU/m L This assay was perfo rmed using [employer] ratio n reage nts and test kits. Value s obtai choco with other assay metho ds or kits canno t be used inter [facility] . Femal es Folli cular : 3.5-1 2.5 mIU/m L Ovula tion: 4.7-2 1.5 mIU/m L Lutea l: 1.7-7 .7 mIU/m L Postm enopa use: 25.8- 134.8 mIU/m L Not Available [facility] (Lab) [address] [place], [address], 08/07/2022 13:04:58 07/31/19 23 07/30/2022 FSH, LH, ESTRA DIOL LH 38.2 mIU/m L This assay was perfo rmed using [employer] ratio n reage nts and test kits. Value s obtai choco with other assay metho ds or kits canno t be used inter de la fuente eably . Femal es Mid-F ollic ular: 2.4-1 2.6 mIU/m L Mid-C ycle: 14.0- 95.6 mIU/m L Mid-L uteal : 1.0-1 1.4 mIU/m L Postm enopa use: 7.7-5 8.5 mIU/m L Not Available [facility] (Lab) [address] [place], [address], 08/07/2022 13:04:58 07/31/19 23 07/30/2022 TSH, REFLE X FREE T4 TSH 1.80 uIU/m L 0.30-5 .33 Not Available [facility] (Lab) [address] [place], [address], 08/07/2022 13:04:59 07/31/19 23 07/30/2022 HUMAN SEX HORMO NE CAMRYN NG GLOBU KEO sex hormone binding globulin 20.4 nmole s/L 18.2-1 35.5 Not Available [facility] (Lab) [address] [facility], [place], [address], 08/07/2022 13:04:59 07/31/19 23 07/30/2022 TESTO STERO NE, FREE( DIALY SIS) AND TOTAL (LC/M S/MS) testosterone , total 40 NG/dL 2-45 For addit ional infor bharti guillen e refer to http: //john rodas.que stdia gnost ics.c om/fa q/Tot alTes monet Beltran [facility] (This link is being provi ded for infor bridgett spear/ educa osmany madrid purpo ses only. ) This test was devel oped and its jaswinder tical perfo rmanc e broderick cteri stics have been deter mined by [facility]. It has not been clear ed or appro sri by the FDA. This assay has been valid ated pursu ant to the CLIA regul ation s and is used for clini karol purpo ses. Not Available [facility] (Lab) [address] [facility], [place], [address], 08/07/2022 13:05:00 07/31/19 23 07/30/2022 TESTO STERO NE, FREE( DIALY SIS) AND TOTAL (LC/M S/MS) testosterone , free 8.0 pg/mL 0.1-6. 4 high This test was devel oped and its jaswinder tical perfo rmanc e broderick cteri stics have been deter mined by [facility]. It has not been clear ed or appro sri by the FDA. This assay has been valid ated pursu ant to the CLIA regul ation s and is used for clini karol purpo ses. Perfo rming Organ izati on Infor matalena n: Site ID: [id number] Name: [facility] [place] Addre ss: [id number] [place] [address] Direc tor: Herman malone M.D. Not Available [facility] (Lab) [address] [facility], [place], [address], 08/07/2022 13:05:00 02/08/1902/09/2024 HBSAG /HCV/ HIV/R VT HIV antigen/anti body Nonrea ctive nonrea ctive HIV-1 antig en and HIV-1 /HIV- 2 antib odies were not detec bandar. No labor atory evide nce of HIV infec tion. Not Available [facility] (Lab) [address] [facility], [place], [address], 02/10/2024 11:36:40 02/08/1902/09/2024 HBSAG /HCV/ HIV/R VT hepatitis B surface antigen Non-re active non-re active This assay was perfo rmed using [employer] ratio n reage nts and test kits. Value s obtai choco with other assay metho ds or kits canno t be used inter de la fuente eably . Not Available [facility] (Lab) [address] [facility], [place], [address], 02/10/2024 11:36:40 02/08/19 25 02/09/2024 HBSAG /HCV/ HIV/R VT hepatitis C antibody Non-re active non-re active Antib odies to HCV Not Detec bandar, does not exclu de the possi bilit y of expos ure to HCV. Not Available [facility] (Lab) [address] [facility], [place], [address], 02/10/2024 11:36:40 02/08/19 25 02/09/2024 HBSAG /HCV/ HIV/R VT RPR screen Nonrea ctive nonrea ctive Not Available [facility] (Lab) [address] [facility], [place], [address], 02/10/2024 11:36:40 02/08/19 25 02/09/2024 HERPE S SMPLE X VIRUS TYPE 1 SPECI FIC AB, IGG herpes simplex virus 1 IgG Negati ve negati ve Not Available [facility] (Lab) [address] [facility], [place], [address], 02/10/2024 11:36:41 02/08/19 25 02/09/2024 HERPE S SMPLE X VIRUS TYPE 1 SPECI FIC AB, IGG herpes simplex virus 1 IgG, quant 0.5 ai 0.0-0. 8 Not Available [facility] (Lab) [address] [place], [address], 02/10/2024 11:36:41 02/08/19 25 02/09/2024 HERPE S SIMPL EX VIRUS TYPE 2 SPECI FIC AB, IGG herpes simplex virus 2 IgG Positi ve negati ve abnormal Not Available [facility] (Lab) [address] [place], [address], 02/10/2024 11:36:41 02/08/19 25 02/09/2024 HERPE S SIMPL EX VIRUS TYPE 2 SPECI FIC AB, IGG herpes simples virus 2 IgG, quant >8.0 ai 0.0-0. 8 high Not Available [facility] (Lab) [address] [place], [address], 02/10/2024 11:36:41 02/08/1902/09/2024 [facility], EULOGIO bacterial vaginosis (bv), tma Negati ve negati ve Not Available [facility] (Lab) [address] [facility], [place], [address], 02/16/2024 15:54:07 02/08/19 25 02/09/2024 [facility] SWAB [facility]US, EULOGIO eileen species, tma Negati ve negati ve Not Available [facility] (Lab) [address] [place], [address], 02/16/2024 15:54:07 02/08/19 25 02/09/2024 [facility] SWAB [facility]US, EULOGIO eileen glabrata, tma Negati ve negati ve Not Available [facility] (Lab) [address] [place], [address], 02/16/2024 15:54:07 02/08/19 25 02/09/2024 [facility] SWAB [facility]US, EULOGIO trichomonas vaginalis, tma Negati ve negati ve Not Available [facility] (Lab) [address] [place], [address], 02/16/2024 15:54:07 02/08/19 25 02/09/2024 [facility] SWAB [facility]US, EULOGIO chlamydia trachomatis, PCR Negati ve negati ve Not Available [facility] (Lab) [address] [place], [address], 02/16/2024 15:54:07 02/08/19 25 02/09/2024 [facility] SWAB [facility]US, EULOGIO neisseria gonorrhoeae, PCR Negati ve negati ve Bacte rial vagin osis detec ts the follo wing bacte dalia assoc iated with bacte rial vagin osis (BV): Lacto bacil juliana (L. gasse ri, L. crisp atus and L. jense ricardo), Gardn erell a vagin jimi, and Atopo bium vagin ae. A singl e quali tativ e resul t is repor bandar base on instr ument softw are to deter mine BV posit yoli or negat yoli statu s. The [facility] speci es group tests for C. albic ans, C. tropi calis , C. parap rocio is, C. dubli niens is. Testi ng is perfo rmed using the Trans cript ion Media bandar Ampli ficat ion metho d. Tests for Consuelo da glabr lukas, Trich omona s vagin jimi, Chlam ydia trach omati s, and Neiss eria gonor rhoea e are also inclu ded in this panel . Not Available [facility] (Lab) [address] [place], [address], 02/16/2024 15:54:07 02/08/19 25 02/09/2024 CULTU RE: HERPE S SIMPL EX VIRUS (HSV) , REFLE X TYPIN G source LESION SCRAPI NG Not Available [facility] (Lab) [address] [place], [address], 02/16/2024 15:54:08 02/08/19 25 02/09/2024 CULTU RE: HERPE S SIMPL EX VIRUS (HSV) , REFLE X TYPIN G hsv culture, body fluid NOT ISOLAT ED Perfo rming Organ izati on Infor matio n: Site ID: CB Name: [facility] jessica [facility] Addre ss: [address] [place] [address] Dire tor: Malathi Sutton s Not Available [facility] (Lab) [address] [place], [address], 02/16/2024 15:54:08 08/03/19 23 08/02/2022 US, pelvi s No observ ation record ed. [email or web address] [facility] [address], [place], [address], 08/02/2022 12:30:13 08/03/19 23 08/02/2022 US, trans vagin al No observ ation record ed. [email or web address] [facility] [address], [place], [address], 08/02/2022 12:29:52 08/03/19 23 08/02/2022 US, pelvi s No observ ation record ed. ISAK Shari [address], [place], [address], 08/17/2022 11:38:26 Result Notes None recorded. Problems Name Problem SNOMED Code Status Onset Date Resolution Date Notes Provider Name and Address Organization Details Recorded Time Decrease d sexual function [id number] Active 2020 Ingrid lovell [facility] 09:56:50 Antenata l screenin g for malforma tion Completed 201803/27/2020 Encounte r for antenata l screenin g for malforma tions;Pr actice ID: 0001 Ingrid lovell [facility] 11:40:14 Normal pregnanc y in multigra carlos [id number] 4106 Completed 201803/27/2020 Encounte r for suprvsn of normal pregnanc y, second trimeste r;Practi ce ID: 0001 Ingrid lovell, [facility] 11:41:02 Mental disorder in mother complica ting pregnanc y [id number] Completed 201803/27/2020 Oth mental disorder s comp pregnanc y, second trimeste r;Practi ce ID: 0001 Ingrid lovell [facility] 11:41:01 Gestatio n period, 25 weeks 65482125 Completed 201803/27/2020 25 weeks gestatio n of pregnanc y;Practi ce ID: 0001 Ingrid lovell, [facility] 11:40:49 Urinary tract infectio n in pregnanc y 384389338 Completed 201803/27/2020 Infect of prt urinary tract in pregnanc y, third trimeste r;Practi ce ID: 0001 Ingrid lovell, [facility] 11:41:22 Gestatio n period, 30 weeks 62910631 Completed 201803/27/2020 30 weeks gestatio n of pregnanc y;Practi ce ID: 0001 Ingrid lovell, [facility] 11:40:50 Severe obesity complica ting pregnanc y [id number] 011314 Completed 201803/27/2020 Obesity complica ting pregnanc y, third trimeste r;Practi ce ID: 0001 Ingrid lovell, [facility] 11:41:12 Gestatio n period, 32 weeks 7327484 Completed 201803/27/2020 32 weeks gestatio n of pregnanc y;Practi ce ID: 0001 Ingrid lovell, [facility] 11:40:51 Body mass index 30+ - obesity 837287924 Completed 201803/27/2020 Body mass index (BMI) 45.0-49. 9, adult;Pr actice ID: 0001 Ingrid lovell, [facility] 11:40:16 Clinical finding Completed 201803/27/2020 Obesity, unspecif ied;Prac nishant ID: 0001 Ingrid lovell, [facility] 11:40:45 Gestatio n period, 33 weeks 45008534 Completed 201803/27/2020 33 weeks gestatio n of pregnanc y;Practi ce ID: 0001 Ingrid lovell, [facility] 11:40:53 Gestatio n period, 34 weeks 37679857 Completed 201803/27/2020 34 weeks gestatio n of pregnanc y;Practi ce ID: 0001 Ingrid lovell, [facility] 11:40:[address] Concept Completed 201803/27/2020 Maternal care for oth abnormal ity and damage, unsp;Pra ctice ID: 0001 Ingrid lovell, [facility] 11:41:14 Gestatio n period, 35 weeks 72462525 Completed 201803/27/2020 35 weeks gestatio n of pregnanc y;Practi ce ID: 0001 Ingrid lovell, [facility] 11:40:55 Pregnanc y, childbir th and puerperi um finding Completed 201803/27/2020 Oth pregnanc y related conditio ns, third trimeste r;Practi ce ID: 0001 Ingrid lovell, [facility] 11:40:[address] Concept Completed 201803/27/2020 Decrease d movement s, third trimeste r, unsp;Pra ctice ID: 0001 Ingrid lovell, [facility] 11:41:[address] Concept Completed 201803/27/2020 Matern care for abnlt fetl hrt rate or rhym, 3rd tri, unsp;Pra ctice ID: 0001 Ingrid Thompson nas, [facility] 11:41:17 Gestatio n period, 36 weeks [id number] Completed 201803/27/2020 36 weeks gestatio n of pregnanc y;Practi ce ID: 0001 Ingrid lovell [facility] 11:40:57 Uterine scar from previous surgery affectin g pregnanc y 90021603 Completed 201803/27/2020 Matern care for low transver se scar from prev del;Prac nishant ID: 0001 [facility] 11:41:25 heart finding Completed 201803/27/2020 Abnlt in heart rate and rhythm comp labor and delivery ;Practic e ID: 0001 [facility] 11:40:44 Steriliz ation procedur e Completed 201803/27/2020 Encounte r for steriliz ation;Pr actice ID: 0001 Ingrid lovell [facility] 11:41:20 Single live [id number] Completed 201803/27/2020 Single live ;Pr actice ID: 0001 Ingrid lovell, [facility] 11:41:13 Gestatio n period, 37 weeks 09756563 Completed 201803/27/2020 37 weeks gestatio n of pregnanc y;Practi ce ID: 0001 Ingrid lovell [facility] 11:40:58 Procedur e on genitour inary system Completed 201803/27/2020 Encounte r for surgical aftcr followin g surgery on the sys;Prac nishant ID: 0001 [facility] 11:41:10 Postoper ative care Completed 201803/27/2020 Encounte r for surgical aftcr followin g surgery on the sys;Prac nishant ID: 0001 Ingrid lovell [facility] 11:41:05 Emotiona l state finding Completed 201803/27/2020 Other specifie d anxiety disorder s;Practi ce ID: 0001 Ingrid lvoell, [facility] 11:40:18 Pregnanc y, childbir th and puerperi um finding Completed 201803/27/2020 Encntr for suprvsn of normal first preg, second trimeste r;Record ed Elsewher e: No Locat ion: [facility] S ource: EHR Bag Machine Set Up Operator shabbir: N Hienti ce ID: 0001 Reece lable Time: 10:00:00 AM Ingrid lovell [facility] 11:41:09 Pelvic and perineal pain 796847230 Completed 201803/27/2020 Pelvic and perineal pain;Rec orded Elsewher e: No Locat ion: [facility] S ource: EHR Bag Machine Set Up Operator shabbir: N Hienti ce ID: 0001 Reece lable Time: 09:45:00 AM Ingrid lovell, [facility] 11:41:[address] Concept Completed 201603/27/2020 Encntr for order entry clerk exam (general ) (routine ) w/o abn findings ;Practic e ID: 0001 Ingrid lovell, [facility] 11:41:19 Pregnanc y test negative 133160412 Completed 201603/27/2020 Encounte r for pregnanc y test, result negative ;Practic e ID: 0001 Ingrid lovell, [facility] 11:41:07 Pregnanc y detectio n examinat ion Completed 201703/27/2020 Encounte r for pregnanc y test, result positive ;Practic e ID: 0001 Ingrid lovell, [facility] 11:41:06 Uterine size for dates discrepa ncy Completed 201703/27/2020 Uterine size-piotr e discrepa ncy, first trimeste r;Practi ce ID: 0001 Ingrid lovell, [facility] 11:41:26 Gestatio n less than 9 weeks [id number] Completed 201703/27/2020 Less than 8 weeks gestatio n of pregnanc y;Practi ce ID: [id number] Ingrid lovell, [facility] 11:40:47 Gestatio n period, 9 weeks [id number] Completed 201803/27/2020 9 weeks gestatio n of pregnanc y;Practi ce ID: 0001 Ingrid lovell, [facility] 11:40:59 Antenata l screenin g Completed 201803/27/2020 Encounte r for other specifie d antenata l screenin g;Practi ce ID: 0001 Ingrid lovell, [facility] 11:40:13 Urinary tract infectio us disease [id number] Completed 201803/27/2020 UTI;Larry rded Elsewher e: No Locat ion: [facility] S ource: EHR Bag Machine Set Up Operator shabbir: N Practi ce ID: [id number] Reece lable Time: 01:30:00 PM Ingrid lovell, [facility] 11:41:23 Evaluati on finding Completed 201803/27/2020 Hematuri a, unspecif ied;Larry rded Elsewher e: No Locat ion: [facility] S ource: EHR Bag Machine Set Up Operator shabbir: N Practi ce ID: [id number] Reece lable Time: 10:30:00 AM Ingrid Thompson [facility] 11:40:42 Problem Notes None recorded. Procedures Surgical History Date Name Laterality Status Provider Name and Address Organization Details Recorded Time 10/29/19 23 Gastric Bypass completed [facility] 02/09/2024 12:15:31 07/31/19 23 Date of Last Pap Smear completed [facility] 02/07/2024 09:45:34 08/19/19 19 section completed Ingrid Kingston [facility] 03/27/2020 12:41:06 08/19/19 19 ligation of bilateral fallopian tubes completed Ingrid Kingston [facility] 03/27/2020 12:41:14 02/07/19 10 section completed Ingrid Kingston [facility] 03/27/2020 12:41:22 laparoscopic sleeve gastrectomy completed [facility] 03/27/2020 12:41:44 Imaging Results Imaging Date Name Status LastModified by Organization Details LastModified Time 08/02/2022 US, pelvis completed [email or web address] [place], [place], [address], 08/02/2022 12:30:13 08/02/2022 US, transvaginal completed [email or web address] [facility] [address], [place], [address], 08/02/2022 12:29:52 08/02/2022 US, pelvis completed ISAK Shari [address], [place], [address], 08/17/2022 11:38:26 Procedure Notes None recorded. Medical Equipment None Reported. Allergies Allergen ID Allergen Name Allergen Category Reaction Reaction Severity Criticality Documentation Date Start Date Code Code System Note Provider Name and Address Organization Details Recorded Time 86998 naproxen medicatio n Not available Not available Not available 01/25/2020 7258 RxNorm Ingrid Thompson [facility], [facility] 1 11:42:58 00101 Cipro medicatio n hives moderate Not available 07/30/202252977 3 RxNorm Jessica Santillan [facility], [facility] 3 12:33:57 Medications Name Sig Start Date Stop Date Status Note LastModified by Organization Details LastModified Time amoxicill in 500 mg capsule TAKE 1 CAPSULE BY MOUTH EVERY 8 HOURS UNTIL FINISHED 06/23 completed Not Available Not Available Not Available neomycin- polymyxin -hydrocor t 3.5 mg/mL-10, 000 unit/mL-1 % ear solution INSTILL FOUR DROPS INTO THE RIGHT EAR IN THE MORNING, AT NOON AND AT BEDTIME FOR 7 DAYS 07/30 completed Not Available Not Available Not Available Effexor XR 75 mg capsule,e xtended release TAKE 1 CAPSULE BY MOUTH EVERY DAY WITH FOOD 03/31 completed Not Available Not Available Not Available clindamyc in HCl 300 mg capsule TAKE ONE CAPSULE BY MOUTH FOUR TIMES DAILY 07/30 completed Not Available Not Available Not Available azithromy jorge 250 mg tablet 06/23 completed Not Available Not Available Not Available ibuprofen 800 mg tablet TAKE 1 TABLET BY MOUTH EVERY 6 HOURS NEEDED FOR PAIN 06/23 completed Not Available Not Available Not Available fluconazo le 150 mg tablet take 1 tablet by oral route once 2024 active Not Available Not Available Not Avai lable ampicilli n 500 mg capsule TAKE 1 CAPSULE BY MOUTH EVERY 8 HOURS 02/06 completed Not Available Not Available Not Available valacyclo vir 1 gram tablet Take 1 tablet every 12 hours by oral route for 10 days. 2024 active Not Available Not Available Not Avai lable cephalexi n 250 mg capsule take 1 capsule by oral route every 6 hours 10/13 completed Prescrib ed Elsewher e: No Locat ion: [facility] M odify By: wali reagan DateTime : 07/05/19 19 01:30:00 PM Not Available Not Available Not Available hydrocodo ne 5 mg-acetam inophen 325 mg tablet TAKE 1 TABLET BY MOUTH EVERY 6 HOURS NEEDED FOR PAIN 06/23 completed Not Available Not Available Not Available phenazopy ridine 200 mg tablet TAKE 1 TABLET BY MOUTH THREE TIMES DAILY NEEDED 02/08 completed Not Available Not Available Not Available spironola ctone 100 mg tablet TAKE 1 TABLET BY MOUTH ONCE DAILY active Not Available Not Available No t Available phentermi ne 37.5 mg tablet TAKE 1 TABLET BY MOUTH ONCE DAILY BEFORE BREAKFAS T 02/08 completed Not Available Not Available Not Available acetamino phen 300 mg-codein e 30 mg tablet TAKE 1 TABLET BY MOUTH EVERY 6 HOURS NEEDED FOR PAIN 07/30 completed Not Available Not Available Not Available valacyclo vir 500 mg tablet Take 1 tablet every day by oral route. 2024 active Not Available Not Available Not Avai lable sulfameth oxazole 800 mg-trimet hoprim 160 mg tablet TAKE 1 TABLET BY MOUTH TWICE DAILY FOR 7 DAYS 02/06 completed Not Available Not Available Not Available Reglan 10 mg tablet take 1 tablet by oral route 4 times every day 30 minutes before meals and at bedtime 10/13 completed Prescrib ed Elsewher e: No Locat ion: [facility] M odify By: wali Braun r DateTime : 01/19/20 18 09:00:00 AM Not Available Not Available Not Available tramadol 50 mg tablet TAKE 1 TABLET BY MOUTH EVERY 6 HOURS NEEDED 02/08 completed Not Available Not Available Not Available ketorolac 10 mg tablet TAKE 1 TABLET EVERY 6 HOURS 07/30 completed Not Available Not Available Not Available nystatin- triamcino lone 100,000 unit/gram -0.1 % topical ointment APPLY TO THE AFFECTED AREA(S) BY TOPICAL ROUTE 2 TIMES PER DAY 2024 active Not Available Not Available Not Avai lable amoxicill in 875 mg tablet TAKE 1 TABLET BY MOUTH TWICE DAILY FOR 10 DAYS 02/06 completed Not Available Not Available Not Available Zoloft 50 mg tablet take 1 tablet by oral route every day 10/13 completed Prescrib ed Elsewher e: No Locat ion: [facility] M odify By: [email or web address] Encounte r DateTime : 05/18/19 09:00:00 AM Not Available Not Available Not Available tamsulosi n 0.4 mg capsule TAKE 1 CAPSULE BY MOUTH EVERY DAY 07/30 completed Not Available Not Available Not Available phenazopy ridine 100 mg tablet TAKE 1 TABLET BY MOUTH IN THE MORNING AND AT NOON AND AT BEDTIME NEEDED FOR BLADDER SPASMS FOR UP TO 2 DAYS 07/30 completed Not Available Not Available Not Available hydrocodo ne 7.5 mg-acetam inophen 325 mg tablet TAKE 1 TABLET BY MOUTH EVERY 6 HOURS NEEDED 07/30 completed Not Available Not Available Not Available cephalexi n 500 mg capsule TAKE 1 CAPSULE BY MOUTH TWICE DAILY 02/08 completed Not Available Not Available Not Available pantopraz ole 40 mg tablet,de layed release TAKE 1 TABLET BY MOUTH ONCE DAILY 02/08 completed Not Available Not Available Not Available oseltamiv ir 75 mg capsule TAKE 1 CAPSULE BY MOUTH TWICE DAILY FOR 5 DAYS 02/06 completed Not Available Not Available Not Available hydroxyzi ne HCl 25 mg tablet TAKE 1 TABLET BY MOUTH THREE TIMES DAILY NEEDED active Not Available Not Available No t Available methylpre dnisolone 4 mg tablets in a dose pack TAKE DIRECTED 07/30 completed Not Available Not Available Not Available albuterol sulfate HFA 90 mcg/actua tion aerosol inhaler INHALE 2 PUFFS BY MOUTH 4 TIMES DAILY NEEDED FOR SHORTNES S OF BREATH OR WHEEZING 02/08 completed Not Available Not Available Not Available Zoloft 100 mg tablet TAKE 1 TABLET BY MOUTH EVERY DAY 03/31 completed Not Available Not Available Not Available cefdinir 300 mg capsule TAKE 1 CAPSULE BY MOUTH EVERY 12 HOURS (NEXT DOSE 06/16/22 IN THE MORNING) 07/30 completed Not Available Not Available Not Available fluticaso ne propionat e 50 mcg/actua tion nasal spray,nickolas pension 07/30 completed Not Available Not Available Not Available metformin ER 500 mg tablet,ex tended release 24 hr TAKE 1 TABLET BY MOUTH ONCE DAILY 02/08 completed Not Available Not Available Not Available amoxicill in 875 mg-potass ium clavulana te 125 mg tablet TAKE 1 TABLET BY MOUTH EVERY 12 HOURS UNTIL GONE 02/06 completed Not Available Not Available Not Available hydroxyzi ne pamoate 25 mg capsule TAKE 1 CAPSULE BY MOUTH TWICE DAILY NEEDED FOR ANXIETY 02/06 completed Not Available Not Available Not Available NuvaRing 0.12 mg-0.015 mg/24 hr vaginal insert 1 vaginal ring by vaginal route every month leave in place for 3 weeks, remove for 1 week 07/30 completed Not Available Not Available Not Available escitalop heber 10 mg tablet TAKE 1 & 1/2 (ONE & ONE-HALF ) TABLETS BY MOUTH ONCE DAILY active Not Available Not Available No t Available atomoxeti ne 18 mg capsule TAKE 1 CAPSULE BY MOUTH ONCE DAILY 02/08 completed Not Available Not Available Not Available bupropion HCl XL 300 mg 24 hr tablet, extended release TAKE 1 TABLET BY MOUTH ONCE DAILY 02/08 completed Not Available Not Available Not Available bupropion HCl XL 150 mg 24 hr tablet, extended release TAKE 1 TABLET BY MOUTH IN THE MORNING active Not Available Not Available No t Available escitalop heber 5 mg tablet TAKE 1 TABLET BY MOUTH ONCE DAILY 02/06 completed Not Available Not Available Not Available topiramat e 50 mg tablet TAKE 1 TABLET BY MOUTH TWICE DAILY 02/08 completed Not Available Not Available Not Available nitrofura ntoin monohydra te/macroc rystals 100 mg capsule TAKE 1 CAPSULE BY MOUTH TWICE DAILY FOR 7 DAYS 02/06 completed Not Available Not Available Not Available lisdexamf etamine 30 mg capsule TAKE 1 CAPSULE BY MOUTH ONCE DAILY 02/06 completed Not Available Not Available Not Available lisdexamf etamine 40 mg capsule TAKE 1 CAPSULE BY MOUTH ONCE DAILY active Not Available Not Available No t Available Contrave 8 mg-90 mg tablet,ex tended release active Not Available Not Available Not Available lisdexamf etamine 10 mg capsule TAKE 1 CAPSULE BY MOUTH ONCE DAILY 02/06 completed Not Available Not Available Not Available Addyi 100 mg tablet TAKE 1 TABLET BY MOUTH ONCE DAILY 02/08 completed Not Available Not Available Not Available Wegovy 0.25 mg/0.5 mL subcutane ous pen injector 02/08 completed Not Available Not Available Not Available Auvelity 45 mg-105 mg tablet, extended release TAKE 1 TABLET BY MOUTH TWICE DAILY active Not Available Not Available No t Available Vitals Date Recorded Body height Body mass index (BMI) Body weight Systolic blood pressure Diastolic blood pressure Provider Name and Address Organization Details Last Updated DateTime 06/23/2020 167.64 cm 45.4 kg/m2 372197.4 6 g 130 mm[Hg] 79 mm[Hg] Ingrid Thompson [facility] 1 15:41:10 Date Recorded Body height Body mass index (BMI) Body weight Systolic blood pressure Diastolic blood pressure Provider Name and Address Organization Details Last Updated DateTime 07/30/2022 167.64 cm 46.2 kg/m2 042919.4 2 g 126 mm[Hg] 81 mm[Hg] Jessica Santillan [facility] 3 12:33:52 Date Recorded Body height Body mass index (BMI) Body weight Systolic blood pressure Diastolic blood pressure Provider Name and Address Organization Details Last Updated DateTime 08/23/2022 167.64 cm 46.2 kg/m2 394950.4 2 g 134 mm[Hg] 87 mm[Hg] Cristel Roland [facility] 3 12:02:39 Date Recorded Body height Body mass index (BMI) Body weight Systolic blood pressure Diastolic blood pressure Provider Name and Address Organization Details Last Updated DateTime 02/09/2024 167.64 cm 33.6 kg/m2 68921.93 g 120 mm[Hg] 83 mm[Hg] THANH Washburn [facility] 5 12:23:44 Social History Question Answer Notes LastModified by Organizat ion Details LastModified Time Do You Have An Advance Directive? No [email or web address] Information not available 06/23/2020 What Is Your Level Of Alcohol Consumption? None [email or web address] Information not available 02/09/2024 How Many Years Have You Consumed Alcohol? 10 Information not available 07/30/2022 Are You Blind Or Do You Have Difficulty Seeing? No [email or web address] Information not available 06/23/2020 What Is Your Level Of Caffeine Consumption? Heavy Information not available 06/23/2020 How Much Tobacco Do You Chew? None [email or web address] Information not available 06/23/2020 In The 14 Days Before Symptom Onset, Have You Had Close Contact With A Laboratory-confir med COVID-19 While That Case Was Ill? No [email or web address] Information not available 06/23/2020 In The 14 Days Before Symptom Onset, Have You Had Close Contact With A Person Who Is Under Investigation For COVID-19 While That Person Was Ill? No [email or web address] Information not available 06/23/2020 Have You Been To An Area Known To Be High Risk For COVID-19? No [email or web address] Information not available 06/23/2020 Are You Deaf Or Do You Have Serious Difficulty Hearing? No [email or web address] Information not available 06/23/2020 What Type Of Diet Are You Following? REGULAR Information not available 06/23/2020 What Is The Highest Grade Or Level Of School You Have Completed Or The Highest Degree You Have Received? 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 No [email or web address] Information not available 06/23/2020 Do You Use Protection During Sex? No [email or web address] Information not available 06/23/2020 Do You Use Your Seat Belt Or Car Seat Routinely? Yes [email or web address] Information not available 06/23/2020 Do You Have Smoke And Carbon Monoxide Detectors In Your Home? Yes [email or web address] Information not available 06/23/2020 At What Age Did You Start Smoking Tobacco? 15 [email or web address] Information not available 06/23/2020 How Much Tobacco Do You Smoke? 1 PPW [email or web address] Information not available 02/09/2024 Do You Feel Stressed (tense, Restless, Nervous, Or Anxious, Or Unable To Sleep At Night)? [id number] [email or web address] Information not available 06/23/2020 Do You Use Any Illicit Or Recreational Drugs? No [email or web address] Information not available 06/23/2020 Do You Use Sunscreen Routinely? Yes Information not available 06/23/2020 How Many Years Have You Smoked Tobacco? 18 [email or web address] Information not available 02/09/2024 Have You Used IV Drugs? No [email or web address] Information not available 06/23/2020 Sex: Unknown Functional Status Question Answer Note LastModified by Organization D etails LastModified Time Are you able to walk? YESWOREST [email or web address] Information not available 06/23/2020 What is your exercise level? Moderate [email or web address] Information not available 06/23/2020 Mental Status None recorded. Family History Relationship Description Onset Age of this Age Resolved Age Notes LastModified by Organization Details LastModified Time Father Hypertensive disorder Not available 2020 11:54:01 Sister Hypertensive disorder Not available 2020 11:54:21 Medical History Condition Response Allergies (Food, seasonal, environmental ) N Other N Breast Cancer N Drug/Latex Allergies/Reactions N Blood Transfusion N Dermatologic Disorders N Lung Disease N Defects or Inherited Disease N Breast Problem N Gestational Diabetes N Hematologic disorders N Anesthesia Complications N History of STI N Deep Vein Thrombosis N Polycystic ovary syndrome N Anxiety Disorder Y Autoimmune disease N Arthritis N Infertility N Polyps N Acid Reflux (GERD) N History of abnormal pap N Cancer N Stroke N Varicosities N Neurologic/Epilepsy N Endometriosis N High Cholesterol N Headaches N Fibromyalgia N Kidney Disease N Heart Problems N Kidney or Bladder Problems Y Thyroid Problems N GI Problems N Eating Disorder N Anemia N Art (IVF or FET) N Psychiatric Illness N Ovarian Cancer N Diabetes N Pulmonary (TB, Asthma) N Hepatitis/Liver Disease N Eczema N Urinary Tract Infection Y Abuse/Domestic Violence N Asthma N Trauma/Violence N Depression/ depression N Heart Disease N Pre-Eclampsia N Hypertension N Osteoporosis N Thrombophilias N Gynecological History Statement/Question Response Date of LMP 01/11/2024 On BCP's at Conception? N N Was last menstrual period normal N STIs/STDs N HPV Vaccine N Duration of Flow (days) 6 Current Control Method Tubal Ligat ion Age at First Child 18 Are cycles usually normal N Frequency of Cycle (Q days) 28 Sexually Active? Y Menses Monthly Y Age of first menstrual cycle 8 Date of Last Pap Smear 07/30/2022 Sexual Problems? Y Desired Control Method IUD LMP Definite N Obstetrics History GPAL:G 2 P 2 0 0 2 Type Value Full Term 2 Living 2 Total 2 Past Encounters Encounter ID Performer Location Encounter Start Date Encounter Closed Date Diagnosis/Indication Diagnosis SNOMED-CT Code Diagnosis ICD10 Code Diagnosis Note [id number] Zonia Membreno [facility] [address] [address] 03/31/2020 09:41:43 03/31/2020 14:59:29 Gynecologic examination 37012326 Z01.419 Take Calcium with Vitamin D 1200mg daily if not receiving in daily diet. It is strongly advised to have an annual flu shot and up can obtain at most pharmacies . If you have not had a TDap shot in the last 10 years you should obtain one as well. Discussed with patient & provided with informatio n regarding Gardisil vaccine to prevent the 4 strains for HPV that cause cervical cancer if under age 26. Encourage safe sexual practices, to use condoms and limit partners if not already in a monogamous relationsh ip. Do monthly self breast exams. Have mammogram yearly or every other year depending on family history. BRCA testing is now available for patients with strong genetic history of female cancer. If interested contact the office. Engage in daily exercise of low impact aerobic exercise 45-60 minutes 4-5 times weekly. Avoid tobacco and illicit drugs as well as using moderation with alcohol intake less than 1-2 8 oz beverages daily. This lifestyle behavior pattern will lead to less health conditions and longer life span. If BMI greater than 25 weight watchers or dietary consult advised. Patient received above instructio ns, and questions have been answered. If you have any questions please call or respond to this email. Patient was made aware of the patient portal and may obtain a paper copy of today's plan if desired. Dysmenorrhea [id number] N 94.6 Discussed options for cramping. Pt has used nuvaring in the past and would like to restart. Discussed all control options in great detail. She is aware of the risks and benefits. She does not have any medical condition that is contraindi cated with the use of estrogen containing control. Pt will place the nuvaring on the first tuesday following the start of her period. She is aware it is not effective for control the first month. She is also aware of the importance of timely insertion and removal. Encouraged use of condoms as the nuvaring does not protect against STD's. Will return in 3 months for med check. Consent was read and signed. Pt verbalized understand ing. Lack of libido 057970550 R68.82 Discussed possible causes of decreased/ absent libido. She currently is under alot of stress. Her youngest child has multiple therapies d/t possible autisim. [id number] Zonia Membreno [facility] [address] [address] 06/23/2020 15:35:50 06/24/2020 21:35:51 Contraception care management 473080254 Z30.9 Happy with nuvaring and would like to continue. Reduced libido 2203069 R 68.82 We have discussed possible contributi ng factors. Pt has a very busy life along with stressors that could be contributi ng factors. We have discussed counseling but pt is very busy and would have a hard time adding that to her schedule. She is very interested in Addyi. We have discussed risk vs benefits. I also spoke with Dr Holden and went over patient history with her and she feels we could consider trying addyi. Pt will follow up in 1 month. [id number] [facility] [address] [address] 07/30/2022 12:09:19 07/30/2022 13:21:24 Gynecologic examination 41018510 Z01.419 Take Calcium with Vitamin D 1200mg daily if not receiving in daily diet. It is strongly advised to have an annual flu shot and up can obtain at most pharmacies . If you have not had a TDap shot in the last 10 years you should obtain one as well. Discussed with patient & provided with informatio n regarding Gardisil vaccine to prevent the 4 strains for HPV that cause cervical cancer if under age 26. Encourage safe sexual practices, to use condoms and limit partners if not already in a monogamous relationsh ip. Do monthly self breast exams. Have mammogram yearly or every other year depending on family history. BRCA testing is now available for patients with strong genetic history of female cancer. If interested contact the office. Engage in daily exercise of low impact aerobic exercise 45-60 minutes 4-5 times weekly. Avoid tobacco and illicit drugs as well as using moderation with alcohol intake less than 1-2 8 oz beverages daily. This lifestyle behavior pattern will lead to less health conditions and longer life span. If BMI greater than 25 weight watchers or dietary consult advised. Patient received above instructio ns, and questions have been answered. If you have any questions please call or respond to this email. Patient was made aware of the patient portal and may obtain a paper copy of today's plan if desired. Pap/hpv sent STD Screen sent Genetic Screen discussed Colon Screen pcp Dexa Screen na Routine Labs ordered Menorrhagia [id number] N9 2.0 US to be updatedDis cussed options: IUD/BC methods/en do ablationOp ts for consult Endo ablation Abnormal u terine bleeding [id number] 9100 N93.9 Heavy mensesWill review at consult with Dr. Kaur [id number] Tati Coulter [facility] [address],[facility] [place] [address] 08/02/2022 10:58:40 08/02/2022 11:35:57 Menorrhagia 729970904 N92.0 [id number] Homero Kaur MD [facility] [address],[facility] [place] [address] 08/23/2022 11:57:04 08/23/2022 12:42:04 Female hirsutism 04554880 L68.0 this patient is a 28-year-ol d female presents for follow-up on menorrhagi a. She wants endometria l ablation. We reviewed endometria l ablation. We reviewed the video. We talked about success and failure. We talked about preoperati ve medication s. talked about her still some an elevated testostero ne. We spent over 20 minutes face-to-fa ce. More than 50% was counseling . We decided to treat elevated testostero ne and [place] is a with metformin and spironolac tone. She will follow-up in 1 month. Menorrhagia 217150065 N9 2.0 [id number] PAVITHRA RAO NP [facility] [address],[facility] [place] [address] 02/09/2024 12:14:31 02/09/2024 13:05:30 Vaginal irritation 070903249 N89.8 Discussed empirical treatment with nystatin/t riamcinolo ne topical ointment and fluconazol e for suspected yeast infection based on reported symptoms and physical exam findings.Jessica iscussed vulvar care guidelines in addition to laundry/sk in irritants to avoid.Vagi nitis panel sent. Venereal d isease screening 048467789 Z11.3 Pt requested STI testing for GC/CT/tric h.Discusse d the various types of STDs, related symptoms and the potential consequenc es (including effects on fertility) of STD infections . Reviewed ways to limit exposure and prevention techniques .Patient also requests bloodwork for HSV 1 & 2 IgG as she was told in the past she had HSV, but states that she could never find record of this and has never had any previous outbreaks. HSV culture collected from excoriated skin area of concern. Health Concerns Section Related Observation LastModified by Organization Detai ls LastModified Time None Recorded Concern Status LastModified by Organization Details LastModified Time None Recorded Advance Directives Directive N: Payers Encounter Date Sequence Insurance Name Policy Number Policy Quigley Covered Member ID Quigley Member ID Guarantor Name 06/23/[address] [facility] [id number] [facility] [id number] [facility] 06/23/2020 2 [place] [facility] [id number] [facility] 07/30/[address] [facility] [id number] [facility] [id number] [facility] 07/30/2022 2 [place]: [facility] [id number] [facility] 08/02/[address] [facility] [id number] [facility] [id number] [facility] 08/02/2022 2 MEDICAID-[place]: [facility] [place] [id number] [facility] 08/23/[address] [facility] [id number] [facility] [place] [id number] [facility] 08/23/2022 2 MEDICAID-[place]: [facility] [id number] [facility] 02/09/[address] [facility] [id number] [facility] [place] [id number] [facility] 02/09/2024 2 [place] [facility] [id number] Stephanie Norman Notes Date Note Type Note Provider Name and Address Organization Details Recorded Time 06/23/2020 text/html Here to follow u p on nuvaring. Wants to discuss low libido again. Zonia lovell [facility] 07/03/2020 16:47:54 07/30/2022 text/html Annual GYNReport ed bypatient.Menstrua l cycle:Menorrhagia Urinary symptoms:No hematuria; No incontinence Vulva:No genital lesion Vagina:Normal vaginal discharge Breast:No breast pain; No breast lump; No nipple discharge Current Contraception:Sati sfied with current contraception; Tubal ligation Sexual complaints:No sexual complaints; No pain during intercourse; Normal libido Menopausal Symptoms:No menopausal symptoms; Normal vaginal lubrication Psychological symptoms:No depression; No anxiety; No PMDD Preventive measures:Encourage self breast examination; Encourage regular exercise; Encourage no tobacco use; Encourage regular mammograms starting age 40 [facility] [address], [place], [address], [facility] 07/30/2022 13:14:32 08/23/2022 text/html this patient is a 28-year-old female presents for follow-up on menorrhagia. She wants endometrial ablation. We reviewed endometrial ablation. We reviewed the video. We talked about success and failure. We talked about preoperative medications. talked about her still some an elevated testosterone. We spent over 20 minutes [id number]. More than 50% was counseling. We decided to treat elevated testosterone and [place] is a with metformin and spironolactone. She will follow-up in 1 month. Homero Kaur MD [address], [place], [address], [facility] 08/23/2022 12:35:08 02/09/2024 text/html Patient here wit h c/o a vaginal bump that has caused burning and pain near vaginal opening that first started one week ago. Patient states that the bump has resolved but she still feels pain. Reports clear vaginal discharge, denies odor. Reports some vaginal itching.Patient states that she was told she had HSV several years ago, but was never shown records of this or had any outbreaks. PAVITHRA RAO, ANNETTE [address], [place], [address], [facility] 02/09/2024 13:04:49 OBGyn Episode Ob Episode Information Episode Created Date Number of Fetuses Patient Bloodtype Patient rh Status Prepregnancy Weight lbs Domestic Partner Domestic Partner Phone Father Name Brick Sorter Status 03/27/19 21 1 CLOSED Fetus Data First Name Last Name Admitted to NICU Weight (g) Sex Living Outcome Pediatric Complications Fetus ID Race Codes Race Delivery Type Full Term [id number] Repeat Fuad Calculation Initial Ufad Date Initial Exam Date Initial Exam Provider Initial Ultrasound Date Last Menstrual Period Date Ultra Sound Weeks Gestation 0 Eighteen To Twenty Week Fuad Update Ultra Sound Date Fundal Height At Umbil Quickening Date Ultra Sound Latest Weeks Gestation Final Fuad Confirmed By Final Fuad Confirmed Date Final Fuad Date Ultra Sound Latest Days Gestation 0 0 Menstrual History Last Menstrual Date Menses Monthly On Bcp Conception Prior Menses Frequency Hcg Plus Date Menarche Onset Age Delivery Information Delivery Date Delivery Type Labor Anesthesia Weeks Gestation Incision Type Labor Labor Length Hrs Delivered By Post Complications Tubal Sterilization Discharge Date Comments 9 Discharge Information Feeding Method Contraceptive Method Maternal HG B and HCT Levels Ob Episode Information Episode Created Date Number of Fetuses Patient Bloodtype Patient rh Status Prepregnancy Weight lbs Domestic Partner Domestic Partner Phone Father Name Brick Sorter Status 03/27/19 21 1 CLOSED Fetus Data First Name Last Name Admitted to NICU Weight (g) Sex Living Outcome Pediatric Complications Fetus ID Race Codes Race Delivery Type [id number] Primary Fuad Calculation Initial Fuad Date Initial Exam Date Initial Exam Provider Initial Ultrasound Date Last Menstrual Period Date Ultra Sound Weeks Gestation 0 Eighteen To Twenty Week Fuad Update Ultra Sound Date Fundal Height At Umbil Quickening Date Ultra Sound Latest Weeks Gestation Final Fuad Confirmed By Final Fuad Confirmed Date Final Fuad Date Ultra Sound Latest Days Gestation 0 0 Menstrual History Last Menstrual Date Menses Monthly On Bcp Conception Prior Menses Frequency Hcg Plus Date Menarche Onset Age Delivery Information Delivery Date Delivery Type Labor Anesthesia Weeks Gestation Incision Type Labor Labor Length Hrs Delivered By Post Complications Tubal Sterilization Discharge Date Comments 0 Discharge Information Feeding Method Contraceptive Method Maternal HG B and HCT Levels
--- NOTE | 2024-03-09 10:31 | ED.ABDPAIN ---
HPI - Abdominal Pain General Chief Complaint: Abdominal Pain <LITTLE Willson Last Filed: 03/09/24 18:14> Stated Complaint: kidney stone <LITTLE Willson Last Filed: 03/09/24 18:14> Time Seen by Provider: 03/09/24 10:30 <ILTTLE Willson Last Filed: 03/09/24 18:14> Source: patient <LITTLE Willson Last Filed: 03/09/24 18:14> Mode of arrival: ambulatory <LITTLE Willson Last Filed: 03/09/24 18:14> Limitations: no limitations <LITTLE Willson Last Filed: 03/09/24 18:14> History of Present Illness HPI narrative: This is a 33-year-old female that presents to the emergency department for left flank pain. Ongoing since earlier this morning. Associated with nausea. Reports history of kidney stones in her pain feels similar. Denies fevers, vomiting, dysuria, hematuria. <LITTLE Willson Last Filed: 03/09/24 18:14> Related Data Home Medications: Home Medications ?Medication ?Instructions ?Recorded ?Confirmed ?Last Taken ?Type dextromethorphan IR 45 1 tablet PO BID 07/27/22 08/31/22 08/06/22 History mg-bupropion ER 105 mg biphasic tablet (Auvelity) multivitamin 1 tablet PO DAILY 07/27/22 08/31/22 Unknown History omeprazole 40 mg capsule,delayed mg 12/23/22 Unknown History release <LITTLE Willson Last Filed: 03/09/24 18:14> Allergies/Adverse Reactions: Allergies Allergy/AdvReac Type Severity Reaction Status Date / Time ciprofloxacin AdvReac Severe SWELLING Verified 03/09/24 15:04 naproxen AdvReac Severe Swelling Verified 03/09/24 15:04 hydromorphone AdvReac Intermediate EXTREME Verified 03/09/24 15:04 STOMACH CRAMPS <LITTLE Willson Last Filed: 03/09/24 18:14> Review of Systems Review of Systems: CONSTITUTIONAL: Denies fever GASTROINTESTINAL: Report abdominal pain, nausea. Denies vomiting GENITOURINARY: Denies dysuria or hematuria. <Margarita Burnett PA-C - Last Filed: 03/09/24 18:14> All systems reviewed & are unremarkable except as noted in HPI and below <Margarita Burnett PA-C - Last Filed: 03/09/24 18:14> [facility] Past Medical History Medical History: Medical History (Updated 03/09/24 @ 18:14 by Margarita Burnett PA-C) Urinary tract infection PONV (postoperative nausea and vomiting) Depression Renal stones Smoker Morbid obesity <Margarita Burnett PA-C - Last Filed: 03/09/24 18:14> Surgical History Surgical History: Surgical History History of gastric surgery sleeve 11 years ago S/P ureteral stent placement History of cholecystectomy History of section x2 <Margarita Burnett PA-C - Last Filed: 03/09/24 18:14> Family History Family History: Family History Father Lung cancer Hypertension Mother Hypertension Family history of thyroid problem Heart problem Depression Sibling Pneumonia is from pneumonia <Margarita Burnett PA-C - Last Filed: 03/09/24 18:14> Social History Social History: Social History Social History: the patient is and her is the surrogate decision maker. Patient wishes to be full code. The patient has 2 step children and 2 biological children. The patient works for the [employer]. She continues to smoke half pack a cigarettes a day. For 10 years. No alcohol marijuana or illicit drugs. Smoking packs per day: 0.5 Smoking cigarettes per day: 10.0 Years smoked: 20 Smoking pack-years: 10.00 Smoking status: Current every day smoker Tobacco type: cigarettes Second hand tobacco smoke exposure: Yes Alcohol intake: current Alcohol use details: VERY RARE Substance use: never Substance use type: does not use Lack of Transportation: No Lack of Food: Never True Current Housing: I Have Housing Concerned About Future Housing: Decline to Answer Difficulty Paying Gas/Electric Bills: Decline to Answer Difficulty Paying for Meds: Decline to Answer Currently Unemployed: Decline to Answer Education: Associate Degree Difficulty w/ Childcare or Family Care: No Living arrangements: with family Gender identity (if verbalized by the patient): Female Spiritual care concerns: No <LITTLE Willson Last Filed: 03/09/24 18:14> Exam Narrative: GENERAL: Uncomfortable, well-nourished, and in no acute distress. HEAD: Normocephalic, atraumatic. EYES: EOMI. CHEST: No respiratory distress. HEART: Regular rate ABDOMEN: Soft, nontender EXTREMITIES: Normal range of motion. No edema. SKIN: Warm, dry, no rash. NEURO: No focal deficits. Alert and oriented x3. PSYCH: Normal mood and affect <Margarita Burnett PA-C - Last Filed: 03/09/24 18:14> Course Course Emergency Course: patient updated on her workup and agrees with plan of care <Margarita Burnett PA-C - Last Filed: 03/09/24 18:14> [employer]/PA Physician Supervision For this patient encounter, I reviewed the [employer] or PA documentation, treatment plan, and medical decision making; and I had [id number] time with this patient. <Sherman Chao MD - Last Filed: 03/09/24 22:35> Consultations Consultation #1: spoke with urology about patient and workup. patient will be taken to OR for stent placement <Margarita Burnett PA-C - Last Filed: 03/09/24 18:14> Date: 03/09/24 <Margarita Burnett PA-C - Last Filed: 03/09/24 18:14> Consultation #2: Spoke with hospitalist about patient and workup who accepts admission <LITTLE Willson Last Filed: 03/09/24 18:14> Date: 03/09/24 <LITTLE Willson Last Filed: 03/09/24 18:14> Vital Signs Vital signs: Vital Signs Temperature 98.4 F 03/09/24 09:52 Pulse Rate 105 H 03/09/24 09:52 Respiratory Rate 16 03/09/24 09:52 Blood Pressure 147/84 H 03/09/24 09:52 Pulse Oximetry 100 03/09/24 09:52 Oxygen Delivery Room Air 03/09/24 09:52 Temperature 97.1 F L 03/09/24 16:21 Pulse Rate 97 03/09/24 17:48 Respiratory Rate 16 03/09/24 17:48 Blood Pressure 100/63 03/09/24 17:48 Pulse Oximetry 100 03/09/24 17:48 Oxygen Delivery Room Air 03/09/24 17:48 Oxygen Flow Rate 8 03/09/24 16:35 <Margarita Burnett PA-C - Last Filed: 03/09/24 18:14> Vital Signs Temperature 98.4 F 03/09/24 09:52 Pulse Rate 105 H 03/09/24 09:52 Respiratory Rate 16 03/09/24 09:52 Blood Pressure 147/84 H 03/09/24 09:52 Pulse Oximetry 100 03/09/24 09:52 Oxygen Delivery Room Air 03/09/24 09:52 Temperature 97.1 F L 03/09/24 16:21 Pulse Rate 97 03/09/24 17:48 Respiratory Rate 16 03/09/24 17:48 Blood Pressure 100/63 03/09/24 17:48 Pulse Oximetry 100 03/09/24 17:48 Oxygen Delivery Room Air 03/09/24 17:48 Oxygen Flow Rate 8 03/09/24 16:35 <Sherman Chao MD - Last Filed: 03/09/24 22:35> MDM - Abdominal Pain MDM Narrative Medical decision making narrative: Patient presents the emergency department for left flank pain. Ongoing since earlier this morning. She is afebrile and nontoxic appearing. Tachycardic upon arrival, this normalized with IV fluids. Initial white blood cell count was noted to be critically low, this was repeated and is now normal. Metabolic panel with normal kidney function. Urine with evidence of infection. This was sent for culture. Blood cultures obtained as well. Patient started on IV antibiotics, hydrated with IV fluids CT abdomen and pelvis shows a 6mm stone at the left UPJ. With left-sided hydronephrosis and pyelitis. spoke with urology about patient and workup. patient will be taken to OR for stent placement. patient updated on her workup and agrees with plan of care <Margarita Burnett PA-C - Last Filed: 03/09/24 18:14> Differential Diagnosis Differential diagnosis: Likely calculus of kidney and other (UTI) <Margarita Burnett PA-C - Last Filed: 03/09/24 18:14> Lab Data Attestation: I reviewed the patient's lab results. <Margarita Burnett PA-C - Last Filed: 03/09/24 18:14> Result diagrams: 03/09/24 13:07 03/09/24 10:44 <Margarita Burnett PA-C - Last Filed: 03/09/24 18:14> Labs: Lab Results 03/09/24 03/09/24 Range/Units 10:44 13:07 WBC 1.7 L* 5.2 (4.5-10.0) K/mm3 RBC 4.20 3.68 L (4.2-5.4) M/mm3 Hgb 11.7 L 10.2 L (12.0-15.0) g/dL Hct 37.8 33.2 L (37.0-47.0) % MCV 90.0 90.2 (80-100) fl MCH 27.9 27.7 (26-34) pg MCHC 31.0 L 30.7 L (32-36) g/dl RDW 15.0 H 14.8 H (11.5-14.5) % Plt Count 176 160 (150-375) k/mm3 MPV 9.0 9.8 (7.4-10.4) fl Immature Gran % (Auto) Marsh Buggy Operator 0.2 Neut % (Auto) Marsh Buggy Operator 94.6 H Lymph % (Auto) Marsh Buggy Operator 3.6 L Jenkins % (Auto) Marsh Buggy Operator 0.8 L Eos % (Auto) Marsh Buggy Operator 0.4 Baso % (Auto) Marsh Buggy Operator 0.4 Lymph # (Auto) Marsh Buggy Operator 0.19 L Jenkins # (Auto) Marsh Buggy Operator 0.0 L Eos # (Auto) Marsh Buggy Operator 0.0 Baso # (Auto) Marsh Buggy Operator 0.0 Abs Immat Gran (auto) Marsh Buggy Operator 0.01 Absolute Neuts (auto) Marsh Buggy Operator 5.0 Absolute Nucleated RBC Marsh Buggy Operator 0.000 Total Counted 100 Neutrophils % (Manual) 62 (46-73) % Band Neutrophils % 2 (0-6) % Lymphocytes % (Manual) 27 (18-44) % Monocytes % (Manual) 6 (3-9) % Eosinophils % (Manual) 2 (0-4) % Basophils % (Manual) 0 (0-1) % Nucleated RBC % Marsh Buggy Operator 0.0 Abs Neuts (Manual) 1.08 L (1.7-7.2) K/mm3 Abs Lymphs (Manual) 0.45 L (1.1-4.5) K/mm3 Abs Monocytes (Manual) 0.10 (0.1-0.90) K/mm3 Absolute Eos (Manual) 0.03 (0.02-0.50) K/mm3 Abs Basophils (Manual) 0.00 (0.0-0.1) K/mm3 Platelet Estimate Adequate Adequate (Adequate) Schistocytes None seen None seen Sodium 142 (137-145) mmol/L Potassium 3.9 (3.4-5.0) mmol/L Chloride 108 H (98-107) mmol/L Carbon Dioxide 22 (22-30) mmol/L Anion Gap 12 (4-12) mmol/L BUN 23 H (7-17) mg/dL Creatinine 0.97 (0.7-1.0) mg/dL Estim Creat Clear Calc 79 ml/min Estimated GFR > 60 (59 - ) Glucose 79 (65-110) mg/dL Calcium 8.9 (8.4-10.2) mg/dL Total Bilirubin 0.6 (0.2-1.3) mg/dL AST 65 H (14-36) U/L ALT 25 (6-35) U/L Alkaline Phosphatase 59 (38-126) U/L Total Protein 7.0 (6.3-8.2) g/dL Albumin 3.9 (3.5-5.1) g/dL Lipase 97 (23-300) U/L Urine Color Yellow (Yellow) Urine Appearance Cloudy H (Clear) Urine pH 5.5 (5.0-9.0) Ur Specific Ragan 1.025 (1.001-1.035) Urine Protein Trace (Negative) mg/dL Urine Glucose (UA) Negative (Negative) mg/dL Urine Ketones Trace H (Negative) mg/dL Ur Blood (Man) 1+ H (Negative) Urine Nitrate Negative (Negative) Urine Bilirubin Negative (Negative) Urine Urobilinogen 0.2 (<2.0) mg/dL Leukocyte Esterase Rfl 3+ H (Negative) MAGDA/UL Urine RBC 6-10 H (0-2) /hpf Urine WBC >100 H (0-3) /hpf Ur Squamous Epith Cells Occasional (Few) /hpf Urine Bacteria 4+ /hpf Urine Casts 0-2 Urine Test Negative <Margarita Burnett PA-C - Last Filed: 03/09/24 18:14> Lab Results 03/09/24 03/09/24 Range/Units 10:44 13:07 WBC 1.7 L* 5.2 (4.5-10.0) K/mm3 RBC 4.20 3.68 L (4.2-5.4) M/mm3 Hgb 11.7 L 10.2 L (12.0-15.0) g/dL Hct 37.8 33.2 L (37.0-47.0) % MCV 90.0 90.2 (80-100) fl MCH 27.9 27.7 (26-34) pg MCHC 31.0 L 30.7 L (32-36) g/dl RDW 15.0 H 14.8 H (11.5-14.5) % Plt Count 176 160 (150-375) k/mm3 MPV 9.0 9.8 (7.4-10.4) fl Immature Gran % (Auto) Marsh Buggy Operator 0.2 Neut % (Auto) Marsh Buggy Operator 94.6 H Lymph % (Auto) Marsh Buggy Operator 3.6 L Jenkins % (Auto) Marsh Buggy Operator 0.8 L Eos % (Auto) Marsh Buggy Operator 0.4 Baso % (Auto) Marsh Buggy Operator 0.4 Lymph # (Auto) Marsh Buggy Operator 0.19 L Jenkins # (Auto) Marsh Buggy Operator 0.0 L Eos # (Auto) Marsh Buggy Operator 0.0 Baso # (Auto) Marsh Buggy Operator 0.0 Abs Immat Gran (auto) Marsh Buggy Operator 0.01 Absolute Neuts (auto) Marsh Buggy Operator 5.0 Absolute Nucleated RBC Marsh Buggy Operator 0.000 Total Counted 100 Neutrophils % (Manual) 62 (46-73) % Band Neutrophils % 2 (0-6) % Lymphocytes % (Manual) 27 (18-44) % Monocytes % (Manual) 6 (3-9) % Eosinophils % (Manual) 2 (0-4) % Basophils % (Manual) 0 (0-1) % Nucleated RBC % Marsh Buggy Operator 0.0 Abs Neuts (Manual) 1.08 L (1.7-7.2) K/mm3 Abs Lymphs (Manual) 0.45 L (1.1-4.5) K/mm3 Abs Monocytes (Manual) 0.10 (0.1-0.90) K/mm3 Absolute Eos (Manual) 0.03 (0.02-0.50) K/mm3 Abs Basophils (Manual) 0.00 (0.0-0.1) K/mm3 Platelet Estimate Adequate Adequate (Adequate) Schistocytes None seen None seen Sodium 142 (137-145) mmol/L Potassium 3.9 (3.4-5.0) mmol/L Chloride 108 H (98-107) mmol/L Carbon Dioxide 22 (22-30) mmol/L Anion Gap 12 (4-12) mmol/L BUN 23 H (7-17) mg/dL Creatinine 0.97 (0.7-1.0) mg/dL Estim Creat Clear Calc 79 ml/min Estimated GFR > 60 (59 - ) Glucose 79 (65-110) mg/dL Calcium 8.9 (8.4-10.2) mg/dL Total Bilirubin 0.6 (0.2-1.3) mg/dL AST 65 H (14-36) U/L ALT 25 (6-35) U/L Alkaline Phosphatase 59 (38-126) U/L Total Protein 7.0 (6.3-8.2) g/dL Albumin 3.9 (3.5-5.1) g/dL Lipase 97 (23-300) U/L Urine Color Yellow (Yellow) Urine Appearance Cloudy H (Clear) Urine pH 5.5 (5.0-9.0) Ur Specific Ragan 1.025 (1.001-1.035) Urine Protein Trace (Negative) mg/dL Urine Glucose (UA) Negative (Negative) mg/dL Urine Ketones Trace H (Negative) mg/dL Ur Blood (Man) 1+ H (Negative) Urine Nitrate Negative (Negative) Urine Bilirubin Negative (Negative) Urine Urobilinogen 0.2 (<2.0) mg/dL Leukocyte Esterase Rfl 3+ H (Negative) MAGDA/UL Urine RBC 6-10 H (0-2) /hpf Urine WBC >100 H (0-3) /hpf Ur Squamous Epith Cells Occasional (Few) /hpf Urine Bacteria 4+ /hpf Urine Casts 0-2 Urine Test Negative <Sherman Chao MD - Last Filed: 03/09/24 22:35> Imaging Data Radiologist's impression: ITS Impressions Abdomen/Pelvis CT 03/09/24 13:49 IMPRESSION: 1. 6 mm stone at left ureteropelvic junction with moderate kyphosis and left-sided pyelitis. 2. Nonobstructing left kidney stones. 3. 3.9 cm cyst in right ovary, likely a follicular cyst. Abdomen X-Ray 03/09/24 14:20 IMPRESSION: 1. Unchanged 8 x 4 mm stone at the left ureteropelvic junction. 2. Asymmetric delayed left nephrogram and decreased density of the excreted contrast at the left renal pelvis relative to the right secondary to the previously noted hydronephrosis secondary to the UPJ stone. Retrograde Pyelogram 03/09/24 16:33 IMPRESSION: 1. Mild left hydronephrosis. 2. Left internal ureteral stent in expected position. <Margarita Burnett PA-C - Last Filed: 03/09/24 18:14> ITS Impressions Abdomen/Pelvis CT 03/09/24 13:49 IMPRESSION: 1. 6 mm stone at left ureteropelvic junction with moderate kyphosis and left-sided pyelitis. 2. Nonobstructing left kidney stones. 3. 3.9 cm cyst in right ovary, likely a follicular cyst. Abdomen X-Ray 03/09/24 14:20 IMPRESSION: 1. Unchanged 8 x 4 mm stone at the left ureteropelvic junction. 2. Asymmetric delayed left nephrogram and decreased density of the excreted contrast at the left renal pelvis relative to the right secondary to the previously noted hydronephrosis secondary to the UPJ stone. Retrograde Pyelogram 03/09/24 16:33 IMPRESSION: 1. Mild left hydronephrosis. 2. Left internal ureteral stent in expected position. <Sherman Chao MD - Last Filed: 03/09/24 22:35> Critical Care Time Critical Care Time Critical Care Time: No <Margarita Burnett PA-C - Last Filed: 03/09/24 18:14> Discharge Plan Discharge Clinical Impression: Ureterolithiasis, Acute UTI <Margarita Burnett PA-C - Last Filed: 03/09/24 18:14> Patient Disposition: Still a Patient <Margarita Burnett PA-C - Last Filed: 03/09/24 18:14> Condition: Stable <Margarita Burnett PA-C - Last Filed: 03/09/24 18:14>
[2024-03-09 10:50] LABS: Hematocrit 37.8 % (37.0-47.0); Hemoglobin 11.7 g/dL (12.0-15.0); Mean Corpuscular Hemoglobin 27.9 pg (26-34); Platelet Count Result 176 k/mm3 (150-375)
[2024-03-09 10:57] LABS: Add Urine Microscopic? YES; Appearance Urine Cloudy (Clear); Bacteria Urine 4+ /hpf; Bilirubin Urine Negative (Negative); Blood Urine 1+ (Negative); Color Urine Yellow (Yellow); Glucose Urine UA Negative (Negative); Ketones Urine Trace mg/dL (Negative); Leukocyte Esterase Ur 3+ LEU/UL (Negative); Nitrate Urine Negative (Negative); Non Pathogenic Casts 0-2; Protein Urine Trace mg/dL (Negative); Specific Grav Ur 1.025 (1.001-1.035); Squamous Epithelial Cell Urine Occasional /hpf (Few); Urobilinogen Urine 0.2 mg/dL (<2.0); WBC Urine >100 /hpf (0-3); pH Urine 5.5 (5.0-9.0)
[2024-03-09 11:06] LABS: White Blood Count 1.7 K/mm3 (4.5-10.0)
[2024-03-09 11:07] LABS: Alanine Aminotransferase 25 U/L (6-35); Albumin Level 3.9 g/dL (3.5-5.1); Alkaline Phosphatase 59 U/L (38-126); Anion Gap 12 mmol/L (4-12); Aspartate Amino Transferase 65 U/L (14-36); Bilirubin,Total 0.6 mg/dL (0.2-1.3); Blood Urea Nitrogen 23 mg/dL (7-17); Calcium 8.9 mg/dL (8.4-10.2); Carbon Dioxide 22 mmol/L (22-30); Chloride 108 mmol/L (98-107); Estimated CRCL calculation 79 ml/min; Estimated Glomerular Filt Rate > 60; Glucose 79 mg/dL (65-110); Lipase 97 U/L (23-300); Potassium 3.9 mmol/L (3.4-5.0); Sodium 142 mmol/L (137-145)
--- OUTSIDE RECORDS SUMMARY | 2024-03-09 11:09 | XMS_ITS | Clinical Summary ---
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
--- OUTSIDE RECORDS SUMMARY | 2024-03-09 11:09 | XMS_ITS | Clinical Summary ---
Author Organization [facility] Address [address] [place] [address] Care Team Providers Care Automated Process Operator Name Role Phone Kush Llanos MD Primary Care Provider [phone] Source Comments [facility],non-owned Affiliates and Associated Physician Practices is amultiple site organization consisting of ambulatory clinics and hospital sitesin [place], [place], [place] and [place]. This disclosure is being madepursuant to the Care Everywhere program and may not contain all information available regarding this patient. Last updated 17.[facility] Allergies Active Allergy Reactions Criticality Noted Date [...] Vallecillo was screened for depression using the Pol[place] Depression Scale (EPDS) at her [facility] initial evaluation on 06/05/2018. Her initial score at baseline was 15. Based off of her score of 15, Stephanie will receive follow up call from [facility] social media director, Jo Reyes, within the week. Patient will [...] resources were given along with notification of [facility] SW follow up- pt sleeps during the day so follow up will take place via email 06/22/18-Attempted follow up X2(email)- response received 06/22/18- please see encounter dated 06.22.18 07/04/18- Attempted follow up X2(email)- no response at this time 07/06/18-Followed up with patient via email 07/06/18- please see encounter with that date 07/20/18- Follow Up EPDS score=14 07/20/18- Followed up with patient at [facility] visit, please see note dated 07.20.18 07/31/18- Followed up with patient via email 07/31/18- please see encounter on this date 08/14/18- Follow Up EPDS score=14 08/14/18- Followed up with patient at [facility] visit, please see note dated 08.14.18 08/29/18- Followed up with patient, please see encounter dated 08.29.18 abnormality in pregnan cy - renal pelvis dilation 05/05/2018 08/31/2018 Overview (08/14/2018): Images from the original note were not included. [facility] PATIENT--PLEASE CALL [phone] (ex 2) IF TRIAGED OR ADMITTED Care Provider: Dr. Kaur [facility] consultants involved: RN- Zakiya; KRISTYN- Sabra/Macy; Pediatric Urologist- Dr. Kuhn Diagnosis: Renal Pelvis Dilation follow up: (Urology): Plan for antibiotic prophylaxis, imaging at > 48h of life but <1mo, and outpatient urology follow up. (Please call clinical nurse, Katharine Jasso, at [phone] to schedule follow-up appointment) Luster Repairer: Undecided Planned surveillance: Initial [facility] appointment and consults scheduled for 06.05.18. Returning to [facility] 07.20.18 and 08.14.18 for follow-up ultrasound. Weekly BPP/NST (one week with primary OB; one week through [place]). Returning to [facility] 08.14.18 to reassess kidneys. Released from [facility] 08.14.18 Delivery location, mode, and GA: In discussion with pediatric urology (Dr. Dunbar), we agree that Stephanie can deliver in [place] per routine obstetrical indications. Delivery at 39 weeks, unless earlier delivery is warranted by equivocal or normal testing, oligohydramnios as defined by a deepest vertical pocket less than 2 cm or decreased movement. Repeat scheduled 09.01.18 at [place] Handbook Writer Concerns: 06/05/18- Patient with history of depression, [...] Comments Blood Pressure 118/80 02/14/2019 9:16 AM JAPANESE INTERPRETER Pulse 84 02/14/2019 9:16 AM JAPANESE INTERPRETER Temperature 36.6 ??C (97.9 ??F) 02/14/2019 9:16 AM CS T Respiratory Rate 16 02/14/2019 9:16 AM JAPANESE INTERPRETER Oxygen Saturation 98% 02/14/2019 9:16 AM JAPANESE INTERPRETER Inhaled Oxygen Concentration - - Weight 136.1 kg (300 lb) 02/14/2019 9:16 AM JAPANESE INTERPRETER Height 165.1 cm (5' 5 ) 02/14/2019 9:16 AM JAPANESE INTERPRETER Body Mass Index 49.92 02/14/2019 9:16 AM JAPANESE INTERPRETER Plan of Treatment Health Maintenance Due Date [...] age to complete this topic Care Teams Automated Process Operator Relationship Specialty Start Date End Date Kush Llanos MD [address] [place] [id number] PCP - General 05/26/10
--- OUTSIDE RECORDS SUMMARY | 2024-03-09 11:09 | XMS_ITS | Referral Summary ---
Author Organization [facility] Address [address] [place] [address] Care Team Providers Care Land Surveyor Manager Name Role Phone Kush Llanos MD Primary Care Provider [phone] Source Comments [facility],non-owned Affiliates and Associated Physician Practices is amultiple site organization consisting of ambulatory clinics and hospital sitesin [place], [place], [place] and [place]. This disclosure is being madepursuant to the Care Everywhere program and may not contain all information available regarding this patient. Last updated 17.[facility] Allergies Active Allergy Reactions Criticality Noted Date [...] Vallecillo was screened for depression using the [place] Depression Scale (EPDS) at her [facility] initial evaluation on 06/05/2018. Her initial score at baseline was 15. Based off of her score of 15, Stephanie will receive follow up call from [facility] psychosocial rehabilitation counselor, Jo Reyes, within the week. Patient will [...] resources were given along with notification of [facility] SW follow up- pt sleeps during the day so follow up will take place via email 06/22/18-Attempted follow up X2(email)- response received 06/22/18- please see encounter dated 06.22.18 07/04/18- Attempted follow up X2(email)- no response at this time 07/06/18-Followed up with patient via email 07/06/18- please see encounter with that date 07/20/18- Follow Up EPDS score=14 07/20/18- Followed up with patient at [facility] visit, please see note dated 07.20.18 07/31/18- Followed up with patient via email 07/31/18- please see encounter on this date 08/14/18- Follow Up EPDS score=14 08/14/18- Followed up with patient at [facility] visit, please see note dated 08.14.18 08/29/18- Followed up with patient, please see encounter dated 08.29.18 abnormality in pregnan cy - renal pelvis dilation 05/05/2018 08/31/2018 Overview (08/14/2018): Images from the original note were not included. [facility] PATIENT--PLEASE CALL [phone] (ex 2) IF TRIAGED OR ADMITTED Care Provider: Dr. Kaur [facility] consultants involved: RN- Zakiya; KRISTYN- Sabra/Macy; Pediatric Urologist- Dr. Kuhn Diagnosis: Renal Pelvis Dilation follow up: (Urology): Plan for antibiotic prophylaxis, imaging at > 48h of life but <1mo, and outpatient urology follow up. (Please call clinical nurse, Katharine Jasso, at [phone] to schedule follow-up appointment) Clinic Supervisor: Undecided Planned surveillance: Initial [facility] appointment and consults scheduled for 06.05.18. Returning to [facility] 07.20.18 and 08.14.18 for follow-up ultrasound. Weekly BPP/NST (one week with primary OB; one week through [place]). Returning to [facility] 08.14.18 to reassess kidneys. Released from [facility] 08.14.18 Delivery location, mode, and GA: In discussion with pediatric urology (Dr. Dunbar), we agree that Stephanie can deliver in [place] per routine obstetrical indications. Delivery at 39 weeks, unless earlier delivery is warranted by equivocal or normal testing, oligohydramnios as defined by a deepest vertical pocket less than 2 cm or decreased movement. Repeat scheduled 09.01.18 at [place] Multiple Games Dealer Concerns: 06/05/18- Patient with history of depression, [...] Comments Blood Pressure 118/80 02/14/2019 9:16 AM PRESS SMITH HELPER Pulse 84 02/14/2019 9:16 AM PRESS SMITH HELPER Temperature 36.6 ??C (97.9 ??F) 02/14/2019 9:16 AM CS T Respiratory Rate 16 02/14/2019 9:16 AM PRESS SMITH HELPER Oxygen Saturation 98% 02/14/2019 9:16 AM PRESS SMITH HELPER Inhaled Oxygen Concentration - - Weight 136.1 kg (300 lb) 02/14/2019 9:16 AM PRESS SMITH HELPER Height 165.1 cm (5' 5 ) 02/14/2019 9:16 AM PRESS SMITH HELPER Body Mass Index 49.92 02/14/2019 9:16 AM PRESS SMITH HELPER Plan of Treatment Not on file Administered Medications Care Teams Land Surveyor Manager Relationship Specialty Start Date End Date Kush Llanos MD [address] [place] [address] PCP - General 05/26/10
--- OUTSIDE RECORDS SUMMARY | 2024-03-09 11:09 | XMS_ITS | Clinical Summary ---
Author Organization [facility] Address [address] [place] [address] Care Team Providers Care Meat Carrier Name Role Phone Unavailable Primary Care Provider Unavailabl e Immunizations Immunization Administration Dates Next Due Covid-19, Mrna, Lnp-s, PF, 5 0 mcg/0.25 mL dose (Moderna) 01/12/2021 Social History Tobacco Use Types Packs/Day Years Used Date Smoking Tobacco: Never Assessed Comments Unknown Sex and Gender Information Value Date Recorded Sex Assigned at Not on file Legal Sex Female 1:55 PM SURGICAL BRACE MAKER Gender Identity Not on file Sexual Orientation [...]
--- OUTSIDE RECORDS SUMMARY | 2024-03-09 11:09 | XMS_ITS | Patient Health Summary ---
Author Organization [facility] Address [address] [place] [address] Care Team Providers Care Clean Up Supervisor Name Role Phone Kush Llanos MD Primary Care Provider [phone] Note from Formerly named [facility],non-owned Affiliates and Associated Physician Practices is amultiple site organization consisting of ambulatory clinics and hospital sitesin [place], [place]. This disclosure is being madepursuant to the Care Everywhere program and may not contain all information available regarding this patient. Last updated 17.[facility] Allergies * Hydromorphone(Urticaria) -Medium Criticality * Naproxen(Swelling) [...] Comments Blood Pressure 118/80 02/14/2019 9:16 AM CLINICAL TECHNICIAN Pulse 84 02/14/2019 9:16 AM CLINICAL TECHNICIAN Temperature 36.6 ??C (97.9 ??F) 02/14/2019 9:16 AM CS T Respiratory Rate 16 02/14/2019 9:16 AM CLINICAL TECHNICIAN Oxygen Saturation 98% 02/14/2019 9:16 AM CLINICAL TECHNICIAN Inhaled Oxygen Concentration - - Weight 136.1 kg (300 lb) 02/14/2019 9:16 AM CLINICAL TECHNICIAN Height 165.1 cm (5' 5 ) 02/14/2019 9:16 AM CLINICAL TECHNICIAN Body Mass Index 49.92 02/14/2019 9:16 AM CLINICAL TECHNICIAN Procedures * SKIN TEST PPD - POINT [...] - POINT OF CARE (12/14/2018 10:44 AM CLINICAL TECHNICIAN) PPD 0 MM Comment:negative Other MISCELLANEOUS SAMPLE S / Unknown 12/14/2018 10:44 AM CLINICAL TECHNICIAN Tanvi Unger PHYSICAL FITNESS TRAINER-ROTARY DRYER OPERATOR LAB - POINT OF CARE ORDERABLES * [...] INFORMATION Cassandra Haney RN Tammy Russell MD [facility] ORDERABLES * BIOPHYSICAL PROFILE W NST (08/14/2018 8:06 AM CDT) Only the most recent of2 resultswithin the time period is included. Anatomical Region Laterality Modality Other 08/14/2018 8:06 AM CDT Narrative 08/14/2018 10:25 AM CDT ?[facility] ? [facility] ?FAX: [phone] Pat. Name: ?STEPHANIE NORMAN Pat. No: ?[id number] Study Date: ?? 08/14/2018 ??8:06am , Age: ? 1990, 27 Pregnancies: ?? 2, Para 1 Height: ? 65 in Weight: ? 266 lb LMP: ?Unknown GA by Base: ?? 36w3d ?? SHANNON: 09/08/2018 GA by US: ? 36w3d ?? SHANNON: 09/08/2018 GA Selected: ??36w3d (From [employer]) SHANNON: ?09/08/2018 Referring MD: Homero Kaur MD Gastroenterology Nurse Practitioner: ??Salma Michel [facility] CPT4: ? 23138,33612 BMI: ?44.26 Hist/Ind: ? urinary tract dilation: A2-3 ?Class III obesity ?History of gastic sleeve ?Prior CD MEASUREMENTS & AGE ? GROWTH EVALUATION Measurement ??GA ? Range ? Srce %for GA Ratios ----- ---- ------- BPD ??9.2 cm 37w1d (09f9e-89u4y) Hadl BPD 78% FL/BPD 0.76 (0.71 - 0.87) HC ??33.9 cm 39w0d (31b2e-39f9d) Hadl HC ??82% FL/AC ??0.22 (0.20 - 0.24) AC ??32.0 cm 36w0d (04i8n-47s8c) Hadl AC ??47% HC/AC ??1.06 (0.92 - 1.11) FL ?? 6.9 cm 35w4d (07e5g-78x1q) Hadl FL ??25% CI ? 0.76 (0.70 - 0.86) HL ?? 5.8 cm 33w5d (06g8w-62o1n) Fran HL ??<05 GA for sonogram 36w3d (30i2o-81c5d) ?? Weight Estimate: based on (BPD,HC,AC,FL) Hadlock [...] <Electronic Signature> ??08/14/2018 10:15am Roxi Cavazos MD [facility] ORDERABLES * SONOGRAM - COMPLETE (07/20/2018 11:38 AM CDT) Only the most recent of4 resultswithin the time period is included. Anatomical Region Laterality Modality Other 07/20/2018 11:3 8 AM CDT Narrative 07/20/2018 4:55 PM CDT ?[facility] ? [facility] ?FAX: [phone] Pat. Name: ?STEPHANIE NORMAN Pat. No: ?[id number] Study Date: ?? 07/20/2018 ??11:38am , Age: ? 1990, 27 Pregnancies: ?? 2, Para 1 Height: ? 65 in Weight: ? 266 lb LMP: ?Unknown GA by Base: ?? 32w6d ?? SHANNON: 09/08/2018 GA by US: ? 33w5d ?? SHANNON: 09/02/2018 GA Selected: ??32w6d (From Known E) SHANNON: ?09/08/2018 Referring MD: Homero Kaur MD Gastroenterology Nurse Practitioner: ??Salma Michel RDMS CPT4: ? 95643 BMI: ?44.26 Hist/Ind: ? urinary tract dilation: A2-3 ?Class III obesity ?History of gastic sleeve ?Prior CD MEASUREMENTS & AGE ? GROWTH EVALUATION Measurement ??GA ? Range ? Srce %for GA Ratios ----- ---- ------- BPD ??8.8 cm 35w4d (38p3h-92t2r) Hadl BPD 97% FL/BPD 0.71 (0.71 - 0.87* HC ??31.9 cm 35w6d (71y6p-30i7l) Hadl HC ??87% FL/AC ??0.21 (0.20 - 0.24) AC ??29.3 cm 33w2d (42o0k-91h3v) Hadl AC ??65% HC/AC ??1.09 (0.95 - 1.14) FL ?? 6.2 cm 32w2d (10w2y-56t4c) Hadl FL ??22% CI ? 0.78 (0.70 - 0.86) HL ?? 5.4 cm 31w2d (88x3q-56z9h) Fran HL ??23% GA for sonogram 33w5d (75l5k-58s3l) ?? Weight Estimate: based on (HL,BPD,HC,AC,FL) Avg [...] we agree that Stephanie can deliver in [place] and be scheduled for outpatient urologic evaluation. We will evaluate the kidneys one more time around 36 weeks to ensure that this plan remains appropriate closer to the time of anticipated delivery. We recommend weekly BPP/NST until delivery. Delivery can be per routine obstetric indications. RECOMMEND: - Weekly NST/BPP/RADHA - Reassess kidney appearance at 36 weeks at [facility] - If stable continue to plan delivery at [place] - Plan for antibiotic prophylaxis, imaging at > 48h of life, and outpatient urology follow up. ?? Consult time: total time spent discussing the above issues was 45 minutes Thank you for allowing us the opportunity to care for your patient. Roxi Cvaazos MD <Electronic Signature> ??07/20/2018 04:55pm Roxi Cavazos MD [facility] ORDERABLES Care Teams Clean Up Supervisor Relationship Specialty Start Date End Date Kush Llanos MD [address] [facility] [place] [id number] PCP - General 05/26/10
--- OUTSIDE RECORDS SUMMARY | 2024-03-09 11:09 | XMS_ITS | Referral Summary ---
Author Organization [facility] Address [address] [place] [address] Phone Care Team Providers Care Storage Battery Tester Name Role Phone Unknown, Notinfile Unavailable Unavailable Maddy Shen NP Primary Care Provider [phone] Allergies Active Allergy Reactions Criticality Noted Date [...] on file Legal Sex Female 11:17 AM ROVING TECHNICIAN Gender Identity Not on file Sexual [...] Plan of Treatment Not on file Insurance [facility] CHOICE PLUS Member Subscriber Plan / Payer (Ef fective 2022-Present) Name:Ester Jakithompson Benito Relation to Subscriber:Self Name:EsterStephanie Payer ID:[id number] ([facility]) Type:[facility] HMO/PPO Address: [place] [phone] Care Teams Storage Battery Tester Relationship Specialty Start Date End Date Maddy Shen NP [address] [facility] [address] [place] [address] PCP - General Internal Medicine 08/16/22 Unknown, Notinfile 07/19/22
--- OUTSIDE RECORDS SUMMARY | 2024-03-09 11:09 | XMS_ITS | Clinical Summary ---
Author Organization [facility] Address [address] [place] [address]. [place], [place] [address] [place] [address] Care Team Providers Care Hot Walker Name Role Phone None, Provider MD Primary [...] Comments Blood Pressure 138/96 01/28/2022 10:57 PM HARDWOOD FLOORING SPECIALIST Pulse 93 01/28/2022 10:57 PM HARDWOOD FLOORING SPECIALIST Temperature 36.6 ??C (97.8 ??F) 01/28/2022 10:[address] Respiratory Rate 18 01/28/2022 10:57 PM HARDWOOD FLOORING SPECIALIST Oxygen Saturation 98% 01/28/2022 10:57 PM HARDWOOD FLOORING SPECIALIST Inhaled Oxygen Concentration - - Weight 127 kg (280 lb) 01/28/2022 10:26 PM HARDWOOD FLOORING SPECIALIST Height 165.1 cm (5' 5 ) 01/28/2022 10:26 PM HARDWOOD FLOORING SPECIALIST Body Mass Index 46.59 01/28/2022 10:26 PM HARDWOOD FLOORING SPECIALIST Plan of Treatment Health Maintenance Due Date [...] complete this topic Insurance MEDICAID DEPT OF [address] Care Teams Hot Walker Relationship Specialty Start Date End Date None, Provider, PCP - General UNKNOWN PHYSICIAN SPECIALTY 01/28/22
[2024-03-09 11:13] LABS: Band Neutrophils Percent 2 % (0-6); Basophils Percent Manual 0 % (0-1); Eosinophils Absolute Manual 0.03 K/mm3 (0.02-0.50); Eosinophils Percent Manual 2 % (0-4); Lymphocytes Absolute Manual 0.45 K/mm3 (1.1-4.5); Lymphocytes Percent Manual 27 % (18-44); Monocytes Percent Manual 6 % (3-9); Neutrophils Absolute Manual 1.08 K/mm3 (1.7-7.2); Neutrophils Percent Manual 62 % (46-73); Platelet Estimate Adequate (Adequate); Total Cells Counted 100
[2024-03-09 11:15] LABS: Schistocytes None Seen
[2024-03-09] MEDS: ONDANSETRON INJ 4 MG/2 ML VIAL IV PUSH (12:13)
[2024-03-09] MEDS: MORPHINE SULFATE (*CRX) 4 MG/ML INJ IV PUSH ×2 (12:13→13:56)
[2024-03-09] MEDS: SODIUM CHLORIDE 0.9% IV 1,000 ML 999 ML IV CONT ×2 (12:13→14:00)
[2024-03-09 13:28] LABS: Pregnancy On Board Control Positive; Urine Pregnancy Test Negative
[2024-03-09 13:33] LABS: Basophils Percent Auto 0.4 % (0.2-1.2); Eosinophils Percent Auto 0.4 % (0-4.4); Hematocrit 33.2 % (37.0-47.0); Hemoglobin 10.2 g/dL (12.0-15.0); Immature Granulocyte Absolute 0.01 K/mm3 (0.00-0.031); Immature Granulocyte Percent A 0.2 % (0-0.5); Lymphocytes Absolute Auto 0.19 K/mm3 (0.9-3.2); Lymphocytes Percent Auto 3.6 % (18.3-44.2); Mean Corpuscular HGB Conc 30.7 g/dl (32-36); Mean Corpuscular Hemoglobin 27.7 pg (26-34); Mean Corpuscular Volume 90.2 fl (80-100); Mean Platelet Volume 9.8 fl (7.4-10.4); Monocytes Percent Auto 0.8 % (2.6-8.5); Neutrophils Percent Auto 94.6 % (45.5-73.1); Platelet Count Result 160 k/mm3 (150-375); Red Blood Count 3.68 M/mm3 (4.2-5.4); Red Cell Distribution Width 14.8 % (11.5-14.5); White Blood Count 5.2 K/mm3 (4.5-10.0)
[2024-03-09 14:04] LABS: Platelet Estimate Adequate (Adequate)
[2024-03-09 14:06] LABS: Schistocytes None Seen
--- NOTE | 2024-03-09 14:15 | PM.IMHP ---
H&P: HPI History of Present Illness Date/Time: 03/09/24 14:15 Chief Complaint: Left flank pain. Narrative: This is a 33-year-old female with history of kidney stones who presented to the emergency department for evaluation of left flank pain. The patient provides the following history. Review of Systems Review of Systems: 12 systems were reviewed and are negative except for as per HPI. [facility] Past Medical History Medical History (Updated 12/24/22 @ 00:01 by Yaima Kiser) PONV (postoperative nausea and vomiting) Depression Renal stones Smoker Morbid obesity Surgical History Surgical History History of gastric surgery sleeve 11 years ago S/P ureteral stent placement History of cholecystectomy History of section x2 Family History Family History Father Lung cancer Hypertension Mother Hypertension Family history of thyroid problem Heart problem Depression Sibling Pneumonia is from pneumonia Social History Social History Social History: the patient is and her is the surrogate decision maker. Patient wishes to be full code. The patient has 2 step children and 2 biological children. 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 For 10 years. No alcohol marijuana or illicit drugs. Smoking packs per day: 0.5 Smoking cigarettes per day: 10.0 Years smoked: 20 Smoking pack-years: 10.00 Smoking status: Current every day smoker Tobacco type: cigarettes Second hand tobacco smoke exposure: Yes Alcohol intake: current Alcohol use details: VERY RARE Substance use: never Substance use type: does not use Lack of Transportation: No Lack of Food: Never True Current Housing: I Have Housing Concerned About Future Housing: Decline to Answer Difficulty Paying Gas/Electric Bills: Decline to Answer Difficulty Paying for Meds: Decline to Answer Currently Unemployed: Decline to Answer Education: Associate Degree Difficulty w/ Childcare or Family Care: No Living arrangements: with family Gender identity (if verbalized by the patient): Female Spiritual care concerns: No Meds Home Medications and Allergies Home Medications ?Medication ?Instructions ?Recorded ?Confirmed ?Type dextromethorphan IR 45 1 tablet PO BID 07/27/22 08/31/22 History mg-bupropion ER 105 mg biphasic tablet (Auvelity) multivitamin 1 tablet PO DAILY 07/27/22 08/31/22 History albuterol sulfate 90 mcg/actuation 2 puff inhalation QID PRN 12/23/22 Rx aerosol inhaler shortness of breath or wheezing #8.5 grams doxycycline monohydrate 100 mg 100 mg PO BID 7 days #14 tabs 12/23/22 Rx tablet omeprazole 40 mg capsule,delayed mg 12/23/22 History release prednisone 20 mg tablet 40 mg (2 x 20 mg) PO DAILY 5 days 12/23/22 Rx #10 tabs Allergies Allergy/AdvReac Type Severity Reaction Status Date / Time ciprofloxacin AdvReac Severe SWELLING Verified 12/23/22 13:14 naproxen AdvReac Severe Swelling Verified 12/23/22 13:14 hydromorphone AdvReac Intermediate EXTREME Verified 12/23/22 13:14 STOMACH CRAMPS Vital Signs Vital Signs - 24 hr 03/09/24 09:52 03/09/24 12:21 03/09/24 13:22 Temperature 98.4 F Pulse Rate 105 H 113 H 99 Respiratory Rate 16 20 18 Blood Pressure 147/84 H 104/71 101/69 Pulse Oximetry 100 97 98 Oxygen Delivery Room Air H&P: Results Labs Labs: Short CBC 03/09/24 03/09/24 Range/Units 10:44 13:07 WBC 1.7 L* 5.2 (4.5-10.0) K/mm3 Hgb 11.7 L 10.2 L (12.0-15.0) g/dL Hct 37.8 33.2 L (37.0-47.0) % Plt Count 176 160 (150-375) k/mm3 BMP 03/09/24 10:44 Sodium 142 Potassium 3.9 Chloride 108 H Carbon Dioxide 22 BUN 23 H Creatinine 0.97 Glucose 79 Calcium 8.9 Liver Function 03/09/24 Range/Units 10:44 Total Bilirubin 0.6 (0.2-1.3) mg/dL AST 65 H (14-36) U/L ALT 25 (6-35) U/L Alkaline Phosphatase 59 (38-126) U/L Albumin 3.9 (3.5-5.1) g/dL Urine 01/31/25 Range/Units 10:44 Urine Color Yellow (Yellow) Urine Appearance Cloudy H (Clear) Urine pH 5.5 (5.0-9.0) Ur Specific Moon 1.025 (1.001-1.035) Urine Protein Trace (Negative) mg/dL Urine Glucose (UA) Negative (Negative) mg/dL Quality The patient has been admitted under observation status. Hospitalist MIPS Advance Care Plan I have confirmed that the patient's Advanced Care Plan is present, code status is documented, or surrogate decision maker is listed in patient medical record.: Yes Medication Reconciliation I have utilized all available resources to obtain, update and review the patients current medications (includes all prescriptions, OTC, herbals, cannabis, and nutritional supplements).: Yes
--- OUTSIDE RECORDS SUMMARY | 2024-03-09 14:35 | XMS_ITS | Clinical Summary ---
Author Organization [facility] Address [address] [place] [phone] Care Team Providers Care Program Medical Director Name Role Phone Unavailable Primary Care Provider Unavailabl e Immunizations Immunization Administration Dates Next Due Covid-19, Mrna, Lnp-s, PF, 5 0 mcg/0.25 mL dose (Moderna) 01/12/2021 Social History Tobacco Use Types Packs/Day Years Used Date Smoking Tobacco: Never Assessed Comments Unknown Sex and Gender Information Value Date Recorded Sex Assigned at Not on file Legal Sex Female 1:55 PM SUPERVISOR METALIZING Gender Identity Not on file Sexual Orientation [...]
--- OUTSIDE RECORDS SUMMARY | 2024-03-09 14:35 | XMS_ITS | Referral Summary ---
Author Organization [facility] Nintu Oy Address [address] [place] [address] Care Team Providers Care Hair Dresser Name Role Phone Kush Llanos MD Primary Care Provider [phone] Source Comments [facility],non-owned Affiliates and Associated Physician Practices is amultiple site organization consisting of ambulatory clinics and hospital sitesin [place], [place], [place] and [place]. This disclosure is being madepursuant to the Care Everywhere program and may not contain all information available regarding this patient. Last updated 17.[facility] Nintu Oy Allergies Active Allergy Reactions Criticality Noted Date [...] Vallecillo was screened for depression using the [place] Depression Scale (EPDS) at her [facility] initial evaluation on 06/05/2018. Her initial score at baseline was 15. Based off of her score of 15, Stephanie will receive follow up call from [facility] administrator social welfare, Jo Reyes, within the week. Patient will [...] resources were given along with notification of [facility] SW follow up- pt sleeps during the day so follow up will take place via email 06/22/18-Attempted follow up X2(email)- response received 06/22/18- please see encounter dated 06.22.18 07/04/18- Attempted follow up X2(email)- no response at this time 07/06/18-Followed up with patient via email 07/06/18- please see encounter with that date 07/20/18- Follow Up EPDS score=14 07/20/18- Followed up with patient at [facility] visit, please see note dated 07.20.18 07/31/18- Followed up with patient via email 07/31/18- please see encounter on this date 08/14/18- Follow Up EPDS score=14 08/14/18- Followed up with patient at [facility] visit, please see note dated 08.14.18 08/29/18- Followed up with patient, please see encounter dated 08.29.18 abnormality in pregnan cy - renal pelvis dilation 05/05/2018 08/31/2018 Overview (08/14/2018): Images from the original note were not included. [facility] PATIENT--PLEASE CALL [phone] (ex 2) IF TRIAGED OR ADMITTED Care Provider: Dr. Kaur [facility] consultants involved: RN- Zakiya; KRISTYN- Sabra/Macy; Pediatric Urologist- Dr. Kuhn Diagnosis: Renal Pelvis Dilation follow up: (Urology): Plan for antibiotic prophylaxis, imaging at > 48h of life but <1mo, and outpatient urology follow up. (Please call clinical nurse, Katharine Jasso, at [phone] to schedule follow-up appointment) Geological Technical Officer: Undecided Planned surveillance: Initial [facility] appointment and consults scheduled for 06.05.18. Returning to [facility] 07.20.18 and 08.14.18 for follow-up ultrasound. Weekly BPP/NST (one week with primary OB; one week through [place]). Returning to [facility] 08.14.18 to reassess kidneys. Released from [facility] 08.14.18 Delivery location, mode, and GA: In discussion with pediatric urology (Dr. Dunbar), we agree that Stephanie can deliver in [place] per routine obstetrical indications. Delivery at 39 weeks, unless earlier delivery is warranted by equivocal or normal testing, oligohydramnios as defined by a deepest vertical pocket less than 2 cm or decreased movement. Repeat scheduled 09.01.18 at [place] Manager Medical Device Concerns: 06/05/18- Patient with history of depression, [...] Comments Blood Pressure 118/80 02/14/2019 9:16 AM BUILDING PRESSURE WASHER Pulse 84 02/14/2019 9:16 AM BUILDING PRESSURE WASHER Temperature 36.6 ??C (97.9 ??F) 02/14/2019 9:16 AM CS T Respiratory Rate 16 02/14/2019 9:16 AM BUILDING PRESSURE WASHER Oxygen Saturation 98% 02/14/2019 9:16 AM BUILDING PRESSURE WASHER Inhaled Oxygen Concentration - - Weight 136.1 kg (300 lb) 02/14/2019 9:16 AM BUILDING PRESSURE WASHER Height 165.1 cm (5' 5 ) 02/14/2019 9:16 AM BUILDING PRESSURE WASHER Body Mass Index 49.92 02/14/2019 9:16 AM BUILDING PRESSURE WASHER Plan of Treatment Not on file Administered Medications Care Teams Hair Dresser Relationship Specialty Start Date End Date Kush Llanos MD [address] [place] [address] PCP - General 05/26/10
--- OUTSIDE RECORDS SUMMARY | 2024-03-09 14:35 | XMS_ITS | Clinical Summary ---
Author Organization [facility] Address [address] [place] [address]. [place], [place] [id number] [place] [address] Care Team Providers Care Preventive Medicine Specialist Name Role Phone None, Provider MD Primary [...] Comments Blood Pressure 138/96 01/28/2022 10:57 PM SCIENTIST PROPAGATOR Pulse 93 01/28/2022 10:57 PM SCIENTIST PROPAGATOR Temperature 36.6 ??C (97.8 ??F) 01/28/2022 10:[address] Respiratory Rate 18 01/28/2022 10:57 PM SCIENTIST PROPAGATOR Oxygen Saturation 98% 01/28/2022 10:57 PM SCIENTIST PROPAGATOR Inhaled Oxygen Concentration - - Weight 127 kg (280 lb) 01/28/2022 10:26 PM SCIENTIST PROPAGATOR Height 165.1 cm (5' 5 ) 01/28/2022 10:26 PM SCIENTIST PROPAGATOR Body Mass Index 46.59 01/28/2022 10:26 PM SCIENTIST PROPAGATOR Plan of Treatment Health Maintenance Due Date [...] complete this topic Insurance MEDICAID DEPT OF [address] Care Teams Preventive Medicine Specialist Relationship Specialty Start Date End Date None, Provider, PCP - General UNKNOWN PHYSICIAN SPECIALTY 01/28/22
--- OUTSIDE RECORDS SUMMARY | 2024-03-09 14:35 | XMS_ITS | Clinical Summary ---
Author Organization [facility] Address [address] [place] [address] Care Team Providers Care Cylinder Head Assembler Name Role Phone Kush Llanos MD Primary Care Provider [phone] Source Comments [facility],non-owned Affiliates and Associated Physician Practices is amultiple site organization consisting of ambulatory clinics and hospital sitesin [place], [place], [place] and [place]. This disclosure is being madepursuant to the Care Everywhere program and may not contain all information available regarding this patient. Last updated 17.[facility] Allergies Active Allergy Reactions Criticality Noted Date [...] Vallecillo was screened for depression using the [place] Depression Scale (EPDS) at her [facility] initial evaluation on 06/05/2018. Her initial score at baseline was 15. Based off of her score of 15, Stephanie will receive follow up call from [facility] social media manager, Jo Reyes, within the week. Patient will [...] resources were given along with notification of [facility] SW follow up- pt sleeps during the day so follow up will take place via email 06/22/18-Attempted follow up X2(email)- response received 06/22/18- please see encounter dated 06.22.18 07/04/18- Attempted follow up X2(email)- no response at this time 07/06/18-Followed up with patient via email 07/06/18- please see encounter with that date 07/20/18- Follow Up EPDS score=14 07/20/18- Followed up with patient at [facility] visit, please see note dated 07.20.18 07/31/18- Followed up with patient via email 07/31/18- please see encounter on this date 08/14/18- Follow Up EPDS score=14 08/14/18- Followed up with patient at [facility] visit, please see note dated 08.14.18 08/29/18- Followed up with patient, please see encounter dated 08.29.18 abnormality in pregnan cy - renal pelvis dilation 05/05/2018 08/31/2018 Overview (08/14/2018): Images from the original note were not included. [facility] PATIENT--PLEASE CALL [phone] (ex 2) IF TRIAGED OR ADMITTED Care Provider: Dr. Kaur [facility] consultants involved: RN- Zakiya; KRISTYN- Sabra/Macy; Pediatric Urologist- Dr. Kuhn Diagnosis: Renal Pelvis Dilation follow up: (Urology): Plan for antibiotic prophylaxis, imaging at > 48h of life but <1mo, and outpatient urology follow up. (Please call clinical nurse, Katharine Jasso, at [phone] to schedule follow-up appointment) Hydroblaster: Undecided Planned surveillance: Initial [facility] appointment and consults scheduled for 06.05.18. Returning to [facility] 07.20.18 and 08.14.18 for follow-up ultrasound. Weekly BPP/NST (one week with primary OB; one week through [place]). Returning to [facility] 08.14.18 to reassess kidneys. Released from [facility] 08.14.18 Delivery location, mode, and GA: In discussion with pediatric urology (Dr. Dunbar), we agree that Stephanie can deliver in [place] per routine obstetrical indications. Delivery at 39 weeks, unless earlier delivery is warranted by equivocal or normal testing, oligohydramnios as defined by a deepest vertical pocket less than 2 cm or decreased movement. Repeat scheduled 09.01.18 at [place] Project Facilitator Concerns: 06/05/18- Patient with history of depression, [...] Comments Blood Pressure 118/80 02/14/2019 9:16 AM AQUARIST Pulse 84 02/14/2019 9:16 AM AQUARIST Temperature 36.6 ??C (97.9 ??F) 02/14/2019 9:16 AM CS T Respiratory Rate 16 02/14/2019 9:16 AM AQUARIST Oxygen Saturation 98% 02/14/2019 9:16 AM AQUARIST Inhaled Oxygen Concentration - - Weight 136.1 kg (300 lb) 02/14/2019 9:16 AM AQUARIST Height 165.1 cm (5' 5 ) 02/14/2019 9:16 AM AQUARIST Body Mass Index 49.92 02/14/2019 9:16 AM AQUARIST Plan of Treatment Health Maintenance Due Date [...] age to complete this topic Care Teams Cylinder Head Assembler Relationship Specialty Start Date End Date Kush Llanos MD [address] [place] [id number] PCP - General 05/26/10
--- OUTSIDE RECORDS SUMMARY | 2024-03-09 14:35 | XMS_ITS | Referral Summary ---
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 [facility] [place] [id number] [facility] CHOICE PLUS [facility] HMO/PPO Address: [address] [address] [place] [address] [facility] HMO/PPO Address: [place] [phone] Care Teams Science Faculty Member Relationship Specialty Start Date End Date Maddy Shen NP [address] [facility] [address] [place] [address] PCP - General Internal Medicine 08/16/22 Unknown, Notinfile 07/19/22
--- OUTSIDE RECORDS SUMMARY | 2024-03-09 14:35 | XMS_ITS | Clinical Summary ---
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 Gender Identity Not on file Sexual Orientation [...] age to complete this topic Insurance [address] [facility] [address] [place] [id number] [facility] CHOICE PLUS [facility] H[facility]/PPO Address: [address] [place] [address] [address] [facility] [address] [place] [id number] [facility] CHOICE PLUS [facility] HMO/PPO Address: [address] [address] [place] [phone] Care Teams Medical Coding Specialist Relationship Specialty Start Date End Date Maddy Shen NP [address] [place] [address] [place] [address] PCP - General Internal Medicine 08/16/22 Unknown, Notinfile 07/19/22
--- OUTSIDE RECORDS SUMMARY | 2024-03-09 14:35 | XMS_ITS | Patient Health Summary ---
Author Organization [facility] Address [address] [place] [address] Care Team Providers Care Protective Signal Superintendent Name Role Phone Kush Llanos MD Primary Care Provider [phone] Note from [facility],non-owned Affiliates and Associated Physician Practices is amultiple site organization consisting of ambulatory clinics and hospital sitesin [place], [place], [place] and [place]. This disclosure is being madepursuant to the Care Everywhere program and may not contain all information available regarding this patient. Last updated 17.[facility] Allergies * Hydromorphone(Urticaria) -Medium Criticality * [...] Comments Blood Pressure 118/80 02/14/2019 9:16 AM PLANT AND INSTRUMENT ENGINEER Pulse 84 02/14/2019 9:16 AM PLANT AND INSTRUMENT ENGINEER Temperature 36.6 ??C (97.9 ??F) 02/14/2019 9:16 AM CS T Respiratory Rate 16 02/14/2019 9:16 AM PLANT AND INSTRUMENT ENGINEER Oxygen Saturation 98% 02/14/2019 9:16 AM PLANT AND INSTRUMENT ENGINEER Inhaled Oxygen Concentration - - Weight 136.1 kg (300 lb) 02/14/2019 9:16 AM PLANT AND INSTRUMENT ENGINEER Height 165.1 cm (5' 5 ) 02/14/2019 9:16 AM PLANT AND INSTRUMENT ENGINEER Body Mass Index 49.92 02/14/2019 9:16 AM PLANT AND INSTRUMENT ENGINEER Procedures * SKIN TEST PPD - POINT [...] - POINT OF CARE (12/14/2018 10:44 AM PLANT AND INSTRUMENT ENGINEER) PPD 0 MM Comment:negative Other MISCELLANEOUS SAMPLE S / Unknown 12/14/2018 10:44 AM PLANT AND INSTRUMENT ENGINEER Tanvi Unger EXPERIMENTAL ROCKET SLED MECHANIC-FILTER PLANT SUPERVISOR LAB - POINT OF CARE ORDERABLES * [...] INFORMATION Cassandra Haney RN Tammy Russell MD [facility] ORDERABLES * BIOPHYSICAL PROFILE W NST (08/14/2018 8:06 AM CDT) Only the most recent of2 resultswithin the time period is included. Anatomical Region Laterality Modality Other 08/14/2018 8:06 AM CDT Narrative 08/14/2018 10:25 AM CDT ?[facility] ? [facility] ?FAX: [phone] Pat. Name: ?STEPHANIE NORMAN Pat. No: ?[id number] Study Date: ?? 08/14/2018 ??8:06am , Age: ? 1990, 27 Pregnancies: ?? 2, Para 1 Height: ? 65 in Weight: ? 266 lb LMP: ?Unknown GA by Base: ?? 36w3d ?? SHANNON: 09/08/2018 GA by US: ? 36w3d ?? SHANNON: 09/08/2018 GA Selected: ??36w3d (From [employer]nc) SHANNON: ?09/08/2018 Referring MD: Homero Kaur MD Loading Machine Operator: ??Salma Michel [facility] CPT4: ? 50506,40314 BMI: ?44.26 Hist/Ind: ? urinary tract dilation: A2-3 ?Class III obesity ?History of gastic sleeve ?Prior CD MEASUREMENTS & AGE ? GROWTH EVALUATION Measurement ??GA ? Range ? Srce %for GA Ratios ----- ---- ------- BPD ??9.2 cm 37w1d (83v3e-46h6t) Hadl BPD 78% FL/BPD 0.76 (0.71 - 0.87) HC ??33.9 cm 39w0d (46d3n-32s0f) Hadl HC ??82% FL/AC ??0.22 (0.20 - 0.24) AC ??32.0 cm 36w0d (29y2x-59z1b) Hadl AC ??47% HC/AC ??1.06 (0.92 - 1.11) FL ?? 6.9 cm 35w4d (29h8e-37z4s) Hadl FL ??25% CI ? 0.76 (0.70 - 0.86) HL ?? 5.8 cm 33w5d (85a8q-98n9n) Fran HL ??<05 GA for sonogram 36w3d (47l8z-63n0j) ?? Weight Estimate: based on (BPD,HC,AC,FL) Hadlock [...] <Electronic Signature> ??08/14/2018 10:15am Roxi Cavazos MD [facility] ORDERABLES * SONOGRAM - COMPLETE (07/20/2018 11:38 AM CDT) Only the most recent of4 resultswithin the time period is included. Anatomical Region Laterality Modality Other 07/20/2018 11:3 8 AM CDT Narrative 07/20/2018 4:55 PM CDT ?[facility] ? [facility] ?FAX: [phone] Pat. Name: ?STEPHANIE NORMAN Pat. No: ?[id number] Study Date: ?? 07/20/2018 ??11:38am , Age: ? 1990, 27 Pregnancies: ?? 2, Para 1 Height: ? 65 in Weight: ? 266 lb LMP: ?Unknown GA by Base: ?? 32w6d ?? SHANNON: 09/08/2018 GA by US: ? 33w5d ?? SHANNON: 09/02/2018 GA Selected: ??32w6d (From Known E) SHANNON: ?09/08/2018 Referring MD: Homero Kaur MD Loading Machine Operator: ??Salma Michel RDMS CPT4: ? 00834 BMI: ?44.26 Hist/Ind: ? urinary tract dilation: A2-3 ?Class III obesity ?History of gastic sleeve ?Prior CD MEASUREMENTS & AGE ? GROWTH EVALUATION Measurement ??GA ? Range ? Srce %for GA Ratios ----- ---- ------- BPD ??8.8 cm 35w4d (12m2j-93e8d) Hadl BPD 97% FL/BPD 0.71 (0.71 - 0.87* HC ??31.9 cm 35w6d (50f4h-57l8g) Hadl HC ??87% FL/AC ??0.21 (0.20 - 0.24) AC ??29.3 cm 33w2d (40a0u-65r1t) Hadl AC ??65% HC/AC ??1.09 (0.95 - 1.14) FL ?? 6.2 cm 32w2d (00p4m-39i5i) Hadl FL ??22% CI ? 0.78 (0.70 - 0.86) HL ?? 5.4 cm 31w2d (81y2e-39i1p) Fran HL ??23% GA for sonogram 33w5d (24b5k-46v6i) ?? Weight Estimate: based on (HL,BPD,HC,AC,FL) Avg [...] we agree that Stephanie can deliver in [place] and be scheduled for outpatient urologic evaluation. We will evaluate the kidneys one more time around 36 weeks to ensure that this plan remains appropriate closer to the time of anticipated delivery. We recommend weekly BPP/NST until delivery. Delivery can be per routine obstetric indications. RECOMMEND: - Weekly NST/BPP/RADHA - Reassess kidney appearance at 36 weeks at [facility] - If stable continue to plan delivery at [place] - Plan for antibiotic prophylaxis, imaging at > 48h of life, and outpatient urology follow up. ?? Consult time: total time spent discussing the above issues was 45 minutes Thank you for allowing us the opportunity to care for your patient. Roxi Cavazos MD <Electronic Signature> ??07/20/2018 04:55pm Roxi Cavazos MD [facility] ORDERABLES Care Teams Protective Signal Superintendent Relationship Specialty Start Date End Date Kush Llanos MD [address] [facility] [place] [address] PCP - General 05/26/10
--- NOTE | 2024-03-09 14:49 | P.CONUR_ITS ---
Assessment and Plan Assessment and plan (1) Left renal stone: Code(s): N20.0 - Calculus of kidney Status: Acute Assessment and Plan: Plan for cystoscopy, left retrograde pyelogram, left ureteral stent placement in the face of this infection. Will plan on seeing her as an outpatient for repeat culture and KUB as well as scheduling of lithotripsy (2) UTI (urinary tract infection): Qualifiers: Hematuria presence: without hematuria Urinary tract infection type: a cute cystitis Qualified Code(s): N30.00 - Acute cystitis without hematuria Code(s): N39.0 - Urinary tract infection, site not specified Status: Acute Assessment and Plan: Patient to be discharged with Bactrim 1 p.o. b.i.d. for 7 days. If she develops fevers or other issues she knows to return to the hospital. Urology Consult Note HPI Date Seen: 03/09/24 Time Seen: 14:49 Requesting Physician: Brett Stauffer MD Primary Care Provider: Maddy Shen, CEMENT PRODUCTION PLANT OPERATOR Consult Narrative Reason for consult: Obstructing 6-8 mm left UPJ stone with UTI Narrative: Stephanie Norman is a 33 year old female who presented to the emergency room with left flank pain. Evaluation in the emergency room revealed a 6-8 mm left UPJ stone with hydro. She also has what appears to be urinary tract infection. Her white count however is normal and she is afebrile. Given the possible infection were going to proceed with cysto left retrograde left stent placement today. Patient really wants to go home and if she does well in recovery room I think that could be accomplished. Will plan on seeing her as an outpatient and repeating a KUB and urine culture and scheduling her for lithotripsy Review of Systems 2 Review of Systems: All systems reviewed & are unremarkable except as noted in HPI and below PMFSH Past Medical History Medical History PONV (postoperative nausea and vomiting) Depression Renal stones Smoker Morbid obesity Surgical History Surgical History History of gastric surgery sleeve 11 years ago S/P ureteral stent placement History of cholecystectomy History of section x2 Family History Family History Father Lung cancer Hypertension Mother Hypertension Family history of thyroid problem Heart problem Depression Sibling Pneumonia is from pneumonia Social History Social History Social History: the patient is and her is the surrogate decision maker. Patient wishes to be full code. The patient has 2 step children and 2 biological children. The patient works for the [employer] district. She continues to smoke half pack a cigarettes a day. For 10 years. No alcohol marijuana or illicit drugs. Smoking packs per day: 0.5 Smoking cigarettes per day: 10.0 Years smoked: 20 Smoking pack-years: 10.00 Smoking status: Current every day smoker Tobacco type: cigarettes Second hand tobacco smoke exposure: Yes Alcohol intake: current Alcohol use details: VERY RARE Substance use: never Substance use type: does not use Lack of Transportation: No Lack of Food: Never True Current Housing: I Have Housing Concerned About Future Housing: Decline to Answer Difficulty Paying Gas/Electric Bills: Decline to Answer Difficulty Paying for Meds: Decline to Answer Currently Unemployed: Decline to Answer Education: Associate Degree Difficulty w/ Childcare or Family Care: No Living arrangements: with family Gender identity (if verbalized by the patient): Female Spiritual care concerns: No Meds Home Medications and Allergies Home Medications ?Medication ?Instructions ?Recorded ?Confirmed ?Type dextromethorphan IR 45 1 tablet PO BID 07/27/22 08/31/22 History mg-bupropion ER 105 mg biphasic tablet (Auvelity) multivitamin 1 tablet PO DAILY 07/27/22 08/31/22 History albuterol sulfate 90 mcg/actuation 2 puff inhalation QID PRN 12/23/22 Rx aerosol inhaler shortness of breath or wheezing #8.5 grams doxycycline monohydrate 100 mg 100 mg PO BID 7 days #14 tabs 12/23/22 Rx tablet omeprazole 40 mg capsule,delayed mg 12/23/22 History release prednisone 20 mg tablet 40 mg (2 x 20 mg) PO DAILY 5 days 12/23/22 Rx #10 tabs Allergies Allergy/AdvReac Type Severity Reaction Status Date / Time ciprofloxacin AdvReac Severe SWELLING Verified 12/23/22 13:14 naproxen AdvReac Severe Swelling Verified 12/23/22 13:14 hydromorphone AdvReac Intermediate EXTREME Verified 12/23/22 13:14 STOMACH CRAMPS Vital Signs Vital Signs - 24 hr 03/09/24 09:52 03/09/24 12:21 03/09/24 13:22 Temperature 36.9 C Pulse Rate 105 H 113 H 99 Respiratory Rate 16 20 18 Blood Pressure 147/84 H 104/71 101/69 Pulse Oximetry 100 97 98 Oxygen Delivery Room Air 03/09/24 14:28 Temperature Pulse Rate 101 H Respiratory Rate 18 Blood Pressure 102/73 Pulse Oximetry 100 Oxygen Delivery Exam 2 Const: General: cooperative and comfortable Resp: Effort & Inspection: normal respiratory effort Cardio: Rate: regular rate Rhythm: regular rhythm Results Labs 03/09/24 13:07 03/09/24 10:44 Labs: Short CBC 03/09/24 03/09/24 Range/Units 10:44 13:07 WBC 1.7 L* 5.2 (4.5-10.0) K/mm3 Hgb 11.7 L 10.2 L (12.0-15.0) g/dL Hct 37.8 33.2 L (37.0-47.0) % Plt Count 176 160 (150-375) k/mm3 BMP 03/09/24 10:44 Sodium 142 Potassium 3.9 Chloride 108 H Carbon Dioxide 22 BUN 23 H Creatinine 0.97 Glucose 79 Calcium 8.9 Liver Function 03/09/24 Range/Units 10:44 Total Bilirubin 0.6 (0.2-1.3) mg/dL AST 65 H (14-36) U/L ALT 25 (6-35) U/L Alkaline Phosphatase 59 (38-126) U/L Albumin 3.9 (3.5-5.1) g/dL Urine 03/09/24 Range/Units 10:44 Urine Color Yellow (Yellow) Urine Appearance Cloudy H (Clear) Urine pH 5.5 (5.0-9.0) Ur Specific [place] 1.025 (1.001-1.035) Urine Protein Trace (Negative) mg/dL Urine Glucose (UA) Negative (Negative) mg/dL
--- NOTE | 2024-03-09 14:52 | WPDHPUPDATE1 ---
History and Physical Update Update Date/Time: 03/09/24 14:52 History and Physical has been reviewed, including an updated exam of the patient. There are NO changes in the patient's condition. Risks, benefits, and alternatives have been discussed and questions answered. Patient agrees to proceed with procedure. Proceed with cystoscopy, left retrograde pyelogram, left ureteral stent placement
[2024-03-09] MEDS: LACTATED RINGERS 1,000 ML 30 ML IV CONT (15:04)
--- NOTE | 2024-03-09 15:30 | P.PNAN_ITS ---
Anes - Initial Pre Proc Eval Procedure: Operation Date: 03/09/24 16:30 Proposed Procedures p Cystoscopy, Left Retrograde Pyelogram, Left Stent Placement - Brett Stauffer MD Date/Time: 03/09/24 15:30 Surgeon: Brett Stauffer MD Pre Op Diagnosis: kidney stone Patient Data Age: 33 Gender: F Height: 1.63 m Weight: 92.5 kg Last Vital Signs Temp 37.3 C 03/09/24 14:55 Pulse 105 H 03/09/24 14:55 Resp 16 03/09/24 14:55 BP 118/74 03/09/24 14:55 Pulse Ox 100 03/09/24 14:55 O2 Del Method Room Air 03/09/24 09:52 Allergies Allergy/AdvReac Type Severity Reaction Status Date / Time ciprofloxacin AdvReac Severe SWELLING Verified 03/09/24 15:04 naproxen AdvReac Severe Swelling Verified 03/09/24 15:04 hydromorphone AdvReac Intermediate EXTREME Verified 03/09/24 15:04 STOMACH CRAMPS Home Medications ?Medication ?Instructions ?Recorded ?Confirmed ?Type dextromethorphan IR 45 1 tablet PO BID 07/27/22 08/31/22 History mg-bupropion ER 105 mg biphasic tablet (Auvelity) multivitamin 1 tablet PO DAILY 07/27/22 08/31/22 History albuterol sulfate 90 mcg/actuation 2 puff inhalation QID PRN 12/23/22 Rx aerosol inhaler shortness of breath or wheezing #8.5 grams doxycycline monohydrate 100 mg 100 mg PO BID 7 days #14 tabs 12/23/22 Rx tablet omeprazole 40 mg capsule,delayed mg 12/23/22 History release prednisone 20 mg tablet 40 mg (2 x 20 mg) PO DAILY 5 days 12/23/22 Rx #10 tabs Laboratory Tests 03/09/24 03/09/24 10:44 13:07 WBC 1.7 L* K/mm3 5.2 K/mm3 (4.5-10.0) (4.5-10.0) RBC 4.20 M/mm3 3.68 L M/mm3 (4.2-5.4) (4.2-5.4) Hgb 11.7 L g/dL 10.2 L g/dL (12.0-15.0) (12.0-15.0) Hct 37.8 % 33.2 L % (37.0-47.0) (37.0-47.0) MCV 90.0 fl 90.2 fl (80-100) (80-100) MCH 27.9 pg 27.7 pg (26-34) (26-34) MCHC 31.0 L g/dl 30.7 L g/dl (32-36) (32-36) RDW 15.0 H % 14.8 H % (11.5-14.5) (11.5-14.5) Plt Count 176 k/mm3 160 k/mm3 (150-375) (150-375) MPV 9.0 fl 9.8 fl (7.4-10.4) (7.4-10.4) Immature Gran % (Auto) [facility] Sales Representative 0.2 % (0-0.5) Neut % (Auto) [facility] Sales Representative 94.6 H % (45.5-73.1) Lymph % (Auto) [facility] Sales Representative 3.6 L % (18.3-44.2) [place] % (Auto) [facility] Sales Representative 0.8 L % (2.6-8.5) Eos % (Auto) [facility] Sales Representative 0.4 % (0-4.4) Baso % (Auto) [facility] Sales Representative 0.4 % (0.2-1.2) Lymph # (Auto) [facility] Sales Representative 0.19 L K/mm3 (0.9-3.2) [place] # (Auto) [facility] Sales Representative 0.0 L K/mm3 (0.1-0.6) Eos # (Auto) [facility] Sales Representative 0.0 K/mm3 (0-0.3) Baso # (Auto) [facility] Sales Representative 0.0 K/mm3 (0.0-0.1) Abs Immat Gran (auto) [facility] Sales Representative 0.01 K/mm3 (0.00-0.031) Absolute Neuts (auto) [facility] Sales Representative 5.0 K/mm3 (1.3-6.7) Absolute Nucleated RBC [facility] Sales Representative 0.000 K/mm3 (0.0-0.012) Total Counted 100 Neutrophils % (Manual) 62 % (46-73) Band Neutrophils % 2 % (0-6) Lymphocytes % (Manual) 27 % (18-44) Monocytes % (Manual) 6 % (3-9) Eosinophils % (Manual) 2 % (0-4) Basophils % (Manual) 0 % (0-1) Nucleated RBC % [facility] Sales Representative 0.0 % (0.0-0.2) Abs Neuts (Manual) 1.08 L K/mm3 (1.7-7.2) Abs Lymphs (Manual) 0.45 L K/mm3 (1.1-4.5) Abs Monocytes (Manual) 0.10 K/mm3 (0.1-0.90) Absolute Eos (Manual) 0.03 K/mm3 (0.02-0.50) Abs Basophils (Manual) 0.00 K/mm3 (0.0-0.1) Platelet Estimate Adequate Adequate (Adequate) (Adequate) Schistocytes None seen None seen Sodium 142 mmol/L (137-145) Potassium 3.9 mmol/L (3.4-5.0) Chloride 108 H mmol/L (98-107) Carbon Dioxide 22 mmol/L (22-30) Anion Gap 12 mmol/L (4-12) BUN 23 H mg/dL (7-17) Creatinine 0.97 mg/dL (0.7-1.0) Estim Creat Clear Calc 79 ml/min Estimated GFR > 60 (59 - ) Glucose 79 mg/dL (65-110) Calcium 8.9 mg/dL (8.4-10.2) Total Bilirubin 0.6 mg/dL (0.2-1.3) AST 65 H U/L (14-36) ALT 25 U/L (6-35) Alkaline Phosphatase 59 U/L (38-126) Total Protein 7.0 g/dL (6.3-8.2) Albumin 3.9 g/dL (3.5-5.1) Lipase 97 U/L (23-300) Urine Color Yellow (Yellow) Urine Appearance Cloudy H (Clear) Urine pH 5.5 (5.0-9.0) Ur Specific [place] 1.025 (1.001-1.035) Urine Protein Trace mg/dL (Negative) Urine Glucose (UA) Negative mg/dL (Negative) Urine Ketones Trace H mg/dL (Negative) Ur Blood (Man) 1+ H (Negative) Urine Nitrate Negative (Negative) Urine Bilirubin Negative (Negative) Urine Urobilinogen 0.2 mg/dL (<2.0) Leukocyte Esterase Rfl 3+ H MAGDA/UL (Negative) Urine RBC 6-10 H /hpf (0-2) Urine WBC >100 H /hpf (0-3) Ur Squamous Epith Cells Occasional /hpf (Few) Urine Bacteria 4+ /hpf Urine Casts 0-2 Urine Test Negative Patient hx anesthesia problems: none Family hx anesthesia problems: none Results Review: All pre-operative results and documents have been reviewed as part of the pre- operative evaluation. [facility] Past Medical History Medical History PONV (postoperative nausea and vomiting) Depression Renal stones Smoker Morbid obesity Surgical History Surgical History History of gastric surgery sleeve 11 years ago S/P ureteral stent placement History of cholecystectomy History of section x2 Family History Family History Father Lung cancer Hypertension Mother Hypertension Family history of thyroid problem Heart problem Depression Sibling Pneumonia is from pneumonia Social History Social History Social History: the patient is and her is the surrogate decision maker. Patient wishes to be full code. The patient has 2 step children and 2 biological children. 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 For 10 years. No alcohol marijuana or illicit drugs. Smoking packs per day: 0.5 Smoking cigarettes per day: 10.0 Years smoked: 20 Smoking pack-years: 10.00 Smoking status: Current every day smoker Tobacco type: cigarettes Second hand tobacco smoke exposure: Yes Alcohol intake: current Alcohol use details: VERY RARE Substance use: never Substance use type: does not use Lack of Transportation: No Lack of Food: Never True Current Housing: I Have Housing Concerned About Future Housing: Decline to Answer Difficulty Paying Gas/Electric Bills: Decline to Answer Difficulty Paying for Meds: Decline to Answer Currently Unemployed: Decline to Answer Education: Associate Degree Difficulty w/ Childcare or Family Care: No Living arrangements: with family Gender identity (if verbalized by the patient): Female Spiritual care concerns: No Anes - Eval Final PreProcedure Day of Procedure 01/31/25 15:30 Patient weight: obese Heart: tachycardia Lungs: clear to auscultation Airway: Mallampati scale class II Neurological: alert and oriented Last oral intake: >/= 8 hours ASA classification: II Emergent: yes Anesthetic plan: proceed Anesthesia type and monitoring: general ETT and standard monitoring Results Review: All pre-operative results and documents have been reviewed as part of the pre- operative evaluation. Informed Consent: The patient's anesthetic plan and its attendant risks and benefits were discussed with the patient/family/POA. Questions were solicited and answers provided to the satisfaction of the patient/family/POA.
[2024-03-09] MEDS: SCOPOLAMINE 1 MG PATCH 1 PATCH TRANSDERM (15:42)
[2024-03-09] MEDS: LIDOCAINE 2% GEL UROJET 10 ML PKG MUCOUS MEM (16:06)
--- NOTE | 2024-03-09 16:16 | P.OP_ITS ---
Procedure Note - Detailed Date of Procedure 03/09/24 Pre-op Diagnosis Left obstructing kidney stone with UTI Post-op Diagnosis Same Procedure Performed Cystoscopy, left retrograde, left ureteral stent placement 4.8 Cameroonian contour Surgeon Brett Stauffer MD Anesthesia General Description of Procedure Patient was taken the operative suite correctly identified. Once anesthesia was obtained she was placed in dorsal lithotomy position and prepped and draped usual sterile fashion. Twenty-two Cameroonian scope was inserted into the bladder. There were no tumors noted. Left ureteral orifice was cannulated with a ureteral catheter and a pyelogram was performed. No discrete filling defects were noted. There was some narrowing of the proximal ureter. Contrast made its way into the kidney. A 4 Sensor wire was then inserted. 4.8 Cameroonian contour stent was then placed with the proximal end coiled in the renal pelvis and the distal in the bladder. Bladder was drained. 2% viscous lidocaine was inserted into the urethra the patient is taken recovery stable condition. Whether she is admitted discharge will depend on how she does clinically in recovery room. She will end up following up in a week's time with a repeat urine culture in [facility] and decision regarding definitive treatment of her stones. This completes dictation. Please send a copy of op note to my office Estimated Blood Loss 0 Drains Yes Packing No Pathology None sent Complications No immediate complications Condition Stable Disposition PACU
--- NOTE | 2024-03-09 17:14 | P.SS_ITS ---
Same Day Admit/Disch: HPI History of Present Illness Chief complaint: Left flank pain. Narrative: This is a very pleasant 33-year-old female with history of kidney stones, gastrectomy, and cholecystectomy who presented to the emergency department for evaluation of left-sided flank pain. The patient provides the following history. She was awakened from sleep at about 3 in the morning with colicky left flank pain associated with nausea and vomiting. Her symptoms are similar to prior kidney stones and she came in for evaluation. She denies fever, chills, sweats, dysuria, and hematuria. In the ED: She was afebrile on arrival with stable vital signs. Labs were significant for a WBC count of 5.2, hemoglobin 10.2, chloride 108, BUN 23, AST 65. Urinalysis was positive for trace ketones, 1+ blood, 3+ leukocyte esterase, 6 to 10 RBC, greater than 100 WBC, and 4+ bacteria. CT of the abdomen and pelvis showed a 6 mm stone at the left ureteropelvic junction with moderate left hydronephrosis and left-sided pyelitis, nonobstructing left kidney stones, any 3.9 cm cyst in the right ovary, likely follicular cyst. Plans were to take the patient to the OR for cystoscopy and stent placement and admission to the hospital for IV antibiotics and IV fluid rehydration given findings of UTI and postoperative nausea and vomiting. The patient's procedure was without issue and after receiving aggressive treatment for the postoperative nausea and vomiting, she felt much better and requested discharge home. [facility] Past Medical History Medical History (Updated 03/09/24 @ 23:51 by Gabriela Valencia PA-C) Postoperative nausea and vomiting Depression Renal stones Surgical History Surgical History (Updated 03/09/24 @ 23:43 by Gabriela Valencia PA-C) History of cystoscopy History of placement of ureteral stent History of gastric surgery sleeve 11 years ago History of cholecystectomy History of section x2 Family History Family History Father Lung cancer Hypertension Mother Hypertension Family history of thyroid problem Heart problem Depression Sibling Pneumonia is from pneumonia Social History Social History (Updated 03/09/24 @ 23:44 by Gabriela Valencia PA-C) Social History: Surrogate medical decision maker: Joesph Norman, spouse. Code status: Full code. Smoking packs per day: 0.5 Smoking cigarettes per day: 10.0 Years smoked: 20 Smoking pack-years: 10.00 Smoking status: Current every day smoker Tobacco type: cigarettes Second hand tobacco smoke exposure: Yes Alcohol intake: current Alcohol use details: rare alcohol use in moderation Substance use: never Substance use type: does not use Lack of Transportation: No Lack of Food: Never True Current Housing: I Have Housing Concerned About Future Housing: Decline to Answer Difficulty Paying Gas/Electric Bills: Decline to Answer Difficulty Paying for Meds: Decline to Answer Currently Unemployed: Decline to Answer Education: Associate Degree Difficulty w/ Childcare or Family Care: No Living arrangements: with family Additional living arrangements comments: Lives with spouse and children in [place]. Additional occupation/education comments: [employer]. Spiritual care concerns: No Same Day Admit/Disch: Med Pre-admit Medications Home Medications ?Medication ?Instructions ?Recorded ?Confirmed ?Type dextromethorphan IR 45 1 tablet PO BID 07/27/22 08/31/22 History mg-bupropion ER 105 mg biphasic tablet (Auvelity) multivitamin 1 tablet PO DAILY 07/27/22 08/31/22 History albuterol sulfate 90 mcg/actuation 2 puff inhalation QID PRN 12/23/22 Rx aerosol inhaler shortness of breath or wheezing #8.5 grams omeprazole 40 mg capsule,delayed mg 12/23/22 History release hydrocodone 5 mg-acetaminophen 325 1 tablet PO Q6H PRN pain 0 days 03/09/24 Rx mg tablet #10 tabs ondansetron 4 mg disintegrating 4 mg PO Q8H PRN nausea and 03/09/24 Rx tablet vomiting #6 tabs oxybutynin chloride 5 mg tablet 5 mg PO BID #6 tabs 03/09/24 Rx sulfamethoxazole 800 1 tablet PO Q12H #14 tabs 03/09/24 Rx mg-trimethoprim 160 mg tablet (Bactrim DS) Review of Systems Review of Systems 12 systems were reviewed and are negative except for as per HPI. Exam Narrative: General: Mildly ill-appearing female sitting in bed in moderate pain. Weight: 92.5 kg. BMI: 35.0. HEENT: PERRL, EOMI. Sclera anicteric. Tacky mucous membranes. Neck: Supple. Respiratory: Lungs are clear to auscultation bilaterally. Cardiovascular: Regular rate and rhythm with S1-S2. No murmur, rub, or gallop. Gastrointestinal: Abdomen is soft and nondistended with positive bowel sounds. She is tender to palpation over the left flank with equivocal left-sided CVA tenderness. Skin: Warm and dry. Extremities: No cyanosis, clubbing, or edema. Radial and pedal pulses intact. Neurological: Alert. Cranial nerves 2-12 are grossly intact. No gross focal deficits to casual conversation. Psychiatric: Pleasant and cooperative with normal mood and affect. Judgment and insight intact. DS: Data Data Completed and Pending Labs on day of discharge: Labs from last 24 hours 03/09/24 03/09/24 13:07 10:44 WBC 5.2 1.7 L* RBC 3.68 L 4.20 Hgb 10.2 L 11.7 L Hct 33.2 L 37.8 MCV 90.2 90.0 MCH 27.7 27.9 MCHC 30.7 L 31.0 L RDW 14.8 H 15.0 H Plt Count 160 176 MPV 9.8 9.0 Immature Gran % (Auto) 0.2 Doctor Naturopathic Neut % (Auto) 94.6 H Doctor Naturopathic Lymph % (Auto) 3.6 L Doctor Naturopathic [place] % (Auto) 0.8 L Doctor Naturopathic Eos % (Auto) 0.4 Doctor Naturopathic Baso % (Auto) 0.4 Doctor Naturopathic Lymph # (Auto) 0.19 L Doctor Naturopathic [place] # (Auto) 0.0 L Doctor Naturopathic Eos # (Auto) 0.0 Doctor Naturopathic Baso # (Auto) 0.0 Doctor Naturopathic Abs Immat Gran (auto) 0.01 Doctor Naturopathic Absolute Neuts (auto) 5.0 Doctor Naturopathic Absolute Nucleated RBC 0.000 Doctor Naturopathic Total Counted 100 Neutrophils % (Manual) 62 Band Neutrophils % 2 Lymphocytes % (Manual) 27 Monocytes % (Manual) 6 Eosinophils % (Manual) 2 Basophils % (Manual) 0 Nucleated RBC % 0.0 Doctor Naturopathic Abs Neuts (Manual) 1.08 L Abs Lymphs (Manual) 0.45 L Abs Monocytes (Manual) 0.10 Absolute Eos (Manual) 0.03 Abs Basophils (Manual) 0.00 Platelet Estimate Adequate Adequate Schistocytes None seen None seen Sodium 142 Potassium 3.9 Chloride 108 H Carbon Dioxide 22 Anion Gap 12 BUN 23 H Creatinine 0.97 Estim Creat Clear Calc 79 Estimated GFR > 60 Glucose 79 Calcium 8.9 Total Bilirubin 0.6 AST 65 H ALT 25 Alkaline Phosphatase 59 Total Protein 7.0 Albumin 3.9 Lipase 97 Urine Color Yellow Urine Appearance Cloudy H Urine pH 5.5 Ur Specific [place] 1.025 Urine Protein Trace Urine Glucose (UA) Negative Urine Ketones Trace H Ur Blood (Man) 1+ H Urine Nitrate Negative Urine Bilirubin Negative Urine Urobilinogen 0.2 Leukocyte Esterase Rfl 3+ H Urine RBC 6-10 H Urine WBC >100 H Ur Squamous Epith Cells Occasional Urine Bacteria 4+ Urine Casts 0-2 Urine Test Negative Procedures/Treatments: Cystoscopy, left retrograde pyelogram, and left ureteral stent placement per Dr. Stauffer. Imaging Radiologist's impression: CT of the abdomen and pelvis: 1. 6 mm stone at the left ureteropelvic junction with moderate hydronephrosis and left-sided pyelitis. 2. Nonobstructing left kidney stones. 3. 3.9 cm cyst in the right ovary, likely a follicular cyst. DS: Summary Hospital Course Reason for hospitalization: A pleasant 33-year-old female with history of kidney stones presented to the emergency department with complaints of colicky left flank pain which woke her from sleep this morning as detailed in HPI. Hospital Course: Vital signs were stable on arrival and remained stable throughout her stay. Labs were significant for WBC count of 5.2, hemoglobin 10.2, creatinine 0.97. Urinalysis was positive for leukocyte esterase, greater than 100 WBC, and 4+ bacteria. CT of the abdomen and pelvis showed a 6 mm stone at the left UPJ with hydronephrosis and findings of left-sided pyelitis. She was taken to the OR where she underwent cystoscopy with retrograde pyelogram and stent placement. Postoperatively she had nausea and vomiting but was treated aggressively and was hydrated with improvement in her symptoms. She felt good enough to be discharged home and after discussions with Dr. Stauffer, she was discharged home with antibiotics and instructions to call his office for follow-up. Status at Discharge Cognitive/behavioral status at discharge: Patient is stable at time of discharge. Functional status at discharge: independent ambulation Overall status at discharge: patient is progressing back to baseline Time Spent with Patient Time attestation: Total time spent providing and/or coordinating discharge services: 50 minutes. Time spent: Greater than 30 minutes DS: Admitting Diagnosis Discharge Date 03/09/2024 Admitting Diagnosis 1. Obstructing left ureteral calculus 2. Left hydronephrosis 3. Urinary tract infection 4. Postoperative nausea and vomiting DS: Discharge Diagnosis Discharge Diagnosis (1) Left ureteral calculus: Code(s): N20.1 - Calculus of ureter Status: Acute (2) Hydronephrosis of left kidney: Code(s): N13.30 - Unspecified hydronephrosis Status: Acute (3) Urinary tract infection: Code(s): N39.0 - Urinary tract infection, site not specified Status: Acute (4) Postoperative nausea and vomiting: Code(s): R11.2 - Nausea with vomiting, unspecified; Z98.890 - Other specified postprocedural states Status: Acute Plan Plans were for the patient to go to the OR for cystoscopy and stent placement in admission to the hospital for IV antibiotics and IV fluid hydration given urinary tract infection and postoperative nausea and vomiting. Her symptoms improved and she was discharged after an hour so recovering in the PACU as detailed above. Discharge Plan Discharge Patient Disposition: Home, Self-Care Discharge Instructions: Remove the Scopolamine patch that was placed behind your ear in 72 hours or less. Wash your hands after touching. Hospitalist Discharge Instructions Please finish the full coarse of antibiotics (Bactrim per Dr. Stauffer). Oxybutynin can be take it as needed for bladder spasms. Hydrocodone-acetaminophen can be taken as needed for pain. Ondansetron dissolving tablets can be taken as needed for nausea/vomiting. Call Dr. Stauffer office on Tuesday to schedule a follow-up appointment. Please call or return to the emergency department if you develop worsening pain, blood in the urine, high fever, or with any other concerns. Patient Instructions: Antibiotic Form Patient Language: Occitan Stand Alone Forms: General Discharge Instructions Follow-up/Referrals: Hermelinda,ANNETTE Castañeda [Primary Care Provider] - Brett Stauffer MD [Physician] - Discharge Medications: New sulfamethoxazole-trimethoprim [Bactrim DS] 800-160 mg tablet 1 tablet PO Q12H Qty: 14 0RF ondansetron 4 mg tablet,disintegrating 4 mg PO Q8H PRN (Reason: nausea and vomiting) Qty: 6 0RF oxybutynin chloride 5 mg tablet 5 mg PO BID Qty: 6 0RF hydrocodone-acetaminophen 5-325 mg tablet 1 tablet PO Q6H PRN (Reason: pain) Qty: 10 0RF Continued omeprazole 40 mg capsule,delayed release(DR/EC) albuterol sulfate 90 mcg/actuation HFA aerosol inhaler 2 puff INHALATION QID PRN (Reason: shortness of breath or wheezing) Qty: 8.5 0RF multivitamin Tablet 1 tablet PO DAILY Auvelity 45-105 mg tablet,IR,delayed rel,biphasic 1 tablet PO BID Discontinued prednisone 20 mg tablet 40 mg PO DAILY 5 Days Qty: 10 0RF doxycycline monohydrate 100 mg tablet 100 mg PO BID 7 Days Qty: 14 0RF
== END 2024-03-09 17:55 | disposition home or self-care (01) ==
LOC: ANHED 14:12 → ANHSURGERY 14:27
PROVIDERS: Emergency Provider Physician Assistant; PCP Nurse Practitioner Family; Visit Provider Urology
PROC: (CPT 52352; principal; 2024-03-09 16:30)
DX: N20.0 Calculus of kidney (principal); N39.0 Urinary tract infection, site not specified; F17.210 Nicotine dependence, cigarettes, uncomplicated; E66.9 Obesity, unspecified; Z68.35 Body mass index [BMI] 35.0-35.9, adult
CPT/HCPCS: 52332; 36415; 74018; 74177; 74420; 80053; 81001; 81025; 83690; 85025; 87040; 87077; 87086; 87186; 96361; 96365; 96375; 96376; 99285; A9270; C1758; C1769; C2617; J0330; J0696; J1100; J2003; J2250; J2270; J2405; J2704; J3010; J7030; J7120; Q9966; Q9967

== ENCOUNTER 2024-03-15 14:56 | Outpatient (CLI) | payer OTHER, MEDICAID, SELFPAY ==
--- NOTE | ~2024-03-15 | XR_ITS ---
Exam: Abdomen 1V HISTORY: KIDNEY STONE; STENT PLACED A WEEK AGO COMPARISON: 03/09/2024 contrast-enhanced CT and plain film of the abdomen. TECHNIQUE: Supine images of the abdomen FINDINGS: Bowel gas pattern is non-obstructive. There is no free air or deep sulci. Double-J stent is identified to the left of midline. Microclip is adjacent to the proximal pigtail. D istal portion of the pigtail extends into the bladder. 8.5 mm calculus projects over the lower pole of the left kidney decreased in size from 15 mm. Lung bases are unremarkable. Bones and soft tissues are unremarkable. IMPRESSION: Nonspecific, nonobstructive bowel gas pattern. Double-J stent in good position with decrease in size of the large calculus within the left kidney, a s detailed above Reviewed, dictated and finalized at location A. ERY ASSISTANT IMPRESSION: Nonspecific, nonobstructive bowel gas pattern. Double-J stent in good position with decrease in size of the large calculus wit hin the left kidney, as detailed above
--- OUTSIDE RECORDS SUMMARY | 2024-03-15 15:12 | XMS_ITS | Clinical Summary ---
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
--- OUTSIDE RECORDS SUMMARY | 2024-03-15 15:12 | XMS_ITS | Referral Summary ---
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 Gender Identity Not on file Sexual Orientation [...] Plan of Treatment Not on file Insurance [facility] [place] [id number] [facility] CHO[employer] [facility] HMO/PPO Address[facility] [address] [place] [address] [facility] [employer] [facility] H[facility]/PPO Address: [facility] [id number] [place] [address] Care Teams Technical Manager Relationship Specialty Start Date End Date Maddy Shen NP [address] [facility] [address] [place] [address] PCP - General Internal Medicine 08/16/22 Unknown, Notinfile 07/19/22
--- OUTSIDE RECORDS SUMMARY | 2024-03-15 15:13 | XMS_ITS | Data Portability ---
Author Organization [facility] [place] Address [address] [place] [address] Care Team Providers Care Psychiatry Physician Name Role Phone CHRIS HARO Primary Care Provider [phone] KIM HERNADEZ Primary Care Provider Assessment Encounter Date Assessment Date Assessment LastModified by Organization Details LastModified Time 07/30/2022 07/30/2022 Annual gynecological exam performed. Patient will come back in a year unless there are new symptoms. Not available 07/30/2022 12:33:30 Plan of Treatment Reminders Order Date Submit Date Provider Last Modified By Organization Details Last Modified Time Details Appointments None recorded. Lab dhea-sulfat e, serum 2022 023 [facility] (Lab), [address] , [place], [address], 3 13:04:57 hormone panel, serum or plasma 2022 023 [facility] (Lab), [address], [place], [address], 3 13:04:58 progesteron e, serum 2022 023 [facility] (Lab), [address] [place], [address], 3 13:04:58 prolactin, serum 2022 023 [facility] (Lab), [address], [place], [address], 3 13:04:58 shbg (sex hormone-bin ding globulin), serum 2022 023 [facility] (Lab), [address], [place], [address], 3 13:04:59 TSH, serum or plasma 2022 023 [facility] (Lab), [address], [place], [address], 3 13:04:59 testosteron e free/testos terone total, ratio, serum 2022 023 [facility] (Lab), [address], [place], [address], 3 13:05:00 hsv-2 igg Ab, serum 2024 025 [facility] (Lab), [address], [place], [address], 5 11:36:41 HBsAg (hepatitis B surface Ag), serum 2024 025 [facility] (Lab), [address], [place], [address], 5 11:36:41 hsv-1 igg Ab, serum 2024 025 [facility] (Lab), [address], [place], [address], 5 11:36:41 unlisted lab - women's health swab plus, EULOGIO 2024 025 [facility] (Lab), [address], [place], [address], 5 15:54:07 herpes simplex, culture, unspecified specimen 2024 025 [facility] (Lab), [address], [place], [address], 5 15:54:08 Referral None recorded. Procedures None recorded. Surgeries hysteroscop y, with endometrial ablation (SURG) 2022 023 [email or web address] [facility], [address], [place], [address], 3 11:23:34 Imaging US, pelvis, complete 2022 023 [email or web address] [place], [address], [address], [place], [address], 3 15:37:05 US, pelvis 2022 023 [email or web address] [place], [address], [address], [place], [address], 3 19:01:04 US, transvagina l 2022 023 [email or web address] [place], [address], [address], [place], [address], 3 19:01:04 Medication Orders Addyi 100 mg tablet 2020 021 [email or web address] [facility], [address], [place], [address], 5 12:24:18 NuvaRing 0.12 mg-0.015 mg/24 hr vaginal 2020 021 [email or web address] [facility], [address], [place], [address], 3 12:35:15 spironolact one 100 mg tablet 2022 023 [facility], [address] [facility] [place], [address], 3 12:25:12 metformin ER 500 mg tablet,exte nded release [address] [facility], [address] [place] [address], [address], 5 12:25:02 nystatin-tr iamcinolone 100,000 unit/gram-0 .1 % topical ointment 2024 025 [facility], [facility] [place], [address], 5 12:45:26 fluconazole 150 mg tablet 2024 025 [facility], [address] [place] [address], [address], 5 12:45:25 Patient TargetsNo targets recorded. Patient [...] kimberly: Stephan Mora Colle cted: 07/30 1426 [employer] Order ing Locat ion: [place] [facility] [...] as clini madai clarke nted. Not Available [facility] (Lab) [address], [place], [address], 08/03/2022 14:20:53 07/31/19 23 07/30/2022 DHEA SULFA TE DHEA-sulfate 138 ug/dL Femal e Range s Age(y ) Range (ug/d L) 10-15 34-28 0 15-20 65-36 8 20-25 148-4 07 25-35 99-34 0 35-45 61-33 7 45-55 35-25 6 55-65 19-20 5 65-75 9-246 > 75 12-15 4 Not Available [facility] (Lab) [address], [place], [address], 08/07/2022 13:04:57 07/31/19 23 07/30/2022 PROGE STERO [...] Trime ster5 8.70- 214.0 0 Not Available [facility] (Lab) [address], [place], [address], 08/07/2022 13:04:58 07/31/19 23 07/30/2022 PROLA CTIN prolactin, total 16.00 NG/mL 4.79-2 3.30 This assay was perfo rmed using [employer] ratio n reage nts and test kits. Value s obtai choco with other assay metho ds or kits canno t be used inter de la fuente eably . Not Available [facility] (Lab) [address] [place], [address], 08/07/2022 13:04:58 07/31/1907/30/2022 FSH, LH, ESTRA DIOL estradiol 227.0 pg/mL This assay was perfo rmed using [employer] ratio n reage nts and test kits. Value s obtai choco with other assay metho ds or kits canno t be used inter [facility] . Femal e Estra diol Range s: Folli cular phase 12.4- 233 pg/mL Ovula tion phase 41.0- 398 pg/mL Lutea l phase 22.3- 341 pg/mL Postm enopa usal< 5-138 pg/mL Healt hy Pregn ant Women 1st Trime ster1 54-32 43 pg/mL 2nd Trime ster1 561-2 1280 pg/mL 3rd Trime ster8 525-> 74676 pg/mL Not Available [facility] (Lab) [address] [place], [address], 08/07/2022 13:04:58 07/31/19 23 07/30/2022 FSH, LH, ESTRA DIOL FSH 8.0 mIU/m L This assay was perfo rmed using [employer] ratio n reage nts and test kits. Value s obtai choco with other assay metho ds or kits canno t be used inter [facility] . Femal es Folli cular : 3.5-1 2.5 mIU/m L Ovula tion: 4.7-2 1.5 mIU/m L Lutea l: 1.7-7 .7 mIU/m L Postm enopa use: 25.8- 134.8 mIU/m L Not Available [facility] (Lab) [address] [place], [address], 08/07/2022 13:04:58 07/31/19 23 07/30/2022 FSH, LH, [...] use: 7.7-5 8.5 mIU/m L Not Available [facility] (Lab) [address] [place], [address], 08/07/2022 13:04:58 07/31/19 23 07/30/2022 TSH, REFLE X FREE T4 TSH 1.80 uIU/m L 0.30-5 .33 Not Available [facility] (Lab) [address] [place], [address], 08/07/2022 13:04:59 07/31/19 23 07/30/2022 HUMAN SEX HORMO NE CAMRYN NG GLOBU KEO sex hormone binding globulin 20.4 nmole s/L 18.2-1 35.5 Not Available [facility] (Lab) [address], [place], [address], 08/07/2022 13:04:59 07/31/19 23 07/30/2022 TESTO STERO NE, FREE( DIALY SIS) AND TOTAL (LC/M S/MS) testosterone , total 40 NG/dL 2-45 For addit ional infor bharti guillen e refer to http: //john rodas.que stdia gnost ics.c om/fa q/Tot alTes monet Beltran [facility] (This link is being provi ded for [...] for clini karol purpo ses. Not Available [facility] (Lab) [address], [place], [address], 08/07/2022 13:05:00 07/31/19 23 07/30/2022 TESTO STERO [...] Infor matalena n: Site ID: SLI Name: [employer] [facility] [place] Addre ss: [id number] [address] Direc tor: Herman malone M.D. Not Available [facility] (Lab) [address], [place], [address], 08/07/2022 13:05:00 02/08/1902/09/2024 HBSAG /HCV/ HIV/R SD HIV antigen/anti body Nonrea ctive nonrea ctive HIV-1 antig en and HIV-1 /HIV- 2 antib odies were not detec bandar. No labor atory evide nce of HIV infec tion. Not Available [facility] (Lab) [address], [place], [address], 02/10/2024 11:36:40 02/08/1902/09/2024 HBSAG /HCV/ HIV/R SD hepatitis B surface antigen Non-re active non-re active This assay was perfo rmed using [employer] ratio n reage nts and test kits. Value s obtai choco with other assay metho ds or kits canno t be used inter de la fuente eably . Not Available [facility] (Lab) [address], [place], [address], 02/10/2024 11:36:40 02/08/19 25 02/09/2024 HBSAG /HCV/ HIV/R SD hepatitis C antibody Non-re active non-re active Antib odies to HCV Not Detec bandar, does not exclu de the possi bilit y of expos ure to HCV. Not Available [facility] (Lab) [address], [place], [address], 02/10/2024 11:36:40 02/08/19 25 02/09/2024 HBSAG /HCV/ HIV/R SD RPR screen Nonrea ctive nonrea ctive Not Available [facility] (Lab) [address], [place], [address], 02/10/2024 11:36:40 02/08/19 25 02/09/2024 HERPE S SMPLE X VIRUS TYPE 1 SPECI FIC AB, IGG herpes simplex virus 1 IgG Negati ve negati ve Not Available [facility] (Lab) [address], [place], [address], 02/10/2024 11:36:41 02/08/19 25 02/09/2024 HERPE S SMPLE X VIRUS TYPE 1 SPECI FIC AB, IGG herpes simplex virus 1 IgG, quant 0.5 ai 0.0-0. 8 Not Available [facility] (Lab) [address] [place], [address], 02/10/2024 11:36:41 02/08/19 25 02/09/2024 HERPE S SIMPL EX VIRUS TYPE 2 SPECI FIC AB, IGG herpes simplex virus 2 IgG Positi ve negati ve abnormal Not Available [facility] (Lab) [address] [place], [address], 02/10/2024 11:36:41 02/08/19 25 02/09/2024 HERPE S SIMPL EX VIRUS TYPE 2 SPECI FIC AB, IGG herpes simples virus 2 IgG, quant >8.0 ai 0.0-0. 8 high Not Available [facility] (Lab) [address] [place], [address], 02/10/2024 11:36:41 02/08/1902/09/2024 [facility]UL[facility]IO bacterial vaginosis (bv), tma Negati ve negati ve Not Available [facility] (Lab) [address], [place], [address], 02/16/2024 15:54:07 02/08/19 25 02/09/2024 [facility], EULOGIO eileen species, tma Negati ve negati ve Not Available [facility] (Lab) [address] [place], [address], 02/16/2024 15:54:07 02/08/19 25 02/09/2024 [facility], EULOGIO eileen glabrata, tma Negati ve negati ve Not Available [facility] (Lab) [address] [place], [address], 02/16/2024 15:54:07 02/08/19 25 02/09/2024 [facility], EULOGIO trichomonas vaginalis, tma Negati ve negati ve Not Available [facility] (Lab) [address] [place], [address], 02/16/2024 15:54:07 02/08/19 25 02/09/2024 [facility], EULOGIO chlamydia trachomatis, PCR Negati ve negati ve Not Available [facility] (Lab) [address] [place], [address], 02/16/2024 15:54:07 02/08/19 25 02/09/2024 [facility], EULOGIO neisseria gonorrhoeae, PCR [...] ded in this panel . Not Available [facility] (Lab) [address] [place], [address], 02/16/2024 15:54:07 02/08/19 25 02/09/2024 CULTU RE: HERPE S SIMPL EX VIRUS (HSV) , REFLE X TYPIN G source LESION SCRAPI NG Not Available [facility] (Lab) [address] [place], [address], 02/16/2024 15:54:08 02/08/19 25 02/09/2024 CULTU RE: HERPE S SIMPL EX VIRUS (HSV) , REFLE X TYPIN G hsv culture, body fluid NOT ISOLAT ED Perfo rming Organ izati on Infor matio n: Site ID: CB Name: [facility] jessica [place] Addre ss: [id number] [place] [address] Dire tor: Malathi Stuton s Not Available [facility] (Lab) [address] [place], [address], 02/16/2024 15:54:08 08/03/19 23 08/02/2022 US, pelvi s No observ ation record ed. [email or web address] [place] [address], [place], [address], 08/02/2022 12:30:13 08/03/19 23 08/02/2022 US, trans vagin al No observ ation record ed. [email or web address] [place] [address], [place], [address], 08/02/2022 12:29:52 08/03/19 23 08/02/2022 US, pelvi s No observ ation record ed. ISAK Shari [address], [place], [address], 08/17/2022 11:38:26 Result Notes None recorded. Problems Name Problem SNOMED Code Status Onset Date Resolution Date Notes Provider Name and Address Organization Details Recorded Time Decrease d sexual function 716768262 Active 2020 Ingrid lovell [facility] 09:56:50 Antenata l screenin g for malforma tion Completed 201803/27/2020 Encounte r for antenata l screenin g for malforma tions;Pr actice ID: 0001 Ingrid lovell [facility] 11:40:14 Normal pregnanc y in multigra carlos [id number] 4106 Completed 201803/27/2020 Encounte r for suprvsn of normal pregnanc y, second trimeste r;Practi ce ID: 0001 Ingrid lovell, [facility] 11:41:02 Mental disorder in mother complica ting pregnanc y 386625439 Completed 201803/27/2020 Oth mental disorder s comp pregnanc y, second trimeste r;Practi ce ID: 0001 Ingrid lovell [facility] 11:41:01 Gestatio n period, 25 weeks 61200963 Completed 201803/27/2020 25 weeks gestatio n of pregnanc y;Practi ce ID: 0001 Ingrid lovell, [facility] 11:40:49 Urinary tract infectio n in pregnanc y 695218679 Completed 201803/27/2020 Infect of prt urinary tract in pregnanc y, third trimeste r;Practi ce ID: 0001 Ingrid lovell, [facility] 11:41:22 Gestatio n period, 30 weeks 08287482 Completed 201803/27/2020 30 weeks gestatio n of pregnanc y;Practi ce ID: 0001 Ingrid lovell, [facility] 11:40:50 Severe obesity complica ting pregnanc y [id number] 799226 Completed 201803/27/2020 Obesity complica ting pregnanc y, third trimeste r;Practi ce ID: 0001 Ingrid lovell, [facility] 11:41:12 Gestatio n period, 32 weeks 1235625 Completed 201803/27/2020 32 weeks gestatio n of pregnanc y;Practi ce ID: 0001 Ingrid lovell, [facility] 11:40:51 Body mass index 30+ - obesity 989624000 Completed 201803/27/2020 Body mass index (BMI) 45.0-49. 9, adult;Pr actice ID: 0001 Ingrid lovell, [facility] 11:40:16 Clinical finding Completed 201803/27/2020 Obesity, unspecif ied;Prac nishant ID: 0001 Ingrid lovell, [facility] 11:40:45 Gestatio n period, 33 weeks 01079850 Completed 201803/27/2020 33 weeks gestatio n of pregnanc y;Practi ce ID: 0001 Ingrid lovell, [facility] 11:40:53 Gestatio n period, 34 weeks 95950543 Completed 201803/27/2020 34 weeks gestatio n of pregnanc y;Practi ce ID: 0001 Ingrid lovell, [facility] 11:40:[address] Concept Completed 201803/27/2020 Maternal care for oth abnormal ity and damage, unsp;Pra ctice ID: 0001 Ingrid lovell, [facility] 11:41:14 Gestatio n period, 35 weeks 12320355 Completed 201803/27/2020 35 weeks gestatio n of pregnanc y;Practi ce ID: 0001 Ingrid lovell, [facility] 11:40:55 Pregnanc y, childbir th and puerperi um finding Completed 201803/27/2020 Oth pregnanc y related conditio ns, third trimeste r;Practi ce ID: 0001 Ingrid lovell, [facility] 11:40:[address] Concept Completed 201803/27/2020 Decrease d movement s, third trimeste r, unsp;Pra ctice ID: 0001 Ingrid lovell, [facility] 11:41:[address] Concept Completed 201803/27/2020 Matern care for abnlt fetl hrt rate or rhym, 3rd tri, unsp;Pra ctice ID: 0001 Ingrid Thompson nas, [facility] 11:41:17 Gestatio n period, 36 weeks 49665533 Completed 201803/27/2020 36 weeks gestatio n of pregnanc y;Practi ce ID: 0001 Ingrid lovell [facility] 11:40:57 Uterine scar from previous surgery affectin g pregnanc y 86746422 Completed 201803/27/2020 Matern care for low transver se scar from prev del;Prac nishant ID: 0001 [facility]:25 heart finding Completed 201803/27/2020 Abnlt in heart rate and rhythm comp labor and delivery ;Practic e ID: 0001 [facility] 11:40:44 Steriliz ation procedur e Completed 201803/27/2020 Encounte r for steriliz ation;Pr actice ID: 0001 Ingrid lovell [facility] 11:41:20 Single live [id number] Completed 201803/27/2020 Single live ;Pr actice ID: 0001 Ingrid lovell, [facility] 11:41:13 Gestatio n period, 37 weeks 16998305 Completed 201803/27/2020 37 weeks gestatio n of pregnanc y;Practi ce ID: 0001 Ingrid lovell [facility] 11:40:58 Procedur e on genitour inary system Completed 201803/27/2020 Encounte r for surgical aftcr followin g surgery on the sys;Prac nishant ID: 0001 [facility] 11:41:10 Postoper ative care Completed 201803/27/2020 Encounte r for surgical aftcr followin g surgery on the sys;Prac nishant ID: 0001 Ingrid lovell [facility] 11:41:05 Emotiona l state finding Completed 201803/27/2020 Other specifie d anxiety disorder s;Practi ce ID: 0001 Ingrid lovell, [facility] 11:40:18 Pregnanc y, childbir th and puerperi um finding Completed 201803/27/2020 Encntr for suprvsn of normal first preg, second trimeste r;Record ed Elsewher e: No Locat ion: [facility] S ource: EHR Progress Worker shabbir: N Hienti ce ID: 0001 Reece lable Time: 10:00:00 AM Ingrid lovell [facility] 11:41:09 Pelvic and perineal pain 821382367 Completed 201803/27/2020 Pelvic and perineal pain;Rec orded Elsewher e: No Locat ion: [facility] S ource: EHR Progress Worker shabbir: N Hienti ce ID: 0001 Reece lable Time: 09:45:00 AM Ingrid lovell, [facility] 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 11:41:19 Pregnanc y test negative 395120198 Completed 201603/27/2020 Encounte r for pregnanc y test, result negative ;Practic e ID: 0001 Ingrid lovell, [facility] 11:41:07 Pregnanc y detectio n examinat ion Completed 201703/27/2020 Encounte r for pregnanc y test, result positive ;Practic e ID: 0001 Ingrid lovell, [facility] 11:41:06 Uterine size for dates discrepa ncy Completed 201703/27/2020 Uterine size-piotr e discrepa ncy, first trimeste r;Practi ce ID: 0001 Ingrid lovell, [facility] 11:41:26 Gestatio n less than 9 weeks 909064336 Completed 201703/27/2020 Less than 8 weeks gestatio n of pregnanc y;Practi ce ID: 0001 Ingrid lovell, [facility] 11:40:47 Gestatio n period, 9 weeks 402755 Completed 201803/27/2020 9 weeks gestatio n of pregnanc y;Practi ce ID: 0001 Ingrid lovell, [facility] 11:40:59 Antenata l screenin g Completed 201803/27/2020 Encounte r for other specifie d antenata l screenin g;Practi ce ID: 0001 Ingrid lovell, [facility] 11:40:13 Urinary tract infectio us disease 52677635 Completed 201803/27/2020 UTI;Larry rded Elsewher e: No Locat ion: [facility] S ource: EHR Progress Worker shabbir: N Practi ce ID: 0001 Reece lable Time: 01:30:00 PM Ingrid lovell, [facility] 11:41:23 Evaluati on finding Completed 201803/27/2020 Hematuri a, unspecif ied;Larry rded Elsewher e: No Locat ion: [facility] S ource: EHR Progress Worker shabbir: N Practi ce ID: 0001 Reece lable Time: 10:30:00 AM Ingrid Thompson [facility] 11:40:42 Problem Notes None recorded. Procedures Surgical History Date Name Laterality Status Provider Name and Address Organization Details Recorded Time 10/29/19 23 Gastric Bypass completed [facility] 02/09/2024 12:15:31 07/31/19 23 Date of Last Pap Smear completed [facility] 02/07/2024 09:45:34 08/19/19 19 section completed Ingrid Vineland [facility] 03/27/2020 12:41:06 08/19/19 19 ligation of bilateral fallopian tubes completed Ingrid Vineland [facility] 03/27/2020 12:41:14 02/07/19 10 section completed Ingrid Vineland [facility] 03/27/2020 12:41:22 laparoscopic sleeve gastrectomy completed [facility] 03/27/2020 12:41:44 Imaging Results Imaging Date Name Status LastModified by Organization Details LastModified Time 08/02/2022 US, pelvis completed [email or web address] [place] [address], [place], [address], 08/02/2022 12:30:13 08/02/2022 US, transvaginal completed [email or web address] [facility] e [address], [place], [address], 08/02/2022 12:29:52 08/02/2022 US, pelvis completed ISAK Shari [address], [place], [address], 08/17/2022 11:38:26 Procedure Notes None recorded. Medical Equipment None Reported. Allergies Allergen ID Allergen Name Allergen Category Reaction Reaction Severity Criticality Documentation Date Start Date Code Code System Note Provider Name and Address Organization Details Recorded Time 56169 naproxen medicatio n Not available Not available Not available 01/25/2020 7258 RxNorm Ingrid Thompson [facility], [facility] 1 11:42:58 92818 Cipro medicatio n hives moderate Not available 07/30/202261394 3 RxNorm Jessica Santillan [facility], [facility] 3 12:33:57 Medications Name [...] Prescrib ed Elsewher e: No Locat ion: [facility] M odify By: wali reagan DateTime [...] Prescrib ed Elsewher e: No Locat ion: [facility] M odify By: wali Braun r [...] Elsewher e: No Locat ion: Sarah hadley [facility] M odify By: smcaley Encounte r DateTime [...] Updated DateTime 06/23/2020 167.64 cm 45.4 kg/m2 465062.4 6 g 130 mm[Hg] 79 mm[Hg] Ingrid Thompson [facility] 1 15:41:10 Date Recorded Body height Body mass index (BMI) Body weight Systolic blood pressure Diastolic blood pressure Provider Name and Address Organization Details Last Updated DateTime 07/30/2022 167.64 cm 46.2 kg/m2 383985.4 2 g 126 mm[Hg] 81 mm[Hg] Jessica Santillan [facility] 3 12:33:52 Date Recorded Body height Body mass index (BMI) Body weight Systolic blood pressure Diastolic blood pressure Provider Name and Address Organization Details Last Updated DateTime 08/23/2022 167.64 cm 46.2 kg/m2 375388.4 2 g 134 mm[Hg] 87 mm[Hg] Cristel Roland [facility] 3 12:02:39 Date Recorded Body height Body mass index (BMI) Body weight Systolic blood pressure Diastolic blood pressure Provider Name and Address Organization Details Last Updated DateTime 02/09/2024 167.64 cm 33.6 kg/m2 84862.93 g 120 mm[Hg] 83 mm[Hg] THANH Washburn [facility] 5 12:23:44 Social History Question Answer Notes LastModified by Organizat ion Details LastModified Time Do You Have An Advance Directive? No [email or web address] Information not available 06/23/2020 What Is Your Level Of Alcohol Consumption? None [email or web address] Information not available 02/09/2024 How Many Years Have You Consumed Alcohol? 10 Information not available 07/30/2022 Are You Blind Or Do You Have Difficulty Seeing? No [email or web address] Information not available 06/23/2020 What Is Your Level Of Caffeine Consumption? Heavy [email or web address] Information not available 06/23/2020 How Much Tobacco Do You Chew? None Information not available 06/23/2020 In The 14 Days Before Symptom Onset, Have You Had Close Contact With A Laboratory-confir med COVID-19 While That Case Was Ill? No [email or web address] Information not available 06/23/2020 In The 14 Days Before Symptom Onset, Have You Had Close Contact With A Person Who Is Under Investigation For COVID-19 While That Person Was Ill? No [email or web address] Information not available 06/23/2020 Have You Been To An Area Known To Be High Risk For COVID-19? No Information not available 06/23/2020 Are You Deaf Or Do You Have Serious Difficulty Hearing? No [email or web address] Information not available 06/23/2020 What Type Of Diet Are You Following? REGULAR [email or web address] Information not available 06/23/2020 What Is The Highest Grade Or Level Of School You Have Completed Or The Highest Degree You Have Received? 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 No Information not available 06/23/2020 Do You Use Protection During Sex? No [email or web address] Information not available 06/23/2020 Do You Use Your Seat Belt Or Car Seat Routinely? Yes [email or web address] Information not available 06/23/2020 Do You Have Smoke And Carbon Monoxide Detectors In Your Home? Yes [email or web address] Information not available 06/23/2020 At What Age Did You Start Smoking Tobacco? 15 [email or web address] Information not available 06/23/2020 How Much Tobacco Do You Smoke? 1 PPW [email or web address] Information not available 02/09/2024 Do You Feel Stressed (tense, Restless, Nervous, Or Anxious, Or Unable To Sleep At Night)? [id number] [email or web address] Information not available 06/23/2020 Do You Use Any Illicit Or Recreational Drugs? No [email or web address] Information not available 06/23/2020 Do You Use Sunscreen Routinely? Yes Information not available 06/23/2020 How Many Years Have You Smoked Tobacco? 18 [email or web address] Information not available 02/09/2024 Have You Used IV Drugs? No [email or web address] Information not available 06/23/2020 Sex: Unknown Functional Status Question Answer Note LastModified by Organization D etails LastModified Time Are you able to walk? YESWOREST shirley Information not available 06/23/2020 What is your exercise level? Moderate [email or web address] Information not available 06/23/2020 Mental Status None recorded. Family History Relationship Description Onset Age of this Age Resolved Age Notes LastModified by Organization Details LastModified Time Father Hypertensive disorder [email or web address] Not available 2020 11:54:01 Sister Hypertensive disorder [email or web address] Not available 2020 11:54:21 Medical History Condition [...] SNOMED-CT Code Diagnosis ICD10 Code Diagnosis Note [id number] Zonia Membreno [place] [address] [address] 03/31/2020 09:41:43 03/31/2020 14:59:29 Gynecologic examination 73823375 Z01.419 Take Calcium with Vitamin D 1200mg [...] copy of today's plan if desired. Dysmenorrhea 267531482 N 94.6 Discussed options for cramping. Pt [...] Pt verbalized understand ing. Lack of libido 659715631 R68.82 Discussed possible causes of decreased/ absent libido. She currently is under alot of stress. Her youngest child has multiple therapies d/t possible autisim. [id number] Zonia Membreno [place] [address] [address] 06/23/2020 15:35:50 06/24/2020 21:35:51 Contraception care management [id number] Z30.9 Happy with nuvaring and would like to continue. Reduced libido 9142843 R 68.82 We have discussed possible contributi [...] Pt will follow up in 1 month. [id number] [facility] [address] [address] 07/30/2022 12:09:19 07/30/2022 13:21:24 Gynecologic examination 91157630 Z01.419 Take Calcium with Vitamin D 1200mg [...] Dexa Screen na Routine Labs ordered Menorrhagia 881929125 N9 2.0 US to be updatedDis cussed options: IUD/BC methods/en do ablationOp ts for consult Endo ablation Abnormal u terine bleeding 9684878698 9100 N93.9 Heavy mensesWill review at consult with Dr. Kaur [id number] Tati Coulter [place] [address],[facility] [place] [address] 08/02/2022 10:58:40 08/02/2022 11:35:57 Menorrhagia 951625503 N92.0 [id number] Homero Kaur MD [facility] [address],[facility] [place] [address] 08/23/2022 11:57:04 08/23/2022 12:42:04 Female hirsutism 90309760 L68.0 this patient is a 28-year-ol d [...] She will follow-up in 1 month. Menorrhagia 318682025 N9 2.0 [id number] PAVITHRA RAO NP [place] [address],[facility] [place] [address] 02/09/2024 12:14:31 02/09/2024 13:05:30 Vaginal irritation 320390963 N89.8 Discussed empirical treatment with nystatin/t riamcinolo ne topical ointment and fluconazol e for suspected yeast infection based on reported symptoms and physical exam findings.Jessica iscussed vulvar care guidelines in addition to laundry/sk in irritants to avoid.Vagi nitis panel sent. Venereal d isease screening 461120107 Z11.3 Pt requested STI testing for GC/CT/tric [...] Quigley Member ID Guarantor Name 06/23/2020 1 [facility] [id number] [facility] [id number] [facility] 06/23/2020 2 [place]: [facility] [id number] [facility] 07/30/2022 1 [facility] [id number] [facility] [id number] [facility] 07/30/2022 2 [place]: [facility] [id number] [facility] 08/02/2022 1 [facility] [id number] [facility] [id number] [facility] 08/02/2022 2 [place]: [facility] [id number] [facility] 08/23/2022 1 [facility] [id number] [facility] [place] [id number] [facility] 08/23/2022 2 [place]: [facility] [place] [id number] [facility] 02/09/2024 1 [facility] [id number] [facility] [place] [id number] [facility] 02/09/2024 2 [place]: [facility] [id number] Stephanie Norman Notes Date Note Type Note Provider Name and Address Organization Details Recorded Time 06/23/2020 text/html Here to follow u p on nuvaring. Wants to discuss low libido again. Zonia lovell [facility] 07/03/2020 16:47:54 07/30/2022 text/html [...] Encourage regular mammograms starting age 38 [facility] [address], [place], [address], [facility] 07/30/2022 13:14:32 08/23/2022 text/html this patient is a 28-year-old female presents for follow-up on menorrhagia. She wants endometrial ablation. We reviewed endometrial ablation. We reviewed the video. We talked about success and failure. We talked about preoperative medications. talked about her still some an elevated testosterone. We spent over 20 minutes [id number]. More than 50% was counseling. We decided to treat elevated testosterone and [place] is a with metformin and spironolactone. She will follow-up in 1 month. Homero Kaur MD [address], [place], [address], [facility] 08/23/2022 12:35:08 02/09/2024 text/html Patient here [...] outbreaks. PAVITHRA RAO, ANNETTE [address], [place], [address], [place] [facility] 02/09/2024 13:04:49 OBGyn Episode Ob Episode Information Episode Created Date Number of Fetuses Patient Bloodtype Patient rh Status Prepregnancy Weight lbs Domestic Partner Domestic Partner Phone Father Name Ironworker Foreman Status 03/27/19 21 1 CLOSED Fetus Data First Name Last Name Admitted to NICU Weight (g) Sex Living Outcome Pediatric Complications Fetus ID Race Codes Race Delivery Type Full Term [id number] Repeat Fuad Calculation Initial Fuad Date Initial Exam [...] Domestic Partner Domestic Partner Phone Father Name Ironworker Foreman Status 03/27/19 21 1 CLOSED Fetus Data [...]
--- OUTSIDE RECORDS SUMMARY | 2024-03-15 15:13 | XMS_ITS | Referral Summary ---
Author Organization [facility] [employer] Address [address] [place] [address] Care Team Providers Care Inspector Crystal Name Role Phone Kush Llanos MD Primary Care Provider [phone] Source Comments [facility],non-owned Affiliates and Associated Physician Practices is amultiple site organization consisting of ambulatory clinics and hospital sitesin [place], [place], [place] and [place]. This disclosure is being madepursuant to the Care Everywhere program and may not contain all information available regarding this patient. Last updated 17.[facility] Allergies Active Allergy Reactions Criticality Noted Date [...] Vallecillo was screened for depression using the [place] Depression Scale (EPDS) at her [facility] initial evaluation on 06/05/2018. Her initial score at baseline was 15. Based off of her score of 15, Stephanie will receive follow up call from [facility] social worker assistant, Jo Reyes, within the week. Patient will [...] resources were given along with notification of [facility] SW follow up- pt sleeps during the day so follow up will take place via email 06/22/18-Attempted follow up X2(email)- response received 06/22/18- please see encounter dated 06.22.18 07/04/18- Attempted follow up X2(email)- no response at this time 07/06/18-Followed up with patient via email 07/06/18- please see encounter with that date 07/20/18- Follow Up EPDS score=14 07/20/18- Followed up with patient at [facility] visit, please see note dated 07.20.18 07/31/18- Followed up with patient via email 07/31/18- please see encounter on this date 08/14/18- Follow Up EPDS score=14 08/14/18- Followed up with patient at [facility] visit, please see note dated 08.14.18 08/29/18- Followed up with patient, please see encounter dated 08.29.18 abnormality in pregnan cy - renal pelvis dilation 05/05/2018 08/31/2018 Overview (08/14/2018): Images from the original note were not included. [facility] PATIENT--PLEASE CALL [phone] (ex 2) IF TRIAGED OR ADMITTED Care Provider: Dr. Kaur [facility] consultants involved: RN- Zakiya; KRISTYN- Sabra/Macy; Pediatric Urologist- Dr. Kuhn Diagnosis: Renal Pelvis Dilation follow up: (Urology): Plan for antibiotic prophylaxis, imaging at > 48h of life but <1mo, and outpatient urology follow up. (Please call clinical nurse, Katharine Jasso, at [phone] to schedule follow-up appointment) Lagging Machine Operator: Undecided Planned surveillance: Initial [facility] appointment and consults scheduled for 06.05.18. Returning to [facility] 07.20.18 and 08.14.18 for follow-up ultrasound. Weekly BPP/NST (one week with primary OB; one week through [place]). Returning to [facility] 08.14.18 to reassess kidneys. Released from [facility] 08.14.18 Delivery location, mode, and GA: In discussion with pediatric urology (Dr. Dunbar), we agree that Stephanie can deliver in [place] per routine obstetrical indications. Delivery at 39 weeks, unless earlier delivery is warranted by equivocal or normal testing, oligohydramnios as defined by a deepest vertical pocket less than 2 cm or decreased movement. Repeat scheduled 09.01.18 at [place] Sheet Metal Duct Installer Apprentice Concerns: 06/05/18- Patient with history of depression, [...] Comments Blood Pressure 118/80 02/14/2019 9:16 AM CONTINUITY PERSON Pulse 84 02/14/2019 9:16 AM CONTINUITY PERSON Temperature 36.6 C (97.9 F) 02/14/2019 9:16 AM CONTINUITY PERSON Respiratory Rate 16 02/14/2019 9:16 AM CONTINUITY PERSON Oxygen Saturation 98% 02/14/2019 9:16 AM CONTINUITY PERSON Inhaled Oxygen Concentration - - Weight 136.1 kg (300 lb) 02/14/2019 9:16 AM CONTINUITY PERSON Height 165.1 cm (5' 5 ) 02/14/2019 9:16 AM CONTINUITY PERSON Body Mass Index 49.92 02/14/2019 9:16 AM CONTINUITY PERSON Plan of Treatment Not on file Administered Medications Care Teams Inspector Crystal Relationship Specialty Start Date End Date Kush Llanos MD [address] [place] [address] PCP - General 05/26/10
--- OUTSIDE RECORDS SUMMARY | 2024-03-15 15:13 | XMS_ITS | Clinical Summary ---
Author Organization [facility] [employer] Address [address] [place] [address] Care Team Providers Care Bowl Turner Name Role Phone Kush Llanos MD Primary Care Provider [phone] Source Comments [facility],non-owned Affiliates and Associated Physician Practices is amultiple site organization consisting of ambulatory clinics and hospital sitesin [place], [place], [place] and [place]. This disclosure is being madepursuant to the Care Everywhere program and may not contain all information available regarding this patient. Last updated 17.[facility] [employer] Allergies Active Allergy Reactions Criticality Noted Date [...] Vallecillo was screened for depression using the [place] Depression Scale (EPDS) at her [facility] initial evaluation on 06/05/2018. Her initial score at baseline was 15. Based off of her score of 15, Stephanie will receive follow up call from [facility] older adult social work specialist, Jo Reyes, within the week. Patient will [...] resources were given along with notification of [facility] SW follow up- pt sleeps during the day so follow up will take place via email 06/22/18-Attempted follow up X2(email)- response received 06/22/18- please see encounter dated 06.22.18 07/04/18- Attempted follow up X2(email)- no response at this time 07/06/18-Followed up with patient via email 07/06/18- please see encounter with that date 07/20/18- Follow Up EPDS score=14 07/20/18- Followed up with patient at [facility] visit, please see note dated 07.20.18 07/31/18- Followed up with patient via email 07/31/18- please see encounter on this date 08/14/18- Follow Up EPDS score=14 08/14/18- Followed up with patient at [facility] visit, please see note dated 08.14.18 08/29/18- Followed up with patient, please see encounter dated 08.29.18 abnormality in pregnan cy - renal pelvis dilation 05/05/2018 08/31/2018 Overview (08/14/2018): Images from the original note were not included. [facility] PATIENT--PLEASE CALL [phone] (ex 2) IF TRIAGED OR ADMITTED Care Provider: Dr. Kaur [facility] consultants involved: RN- Zakiya; KRISTYN- Sabra/Macy; Pediatric Urologist- Dr. Kuhn Diagnosis: Renal Pelvis Dilation follow up: (Urology): Plan for antibiotic prophylaxis, imaging at > 48h of life but <1mo, and outpatient urology follow up. 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 Returning to [facility] 07.20.18 and 08.14.18 for follow-up ultrasound. Weekly BPP/NST (one week with primary OB; one week through [place]). Returning to [facility] 08.14.18 to reassess kidneys. Released from [facility] 08.14.18 Delivery location, mode, and GA: In discussion with pediatric urology (Dr. Dunbar), we agree that Stephanie can deliver in [place] per routine obstetrical indications. Delivery at 39 weeks, unless earlier delivery is warranted by equivocal or normal testing, oligohydramnios as defined by a deepest vertical pocket less than 2 cm or decreased movement. Repeat scheduled 09.01.18 at [place] Cable Tool Driller Concerns: 06/05/18- Patient with history of depression, [...] Comments Blood Pressure 118/80 02/14/2019 9:16 AM NOISE ABATEMENT ENGINEER Pulse 84 02/14/2019 9:16 AM NOISE ABATEMENT ENGINEER Temperature 36.6 C (97.9 F) 02/14/2019 9:16 AM NOISE ABATEMENT ENGINEER Respiratory Rate 16 02/14/2019 9:16 AM NOISE ABATEMENT ENGINEER Oxygen Saturation 98% 02/14/2019 9:16 AM NOISE ABATEMENT ENGINEER Inhaled Oxygen Concentration - - Weight 136.1 kg (300 lb) 02/14/2019 9:16 AM NOISE ABATEMENT ENGINEER Height 165.1 cm (5' 5 ) 02/14/2019 9:16 AM NOISE ABATEMENT ENGINEER Body Mass Index 49.92 02/14/2019 9:16 AM NOISE ABATEMENT ENGINEER Plan of Treatment Health Maintenance Due Date [...] age to complete this topic Care Teams Bowl Turner Relationship Specialty Start Date End Date Kush Llanos MD [address] [place] [id number] PCP - General 05/26/10
--- OUTSIDE RECORDS SUMMARY | 2024-03-15 15:13 | XMS_ITS | Patient Health Summary ---
Author Organization [facility] Address [address] [facility] [place] [address] Care Team Providers Care Shell Assembler Name Role Phone Kush Llanos MD Primary Care Provider [phone] Note from [facility],non-owned Affiliates and Associated Physician Practices is amultiple site organization consisting of ambulatory clinics and hospital sitesin [place], [place], [place] and [place]. This disclosure is being madepursuant to the Care Everywhere program and may not contain all information available regarding this patient. Last updated 17.[facility] Allergies * Hydromorphone(Urticaria) -Medium Criticality * [...] Comments Blood Pressure 118/80 02/14/2019 9:16 AM MEDICAL OFFICE SPECIALIST Pulse 84 02/14/2019 9:16 AM MEDICAL OFFICE SPECIALIST Temperature 36.6 C (97.9 F) 02/14/2019 9:16 AM MEDICAL OFFICE SPECIALIST Respiratory Rate 16 02/14/2019 9:16 AM MEDICAL OFFICE SPECIALIST Oxygen Saturation 98% 02/14/2019 9:16 AM MEDICAL OFFICE SPECIALIST Inhaled Oxygen Concentration - - Weight 136.1 kg (300 lb) 02/14/2019 9:16 AM MEDICAL OFFICE SPECIALIST Height 165.1 cm (5' 5 ) 02/14/2019 9:16 AM MEDICAL OFFICE SPECIALIST Body Mass Index 49.92 02/14/2019 9:16 AM MEDICAL OFFICE SPECIALIST Procedures * SKIN TEST PPD - POINT [...] - POINT OF CARE (12/14/2018 10:44 AM MEDICAL OFFICE SPECIALIST) PPD 0 MM Comment:negative Other MISCELLANEOUS SAMPLE S / Unknown 12/14/2018 10:44 AM MEDICAL OFFICE SPECIALIST Tanvi Unger APRN-CAR SHAKEOUT OPERATOR LAB - POINT OF CARE ORDERABLES * NON-STRESS TEST (08/15/2018 6:48 PM CDT) Anatomical Region Laterality Modality Other Narrative 08/15/2018 6:48 PM CDT Cassandra Haney RN 08/14/2018 9:47 AM Name: Stephanie Norman Date of : 1990 Today's Date: 08/14/2018 NST RESULTS (JACK) OBJECTIVE FINDINGS , Pulse: 88, , BP: 124/80 NST Indication(s): Other (Comment) (UTD) Uterine Irritability: No Contractions: Not present OBJECTIVE FINDINGS Movement: Present Monitoring Mode: External Baseline: 125 BPM Variability: Moderate Decelerations: None Accelerations: Yes OTHER INFORMATION Cassandra Haney RN Tammy Russell MD [facility] ORDERABLES * BIOPHYSICAL PROFILE W NST (08/14/2018 8:06 AM CDT) Only the most recent of2 resultswithin the time period is included. Anatomical Region Laterality Modality Other 08/14/2018 8:06 AM CDT Narrative 08/14/2018 10:25 AM CDT [facility] FAX: [phone] Pat. Name: STEPHANIE NORMAN Jigna Pat. No: [id number] Study Date: 08/14/2018 8:06am , Age: 08 1990, 27 Pregnancies: 2, Para 1 Height: 65 in Weight: 266 lb LMP: Unknown GA by Base: 36w3d SHANNON: 09/08/2018 GA by US: 36w3d SHANNON: 09/08/2018 GA Selected: 36w3d (From Marcelo) SHANNON: 09/08/2018 Referring MD: Homero Kaur MD Bag Loader Machine Operator: Salma Michel RDMS CPT4: 22640,67741 BMI: 44.26 Hist/Ind: urinary tract dilation: A2-3 Class III obesity History of gastic sleeve Prior CD MEASUREMENTS & AGE GROWTH EVALUATION Measurement GA Range Srce %for GA Ratios ----- ---- ------- BPD 9.2 cm 37w1d (75i8j-13f0f) Hadl BPD 78% FL/BPD 0.76 (0.71 - 0.87) HC 33.9 cm 39w0d (75i3l-67a8q) Hadl HC 82% FL/AC 0.22 (0.20 - 0.24) AC 32.0 cm 36w0d (62x6j-47y3v) Hadl AC 47% HC/AC 1.06 (0.92 - 1.11) FL 6.9 cm 35w4d (85t3v-98o9a) Hadl FL 25% CI 0.76 (0.70 - 0.86) HL 5.8 cm 33w5d (56z6c-82q0b) Fran HL <05 GA for sonogram 36w3d (80i6c-72v1l) Weight Estimate: based on (BPD,HC,AC,FL) Hadlock Weight: 2900 gm (2476-3323gm) Had : 6lbs, 6oz Normal: 2905 gm (2179-3631gm) Had Wt% 49% for 36w3d Heart Rate: 122 bpm Amniotic Fluid Index: 18.3cm (07.6-24.7) Q1: 5.0cm Q2: 3.2cm Q3: 5.1cm Q4: 5.0cm Biophysical Profile: 11/16 Breathin Tone: 2 NST: 2 Movement: 2 AFV: 2 EVAL, PLACENTA Presentation: cephalic Placenta: posterior Heart Rate: 122 bpm Amniotic Fluid Volume: normal CLINICAL SUMMARY Study Number: 6 This is complicated by bilateral urinary tract dilation. Both kidneys have increased echogenicity. The left kidney has central and peripheral calyceal dilatation; a renal polar length 60 mm (greater than the 95th percentile) and a pelvic diameter of 16 mm. There is left proximal ureteral nephrosis. The right renal polar length 51 mm (greater than the 95th percentile) and a pelvic dilation 10 mm. While the bladder wall is prominent in thickness, it does not appear greater than 3 mm. The amniotic fluid volume is normal, which is reassuring. NST: baseline 120, moderate variability, appropriate accelerations without significant decelerations; Impression: Reactive. IMPRESSION: Single live IUP at 36w3d. Overall appropriate growth normal amniotic fluid. bilateral urinary tract dilation A 2-3 --Generally stable compared to last exam No bladder wall hypertrophy Short humerus Reassuring testing. See separate discussion note. RECOMMEND: Continue weekly 10 point biophysical profile Thank you for the opportunity to participate in the care of your patient. Tammy Russell MD <Electronic Signature> 08/14/2018 10:15am Roxi Cavazos MD [facility] ORDERABLES * SONOGRAM - COMPLETE (07/20/2018 11:38 AM CDT) Only the most recent of4 resultswithin the time period is included. Anatomical Region Laterality Modality Other 07/20/2018 11:3 8 AM CDT Narrative 07/20/2018 4:55 PM CDT [facility] FAX: [phone] Pat. Name: STEPHANIE NORMAN Pat. No: [id number] Study Date: 07/20/2018 11:38am , Age: 08 1990, 27 Pregnancies: 2, Para 1 Height: 65 in Weight: 266 lb LMP: Unknown GA by Base: 32w6d SHANNON: 09/08/2018 GA by US: 33w5d SHANNON: 09/02/2018 GA Selected: 32w6d (From Known E) SHANNON: 09/08/2018 Referring MD: Homero Kaur MD Bag Loader Machine Operator: Salma Michel RDMS CPT4: 89223 BMI: 44.26 Hist/Ind: urinary tract dilation: A2-3 Class III obesity History of gastic sleeve Prior CD MEASUREMENTS & AGE GROWTH EVALUATION Measurement GA Range Srce %for GA Ratios ----- ---- ------- BPD 8.8 cm 35w4d (23t7q-32w6a) Hadl BPD 97% FL/BPD 0.71 (0.71 - 0.87* HC 31.9 cm 35w6d (20r5x-94y9d) Hadl HC 87% FL/AC 0.21 (0.20 - 0.24) AC 29.3 cm 33w2d (13w7h-26l2n) Hadl AC 65% HC/AC 1.09 (0.95 - 1.14) FL 6.2 cm 32w2d (48l2t-46n6n) Hadl FL 22% CI 0.78 (0.70 - 0.86) HL 5.4 cm 31w2d (04b7k-49p0y) Fran HL 23% GA for sonogram 33w5d (32a9b-37l5x) Weight Estimate: based on (HL,BPD,HC,AC,FL) Avg Weight: 2203 gm (1882-2525gm) Had : 4lbs, 13oz Normal: 2133 gm (1600-2666gm) Had Wt% 60% for 32w6d Heart Rate: 134 bpm Amniotic Fluid Index: 19.4cm (08.3-24.5) Q1: 5.1cm Q2: 5.1cm Q3: 5.1cm Q4: 4.1cm EVAL, PLACENTA Presentation: cephalic Umbilical Cord: 3 Vessels Placenta: posterior Heart Rate: 134 bpm Amniotic Fluid Volume: normal Anatomy!Normal!Abnormal!Suboptimal!Prev. Seen!Comments Cranium ! ! ! ! x ! Mdl (CSP/Thal! ! ! ! x ! Ventricles ! ! ! ! x ! Choroid Plexu! ! ! ! x ! Cerebellum ! ! ! ! x ! Cisterna M. ! ! ! x ! ! Profile ! ! ! ! x ! Nasal Bone ! ! ! ! x ! Lip ! ! ! ! x ! Spine ! ! ! x ! ! Lungs ! ! ! ! x ! 4 Chamber Hea! x ! ! ! x ! LVOT ! ! ! x ! ! RVOT ! ! ! x ! ! 3 Vessel View! ! ! ! x ! Cross-over ! ! ! x ! ! Ductal Arch ! ! ! x ! ! Aortic Arch ! ! ! x ! ! Caval View ! ! ! ! x ! Situs ! ! ! ! x ! Diaphragm ! ! ! ! x ! Stomach ! ! ! ! x ! Bowel ! ! ! ! x ! Kidneys ! ! x ! ! ! Bladder ! ! ! ! x ! 3 Vessel Cord! ! ! ! x ! Cord In! ! ! ! x ! Upper Extremi! ! ! ! x ! Hands ! ! ! x ! ! Lower Extreme! ! ! ! x ! Feet ! ! ! ! x ! External Sanjuana! ! ! ! x ! Placental Cor! ! ! ! x ! CLINICAL SUMMARY Study Number: 4 A single fetus is identified cephalic presentation. The measurements today are consistent with appropriate growth compared to the previous examination. The SHANNON selected is based on a prior ultrasound. The amniotic fluid volume is normal. The placenta is posterior. The patient was advised that ultrasound does not [...] appears normal. The genitalia appears normal. IMPRESSION: Single IUP at 32w6d Appropriate growth. Bilateral UTD A2-3, left > right. Normal [...] urinary tract obstruction than the previous evaluation. In discussion with pediatric urology (Dr. Dunbar), we agree that Stephanie can deliver in [place] and be scheduled for outpatient urologic evaluation. We will evaluate the kidneys one more time around 36 weeks to ensure that this plan remains appropriate closer to the time of anticipated delivery. We recommend weekly BPP/NST until delivery. Delivery can be per routine obstetric indications. RECOMMEND: - Weekly NST/BPP/RADHA - Reassess kidney appearance at 36 weeks at [facility] - If stable continue to plan delivery at [place] - Plan for antibiotic prophylaxis, imaging at > 48h of life, and outpatient urology follow up. Consult time: total time spent discussing the above issues was 45 minutes Thank you for allowing us the opportunity to care for your patient. Roxi Cavazos MD <Electronic Signature> 07/20/2018 04:55pm Roxi Cavazos MD [facility] ORDERABLES Care Teams Shell Assembler Relationship Specialty Start Date End Date Kush Llanos MD [address] [address] [facility] [facility]ITAL[facility] [place] [address] PCP - General 05/26/10
--- OUTSIDE RECORDS SUMMARY | 2024-03-15 15:13 | XMS_ITS | Clinical Summary ---
Author Organization [facility] Address [address] [place] [id number] Care Team Providers Care Test Bore Helper Name Role Phone None, Provider MD Primary [...] Comments Blood Pressure 138/96 01/28/2022 10:57 PM STEEL RULE DIE MAKER APPRENTICE Pulse 93 01/28/2022 10:57 PM STEEL RULE DIE MAKER APPRENTICE Temperature 36.6 C (97.8 F) 01/28/2022 10:57 PM STEEL RULE DIE MAKER APPRENTICE Respiratory Rate 18 01/28/2022 10:57 PM STEEL RULE DIE MAKER APPRENTICE Oxygen Saturation 98% 01/28/2022 10:57 PM STEEL RULE DIE MAKER APPRENTICE Inhaled Oxygen Concentration - - Weight 127 kg (280 lb) 01/28/2022 10:26 PM STEEL RULE DIE MAKER APPRENTICE Height 165.1 cm (5' 5 ) 01/28/2022 10:26 PM STEEL RULE DIE MAKER APPRENTICE Body Mass Index 46.59 01/28/2022 10:26 PM STEEL RULE DIE MAKER APPRENTICE Plan of Treatment Health Maintenance Due Date [...] age to complete this topic Insurance MEDICAID [employer] Care Teams Test Bore Helper Relationship Specialty Start Date End Date None, Provider, MD PCP - General UNKNOWN PHYSICIAN SPECIALTY 01/28/22
--- OUTSIDE RECORDS SUMMARY | 2024-03-15 15:13 | XMS_ITS | Clinical Summary ---
Author Organization [facility] Address [address] [place] [id number] Care Team Providers Care Carpet Installer Name Role Phone Unavailable Primary Care Provider Unavailabl e Immunizations Immunization Administration Dates Next Due Covid-19, Mrna, Lnp-s, PF, 5 0 mcg/0.25 mL dose (Moderna) 01/12/2021 Social History Tobacco Use Types Packs/Day Years Used Date Smoking Tobacco: Never Assessed Comments Unknown Sex and Gender Information Value Date Recorded Sex Assigned at Not on file Legal Sex Female 1:55 PM SOFTWARE QUALITY ANALYST Gender Identity Not on file Sexual Orientation [...]
== END 2024-03-15 14:57 | disposition home or self-care (01) ==
PROVIDERS: PCP Nurse Practitioner Family; Visit Provider Urology
DX: N20.0 Calculus of kidney (principal)
CPT/HCPCS: 74018

== ENCOUNTER 2024-03-31 12:50 | Outpatient (CLI) | payer OTHER, MEDICAID, SELFPAY ==
--- OUTSIDE RECORDS SUMMARY | 2024-03-31 12:54 | XMS_ITS | Clinical Summary ---
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
--- OUTSIDE RECORDS SUMMARY | 2024-03-31 12:54 | XMS_ITS | Clinical Summary ---
Author Organization [facility] Address [address] [facility] [place] [address] Care Team Providers Care Crystal Gazer Name Role Phone Kush Llanos MD Primary Care Provider [phone] Source Comments [facility],non-owned Affiliates and Associated Physician Practices is amultiple site organization consisting of ambulatory clinics and hospital sitesin [place], [place], [place] and [place]. This disclosure is being madepursuant to the Care Everywhere program and may not contain all information available regarding this patient. Last updated 17.[facility] Allergies Active Allergy Reactions Criticality Noted Date [...] [place] was screened for depression using the [place] Depression Scale (EPDS) at her [facility] initial evaluation on 06/05/2018. Her initial score at baseline was 15. Based off of her score of 15, Stephanie will receive follow up call from [facility] social science analyst, Jo Reyes, within the week. Patient will [...] resources were given along with notification of [facility] SW follow up- pt sleeps [...] score=14 07/20/18- Followed up with patient at [facility] visit, please see note dated 07.20.18 07/31/18- Followed up with patient via email 07/31/18- please see encounter on this date 08/14/18- Follow Up EPDS score=14 08/14/18- Followed up with patient at [facility] visit, please see note dated 08.14.18 08/29/18- Followed up with patient, please see encounter dated 08.29.18 abnormality in pregnan cy - renal pelvis dilation 05/05/2018 08/31/2018 Overview (08/14/2018): Images from the original note were not included. [facility] PATIENT--PLEASE CALL [phone] (ex 2) IF TRIAGED OR ADMITTED Care Provider: Dr. Kaur [facility] consultants involved: RN- Zakiya; KRISTYN- Sabra/Macy; Pediatric Urologist- Dr. Kuhn Diagnosis: Renal Pelvis Dilation follow up: (Urology): Plan for antibiotic prophylaxis, imaging at > 48h of life but <1mo, and outpatient urology follow up. (Please call clinical nurse, Katharine Jasso, at [phone] to schedule follow-up appointment) Chemical Engineering Technologist: Undecided Planned surveillance: Initial [facility] appointment and consults scheduled for 06.05.18. Returning to [facility] 07.20.18 and 08.14.18 for follow-up ultrasound. Weekly BPP/NST (one week with primary OB; one week through [place]). Returning to [facility] 08.14.18 to reassess kidneys. Released from [facility] 08.14.18 Delivery location, mode, and GA: In discussion with pediatric urology (Dr. Dunbar), we agree that Stephanie can deliver in [place] per routine obstetrical indications. Delivery at 39 weeks, unless earlier delivery is warranted by equivocal or normal testing, oligohydramnios as defined by a deepest vertical pocket less than 2 cm or decreased movement. Repeat scheduled 09.01.18 at [place] Director Social Welfare Concerns: 06/05/18- Patient with history of depression, [...] Comments Blood Pressure 118/80 02/14/2019 9:16 AM CIVIL ENGINEERING SPECIALIST Pulse 84 02/14/2019 9:16 AM CIVIL ENGINEERING SPECIALIST Temperature 36.6 C (97.9 F) 02/14/2019 9:16 AM CIVIL ENGINEERING SPECIALIST Respiratory Rate 16 02/14/2019 9:16 AM CIVIL ENGINEERING SPECIALIST Oxygen Saturation 98% 02/14/2019 9:16 AM CIVIL ENGINEERING SPECIALIST Inhaled Oxygen Concentration - - Weight 136.1 kg (300 lb) 02/14/2019 9:16 AM CIVIL ENGINEERING SPECIALIST Height 165.1 cm (5' 5 ) 02/14/2019 9:16 AM CIVIL ENGINEERING SPECIALIST Body Mass Index 49.92 02/14/2019 9:16 AM CIVIL ENGINEERING SPECIALIST Plan of Treatment Health Maintenance Due [...] age to complete this topic Care Teams Crystal Gazer Relationship Specialty Start Date End Date Kush Llanos MD [address] [place] [id number] PCP - General 05/26/10
--- OUTSIDE RECORDS SUMMARY | 2024-03-31 12:54 | XMS_ITS | Patient Health Summary ---
Author Organization [facility] Address [address] [place] [address] Care Team Providers Care Weight Analyst Name Role Phone Kush Llanos MD Primary Care Provider [phone] Note from [facility],non-owned Affiliates and Associated Physician Practices is amultiple site organization consisting of ambulatory clinics and hospital sitesin [place], [place] and [place]. This disclosure is being madepursuant to the Care Everywhere program and may not contain all information available regarding this patient. Last updated 17.[facility] Allergies * Hydromorphone(Urticaria) -Medium Criticality * [...] Comments Blood Pressure 118/80 02/14/2019 9:16 AM INSPECTOR PRINTED CIRCUIT BOARDS Pulse 84 02/14/2019 9:16 AM INSPECTOR PRINTED CIRCUIT BOARDS Temperature 36.6 C (97.9 F) 02/14/2019 9:16 AM INSPECTOR PRINTED CIRCUIT BOARDS Respiratory Rate 16 02/14/2019 9:16 AM INSPECTOR PRINTED CIRCUIT BOARDS Oxygen Saturation 98% 02/14/2019 9:16 AM INSPECTOR PRINTED CIRCUIT BOARDS Inhaled Oxygen Concentration - - Weight 136.1 kg (300 lb) 02/14/2019 9:16 AM INSPECTOR PRINTED CIRCUIT BOARDS Height 165.1 cm (5' 5 ) 02/14/2019 9:16 AM INSPECTOR PRINTED CIRCUIT BOARDS Body Mass Index 49.92 02/14/2019 9:16 AM INSPECTOR PRINTED CIRCUIT BOARDS Procedures * SKIN TEST PPD - POINT [...] - POINT OF CARE (12/14/2018 10:44 AM INSPECTOR PRINTED CIRCUIT BOARDS) PPD 0 MM Comment:negative Other MISCELLANEOUS SAMPLE S / Unknown 12/14/2018 10:44 AM INSPECTOR PRINTED CIRCUIT BOARDS Tanvi Unger APRN-EMAIL MARKETING ASSISTANT LAB - POINT OF CARE ORDERABLES * [...] INFORMATION Cassandra Haney RN Tammy Russell MD [facility] ORDERABLES * BIOPHYSICAL PROFILE W NST (08/14/2018 8:06 AM CDT) Only the most recent of2 resultswithin the time period is included. Anatomical Region Laterality Modality Other 08/14/2018 8:06 AM CDT Narrative 08/14/2018 10:25 AM CDT [facility] FAX: [phone] Pat. Name: STEPHANIE NORMAN Jigna Pat. No: [id number] Study Date: 08/14/2018 8:06am , Age: 08 1990, 27 Pregnancies: 2, Para 1 Height: 65 in Weight: 266 lb LMP: Unknown GA by Base: 36w3d SHANNON: 09/08/2018 GA by US: 36w3d SHANNON: 09/08/2018 GA Selected: 36w3d (From Marcelo) SHANNON: 09/08/2018 Referring MD: Homero Kaur MD Six Pack Packer: Salma Michel RDMS CPT4: 14568,38116 BMI: 44.26 Hist/Ind: urinary tract dilation: A2-3 Class III obesity History of gastic sleeve Prior CD MEASUREMENTS & AGE GROWTH EVALUATION Measurement GA Range Srce %for GA Ratios ----- ---- ------- BPD 9.2 cm 37w1d (43h7m-99a2t) Hadl BPD 78% FL/BPD 0.76 (0.71 - 0.87) HC 33.9 cm 39w0d (11u3k-10d3a) Hadl HC 82% FL/AC 0.22 (0.20 - 0.24) AC 32.0 cm 36w0d (87g8h-04m4q) Hadl AC 47% HC/AC 1.06 (0.92 - 1.11) FL 6.9 cm 35w4d (53o1l-38u5a) Hadl FL 25% CI 0.76 (0.70 - 0.86) HL 5.8 cm 33w5d (10h5p-80o5z) Fran HL <05 GA for sonogram 36w3d (26k1p-85p3n) Weight Estimate: based on (BPD,HC,AC,FL) [place]lock Weight: [...] <Electronic Signature> 08/14/2018 10:15am Roxi Cavazos MD [facility] ORDERABLES * SONOGRAM - COMPLETE (07/20/2018 11:38 AM CDT) Only the most recent of4 resultswithin the time period is included. Anatomical Region Laterality Modality Other 07/20/2018 11:3 8 AM CDT Narrative 07/20/2018 4:55 PM CDT [facility] FAX: [phone] Pat. Name: STEPHANIE NORMAN Pat. No: [id number] Study Date: 07/20/2018 11:38am , Age: 08 1990, 27 Pregnancies: 2, Para 1 Height: 65 in Weight: 266 lb LMP: Unknown GA by Base: 32w6d SHANNON: 09/08/2018 GA by US: 33w5d SHANNON: 09/02/2018 GA Selected: 32w6d (From Known E) SHANNON: 09/08/2018 Referring MD: Homero Kaur MD Six Pack Packer: Salma Michel RDMS CPT4: 77383 BMI: 44.26 Hist/Ind: urinary tract dilation: A2-3 Class III obesity History of gastic sleeve Prior CD MEASUREMENTS & AGE GROWTH EVALUATION Measurement GA Range Srce %for GA Ratios ----- ---- ------- BPD 8.8 cm 35w4d (98a0h-11k2p) Hadl BPD 97% FL/BPD 0.71 (0.71 - 0.87* HC 31.9 cm 35w6d (23y1j-51k6k) Hadl HC 87% FL/AC 0.21 (0.20 - 0.24) AC 29.3 cm 33w2d (14v1z-97k3b) Hadl AC 65% HC/AC 1.09 (0.95 - 1.14) FL 6.2 cm 32w2d (30o7c-97r6q) Hadl FL 22% CI 0.78 (0.70 - 0.86) HL 5.4 cm 31w2d (86q8a-53f8w) Fran HL 23% GA for sonogram 33w5d (55d9v-02x6l) Weight Estimate: based on (HL,BPD,HC,AC,FL) Avg Weight: [...] we agree that Stephanie can deliver in [place] and be scheduled for outpatient urologic evaluation. We will evaluate the kidneys one more time around 36 weeks to ensure that this plan remains appropriate closer to the time of anticipated delivery. We recommend weekly BPP/NST until delivery. Delivery can be per routine obstetric indications. RECOMMEND: - Weekly NST/BPP/RADHA - Reassess kidney appearance at 36 weeks at [facility] - If stable continue to plan delivery at [place] - Plan for antibiotic prophylaxis, imaging at > 48h of life, and outpatient urology follow up. Consult time: total time spent discussing the above issues was 45 minutes Thank you for allowing us the opportunity to care for your patient. Roxi Cavazos MD <Electronic Signature> 07/20/2018 04:55pm Roxi Cavazos MD [facility] ORDERABLES Care Teams Weight Analyst Relationship Specialty Start Date End Date Kush Llanos MD [address] [facility] [place] [id number] PCP - General 05/26/10
--- OUTSIDE RECORDS SUMMARY | 2024-03-31 12:54 | XMS_ITS | Clinical Summary ---
Author Organization [facility] Address [address] [place] [address] Phone Care Team Providers Care Nylon Machine Operator Name Role Phone Unknown, Notinfile Unavailable Unavailable Maddy Shen NP Primary Care Provider [phone] Allergies Active Allergy Reactions Criticality Noted Date [...] day 180 tablet 4 07/01/19 25 Active oseltamivir (TAMIFLU) 75 mg capsule Take 1 capsule (75 mg total) by mouth 2 (two) times a day for 5 days 10 capsule 5 04/01/19 25 Active Active Problems Problem Noted Date [...] Date Resolved Date Obesity (BMI 30-39.9) 08/16/20222023 Encounters Date Type Department Care Team Description 03/15/2024 Orders Only [facility] [address] [place] [id number] Maddy Shen NP 03/09/2024 Orders Only [facility] Information [facility] [address] [place] [address] Maddy Shen NP from Last 3 Months Immunizations Immunization Administration Dates Next Due Influenza, Quadrivalent, Spl [...] on file Legal Sex Female 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 Gender Identity Not on file Sexual Orientation [...] Cancer Screening 1990 Hepatitis C Screening 1988 Varicella Vaccines (1 of 2 - 13+ 2-dose series) 2001 Hepatitis B Screening 2006 Pneumococcal vaccine <65 (1 of 2 - PCV) 10/08/2007 Regular Well Visit/Exam 18-64 08/17/2023 08/16/2022 Covid-19 Vaccine (4 - 2023- season) 2023 01/12/2021, 04/19/2020, 03/21/2020 Influenza Vaccine (#1) 2023 11/15/2022 Depression Screening 06/30/2024 07/01/2023, 05/05/2023, 11/15/2022, Additional history exists DTaP/Tdap/Td Vaccine (2 - Td or Tdap) 08/19/2028 08/19/2018 HPV Vaccines Aged Out No longer eligi ble based on patient's age to complete this topic Procedures Procedure Name Priority Date/Time Associated Diagnosis Comments SCAN - RADIOLOGY/IMAGING 03/15/2024 SCAN - RADIOLOGY/IMAGING 03/09/2024 from Last 3 Months Results * SCAN - RADIOLOGY/IMAGING (03/15/2024) Anatomical Region Laterality Modality Other Maddy Shen NP Final Result * SCAN - RADIOLOGY/IMAGING (03/09/2024) Anatomical Region Laterality Modality Other Maddy Shen INSPECTOR COLD WORKING Edited Result - Final from Last 3 Months Insurance [facility] CHOICE PLUS [facility] CHOICE PLUS Care Teams Nylon Machine Operator Relationship Specialty Start Date End Date Maddy Shen NP [address] [facility] [address] [place] [address] PCP - General Internal Medicine 08/16/22 Unknown, Notinfile 07/19/22
--- OUTSIDE RECORDS SUMMARY | 2024-03-31 12:54 | XMS_ITS | Clinical Summary ---
Author Organization [facility] Address [address] [place] [address] Care Team Providers Care Tactical Response Group Officer Name Role Phone None, Provider MD Primary [...] Comments Blood Pressure 138/96 01/28/2022 10:57 PM PROPERTY MANAGEMENT INTERN Pulse 93 01/28/2022 10:57 PM PROPERTY MANAGEMENT INTERN Temperature 36.6 C (97.8 F) 01/28/2022 10:57 PM PROPERTY MANAGEMENT INTERN Respiratory Rate 18 01/28/2022 10:57 PM PROPERTY MANAGEMENT INTERN Oxygen Saturation 98% 01/28/2022 10:57 PM PROPERTY MANAGEMENT INTERN Inhaled Oxygen Concentration - - Weight 127 kg (280 lb) 01/28/2022 10:26 PM PROPERTY MANAGEMENT INTERN Height 165.1 cm (5' 5 ) 01/28/2022 10:26 PM PROPERTY MANAGEMENT INTERN Body Mass Index 46.59 01/28/2022 10:26 PM PROPERTY MANAGEMENT INTERN Plan of Treatment Health Maintenance Due Date [...] this topic Insurance MEDICAID [employer] Care Teams Tactical Response Group Officer Relationship Specialty Start Date End Date None, Provider, MD PCP - General UNKNOWN PHYSICIAN SPECIALTY 01/28/22
--- OUTSIDE RECORDS SUMMARY | 2024-03-31 12:54 | XMS_ITS | Referral Summary ---
Author Organization [facility] Address [address] [place] [address] Care Team Providers Care Metal Bonder Name Role Phone Kush Llanos MD Primary Care Provider [phone] Source Comments [facility],non-owned Affiliates and Associated Physician Practices is amultiple site organization consisting of ambulatory clinics and hospital sitesin [place], [place], [place] and [place]. This disclosure is being madepursuant to the Care Everywhere program and may not contain all information available regarding this patient. Last updated 17.[facility] Allergies Active Allergy Reactions Criticality Noted Date [...] Val[place]illo was screened for depression using the Evans Depression Scale (EPDS) at her [facility] initial evaluation on 06/05/2018. Her initial score at baseline was 15. Based off of her score of 15, Stephanie will receive follow up call from [facility] social media senior associate, Jo Reyes, within the week. Patient will [...] were given along with notification of [facility] SW follow up- pt sleeps [...] 07/20/18- Followed up with patient at [facility] visit, please see note dated 07.20.18 07/31/18- Followed up with patient via email 07/31/18- please see encounter on this date 08/14/18- Follow Up EPDS score=14 08/14/18- Followed up with patient at [facility] visit, please see note dated 08.14.18 08/29/18- Followed up with patient, please see encounter dated 08.29.18 abnormality in pregnan cy - renal pelvis dilation 05/05/2018 08/31/2018 Overview (08/14/2018): Images from the original note were not included. [facility] PATIENT--PLEASE CALL [phone] (ex 2) IF TRIAGED OR ADMITTED Care Provider: Dr. Kaur [facility] consultants involved: RN- Zakiya; KRISTYN- Sabra/Macy; Pediatric Urologist- Dr. Kuhn Diagnosis: Renal Pelvis Dilation follow up: (Urology): Plan for antibiotic prophylaxis, imaging at > 48h of life but <1mo, and outpatient urology follow up. (Please call clinical nurse, Katharine Jasso, at [phone] to schedule follow-up appointment) Apartment Maintenance Technician: Undecided Planned surveillance: Initial [facility] appointment and consults scheduled for 06.05.18. Returning to [facility] 07.20.18 and 08.14.18 for follow-up ultrasound. Weekly BPP/NST (one week with primary OB; one week through [place]). Returning to [facility] 08.14.18 to reassess kidneys. Released from [facility] 08.14.18 Delivery location, mode, and GA: In discussion with pediatric urology (Dr. Dunbar), we agree that Stephanie can deliver in [place] per routine obstetrical indications. Delivery at 39 weeks, unless earlier delivery is warranted by equivocal or normal testing, oligohydramnios as defined by a deepest vertical pocket less than 2 cm or decreased movement. Repeat scheduled 09.01.18 at [facility] Clinical Nurse Specialist Concerns: 06/05/18- Patient with history of depression, [...] Comments Blood Pressure 118/80 02/14/2019 9:16 AM UTILITY TELLER Pulse 84 02/14/2019 9:16 AM UTILITY TELLER Temperature 36.6 C (97.9 F) 02/14/2019 9:16 AM UTILITY TELLER Respiratory Rate 16 02/14/2019 9:16 AM UTILITY TELLER Oxygen Saturation 98% 02/14/2019 9:16 AM UTILITY TELLER Inhaled Oxygen Concentration - - Weight 136.1 kg (300 lb) 02/14/2019 9:16 AM UTILITY TELLER Height 165.1 cm (5' 5 ) 02/14/2019 9:16 AM UTILITY TELLER Body Mass Index 49.92 02/14/2019 9:16 AM UTILITY TELLER Plan of Treatment Not on file Administered Medications Care Teams Metal Bonder Relationship Specialty Start Date End Date Kush Llanos MD [address] [place] [address] PCP - General 05/26/10
--- OUTSIDE RECORDS SUMMARY | 2024-03-31 12:54 | XMS_ITS | Data Portability ---
Author Organization [facility] [place] Address [address] [place] [address] Care Team Providers Care Division Road Supervisor Name Role Phone CHRIS HARO Primary Care Provider KIM HERNADEZ Primary Care Provider Assessment Encounter Date Assessment Date Assessment LastModified by Organization Details LastModified Time 07/30/2022 07/30/2022 Annual gynecological exam performed. Patient will come back in a year unless there are new symptoms. Not available 07/30/2022 12:33:30 Plan of Treatment Reminders Order Date Submit Date Provider Last Modified By Organization Details Last Modified Time Details Appointments None recorded. Lab hsv-2 igg Ab, serum 2024 025 [facility] (Lab), [address], [place], [address], 5 11:36:41 HBsAg (hepatitis B surface Ag), serum 2024 025 [facility] (Lab), [address] [place], [address], 5 11:36:41 hsv-1 igg Ab, serum 2024 025 [facility] (Lab), [address] [place], [address], 5 11:36:41 unlisted lab - women's health swab plus, EULOGIO 2024 025 [facility] (Lab), [address] , [place], [address], 5 15:54:07 herpes simplex, culture, unspecified specimen 2024 025 [facility] (Lab), [address], [place], [address], 5 15:54:08 dhea-sulfat e, serum 2022 023 [facility] (Lab), [address], [place], [address], 3 13:04:57 hormone panel, serum or plasma 2022 023 [facility] (Lab), [address], [place], [address], 3 13:04:58 progesteron e, serum 2022 023 [facility] (Lab), [address] [place], [address], 3 13:04:58 prolactin, serum 2022 023 [facility] (Lab), [address] [place], [address], 3 13:04:58 shbg (sex hormone-bin ding globulin), serum 2022 023 [facility] (Lab), [address] [place], [address], 3 13:04:59 TSH, serum or plasma 2022 023 [facility] (Lab), [address] [place], [address], 3 13:04:59 testosteron e free/testos terone total, ratio, serum 2022 023 [facility] (Lab), [address], [place], [address], 3 13:05:00 Referral None recorded. Procedures None recorded. Surgeries hysteroscop y, with endometrial ablation (SURG) [email or web address] [facility], [address], [place], [address], 3 11:23:34 Imaging US, pelvis 2022 023 [email or web address] [place], [address], [address], [place], [address], 3 19:01:04 US, transvagina l 2022 023 [email or web address] [place], [address], [address], [place], [address], 3 19:01:04 US, pelvis, complete 2022 023 [email or web address] [place], [address], [address], [place], [address], 3 15:37:05 Medication Orders nystatin-tr iamcinolone 100,000 unit/gram-0 .1 % topical ointment 2024 025 [facility] [address] [facility] [place], [address], 5 12:45:26 fluconazole 150 mg tablet 2024 025 [facility] [address], [facility] [place], [address], 5 12:45:25 spironolact one 100 mg tablet 2022 023 [facility] [address], [facility] [place], [address], 3 12:25:12 metformin ER 500 mg tablet,exte nded release 24 hr 2022 023 [email or web address] [facility] [address] [place], [address], 5 12:25:02 Addyi 100 mg tablet 2020 021 [email or web address] [facility] [address], [address] [place], [address], 5 12:24:18 NuvaRing 0.12 mg-0.015 mg/24 hr vaginal 2020 021 [email or web address] [facility], [address] [place] [address], [address], 3 12:35:15 Patient TargetsNo targets recorded. 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 Elect martinez morales tan d [...] as clini madai clarke nted. Not Available [facility] (Lab) [address], [place], [address], 08/03/2022 14:20:53 07/31/19 23 07/30/2022 DHEA SULFA TE DHEA-sulfate 138 ug/dL Femal e Range s Age(y ) Range (ug/d L) 10-15 34-28 0 15-20 65-36 8 20-25 148-4 07 25-35 99-34 0 35-45 61-33 7 45-55 35-25 6 55-65 19-20 5 65-75 9-246 > 75 12-15 4 Not Available [facility] (Lab) [address], [place], [address], 08/07/2022 13:04:57 07/31/19 23 07/30/2022 PROGE STERO [...] Trime ster5 8.70- 214.0 0 Not Available [facility] (Lab) [address], [place], [address], 08/07/2022 13:04:58 07/31/19 23 07/30/2022 PROLA CTIN prolactin, total 16.00 NG/mL 4.79-2 3.30 This assay was perfo rmed using [employer] ratio n reage nts and test kits. Value s obtai choco with other assay metho ds or kits canno t be used inter de la fuente eably . Not Available [facility] (Lab) [address] [place], [address], 08/07/2022 13:04:58 07/31/1907/30/2022 FSH, LH, ESTRA DIOL estradiol 227.0 pg/mL This assay was perfo rmed using [employer] ratio n reage nts and test kits. Value s obtai choco with other assay metho ds or kits canno t be used inter [facility] . Femal e Estra diol Range s: Folli cular phase 12.4- 233 pg/mL Ovula tion phase 41.0- 398 pg/mL Lutea l phase 22.3- 341 pg/mL Postm enopa usal< 5-138 pg/mL Healt hy Pregn ant Women 1st Trime ster1 54-32 43 pg/mL 2nd Trime ster1 561-2 1280 pg/mL 3rd Trime ster8 525-> 25883 pg/mL Not Available [facility] (Lab) [address] [place], [address], 08/07/2022 13:04:58 07/31/19 23 07/30/2022 FSH, LH, ESTRA DIOL FSH 8.0 mIU/m L This assay was perfo rmed using [employer] ratio n reage nts and test kits. Value s obtai choco with other assay metho ds or kits canno t be used inter [facility] . Femal es Folli cular : 3.5-1 2.5 mIU/m L Ovula tion: 4.7-2 1.5 mIU/m L Lutea l: 1.7-7 .7 mIU/m L Postm enopa use: 25.8- 134.8 mIU/m L Not Available [facility] (Lab) [address] [place], [address], 08/07/2022 13:04:58 07/31/19 23 07/30/2022 FSH, LH, [...] use: 7.7-5 8.5 mIU/m L Not Available [facility] (Lab) [address] [place], [address], 08/07/2022 13:04:58 07/31/19 23 07/30/2022 TSH, REFLE X FREE T4 TSH 1.80 uIU/m L 0.30-5 .33 Not Available [facility] (Lab) [address] [place], [address], 08/07/2022 13:04:59 07/31/19 23 07/30/2022 HUMAN SEX HORMO NE CAMRYN NG GLOBU KEO sex hormone binding globulin 20.4 nmole s/L 18.2-1 35.5 Not Available [facility] (Lab) [address], [place], [address], 08/07/2022 13:04:59 07/31/19 23 07/30/2022 TESTO STERO NE, FREE( DIALY SIS) AND TOTAL (LC/M S/MS) testosterone , total 40 NG/dL 2-45 For addit ional infor bharti guillen e refer to http: //john rodas.que stdia gnost ics.c om/fa q/Tot alTes monet Beltran [facility] (This link is being provi ded for [...] for clini karol purpo ses. Not Available [facility] (Lab) [address], [place], [address], 08/07/2022 13:05:00 07/31/19 23 07/30/2022 TESTO STERO [...] Infor matalena n: Site ID: SLI Name: [employer] [place] Addre ss: [id number] [place] [address] Direc tor: Herman malone M.D. Not Available [facility] (Lab) [address], [place], [address], 08/07/2022 13:05:00 02/08/1902/09/2024 HBSAG /HCV/ HIV/R ID HIV antigen/anti body Nonrea ctive nonrea ctive HIV-1 antig en and HIV-1 /HIV- 2 antib odies were not detec bandar. No labor atory evide nce of HIV infec tion. Not Available [facility] (Lab) [address], [place], [address], 02/10/2024 11:36:40 02/08/1902/09/2024 HBSAG /HCV/ HIV/R ID hepatitis B surface antigen Non-re active non-re active This assay was perfo rmed using [employer] ratio n reage nts and test kits. Value s obtai choco with other assay metho ds or kits canno t be used inter de la fuente eably . Not Available [facility] (Lab) [address], [place], [address], 02/10/2024 11:36:40 02/08/19 25 02/09/2024 HBSAG /HCV/ HIV/R ID hepatitis C antibody Non-re active non-re active Antib odies to HCV Not Detec bandar, does not exclu de the possi bilit y of expos ure to HCV. Not Available [facility] (Lab) [address], [place], [address], 02/10/2024 11:36:40 02/08/19 25 02/09/2024 HBSAG /HCV/ HIV/R ID RPR screen Nonrea ctive nonrea ctive Not Available [facility] (Lab) [address], [place], [address], 02/10/2024 11:36:40 02/08/19 25 02/09/2024 HERPE S SMPLE X VIRUS TYPE 1 SPECI FIC AB, IGG herpes simplex virus 1 IgG Negati ve negati ve Not Available [facility] (Lab) [address], [place], [address], 02/10/2024 11:36:41 02/08/19 25 02/09/2024 HERPE S SMPLE X VIRUS TYPE 1 SPECI FIC AB, IGG herpes simplex virus 1 IgG, quant 0.5 ai 0.0-0. 8 Not Available [facility] (Lab) [address] [place], [address], 02/10/2024 11:36:41 02/08/19 25 02/09/2024 HERPE S SIMPL EX VIRUS TYPE 2 SPECI FIC AB, IGG herpes simplex virus 2 IgG Positi ve negati ve abnormal Not Available [facility] (Lab) [address] [place], [address], 02/10/2024 11:36:41 02/08/19 25 02/09/2024 HERPE S SIMPL EX VIRUS TYPE 2 SPECI FIC AB, IGG herpes simples virus 2 IgG, quant >8.0 ai 0.0-0. 8 high Not Available [facility] (Lab) [address] [place], [address], 02/10/2024 11:36:41 02/08/1902/09/[address] [facility] bacterial vaginosis (bv), tma Negati ve negati ve Not Available [facility] (Lab) [address], [place], [address], 02/16/2024 15:54:07 02/08/19 25 02/09/[address] [facility], EULOGIO eileen species, tma Negati ve negati ve Not Available [facility] (Lab) [address] [place], [address], 02/16/2024 15:54:07 02/08/19 25 02/09/[address] [facility], EULOGIO eileen glabrata, tma Negati ve negati ve Not Available [facility] (Lab) [address] [place], [address], 02/16/2024 15:54:07 02/08/19 25 02/09/[address] [facility], EULOGIO trichomonas vaginalis, tma Negati ve negati ve Not Available [facility] (Lab) [address] [place], [address], 02/16/2024 15:54:07 02/08/19 25 02/09/[address] [facility], EULOGIO chlamydia trachomatis, PCR Negati ve negati ve Not Available [facility] (Lab) [address] [place], [address], 02/16/2024 15:54:07 02/08/19 25 02/09/[address] [facility], EULOGIO neisseria gonorrhoeae, PCR [...] ded in this panel . Not Available [facility] (Lab) [address] [place], [address], 02/16/2024 15:54:07 02/08/19 25 02/09/2024 CULTU RE: HERPE S SIMPL EX VIRUS (HSV) , REFLE X TYPIN G source LESION SCRAPI NG Not Available [facility] (Lab) [address] [place], [address], 02/16/2024 15:54:08 02/08/19 25 02/09/2024 CULTU RE: HERPE S SIMPL EX VIRUS (HSV) , REFLE X TYPIN G hsv culture, body fluid NOT ISOLAT ED Perfo rming Organ izati on Infor matio n: Site ID: CB Name: [facility] jessica Hollingsworth Addre ss: [id number] [place] [address] Dire tor: Malathi Sutton s Not Available [facility] (Lab) [address] [place], [address], 02/16/2024 15:54:08 08/03/19 23 08/02/2022 US, pelvi s No observ ation record ed. [email or web address] [place] [address], [place], [address], 08/02/2022 12:30:13 08/03/19 23 08/02/2022 US, trans vagin al No observ ation record ed. [email or web address] [place] [address], [place], [address], 08/02/2022 12:29:52 08/03/19 23 08/02/2022 US, pelvi s No observ ation record ed. ISAK Shari [address], [place], [address], 08/17/2022 11:38:26 Result Notes None recorded. Problems Name Problem SNOMED Code Status Onset Date Resolution Date Notes Provider Name and Address Organization Details Recorded Time Decrease d sexual function 125107751 Active 2020 Ingrid lovell [facility] 09:56:50 Antenata l screenin g for malforma tion Completed 201803/27/2020 Encounte r for antenata l screenin g for malforma tions;Pr actice ID: 0001 Ingrid lovell [facility] 11:40:14 Normal pregnanc y in multigra carlos 36098802934 4106 Completed 201803/27/2020 Encounte r for suprvsn of normal pregnanc y, second trimeste r;Practi ce ID: 0001 Ingrid lovell, [facility] 11:41:02 Mental disorder in mother complica ting pregnanc y 063794987 Completed 201803/27/2020 Oth mental disorder s comp pregnanc y, second trimeste r;Practi ce ID: 0001 Ingrid lovell [facility] 11:41:01 Gestatio n period, 25 weeks 49531526 Completed 201803/27/2020 25 weeks gestatio n of pregnanc y;Practi ce ID: 0001 Ingrid lovell, [facility] 11:40:49 Urinary tract infectio n in pregnanc y 954611357 Completed 201803/27/2020 Infect of prt urinary tract in pregnanc y, third trimeste r;Practi ce ID: 0001 Ingrid lovell, [facility] 11:41:22 Gestatio n period, 30 weeks 45500808 Completed 201803/27/2020 30 weeks gestatio n of pregnanc y;Practi ce ID: 0001 Ingrid lovell, [facility] 11:40:50 Severe obesity complica ting pregnanc y 60473138379 274604 Completed 201803/27/2020 Obesity complica ting pregnanc y, third trimeste r;Practi ce ID: 0001 Ingrid lovell, [facility] 11:41:12 Gestatio n period, 32 weeks 8461774 Completed 201803/27/2020 32 weeks gestatio n of pregnanc y;Practi ce ID: 0001 Ingrid lovell, [facility] 11:40:51 Body mass index 30+ - obesity 024196570 Completed 201803/27/2020 Body mass index (BMI) 45.0-49. 9, adult;Pr actice ID: 0001 Ingrid lovell, [facility] 11:40:16 Clinical finding Completed 201803/27/2020 Obesity, unspecif ied;Prac nishant ID: 0001 Ingrid lovell, [facility] 11:40:45 Gestatio n period, 33 weeks 77621912 Completed 201803/27/2020 33 weeks gestatio n of pregnanc y;Practi ce ID: 0001 Ingrid lovell, [facility] 11:40:53 Gestatio n period, 34 weeks 19085187 Completed 201803/27/2020 34 weeks gestatio n of pregnanc y;Practi ce ID: 0001 Ingrid lovell, [facility] 11:40:[address] Concept Completed 201803/27/2020 Maternal care for oth abnormal ity and damage, unsp;Pra ctice ID: 0001 Ingrid lovell, [facility] 11:41:14 Gestatio n period, 35 weeks 08545659 Completed 201803/27/2020 35 weeks gestatio n of pregnanc y;Practi ce ID: 0001 Ingrid lovell, [facility] 11:40:55 Pregnanc y, childbir th and puerperi um finding Completed 201803/27/2020 Oth pregnanc y related conditio ns, third trimeste r;Practi ce ID: 0001 Ingrid lovell, [facility] 11:40:[address] Concept Completed 201803/27/2020 Decrease d movement s, third trimeste r, unsp;Pra ctice ID: 0001 Ingrid lovell, [facility] 11:41:[address] Concept Completed 201803/27/2020 Matern care for abnlt fetl hrt rate or rhym, 3rd tri, unsp;Pra ctice ID: 0001 Ingrid Thompson nas, [facility] 11:41:17 Gestatio n period, 36 weeks 45648801 Completed 201803/27/2020 36 weeks gestatio n of pregnanc y;Practi ce ID: 0001 Ingrid lovell [facility] 11:40:57 Uterine scar from previous surgery affectin g pregnanc y 42487847 Completed 201803/27/2020 Matern care for low transver se scar from prev del;Prac nishant ID: 0001 [facility] 11:41:25 heart finding Completed 201803/27/2020 Abnlt in heart rate and rhythm comp labor and delivery ;Practic e ID: 0001 [facility] 11:40:44 Steriliz ation procedur e Completed 201803/27/2020 Encounte r for steriliz ation;Pr actice ID: 0001 Ingrid lovell [facility] 11:41:20 Single live 766634205 Completed 201803/27/2020 Single live ;Pr actice ID: 0001 Ingrid lovell, [facility] 11:41:13 Gestatio n period, 37 weeks 91586030 Completed 201803/27/2020 37 weeks gestatio n of pregnanc y;Practi ce ID: 0001 Ingrid lovell [facility] 11:40:58 Procedur e on genitour inary system Completed 201803/27/2020 Encounte r for surgical aftcr followin g surgery on the sys;Prac nishant ID: 0001 [facility] 11:41:10 Postoper ative care Completed 201803/27/2020 Encounte r for surgical aftcr followin g surgery on the sys;Prac nishant ID: 0001 Ingrid lovell [facility] 11:41:05 Emotiona l state finding Completed 201803/27/2020 Other specifie d anxiety disorder s;Practi ce ID: 0001 Ingrid lovell, [facility] 11:40:18 Pregnanc y, childbir th and puerperi um finding Completed 201803/27/2020 Encntr for suprvsn of normal first preg, second trimeste r;Record ed Elsewher e: No Locat ion: [facility] S ource: EHR Seed Sorter shabbir: N Hienti ce ID: 0001 Reece lable Time: 10:00:00 AM Ingrid lovell [facility] 11:41:09 Pelvic and perineal pain 004057117 Completed 201803/27/2020 Pelvic and perineal pain;Rec orded Elsewher e: No Locat ion: [facility] S ource: EHR Seed Sorter shabbir: N Hienti ce ID: 0001 Reece lable Time: 09:45:00 AM Ingrid lovell, [facility] 11:41:[address] Concept Completed 201603/27/2020 Encntr for prevention rn exam (general ) (routine ) w/o abn findings ;Practic e ID: 0001 Ingrid lovell, [facility] 11:41:19 Pregnanc y test negative 062409247 Completed 201603/27/2020 Encounte r for pregnanc y test, result negative ;Practic e ID: 0001 Ingrid lovell, [facility] 11:41:07 Pregnanc y detectio n examinat ion Completed 201703/27/2020 Encounte r for pregnanc y test, result positive ;Practic e ID: 0001 Ingrid lovell, [facility] 11:41:06 Uterine size for dates discrepa ncy Completed 201703/27/2020 Uterine size-piotr e discrepa ncy, first trimeste r;Practi ce ID: 0001 Ingrid lovell, [facility] 11:41:26 Gestatio n less than 9 weeks 626222693 Completed 201703/27/2020 Less than 8 weeks gestatio n of pregnanc y;Practi ce ID: 0001 Ingrid lovell, [facility] 11:40:47 Gestatio n period, 9 weeks 131064 Completed 201803/27/2020 9 weeks gestatio n of pregnanc y;Practi ce ID: 0001 Ingrid lovell, [facility] 11:40:59 Antenata l screenin g Completed 201803/27/2020 Encounte r for other specifie d antenata l screenin g;Practi ce ID: 0001 Ingrid lovell, [facility] 11:40:13 Urinary tract infectio us disease 52072659 Completed 201803/27/2020 UTI;Larry rded Elsewher e: No Locat ion: [facility] S ource: EHR Seed Sorter shabbir: N Practi ce ID: 0001 Reece lable Time: 01:30:00 PM Ingrid lovell, [facility] 11:41:23 Evaluati on finding Completed 201803/27/2020 Hematuri a, unspecif ied;Larry rded Elsewher e: No Locat ion: [facility] S ource: EHR Seed Sorter shabbir: N Practi ce ID: 0001 Reece lable Time: 10:30:00 AM Ingrid Thompson [facility] 11:40:42 Problem Notes None recorded. Procedures Surgical History Date Name Laterality Status Provider Name and Address Organization Details Recorded Time 10/29/19 23 Gastric Bypass completed [facility] 02/09/2024 12:15:31 07/31/19 23 Date of Last Pap Smear completed [facility] 02/07/2024 09:45:34 08/19/19 19 section completed Ingrid Jay [facility] 03/27/2020 12:41:06 08/19/19 19 ligation of bilateral fallopian tubes completed Ingrid Jay [facility] 03/27/2020 12:41:14 02/07/19 10 section completed Ingrid Calhoun [facility] 03/27/2020 12:41:22 laparoscopic sleeve gastrectomy completed [facility] 03/27/2020 12:41:44 Imaging Results Imaging Date Name Status LastModified by Organization Details LastModified Time 08/02/2022 US, pelvis completed [email or web address] [place] [address], [place], [address], 08/02/2022 12:30:13 08/02/2022 US, transvaginal completed [email or web address] [facility] e [address], [place], [address], 08/02/2022 12:29:52 08/02/2022 US, pelvis completed ISAK Shari [address], [place], [address], 08/17/2022 11:38:26 Procedure Notes None recorded. Medical Equipment None Reported. Allergies Allergen ID Allergen Name Allergen Category Reaction Reaction Severity Criticality Documentation Date Start Date Code Code System Note Provider Name and Address Organization Details Recorded Time 63906 naproxen medicatio n Not available Not available Not available 01/25/2020 7258 RxNorm Ingrid Thompson [facility], [facility] 1 11:42:58 61795 Cipro medicatio n hives moderate Not available 07/30/202274498 3 RxNorm Jessica Santillan [facility], [facility] 3 12:33:57 Medications Name Sig Start [...] Prescrib ed Elsewher e: No Locat ion: [facility] M odify By: wali reagan DateTime [...] Prescrib ed Elsewher e: No Locat ion: [facility] M odify By: wali Braun r [...] Elsewher e: No Locat ion: [facility] M odify By: [email or web address] Encounte r DateTime [...] Updated DateTime 06/23/2020 167.64 cm 45.4 kg/m2 621016.4 6 g 130 mm[Hg] 79 mm[Hg] Ingrid Thompson [facility] 1 15:41:10 Date Recorded Body height Body mass index (BMI) Body weight Systolic blood pressure Diastolic blood pressure Provider Name and Address Organization Details Last Updated DateTime 07/30/2022 167.64 cm 46.2 kg/m2 081764.4 2 g 126 mm[Hg] 81 mm[Hg] Jessica Santillan [facility] 3 12:33:52 Date Recorded Body height Body mass index (BMI) Body weight Systolic blood pressure Diastolic blood pressure Provider Name and Address Organization Details Last Updated DateTime 08/23/2022 167.64 cm 46.2 kg/m2 044552.4 2 g 134 mm[Hg] 87 mm[Hg] Cristel Roland [facility] 3 12:02:39 Date Recorded Body height Body mass index (BMI) Body weight Systolic blood pressure Diastolic blood pressure Provider Name and Address Organization Details Last Updated DateTime 02/09/2024 167.64 cm 33.6 kg/m2 23499.93 g 120 mm[Hg] 83 mm[Hg] THANH Washburn [facility] 5 12:23:44 Social History Question Answer Notes LastModified by Organizat ion Details LastModified Time Do You Have An Advance Directive? No [email or web address] Information not available 06/23/2020 What Is Your Level Of Alcohol Consumption? None [email or web address] Information not available 02/09/2024 How Many Years Have You Consumed Alcohol? 10 Information not available 07/30/2022 Are You Blind Or Do You Have Difficulty Seeing? No [email or web address] Information not available 06/23/2020 What Is Your Level Of Caffeine Consumption? Heavy [email or web address] Information not available 06/23/2020 How Much Tobacco Do You Chew? None Information not available 06/23/2020 In The 14 Days Before Symptom Onset, Have You Had Close Contact With A Laboratory-confir med COVID-19 While That Case Was Ill? No [email or web address] Information not available 06/23/2020 In The 14 Days Before Symptom Onset, Have You Had Close Contact With A Person Who Is Under Investigation For COVID-19 While That Person Was Ill? No [email or web address] Information not available 06/23/2020 Have You Been To An Area Known To Be High Risk For COVID-19? No [email or web address] Information not available 06/23/2020 Are You Deaf Or Do You Have Serious Difficulty Hearing? No [email or web address] Information not available 06/23/2020 What Type Of Diet Are You Following? REGULAR [email or web address] Information not available 06/23/2020 What Is The Highest Grade Or Level Of School You Have Completed Or The Highest Degree You Have Received? 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 No [email or web address] Information not available 06/23/2020 Do You Use Protection During Sex? No [email or web address] Information not available 06/23/2020 Do You Use Your Seat Belt Or Car Seat Routinely? Yes [email or web address] Information not available 06/23/2020 Do You Have Smoke And Carbon Monoxide Detectors In Your Home? Yes [email or web address] Information not available 06/23/2020 At What Age Did You Start Smoking Tobacco? 15 Information not available 06/23/2020 How Much Tobacco Do You Smoke? 1 PPW [email or web address] Information not available 02/09/2024 Do You Feel Stressed (tense, Restless, Nervous, Or Anxious, Or Unable To Sleep At Night)? [id number] [email or web address] Information not available 06/23/2020 Do You Use Any Illicit Or Recreational Drugs? No [email or web address] Information not available 06/23/2020 Do You Use Sunscreen Routinely? Yes [email or web address] Information not available 06/23/2020 How Many Years Have You Smoked Tobacco? 18 [email or web address] Information not available 02/09/2024 Have You Used IV Drugs? No Information not available 06/23/2020 Sex: Unknown Functional Status Question Answer Note LastModified by Organization D etails LastModified Time Are you able to walk? YESWOREST [email or web address] Information not available 06/23/2020 What is your exercise level? Moderate [email or web address] Information not available 06/23/2020 Mental Status None recorded. Family History Relationship Description Onset Age of this Age Resolved Age Notes LastModified by Organization Details LastModified Time Father Hypertensive disorder Not available 2020 11:54:01 Sister Hypertensive disorder [email or web address] Not available 2020 11:54:21 Medical History Condition Response Allergies (Food, seasonal, environmental ) N Other N Drug/Latex Allergies/Reactions N Breast Cancer N Blood Transfusion N Lung Disease N Dermatologic Disorders N Defects or Inherited Disease N Breast Problem N Gestational Diabetes N Hematologic disorders N Anesthesia Complications N History of STI N Deep Vein Thrombosis N Polycystic ovary syndrome N Anxiety Disorder Y Autoimmune disease N Arthritis N Polyps N Infertility N History of abnormal pap N Acid Reflux (GERD) N Cancer N Varicosities N Stroke N Neurologic/Epilepsy N Endometriosis N High Cholesterol N Headaches N Fibromyalgia N Kidney Disease N Heart Problems N Thyroid Problems N Kidney or Bladder Problems Y GI Problems N Eating Disorder N Anemia [...] SNOMED-CT Code Diagnosis ICD10 Code Diagnosis Note [id number] Zonia Membreno [place] [address] [address] 03/31/2020 09:41:43 03/31/2020 14:59:29 Gynecologic examination [id number] Z01.419 Take Calcium with Vitamin D 1200mg [...] copy of today's plan if desired. Dysmenorrhea 355711347 N 94.6 Discussed options for cramping. Pt [...] Pt verbalized understand ing. Lack of libido 886400355 R68.82 Discussed possible causes of decreased/ absent libido. She currently is under alot of stress. Her youngest child has multiple therapies d/t possible autisim. [id number] Zonia Membreno [place] [address] [address] 06/23/2020 15:35:50 06/24/2020 21:35:51 Contraception care management [id number] Z30.9 Happy with nuvaring and would like to continue. Reduced libido 2577112 R 68.82 We have discussed possible contributi [...] Pt will follow up in 1 month. [id number] [facility] [address] [address] 07/30/2022 12:09:19 07/30/2022 13:21:24 Gynecologic examination 68138235 Z01.419 Take Calcium with Vitamin D 1200mg [...] Dexa Screen na Routine Labs ordered Menorrhagia 440164626 N9 2.0 US to be updatedDis cussed options: IUD/BC methods/en do ablationOp ts for consult Endo ablation Abnormal u terine bleeding [id number] 9100 N93.9 Heavy mensesWill review at consult with Dr. Kaur [id number] Tati Coulter [place] [address],[facility] [place] [address] 08/02/2022 10:58:40 08/02/2022 11:35:57 Menorrhagia 178196206 N92.0 [id number] Homero Kaur MD [place] [address],[facility] [place] [address] 08/23/2022 11:57:04 08/23/2022 12:42:04 Female hirsutism 12824902 L68.0 this patient is a 28-year-ol d [...] She will follow-up in 1 month. Menorrhagia 089489472 N9 2.0 [id number] PAVITHRA RAO NP [place] [address],[facility] [place] [address] 02/09/2024 12:14:31 02/09/2024 13:05:30 Vaginal irritation 557579131 N89.8 Discussed empirical treatment with nystatin/t riamcinolo ne topical ointment and fluconazol e for suspected yeast infection based on reported symptoms and physical exam findings.Jessica iscussed vulvar care guidelines in addition to laundry/sk in irritants to avoid.Vagi nitis panel sent. Venereal d isease screening 598895166 Z11.3 Pt requested STI testing for GC/CT/tric [...] Name 06/23/2020 1 [facility] [id number] [facility] [id number] [facility] 06/23/2020 2 [place] [facility] [id number] [facility] 07/30/2022 1 [facility] [id number] [facility] [id number] [facility] 07/30/2022 2 [place] [facility] [id number] [facility] 08/02/2022 1 [facility] [id number] [facility] [id number] [facility] 08/02/2022 2 [place] [facility] [id number] [facility] 08/23/2022 1 [facility] [id number] [facility] [id number] [facility] 08/23/2022 2 [place] [facility] [id number] [facility] 02/09/2024 1 [facility] 910088 [facility] [id number] [facility] 02/09/2024 2 [place] [facility] [id number] Stephaine Norman Notes Date Note Type Note Provider Name and Address Organization Details Recorded Time 06/23/2020 text/html Here to follow u p on nuvaring. Wants to discuss low libido again. Zonia lovell [facility] 07/03/2020 16:47:54 07/30/2022 text/html Annual GYNReport [...] Encourage regular mammograms starting age 40 [facility] [address], [place], [address], [facility] 07/30/2022 13:14:32 08/23/2022 text/html this patient is a 28-year-old female presents for follow-up on menorrhagia. She wants endometrial ablation. We reviewed endometrial ablation. We reviewed the video. We talked about success and failure. We talked about preoperative medications. talked about her still some an elevated testosterone. We spent over 20 minutes [id number]. More than 50% was counseling. We decided to treat elevated testosterone and [place] is a with metformin and spironolactone. She will follow-up in 1 month. Homero Kaur MD [address], [place], [address], [facility] 08/23/2022 12:35:08 02/09/2024 text/html Patient [...] outbreaks. PAVITHRA RAO, ANNETTE [address], [place], [address], [place] [facility] 02/09/2024 13:04:49 OBGyn Episode Ob Episode Information Episode Created Date Number of Fetuses Patient Bloodtype Patient rh Status Prepregnancy Weight lbs Domestic Partner Domestic Partner Phone Father Name Dumpster Operator Status 03/27/19 21 1 CLOSED Fetus Data [...] Domestic Partner Domestic Partner Phone Father Name Dumpster Operator Status 03/27/19 21 1 CLOSED Fetus Data [...]
--- OUTSIDE RECORDS SUMMARY | 2024-03-31 12:54 | XMS_ITS | Referral Summary ---
Author Organization [facility] Address [address] [place] [address] Phone Care Team Providers Care Grave Cleaner Name Role Phone Unknown, Notinfile Unavailable Unavailable Maddy Shen NP Primary Care Provider [phone] Encounters Date Type Department Care Team Description 03/15/2024 Orders Only [facility] Health Information Management [address] [place] [address] Maddy Shen NP 03/09/2024 Orders Only [facility] Health Information Management [address] [place] [address] Maddy Shen NP from Last 3 Months Allergies Active Allergy Reactions Criticality Noted Date [...] Resolved Date Obesity (BMI 30-39.9) 08/16/20222023 Immunizations Immunization Administration Dates Next Due Influenza, [...] on file 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 Gender Identity Not on file Sexual Orientation [...] CDT Plan of Treatment Not on file Procedures Procedure Name Priority Date/Time Associated Diagnosis Comments SCAN - RADIOLOGY/IMAGING 03/15/2024 SCAN - RADIOLOGY/IMAGING 03/09/2024 from Last 3 Months Results * SCAN - RADIOLOGY/IMAGING (03/15/2024) Anatomical Region Laterality Modality Other Maddy Shen NP Final Result * SCAN - RADIOLOGY/IMAGING (03/09/2024) Anatomical Region Laterality Modality Other us Maddy Shen NP Edited Result - Final from Last 3 Months Insurance Care Teams Grave Cleaner Relationship Specialty Start Date End Date Maddy Shen NP [address] [place] [address] PCP - General Internal Medicine 08/16/22 Unknown, Notinfile 07/19/22
[2024-03-31 13:18] LABS: INR 1.1; Prothrombin Time 14.4 Seconds (11.1-14.7)
[2024-03-31 13:19] LABS: Partial Thromboplastin Time 38.9 Seconds (22.3-36.8)
== END 2024-03-31 12:51 | disposition home or self-care (01) ==
LOC: ANHLAB 12:51
PROVIDERS: PCP Nurse Practitioner Family; Visit Provider Urology
DX: N20.1 Calculus of ureter (principal); Z01.818 Encounter for other preprocedural examination
CPT/HCPCS: 36415; 85610; 85730; 87086; 87186

== ENCOUNTER 2024-04-06 00:22 | Day surgery (SDC) | payer OTHER, MEDICAID, SELFPAY ==
[2024-03-27 12:35] VITALS: BMI 33.0
--- NOTE | 2024-03-27 12:43 | PC.NURSE ---
Report to the Outpatient Waiting Room, entrance under the green pavilion located off [facility], at time 0730_ on date _04/06/24. Planned Procedure Time: _0930.? Time changes happen often and if your time is changed the preop area will call you the afternoon before. - You and your visitor will be asked to self-screen and do not enter if you have any COVID symptoms. Please call surgeon if you need to reschedule. - A mask is optional within the hospital at this time. Patients may have clear liquids (water, carbonated beverages, clear teas, apple juice) until 3 hours prior to surgery with a maximum of 20 ounces. - No food from midnight until time of surgery and no smoking, or chewing tobacco (or any form of nicotine). No chewing gum, candy or mints. - Infants may have breast milk until 4 hours before surgery, infant formula 6 hours prior to surgery. - Children will be allowed to drink immediately following surgery.? If applicable, please bring a bottle or sippy cup to assist with drinking. Juice, water, soda, and popsicles are readily available.? For infants on formula, please bring formula the day of surgery.? Pacifiers are allowed. Take only the following medications with a SIP of water on the morning of surgery: BUPROPION DO NOT STOP ANY OF YOUR OTHER PRESCRIPTION MEDICATIONS PRIOR TO SURGERY EXCEPT THE FOLLOWING Hold all vitamins and supplements for 3 days per anesthesiologist. Medications to discontinue per physician NONE Date to take last dose Please no make-up, nail italian, hairspray, perfume, deodorant, or body powder the day of surgery.? No jewelry (including any body piercings) or valuables the day of surgery, leave them at home.? Please take a shower or bath the night before, or the morning of, surgery with an antibacterial soap.? Wear comfortable, loose fitting clothing.? Children are encouraged to wear pajamas. - Jewelry must be removed prior to entering the operating room.? Rings and piercings that are not removed may be cut off. - The hospital will not accept responsibility for valuables.? - Please leave all valuables, including medications, at home the day of surgery. If you are going home after surgery, a licensed hazardous materials driver must drive you home.? - NO public transportation without another adult if you receive anesthesia. - We recommend that an adult stay with you for 24 hours following discharge. - We also recommend that you do not drive, make important decision, drink alcoholic beverages, or take any drugs that were not prescribed by your health care provider for at least 24 hours after your discharge time. For Pediatric surgeries, we recommend two adults accompany the child home. Follow any additional instructions given to you from your surgeon. Telephone instructions given to _GARRETT_and asked if any additional questions and then verbalized understanding. Patient advised to call surgeon office or pre surgery nurse liaison [phone] if any additional questions.
[2024-04-06] VITALS (8 sets, daily range): BP systolic 125–141; BP diastolic 73–96; PULSE 62–86; RESP 14–20; TEMP 36.3–37; O2SAT 99–100; BMI 33.2
[2024-04-06] MEDS: LACTATED RINGERS 1,000 ML 30 ML IV CONT ×2 (08:05→10:52)
--- NOTE | 2024-04-06 08:08 | WPDHPUPDATE1 ---
History and Physical Update Update Date/Time: 04/06/24 08:08 History and Physical has been reviewed, including an updated exam of the patient. There are NO changes in the patient's condition. Risks, benefits, and alternatives have been discussed and questions answered. Patient agrees to proceed with procedure. Proceed with left renal lithotripsy
[2024-04-06 08:29] LABS: Partial Thromboplastin Time 34.5 Seconds (22.3-36.8)
--- NOTE | 2024-04-06 08:33 | WPDHPUPDATE1 ---
History and Physical Update Update Date/Time: 04/06/24 08:33 History and Physical has been reviewed, including an updated exam of the patient. There are NO changes in the patient's condition. Risks, benefits, and alternatives have been discussed and questions answered. Patient agrees to proceed with procedure. Proceed with left renal lithotripsy
--- NOTE | 2024-04-06 09:53 | WPDANESEPPF ---
Anes - Initial Pre Proc Eval Procedure: Operation Date: 04/06/24 09:30 Proposed Procedures p Left Extracorporeal Shock Wave Lithotripsy - Brett Stauffer MD Date/Time: 04/06/24 09:53 Surgeon: Brett Stauffer MD Pre Op Diagnosis: Lt Kidney Stone Patient Data Age: 33 Gender: F Height: 1.65 m Weight: 90.55 kg Last Vital Signs Temp 98.6 F 04/06/24 07:35 Pulse 74 04/06/24 07:35 Resp 18 04/06/24 07:35 BP 131/84 04/06/24 07:35 Pulse Ox 99 04/06/24 07:35 O2 Del Method Room Air 04/06/24 07:35 Allergies Allergy/AdvReac Type Severity Reaction Status Date / Time ciprofloxacin AdvReac Severe SWELLING Verified 04/06/24 07:47 naproxen AdvReac Severe Swelling Verified 04/06/24 07:47 hydromorphone AdvReac Intermediate EXTREME Verified 04/06/24 07:47 STOMACH CRAMPS Home Medications ?Medication ?Instructions ?Recorded ?Confirmed ?Type dextromethorphan IR 45 1 tablet PO BID 07/27/22 04/06/24 History mg-bupropion ER 105 mg biphasic tablet (Auvelity) omeprazole 40 mg capsule,delayed 40 mg PO DAILY 12/23/22 04/06/24 History release oxybutynin chloride 5 mg tablet 5 mg PO BID #6 tabs 03/09/24 03/27/24 Rx bupropion HCl 75 mg tablet 150 mg PO DAILY 03/27/24 04/06/24 History lisdexamfetamine 40 mg capsule 40 mg PO DAILY 03/27/24 04/06/24 History (Vyvanse) nitrofurantoin 100 mg PO DAILY 04/06/24 04/06/24 History monohydrate/macrocrystals 100 mg capsule (Macrobid) Laboratory Tests 04/06/24 08:09 APTT 34.5 Seconds (22.3-36.8) Patient hx anesthesia problems: none Family hx anesthesia problems: none Results Review: All pre-operative results and documents have been reviewed as part of the pre-operative evaluation. [facility] Past Medical History Medical History (Updated 03/09/24 @ 23:51 by Gabriela Valencia PA-C) Postoperative nausea and vomiting Depression Renal stones Surgical History Surgical History History of cystoscopy History of placement of ureteral stent History of gastric surgery sleeve 11 years ago History of cholecystectomy History of section x2 Family History Family History Father Lung cancer Hypertension Mother Hypertension Family history of thyroid problem Heart problem Depression Sibling Pneumonia is from pneumonia Social History Social History Social History: Surrogate medical decision maker: Joesph Norman, spouse. Code status: Full code. Smoking packs per day: 0.5 Smoking cigarettes per day: 10.0 Years smoked: 20 Smoking pack-years: 10.00 Smoking status: Current every day smoker Tobacco type: cigarettes Second hand tobacco smoke exposure: Yes Alcohol intake: never Alcohol use details: rare alcohol use in moderation Substance use: never Substance use type: does not use Other substance usage details: CBD NEEDED 2-3 TIMES PER WEEK Lack of Transportation: No Lack of Food: Never True Current Housing: I Have Housing Concerned About Future Housing: Decline to Answer Difficulty Paying Gas/Electric Bills: Decline to Answer Difficulty Paying for Meds: Decline to Answer Currently Unemployed: Decline to Answer Education: Associate Degree Difficulty w/ Childcare or Family Care: No Living arrangements: with family Additional living arrangements comments: Lives with spouse and children in [place]. Additional occupation/education comments: [employer]. Spiritual care concerns: No Anes - Eval Final PreProcedure Day of Procedure 04/06/24 09:53 Patient weight: obese Lungs: normal air movement Airway: Mallampati scale and special considerations (Upper partial. ) Neurological: alert and oriented Last oral intake: >/= 8 hours ASA classification: II Emergent: no Anesthetic plan: proceed Anesthesia type and monitoring: general LMA and standard monitoring Results Review: All pre-operative results and documents have been reviewed as part of the pre-operative evaluation. Pt smokes several cigs/day, BMI 33. Hx of depression per med hx. Informed Consent: The patient's anesthetic plan and its attendant risks and benefits were discussed with the patient/family/POA. Questions were solicited and answers provided to the satisfaction of the patient/family/POA.
[2024-04-06] MEDS: ceFAZolin 2 GM/D5W 50 ML 2 GM/50 ML BAG IVPB (10:11)
--- NOTE | 2024-04-06 10:41 | W.PM.PROC2 ---
Procedure Note - Detailed Date of Procedure 04/06/24 Pre-op Diagnosis Lt Kidney Stone Post-op Diagnosis Same Procedure Performed LITHOTRIPSY OF LEFT RENAL CALCULUS Surgeon Brett Stauffer MD Anesthesia General Description of Procedure Patient was taken to the operative suite correctly identified. Once anesthesia was obtained stone was localized in both planes. Two thousand five hundred shocks were given to the stone. Patient tolerated procedure well without any complications and was taken recovery stable condition. She will follow-up in 7-10 days with KUB. This completes dictation. Please send a copy of op note to my office. Estimated Blood Loss 0 Drains Yes Packing No Pathology None sent Complications No immediate complications Condition Stable Disposition PACU
[2024-04-06] MEDS: traMADol HCL (*CRX) 50 MG TABLET PO (11:53)
== END 2024-04-06 12:20 | disposition home or self-care (01) ==
PROVIDERS: PCP Nurse Practitioner Family; Visit Provider Urology
PROC: (CPT 50590; principal; 2024-04-06 09:30)
DX: N20.0 Calculus of kidney (principal)
CPT/HCPCS: 50590; 36415; 74018; 85730; A9270; J0690; J1100; J2003; J2250; J2405; J2704; J3010; J7120

== ENCOUNTER 2024-04-19 12:14 | Outpatient (CLI) | payer OTHER, MEDICAID, SELFPAY ==
--- NOTE | ~2024-04-19 | XR_ITS ---
EXAMINATION: XR abdomen/kub 1V DATE: 04/19/2024 12:44 INDICATION: Left kidney stone. TECHNIQUE: A supine view of the abdomen on 2 radiographs was obtained. COMPARISON: Abdomen radiographs 04/06/2024, CT abdomen and pelvis 03/09/2024 FINDINGS: There are no dilated loops of bowel. Stable lines and surgical clip in left abdomen are fro m gastric bypass procedure. There are phleboliths in the pelvis. There is a left internal ureteral st ent in expected position. There are multiple stones in the left renal pelvis and left kidney lower po le. The largest stone in left renal pelvis may measure up to 5 mm. IMPRESSION: 1. Stones in the left renal pelvis and left kidney lower pole with left internal ureteral stent in ex pected position. Reviewed, dictated and finalized at location B. IMPRESSION: 1. Stones in the left renal pelvis and left kidney lower pole with left interna l ureteral stent in expected position.
--- OUTSIDE RECORDS SUMMARY | 2024-04-19 13:50 | XMS_ITS | Clinical Summary ---
Author Organization [facility] Address [address] [place] [address] Phone Care Team Providers Care Riverboat Master Name Role Phone Unknown, Notinfile Unavailable Unavailable Maddy Shen NP Primary Care Provider Allergies Active Allergy Reactions Criticality Noted Date [...] days 10 capsule 5 04/01/19 25 Active Problems Problem Noted Date Diagnosed Date [...] Encounters Date Type Department Care Team Description 04/06/2024 Orders Only [facility] Health Information Management [address] [place] [address] Scanning, Provider 03/15/2024 Orders Only [facility] Health Information Management [address] [place] [address] Maddy Shen NP 03/09/2024 Orders Only [facility] Health Information Management [address] [place] [address] Maddy Shen NP from Last 3 Months [...] on file 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 Gender Identity Not on file Sexual Orientation [...] Visit/Exam 18-64 08/17/2023 08/16/2022 Covid-19 Vaccine ( - season) 2023 01/12/2021, 04/19/2020, 03/21/2020 Influenza Vaccine (#1) 2023 11/15/2022 Depression Screening 06/30/2024 07/01/2023, 05/05/2023, 11/15/2022, Additional history exists DTaP/Tdap/Td Vaccine (2 - Td or Tdap) 08/19/2028 08/19/2018 HPV Vaccines Aged Out No longer eligi ble based on patient's age to complete this topic Procedures Procedure Name Priority Date/Time Associated Diagnosis Comments SCAN - RADIOLOGY/IMAGING 04/06/2024 SCAN - RADIOLOGY/IMAGING 03/15/2024 SCAN - RADIOLOGY/IMAGING 03/09/2024 from Last 3 Months Results * SCAN - RADIOLOGY/IMAGING (04/06/2024) Anatomical Region Laterality Modality Other Provider Scanning Final Result * SCAN - RADIOLOGY/IMAGING (03/15/2024) Anatomical Region Laterality Modality Other Maddy Shen NP Final Result * SCAN - RADIOLOGY/IMAGING (03/09/2024) Anatomical Region Laterality Modality Other us Maddy Shen MARINA DRY DOCK MANAGER Edited Result - Final from Last 3 Months Insurance [facility]/PPO Address: [address] [place], [place] [id number] [facility]/PPO Address: [address] [place], [place] [phone] Care Teams Riverboat Master Relationship Specialty Start Date End Date Maddy Shen NP [address] [facility] [address] [place] [address] PCP - General Internal Medicine 08/16/22 Unknown, Notinfile 07/19/22
--- OUTSIDE RECORDS SUMMARY | 2024-04-19 13:50 | XMS_ITS | Referral Summary ---
Author Organization [facility] Address [address] [place] [address] Phone Care Team Providers Care Analytical Lab Analyst Name Role Phone Unknown, Notinfile Unavailable Unavailable Maddy Shen JIGSAWYER Primary Care Provider [phone] Encounters Date Type Department Care Team Description 04/06/2024 Orders Only [facility] Health Information Management [address] [place] [address] Scanning, Provider 03/15/2024 Orders Only [facility] Health Information Management [address] [place] [address] Maddy Shen NP 03/09/2024 Orders Only [facility] Health Information Management [address] [place] [address] Maddy Shen NP from Last 3 Months [...] on file 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
--- OUTSIDE RECORDS SUMMARY | 2024-04-19 13:51 | XMS_ITS | Referral Summary ---
Author Organization [facility] Address [address] [place] [address] Care Team Providers Care Human Factors Advisor Lead Name Role Phone Kush Llanos MD Primary Care Provider [phone] Source Comments [facility],non-owned Affiliates and Associated Physician Practices is amultiple site organization consisting of ambulatory clinics and hospital sitesin [place], [place] and [place]. This disclosure is being madepursuant to the Care Everywhere program and may not contain all information available regarding this patient. Last updated 17.[facility] Allergies Active Allergy Reactions Criticality Noted Date [...] Vallecillo was screened for depression using the [place] Depression Scale (EPDS) at her [facility] initial evaluation on 06/05/2018. Her initial score at baseline was 15. Based off of her score of 15, Stephanie will receive follow up call from [facility] social worker health services, Jo Reyes, within the week. Patient will [...] resources were given along with notification of [facility] SW follow up- pt sleeps [...] score=14 07/20/18- Followed up with patient at [facility] visit, please see note dated 07.20.18 07/31/18- Followed up with patient via email 07/31/18- please see encounter on this date 08/14/18- Follow Up EPDS score=14 08/14/18- Followed up with patient at [facility] visit, please see note dated 08.14.18 08/29/18- Followed up with patient, please see encounter dated 08.29.18 abnormality in pregnan cy - renal pelvis dilation 05/05/2018 08/31/2018 Overview (08/14/2018): Images from the original note were not included. [facility] PATIENT--PLEASE CALL [phone] (ex 2) IF TRIAGED OR ADMITTED Care Provider: Dr. Kaur [facility] consultants involved: RN- Zakiya; KRISTYN- Sabra/Macy; Pediatric Urologist- Dr. Kuhn Diagnosis: Renal Pelvis Dilation follow up: (Urology): Plan for antibiotic prophylaxis, imaging at > 48h of life but <1mo, and outpatient urology follow up. (Please call clinical nurse, Katharine Jasso, at [phone] to schedule follow-up appointment) Handbag Frames Inspector: Undecided Planned surveillance: Initial [facility] appointment and consults scheduled for 06.05.18. Returning to [facility] 07.20.18 and 08.14.18 for follow-up ultrasound. Weekly BPP/NST (one week with primary OB; one week through [place]). Returning to [facility] 08.14.18 to reassess kidneys. Released from [facility] 08.14.18 Delivery location, mode, and GA: In discussion with pediatric urology (Dr. Dunbar), we agree that Stephanie can deliver in [place] per routine obstetrical indications. Delivery at 39 weeks, unless earlier delivery is warranted by equivocal or normal testing, oligohydramnios as defined by a deepest vertical pocket less than 2 cm or decreased movement. Repeat scheduled 09.01.18 at [place] Manufacturing Executive Concerns: 06/05/18- Patient with history of depression, [...] Comments Blood Pressure 118/80 02/14/2019 9:16 AM MOPHEAD TRIMMER AND WRAPPER Pulse 84 02/14/2019 9:16 AM MOPHEAD TRIMMER AND WRAPPER Temperature 36.6 C (97.9 F) 02/14/2019 9:16 AM MOPHEAD TRIMMER AND WRAPPER Respiratory Rate 16 02/14/2019 9:16 AM MOPHEAD TRIMMER AND WRAPPER Oxygen Saturation 98% 02/14/2019 9:16 AM MOPHEAD TRIMMER AND WRAPPER Inhaled Oxygen Concentration - - Weight 136.1 kg (300 lb) 02/14/2019 9:16 AM MOPHEAD TRIMMER AND WRAPPER Height 165.1 cm (5' 5 ) 02/14/2019 9:16 AM MOPHEAD TRIMMER AND WRAPPER Body Mass Index 49.92 02/14/2019 9:16 AM MOPHEAD TRIMMER AND WRAPPER Plan of Treatment Not on file Administered Medications Care Teams Human Factors Advisor Lead Relationship Specialty Start Date End Date Kush Llanos MD [address] [place] [address] PCP - General 05/26/10
--- OUTSIDE RECORDS SUMMARY | 2024-04-19 13:51 | XMS_ITS | Clinical Summary ---
Author Organization [facility] Address [address] [place] [id number] Care Team Providers Care Auto Design Detailer Name Role Phone None, Provider MD Primary [...] Comments Blood Pressure 138/96 01/28/2022 10:57 PM COLOR CONTROL SUPERVISOR Pulse 93 01/28/2022 10:57 PM COLOR CONTROL SUPERVISOR Temperature 36.6 C (97.8 F) 01/28/2022 10:57 PM COLOR CONTROL SUPERVISOR Respiratory Rate 18 01/28/2022 10:57 PM COLOR CONTROL SUPERVISOR Oxygen Saturation 98% 01/28/2022 10:57 PM COLOR CONTROL SUPERVISOR Inhaled Oxygen Concentration - - Weight 127 kg (280 lb) 01/28/2022 10:26 PM COLOR CONTROL SUPERVISOR Height 165.1 cm (5' 5 ) 01/28/2022 10:26 PM COLOR CONTROL SUPERVISOR Body Mass Index 46.59 01/28/2022 10:26 PM COLOR CONTROL SUPERVISOR Plan of Treatment Health Maintenance Due Date [...] this topic Insurance MEDICAID [employer] Care Teams Auto Design Detailer Relationship Specialty Start Date End Date None, Provider, MD PCP - General UNKNOWN PHYSICIAN SPECIALTY 01/28/22
--- OUTSIDE RECORDS SUMMARY | 2024-04-19 13:51 | XMS_ITS | Clinical Summary ---
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
--- OUTSIDE RECORDS SUMMARY | 2024-04-19 13:51 | XMS_ITS | Clinical Summary ---
Author Organization [facility] Address [address] [place] [address] Care Team Providers Care Preschool Teacher Assistant Name Role Phone Kush Llanos MD Primary Care Provider [phone] Source Comments [facility],non-owned Affiliates and Associated Physician Practices is amultiple site organization consisting of ambulatory clinics and hospital sitesin [place], [place], [place] and [place]. This disclosure is being madepursuant to the Care Everywhere program and may not contain all information available regarding this patient. Last updated 17.[facility] Allergies Active Allergy Reactions Criticality Noted Date [...] Vallecillo was screened for depression using the [place] Depression Scale (EPDS) at her [facility] initial evaluation on 06/05/2018. Her initial score at baseline was 15. Based off of her score of 15, Stephanie will receive follow up call from [facility] psychiatric social worker, Jo Reyes, within the week. [...] resources were given along with notification of [facility] SW follow up- pt sleeps during the day so follow up will take place via email 06/22/18-Attempted follow up X2(email)- response received 06/22/18- please see encounter dated 06.22.18 07/04/18- Attempted follow up X2(email)- no response at this time 07/06/18-Followed up with patient via email 07/06/18- please see encounter with that date 07/20/18- Follow Up EPDS score=14 07/20/18- Followed up with patient at [facility] visit, please see note dated 07.20.18 07/31/18- Followed up with patient via email 07/31/18- please see encounter on this date 08/14/18- Follow Up EPDS score=14 08/14/18- Followed up with patient at [facility] visit, please see note dated 08.14.18 08/29/18- Followed up with patient, please see encounter dated 08.29.18 abnormality in pregnan cy - renal pelvis dilation 05/05/2018 08/31/2018 Overview (08/14/2018): Images from the original note were not included. [facility] PATIENT--PLEASE CALL [phone] (ex 2) IF TRIAGED OR ADMITTED Care Provider: Dr. Kaur [facility] consultants involved: RN- Zakiya; KRISTYN- Sabra/Macy; Pediatric Urologist- Dr. Kuhn Diagnosis: Renal Pelvis Dilation follow up: (Urology): Plan for antibiotic prophylaxis, imaging at > 48h of life but <1mo, and outpatient urology follow up. (Please call clinical nurse, Katharine Jasso, at [phone] to schedule follow-up appointment) [employer]: Undecided Planned surveillance: Initial [facility] appointment and consults scheduled for 06.05.18. Returning to [facility] 07.20.18 and 08.14.18 for follow-up ultrasound. Weekly BPP/NST (one week with primary OB; one week through [facility]). Returning to [facility] 08.14.18 to reassess kidneys. Released from [facility] 08.14.18 Delivery location, mode, and GA: In discussion with pediatric urology (Dr. Dunbar), we agree that Stephanie can deliver in [facility] per routine obstetrical indications. Delivery at 39 weeks, unless earlier delivery is warranted by equivocal or normal testing, oligohydramnios as defined by a deepest vertical pocket less than 2 cm or decreased movement. Repeat scheduled 09.01.18 at [facility] Cooperative Manager Concerns: 06/05/18- Patient with history of depression, [...] Comments Blood Pressure 118/80 02/14/2019 9:16 AM PIPELINE OPERATOR Pulse 84 02/14/2019 9:16 AM PIPELINE OPERATOR Temperature 36.6 C (97.9 F) 02/14/2019 9:16 AM PIPELINE OPERATOR Respiratory Rate 16 02/14/2019 9:16 AM PIPELINE OPERATOR Oxygen Saturation 98% 02/14/2019 9:16 AM PIPELINE OPERATOR Inhaled Oxygen Concentration - - Weight 136.1 kg (300 lb) 02/14/2019 9:16 AM PIPELINE OPERATOR Height 165.1 cm (5' 5 ) 02/14/2019 9:16 AM PIPELINE OPERATOR Body Mass Index 49.92 02/14/2019 9:16 AM PIPELINE OPERATOR Plan of Treatment Health Maintenance Due Date [...] to complete this topic MENINGOCOCCAL (Group B) VACC INE SHARED DECISION-MAKING Aged Out No longer eligibl e based on patient's age to complete this topic MENINGOCOCCAL GROUPS A/C/Y/W VACCINE Aged Out No longer eligible b ased on patient's age to complete this topic Care Teams Preschool Teacher Assistant Relationship Specialty Start Date End Date Kush Llanos MD [address] [place] [id number] PCP - General 05/26/10
--- OUTSIDE RECORDS SUMMARY | 2024-04-19 13:51 | XMS_ITS | Data Portability ---
Author Organization [facility] [place] Address [address] [place] [address] Care Team Providers Care Audit Consultant Name Role Phone CHRIS HARO Primary Care Provider [phone] KIM HERNADEZ Primary Care Provider Assessment Encounter [...] Lab hsv-2 igg Ab, serum 2024 025 [facility] (Lab), [address] [facility], [place], [address], 5 11:36:41 HBsAg (hepatitis B surface Ag), serum 2024 025 [facility] (Lab), [address] [place], [address], 5 11:36:41 hsv-1 igg Ab, serum 2024 025 [facility] (Lab), [address] [place], [address], 5 11:36:41 unlisted lab - women's health swab plus, EULOGIO 2024 025 [facility] (Lab), [address] , [place], [address], 5 15:54:07 herpes simplex, culture, unspecified specimen 2024 025 [facility] (Lab), [address], [place], [address], 5 15:54:08 dhea-sulfat e, serum 2022 023 [facility] (Lab), [address], [place], [address], 3 13:04:57 hormone panel, serum or plasma 2022 023 [facility] (Lab), [address], [place], [address], 3 13:04:58 progesteron e, serum 2022 023 [facility] (Lab), [address] [place], [address], 3 13:04:58 prolactin, serum 2022 023 [facility] (Lab), [address] [place], [address], 3 13:04:58 shbg (sex hormone-bin ding globulin), serum 2022 023 [facility] (Lab), [address] [place], [address], 3 13:04:59 TSH, serum or plasma 2022 023 [facility] (Lab), [address] [place], [address], 3 13:04:59 testosteron e free/testos terone total, ratio, serum 2022 023 [facility] (Lab), [address], [place], [address], 3 13:05:00 Referral None recorded. Procedures None recorded. Surgeries hysteroscop y, with endometrial ablation (SURG) [email or web address] [facility], [address], [place], [address], 3 11:23:34 Imaging US, pelvis 2022 023 [email or web address] [place], [address], [address], [place], [address], 3 19:01:04 US, transvagina l 2022 023 [email or web address] [place], [address], [address], [place], [address], 3 19:01:04 US, pelvis, complete 2022 023 [email or web address] [place], [address], [place], [address], 3 15:37:05 Medication Orders nystatin-tr iamcinolone 100,000 unit/gram-0 .1 % topical ointment 2024 025 [facility] [address], [facility] [place], [address], 5 12:45:26 fluconazole 150 mg tablet 2024 025 [facility] [address], [facility] [place], [address], 5 12:45:25 spironolact one 100 mg tablet 2022 023 [facility] [address], [facility] [place], [address], 3 12:25:12 metformin ER 500 mg tablet,exte nded release 24 hr 2022 023 [email or web address] [facility] [address] [place], [address], 5 12:25:02 Addyi 100 mg tablet 2020 021 [email or web address] [facility] [address], [address] [place], [address], 5 12:24:18 NuvaRing 0.12 mg-0.015 mg/24 hr vaginal 2020 021 [email or web address] [facility], [address] [place] [address], [address], 3 12:35:15 Patient TargetsNo targets recorded. 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 Not Available [facility] (Lab) [address], [place], [address], 08/03/2022 14:20:53 07/31/19 23 07/30/2022 DHEA SULFA TE DHEA-sulfate 138 ug/dL Femal e Range s Age(y ) Range (ug/d L) 10-15 34-28 0 15-20 65-36 8 20-25 148-4 07 25-35 99-34 0 35-45 61-33 7 45-55 35-25 6 55-65 19-20 5 65-75 9-246 > 75 12-15 4 Not Available [facility] (Lab) [address] [facility], [place], [address], 08/07/2022 13:04:57 07/31/19 23 07/30/2022 PROGE STERO [...] Trime ster5 8.70- 214.0 0 Not Available [facility] (Lab) [address], [place], [address], 08/07/2022 13:04:58 07/31/19 23 07/30/2022 PROLA CTIN prolactin, total 16.00 NG/mL 4.79-2 3.30 This assay was perfo rmed using [employer] ratio n reage nts and test kits. Value s obtai choco with other assay metho ds or kits canno t be used inter de la fuente eably . Not Available [facility] (Lab) [address] [place], [address], 08/07/2022 13:04:58 07/31/1907/30/2022 FSH, LH, ESTRA DIOL estradiol 227.0 pg/mL This assay was perfo rmed using [employer] n reage nts and test kits. Value s obtai choco with other assay metho ds or kits canno t be used inter [facility] . Femal e Estra diol Range s: Folli cular phase 12.4- 233 pg/mL Ovula tion phase 41.0- 398 pg/mL Lutea l phase 22.3- 341 pg/mL Postm enopa usal< 5-138 pg/mL Healt hy Pregn ant Women 1st Trime ster1 54-32 43 pg/mL 2nd Trime ster1 561-2 1280 pg/mL 3rd Trime ster8 525-> 42299 pg/mL Not Available [facility] (Lab) [address] [place], [address], 08/07/2022 13:04:58 07/31/19 23 07/30/2022 FSH, LH, ESTRA DIOL FSH 8.0 mIU/m L This assay was perfo rmed using [employer] ratio n reage nts and test kits. Value s obtai choco with other assay metho ds or kits canno t be used inter [facility] . Femal es Folli cular : 3.5-1 2.5 mIU/m L Ovula tion: 4.7-2 1.5 mIU/m L Lutea l: 1.7-7 .7 mIU/m L Postm enopa use: 25.8- 134.8 mIU/m L Not Available [facility] (Lab) [address] [place], [address], 08/07/2022 13:04:58 07/31/19 23 07/30/2022 FSH, LH, ESTRA DIOL LH 38.2 mIU/m L This assay was perfo rmed using [employer] n reage nts and test kits. Value s obtai chooc with other assay metho ds or kits canno t be used inter de la fuente eably . Femal es Mid-F ollic ular: 2.4-1 2.6 mIU/m L Mid-C ycle: 14.0- 95.6 mIU/m L Mid-L uteal : 1.0-1 1.4 mIU/m L Postm enopa use: 7.7-5 8.5 mIU/m L Not Available [facility] (Lab) [address] [place], [address], 08/07/2022 13:04:58 07/31/19 23 07/30/2022 TSH, REFLE X FREE T4 TSH 1.80 uIU/m L 0.30-5 .33 Not Available [facility] (Lab) [address] [place], [address], 08/07/2022 13:04:59 07/31/19 23 07/30/2022 HUMAN SEX HORMO NE CAMRYN NG GLOBU KEO sex hormone binding globulin 20.4 nmole s/L 18.2-1 35.5 Not Available [facility] (Lab) [address] [facility], [place], [address], 08/07/2022 13:04:59 07/31/19 23 07/30/2022 TESTO STERO NE, FREE( DIALY SIS) AND TOTAL (LC/M S/MS) testosterone , total 40 NG/dL 2-45 For addit ional infor bharti guillen e refer to http: //john rodas.que stdia gnost ics.c om/fa q/Tot alTes monet [facility] (This link is being provi [...] for clini karol purpo ses. Not Available [facility] (Lab) [address], [place], [address], 08/07/2022 13:05:00 07/31/19 23 07/30/2022 TESTO STERO [...] Infor matalena n: Site ID: SLI Name: [facility] [place] Addre ss: [id number] [place] [address] Direc tor: Herman malone M.D. Not Available [facility] (Lab) [address] [facility], [place], [address], 08/07/2022 13:05:00 02/08/1902/09/2024 HBSAG /HCV/ HIV/R MT HIV antigen/anti body Nonrea ctive nonrea ctive HIV-1 antig en and HIV-1 /HIV- 2 antib odies were not detec bandar. No labor atory evide nce of HIV infec tion. Not Available [facility] (Lab) [address] [facility], [place], [address], 02/10/2024 11:36:40 02/08/1902/09/2024 HBSAG /HCV/ HIV/R MT hepatitis B surface antigen Non-re active non-re active This assay was perfo rmed using [employer] n reage nts and test kits. Value s obtai choco with other assay metho ds or kits canno t be used inter de la fuente eably . Not Available [facility] (Lab) [address] [facility], [place], [address], 02/10/2024 11:36:40 02/08/19 25 02/09/2024 HBSAG /HCV/ HIV/R MT hepatitis C antibody Non-re active non-re active Antib odies to HCV Not Detec bandar, does not exclu de the possi bilit y of expos ure to HCV. Not Available [facility] (Lab) [address] [facility], [place], [address], 02/10/2024 11:36:40 02/08/19 25 02/09/2024 HBSAG /HCV/ HIV/R MT RPR screen Nonrea ctive nonrea ctive Not Available [facility] (Lab) [address], [place], [address], 02/10/2024 11:36:40 02/08/19 25 02/09/2024 HERPE S SMPLE X VIRUS TYPE 1 SPECI FIC AB, IGG herpes simplex virus 1 IgG Negati ve negati ve Not Available [facility] (Lab) [address], [place], [address], 02/10/2024 11:36:41 02/08/19 25 02/09/2024 HERPE S SMPLE X VIRUS TYPE 1 SPECI FIC AB, IGG herpes simplex virus 1 IgG, quant 0.5 ai 0.0-0. 8 Not Available [facility] (Lab) [address] [place], [address], 02/10/2024 11:36:41 02/08/19 25 02/09/2024 HERPE S SIMPL EX VIRUS TYPE 2 SPECI FIC AB, IGG herpes simplex virus 2 IgG Positi ve negati ve abnormal Not Available [facility] (Lab) [address] [place], [address], 02/10/2024 11:36:41 02/08/19 25 02/09/2024 HERPE S SIMPL EX VIRUS TYPE 2 SPECI FIC AB, IGG herpes simples virus 2 IgG, quant >8.0 ai 0.0-0. 8 high Not Available [facility] (Lab) [address] [place], [address], 02/10/2024 11:36:41 02/08/1902/09/2024 [facility] bacterial vaginosis (bv), tma Negati ve negati ve Not Available [facility] (Lab) [address] [facility], [place], [address], 02/16/2024 15:54:07 02/08/19 25 02/09/2024 [facility], EULOGIO eileen species, tma Negati ve negati ve Not Available [facility] (Lab) [address] [place], [address], 02/16/2024 15:54:07 02/08/19 25 02/09/2024 [facility], EULOGIO eileen glabrata, tma Negati ve negati ve Not Available [facility] (Lab) [address] [place], [address], 02/16/2024 15:54:07 02/08/19 25 02/09/2024 [facility], EULOGIO trichomonas vaginalis, tma Negati ve negati ve Not Available [facility] (Lab) [address] [place], [address], 02/16/2024 15:54:07 02/08/19 25 02/09/2024 [facility], EULOGIO chlamydia trachomatis, PCR Negati ve negati ve Not Available [facility] (Lab) [address] [place], [address], 02/16/2024 15:54:07 02/08/19 25 02/09/2024 [facility], EULOGIO neisseria gonorrhoeae, [...] ded in this panel . Not Available [facility] (Lab) [address] [place], [address], 02/16/2024 15:54:07 02/08/19 25 02/09/2024 CULTU RE: HERPE S SIMPL EX VIRUS (HSV) , REFLE X TYPIN G source LESION SCRAPI NG Not Available [facility] (Lab) [address] [place], [address], 02/16/2024 15:54:08 02/08/19 25 02/09/2024 CULTU RE: HERPE S SIMPL EX VIRUS (HSV) , REFLE X TYPIN G hsv culture, body fluid NOT ISOLAT ED Perfo rming Organ izati on Infor matio n: Site ID: CB Name: [facility] jessica Hollingsworth Addre ss: [id number] [place] [address] Dire tor: Malathi Sutton s Not Available [facility] (Lab) [address] [place], [address], 02/16/2024 15:54:08 08/03/19 23 08/02/2022 US, pelvi s No observ ation record ed. [email or web address] [place] [address], [place], [address], 08/02/2022 12:30:13 08/03/19 23 08/02/2022 US, trans vagin al No observ ation record ed. [email or web address] [place] [address], [place], [address], 08/02/2022 12:29:52 08/03/19 23 08/02/2022 US, pelvi s No observ ation record ed. ISAK Shari [address], [place], [address], 08/17/2022 11:38:26 Result Notes None recorded. Problems Name Problem SNOMED Code Status Onset Date Resolution Date Notes Provider Name and Address Organization Details Recorded Time Decrease d sexual function 639039272 Active 2020 Ingrid lovell [facility] 09:56:50 Antenata l screenin g for malforma tion Completed 201803/27/2020 Encounte r for antenata l screenin g for malforma tions;Pr actice ID: 0001 Ingrid lovell [facility] 11:40:14 Normal pregnanc y in multigra carlos 59286958184 4106 Completed 201803/27/2020 Encounte r for suprvsn of normal pregnanc y, second trimeste r;Practi ce ID: 0001 Ingrid lovell, [facility] 11:41:02 Mental disorder in mother complica ting pregnanc y 549549576 Completed 201803/27/2020 Oth mental disorder s comp pregnanc y, second trimeste r;Practi ce ID: 0001 Ingrid lovell [facility] 11:41:01 Gestatio n period, 25 weeks 71678523 Completed 201803/27/2020 25 weeks gestatio n of pregnanc y;Practi ce ID: 0001 Ingrid lovell, [facility] 11:40:49 Urinary tract infectio n in pregnanc y 514044070 Completed 201803/27/2020 Infect of prt urinary tract in pregnanc y, third trimeste r;Practi ce ID: 0001 Ingrid lovell, [facility] 11:41:22 Gestatio n period, 30 weeks 47367334 Completed 201803/27/2020 30 weeks gestatio n of pregnanc y;Practi ce ID: 0001 Ingrid lovell, [facility] 11:40:50 Severe obesity complica ting pregnanc y 00350697537 425366 Completed 201803/27/2020 Obesity complica ting pregnanc y, third trimeste r;Practi ce ID: 0001 Ingrid lovell, [facility] 11:41:12 Gestatio n period, 32 weeks 1250028 Completed 201803/27/2020 32 weeks gestatio n of pregnanc y;Practi ce ID: 0001 Ingrid lovell, [facility] 11:40:51 Body mass index 30+ - obesity 523396802 Completed 201803/27/2020 Body mass index (BMI) 45.0-49. 9, adult;Pr actice ID: 0001 Ingrid lovell, [facility] 11:40:16 Clinical finding Completed 201803/27/2020 Obesity, unspecif ied;Prac nishant ID: 0001 Ingrid lovell, [facility] 11:40:45 Gestatio n period, 33 weeks 59136068 Completed 201803/27/2020 33 weeks gestatio n of pregnanc y;Practi ce ID: 0001 Ingrid lovell, [facility] 11:40:53 Gestatio n period, 34 weeks 51070482 Completed 201803/27/2020 34 weeks gestatio n of pregnanc y;Practi ce ID: 0001 Ingrid lovell, [facility] 11:40:[address] Concept Completed 201803/27/2020 Maternal care for oth abnormal ity and damage, unsp;Pra ctice ID: 0001 Ingrid lovell, [facility] 11:41:14 Gestatio n period, 35 weeks 54237350 Completed 201803/27/2020 35 weeks gestatio n of pregnanc y;Practi ce ID: 0001 Ingrid lovell, [facility] 11:40:55 Pregnanc y, childbir th and puerperi um finding Completed 201803/27/2020 Oth pregnanc y related conditio ns, third trimeste r;Practi ce ID: 0001 Ingrid lovell, [facility] 11:40:[address] Concept Completed 201803/27/2020 Decrease d movement s, third trimeste r, unsp;Pra ctice ID: 0001 Ingrid lovell, [facility] 11:41:[address] Concept Completed 201803/27/2020 Matern care for abnlt fetl hrt rate or rhym, 3rd tri, unsp;Pra ctice ID: 0001 Ingrid Thompson nas, [facility] 11:41:17 Gestatio n period, 36 weeks 83131058 Completed 201803/27/2020 36 weeks gestatio n of pregnanc y;Practi ce ID: 0001 Ingrid lovell [facility] 11:40:57 Uterine scar from previous surgery affectin g pregnanc y 06386922 Completed 201803/27/2020 Matern care for low transver se scar from prev del;Prac nishant ID: 0001 [facility] 11:41:25 heart finding Completed 201803/27/2020 Abnlt in heart rate and rhythm comp labor and delivery ;Practic e ID: 0001 [facility] 11:40:44 Steriliz ation procedur e Completed 201803/27/2020 Encounte r for steriliz ation;Pr actice ID: 0001 Ingrid lovell [facility] 11:41:20 Single live 060659972 Completed 201803/27/2020 Single live ;Pr actice ID: 0001 Ingrid lovell, [facility] 11:41:13 Gestatio n period, 37 weeks 45097420 Completed 201803/27/2020 37 weeks gestatio n of pregnanc y;Practi ce ID: 0001 Ingrid lovell [facility] 11:40:58 Procedur e on genitour inary system Completed 201803/27/2020 Encounte r for surgical aftcr followin g surgery on the sys;Prac nishant ID: 0001 [facility] 11:41:10 Postoper ative care Completed 201803/27/2020 Encounte r for surgical aftcr followin g surgery on the sys;Prac nishant ID: 0001 Ingrid lovell [facility] 11:41:05 Emotiona l state finding Completed 201803/27/2020 Other specifie d anxiety disorder s;Practi ce ID: 0001 Ingrid lovell, [facility] 11:40:18 Pregnanc y, childbir th and puerperi um finding Completed 201803/27/2020 Encntr for suprvsn of normal first preg, second trimeste r;Record ed Elsewher e: No Locat ion: [facility] S ource: EHR Reed Worker shabbir: N Hienti ce ID: 0001 Reece lable Time: 10:00:00 AM Ingrid lovell [facility] 11:41:09 Pelvic and perineal pain 686429737 Completed 201803/27/2020 Pelvic and perineal pain;Rec orded Elsewher e: No Locat ion: [facility] S ource: EHR Reed Worker shabbir: N Hienti ce ID: 0001 Reece lable Time: 09:45:00 AM Ingrid lovell, [facility] 11:41:[address] Concept Completed 201603/27/2020 Encntr for servicer exam (general ) (routine ) w/o abn findings ;Practic e ID: 0001 Ingrid lovell, [facility] 11:41:19 Pregnanc y test negative 735622954 Completed 201603/27/2020 Encounte r for pregnanc y test, result negative ;Practic e ID: 0001 Ingrid lovell, [facility] 11:41:07 Pregnanc y detectio n examinat ion Completed 201703/27/2020 Encounte r for pregnanc y test, result positive ;Practic e ID: 0001 Ingrid lovell, [facility] 11:41:06 Uterine size for dates discrepa ncy Completed 201703/27/2020 Uterine size-piotr e discrepa ncy, first trimeste r;Practi ce ID: 0001 Ingrid lovell, [facility] 11:41:26 Gestatio n less than 9 weeks 342948007 Completed 201703/27/2020 Less than 8 weeks gestatio n of pregnanc y;Practi ce ID: 0001 Ingrid lovell, [facility] 11:40:47 Gestatio n period, 9 weeks 541490 Completed 201803/27/2020 9 weeks gestatio n of pregnanc y;Practi ce ID: 0001 Ingrid lovell, [facility] 11:40:59 Antenata l screenin g Completed 201803/27/2020 Encounte r for other specifie d antenata l screenin g;Practi ce ID: 0001 Ingrid lovell, [facility] 11:40:13 Urinary tract infectio us disease 06057247 Completed 201803/27/2020 UTI;Larry rded Elsewher e: No Locat ion: [facility] S ource: EHR Reed Worker shabbir: N Practi ce ID: 0001 Reece lable Time: 01:30:00 PM Ingrid lovell, [facility] 11:41:23 Evaluati on finding Completed 201803/27/2020 Hematuri a, unspecif ied;Larry rded Elsewher e: No Locat ion: [facility] S ource: EHR Reed Worker shabbir: N Practi ce ID: 0001 Reece lable Time: 10:30:00 AM Ingrid Thompson [facility] 11:40:42 Problem Notes None recorded. Procedures Surgical History Date Name Laterality Status Provider Name and Address Organization Details Recorded Time 10/29/19 23 Gastric Bypass completed [facility] 02/09/2024 12:15:31 07/31/19 23 Date of Last Pap Smear completed [facility] 02/07/2024 09:45:34 08/19/19 19 section completed Ingrid Box Elder [facility] 03/27/2020 12:41:06 08/19/19 19 ligation of bilateral fallopian tubes completed Ingrid Box Elder [facility] 03/27/2020 12:41:14 02/07/19 10 section completed Ingrid Box Elder [facility] 03/27/2020 12:41:22 laparoscopic sleeve gastrectomy completed [facility] 03/27/2020 12:41:44 Imaging Results Imaging Date Name Status LastModified by Organization Details LastModified Time 08/02/2022 US, pelvis completed [email or web address] [place] [address], [place], [address], 08/02/2022 12:30:13 08/02/2022 US, transvaginal completed [email or web address] [facility] [address], [place], [address], 08/02/2022 12:29:52 08/02/2022 US, pelvis completed ISAK Shari [address], [facility] [place] [place], [address], 08/17/2022 11:38:26 Procedure Notes None recorded. Medical Equipment None Reported. Allergies Allergen ID Allergen Name Allergen Category Reaction Reaction Severity Criticality Documentation Date Start Date Code Code System Note Provider Name and Address Organization Details Recorded Time 64616 naproxen medicatio n Not available Not available Not available 01/25/2020 7258 RxNorm Ingrid Thompson [facility], [facility] 1 11:42:58 21268 Cipro medicatio n hives moderate Not available 07/30/202226460 3 RxNorm Jessica Santillan [facility], [facility] 3 12:33:57 Medications Name Sig [...] Prescrib ed Elsewher e: No Locat ion: [facility] M odify By: wali reagan DateTime : [...] Prescrib ed Elsewher e: No Locat ion: [facility] M odify By: wali Braun r DateTime [...] Elsewher e: No Locat ion: Sarah hadley [facility] M odify By: [email or web address] Encounte r [...] Updated DateTime 06/23/2020 167.64 cm 45.4 kg/m2 872730.4 6 g 130 mm[Hg] 79 mm[Hg] Ingrid Thompson [facility] 1 15:41:10 Date Recorded Body height Body mass index (BMI) Body weight Systolic blood pressure Diastolic blood pressure Provider Name and Address Organization Details Last Updated DateTime 07/30/2022 167.64 cm 46.2 kg/m2 075706.4 2 g 126 mm[Hg] 81 mm[Hg] Jessica Santillan [facility] 3 12:33:52 Date Recorded Body height Body mass index (BMI) Body weight Systolic blood pressure Diastolic blood pressure Provider Name and Address Organization Details Last Updated DateTime 08/23/2022 167.64 cm 46.2 kg/m2 823172.4 2 g 134 mm[Hg] 87 mm[Hg] Cristel Roland [facility] 3 12:02:39 Date Recorded Body height Body mass index (BMI) Body weight Systolic blood pressure Diastolic blood pressure Provider Name and Address Organization Details Last Updated DateTime 02/09/2024 167.64 cm 33.6 kg/m2 75944.93 g 120 mm[Hg] 83 mm[Hg] THANH Washburn [facility] 5 12:23:44 Social History Question Answer Notes LastModified by Organizat ion Details LastModified Time Do You Have An Advance Directive? No Information not available 06/23/2020 What Is Your Level Of Alcohol Consumption? None [email or web address] Information not available 02/09/2024 How Many Years Have You Consumed Alcohol? 10 Information not available 07/30/2022 Are You Blind Or Do You Have Difficulty Seeing? No [email or web address] Information not available 06/23/2020 What Is Your Level Of Caffeine Consumption? Heavy [email or web address] Information not available 06/23/2020 How Much Tobacco Do You Chew? None Information not available 06/23/2020 In The 14 Days Before Symptom Onset, Have You Had Close Contact With A Laboratory-confir med COVID-19 While That Case Was Ill? No Information not available 06/23/2020 In The 14 Days Before Symptom Onset, Have You Had Close Contact With A Person Who Is Under Investigation For COVID-19 While That Person Was Ill? No [email or web address] Information not available 06/23/2020 Have You Been To An Area Known To Be High Risk For COVID-19? No [email or web address] Information not available 06/23/2020 Are You Deaf Or Do You Have Serious Difficulty Hearing? No Information not available 06/23/2020 What Type Of Diet Are You Following? REGULAR Information not available 06/23/2020 What Is The Highest Grade Or Level Of School You Have Completed Or The Highest Degree You Have Received? 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 No [email or web address] Information not available 06/23/2020 Do You Use Protection During Sex? No [email or web address] Information not available 06/23/2020 Do You Use Your Seat Belt Or Car Seat Routinely? Yes [email or web address] Information not available 06/23/2020 Do You Have Smoke And Carbon Monoxide Detectors In Your Home? Yes [email or web address] Information not available 06/23/2020 At What Age Did You Start Smoking Tobacco? 15 [email or web address] Information not available 06/23/2020 How Much Tobacco Do You Smoke? 1 PPW [email or web address] Information not available 02/09/2024 Do You Feel Stressed (tense, Restless, Nervous, Or Anxious, Or Unable To Sleep At Night)? [id number] Information not available 06/23/2020 Do You Use Any Illicit Or Recreational Drugs? No [email or web address] Information not available 06/23/2020 Do You Use Sunscreen Routinely? Yes Information not available 06/23/2020 How Many Years Have You Smoked Tobacco? 18 [email or web address] Information not available 02/09/2024 Have You Used IV Drugs? No [email or web address] Information not available 06/23/2020 Sex: Unknown Functional Status Question Answer Note LastModified by Organization D etails LastModified Time Are you able to walk? YESWOREST [email or web address] Information not available 06/23/2020 What is your exercise level? Moderate [email or web address] Information not available 06/23/2020 Mental Status None recorded. Family History Relationship Description Onset Age of this Age Resolved Age Notes LastModified by Organization Details LastModified Time Father Hypertensive disorder [email or web address] Not available 2020 11:54:01 Sister Hypertensive disorder [email or web address] Not available 2020 11:54:21 Medical History Condition [...] SNOMED-CT Code Diagnosis ICD10 Code Diagnosis Note [id number] Zonia Membreno [place] [address] [address] 03/31/2020 09:41:43 03/31/2020 14:59:29 Gynecologic examination [id number] Z01.419 Take Calcium with Vitamin D 1200mg [...] copy of today's plan if desired. Dysmenorrhea [id number] N 94.6 Discussed options for cramping. Pt [...] Pt verbalized understand ing. Lack of libido [id number] R68.82 Discussed possible causes of decreased/ absent libido. She currently is under alot of stress. Her youngest child has multiple therapies d/t possible autisim. [id number] Zonia Membreno [place] [address] [address] 06/23/2020 15:35:50 06/24/2020 21:35:51 Contraception care management [id number] Z30.9 Happy with nuvaring and would like to continue. Reduced libido 9349211 R 68.82 We have discussed possible contributi [...] Pt will follow up in 1 month. [id number] [facility] [address] [address] 07/30/2022 12:09:19 07/30/2022 13:21:24 Gynecologic examination [id number] Z01.419 Take Calcium with Vitamin D 1200mg [...] Dexa Screen na Routine Labs ordered Menorrhagia [id number] N9 2.0 US to be updatedDis cussed options: IUD/BC methods/en do ablationOp ts for consult Endo ablation Abnormal u terine bleeding [id number] 9100 N93.9 Heavy mensesWill review at consult with Dr. Kaur [id number] Tati Coulter [place] [address],[facility] [place] [address] 08/02/2022 10:58:40 08/02/2022 11:35:57 Menorrhagia 690247372 N92.0 [id number] Homero Kaur MD [place] [address],[facility] [place] [address] 08/23/2022 11:57:04 08/23/2022 12:42:04 Female hirsutism [id number] L68.0 this patient is a 28-year-ol d [...] She will follow-up in 1 month. Menorrhagia [id number] N9 2.0 [id number] PAVITHRA RAO NP [place] [address],[facility] [place] [address] 02/09/2024 12:14:31 02/09/2024 13:05:30 Vaginal irritation 911843549 N89.8 Discussed empirical treatment with nystatin/t riamcinolo ne topical ointment and fluconazol e for suspected yeast infection based on reported symptoms and physical exam findings.Jessica iscussed vulvar care guidelines in addition to laundry/sk in irritants to avoid.Vagi nitis panel sent. Venereal d isease screening [id number] Z11.3 Pt requested STI testing for GC/CT/tric [...] Quigley Member ID Guarantor Name 06/23/2020 1 [facility] [id number] [facility] [id number] [facility] 06/23/2020 2 [place] [facility] [id number] [facility] 07/30/2022 1 [facility] ([facility]) [id number] [facility] [id number] [facility] 07/30/2022 2 [place] [facility] [id number] [facility] 08/02/2022 1 [facility] ([facility] [id number] [facility] [id number] [facility] 08/02/2022 2 [place] [facility] [id number] [facility] 08/23/2022 1 [facility] ([facility]) [id number] [facility] [id number] [facility] 08/23/2022 2 [place] [facility] [id number] [facility] 02/09/2024 1 [facility] ([facility] [id number] [facility] [id number] [facility] 02/09/2024 2 [place] [facility] [id number] Stephanie Norman Notes Date Note Type Note Provider Name and Address Organization Details Recorded Time 06/23/2020 text/html Here to follow u p on nuvaring. Wants to discuss low libido again. Zonia lovell [facility] 07/03/2020 16:47:54 07/30/2022 text/html Annual [...] Encourage regular mammograms starting age 38 [facility] [address], [place], [address], [facility] 07/30/2022 13:14:32 08/23/2022 text/html this patient is a 28-year-old female presents for follow-up on menorrhagia. She wants endometrial ablation. We reviewed endometrial ablation. We reviewed the video. We talked about success and failure. We talked about preoperative medications. talked about her still some an elevated testosterone. We spent over 20 minutes [id number]. More than 50% was counseling. We decided to treat elevated testosterone and [place] is a with metformin and spironolactone. She will follow-up in 1 month. Homero Kaur MD [address], [place], [address], [facility] 08/23/2022 12:35:08 02/09/2024 text/html Patient here [...] outbreaks. PAVITHRA RAO, ANNETTE [address], [place], [address], [place] [facility] 02/09/2024 13:04:49 OBGyn Episode Ob Episode Information Episode Created Date Number of Fetuses Patient Bloodtype Patient rh Status Prepregnancy Weight lbs Domestic Partner Domestic Partner Phone Father Name B Operator Status 03/27/19 21 1 CLOSED Fetus [...] Domestic Partner Domestic Partner Phone Father Name B Operator Status 03/27/19 21 1 CLOSED Fetus [...]
--- OUTSIDE RECORDS SUMMARY | 2024-04-19 13:51 | XMS_ITS | Patient Health Summary ---
Author Organization [facility] Address [address] [place] [address] Care Team Providers Care Banquet Line Cook Name Role Phone Kush Llanos MD Primary Care Provider [phone] Note from [facility],non-owned Affiliates and Associated Physician Practices is amultiple site organization consisting of ambulatory clinics and hospital sitesin [place], [place], [place] and [place]. This disclosure is being madepursuant to the Care Everywhere program and may not contain all information available regarding this patient. Last updated 17.[facility] Allergies * Hydromorphone(Urticaria) -Medium Criticality * Naproxen(Swelling) [...] Comments Blood Pressure 118/80 02/14/2019 9:16 AM LINING BASTER Pulse 84 02/14/2019 9:16 AM LINING BASTER Temperature 36.6 C (97.9 F) 02/14/2019 9:16 AM LINING BASTER Respiratory Rate 16 02/14/2019 9:16 AM LINING BASTER Oxygen Saturation 98% 02/14/2019 9:16 AM LINING BASTER Inhaled Oxygen Concentration - - Weight 136.1 kg (300 lb) 02/14/2019 9:16 AM LINING BASTER Height 165.1 cm (5' 5 ) 02/14/2019 9:16 AM LINING BASTER Body Mass Index 49.92 02/14/2019 9:16 AM LINING BASTER Procedures * SKIN TEST PPD - POINT [...] - POINT OF CARE (12/14/2018 10:44 AM LINING BASTER) PPD 0 MM Comment:negative Other MISCELLANEOUS SAMPLE S / Unknown 12/14/2018 10:44 AM LINING BASTER Tanvi Unger APRN-[facility] - POINT OF CARE ORDERABLES * [...] INFORMATION Cassandra Haney RN Tammy Russell MD [facility] ORDERABLES * BIOPHYSICAL PROFILE W NST (08/14/2018 8:06 AM CDT) Only the most recent of2 resultswithin the time period is included. Anatomical Region Laterality Modality Other 08/14/2018 8:06 AM CDT Narrative 08/14/2018 10:25 AM CDT [facility] FAX: [phone] Pat. Name: STEPHANIE NORMAN Jigna Pat. No: [id number] Study Date: 08/14/2018 8:06am , Age: 08 1990, 27 Pregnancies: 2, Para 1 Height: 65 in Weight: 266 lb LMP: Unknown GA by Base: 36w3d SHANNON: 09/08/2018 GA by US: 36w3d SHANNON: 09/08/2018 GA Selected: 36w3d (From Marcelo) HSANNON: 09/08/2018 Referring MD: Homero Kaur MD Dry Finisher: Salma Michel RDMS CPT4: 25646,95931 BMI: 44.26 Hist/Ind: urinary tract dilation: A2-3 Class III obesity History of gastic sleeve Prior CD MEASUREMENTS & AGE GROWTH EVALUATION Measurement GA Range Srce %for GA Ratios ----- ---- ------- BPD 9.2 cm 37w1d (70u3o-04i1m) Hadl BPD 78% FL/BPD 0.76 (0.71 - 0.87) HC 33.9 cm 39w0d (35d0b-32r3w) Hadl HC 82% FL/AC 0.22 (0.20 - 0.24) AC 32.0 cm 36w0d (32s8a-74i2m) Hadl AC 47% HC/AC 1.06 (0.92 - 1.11) FL 6.9 cm 35w4d (19l3p-09g7k) Hadl FL 25% CI 0.76 (0.70 - 0.86) HL 5.8 cm 33w5d (43s3s-07s6j) Fran HL <05 GA for sonogram 36w3d (98k1b-74f9q) Weight Estimate: based on (BPD,HC,AC,FL) [place] Weight: [...] <Electronic Signature> 08/14/2018 10:15am Roxi Cavazos MD [facility] ORDERABLES * SONOGRAM - COMPLETE (07/20/2018 11:38 AM CDT) Only the most recent of4 resultswithin the time period is included. Anatomical Region Laterality Modality Other 07/20/2018 11:3 8 AM CDT Narrative 07/20/2018 4:55 PM CDT [facility] FAX: [phone] Pat. Name: STEPHANIE NORMAN Pat. No: [id number] Study Date: 07/20/2018 11:38am , Age: 08 1990, 27 Pregnancies: 2, Para 1 Height: 65 in Weight: 266 lb LMP: Unknown GA by Base: 32w6d SHANNON: 09/08/2018 GA by US: 33w5d SHANNON: 09/02/2018 GA Selected: 32w6d (From Known E) SHANNON: 09/08/2018 Referring MD: Homero Kaur MD Dry Finisher: Salma Michel RDMS CPT4: 30938 BMI: 44.26 Hist/Ind: urinary tract dilation: A2-3 Class III obesity History of gastic sleeve Prior CD MEASUREMENTS & AGE GROWTH EVALUATION Measurement GA Range Srce %for GA Ratios ----- ---- ------- BPD 8.8 cm 35w4d (55n8w-46w3s) Hadl BPD 97% FL/BPD 0.71 (0.71 - 0.87* HC 31.9 cm 35w6d (36k1d-67w8n) Hadl HC 87% FL/AC 0.21 (0.20 - 0.24) AC 29.3 cm 33w2d (46i4n-44m6w) Hadl AC 65% HC/AC 1.09 (0.95 - 1.14) FL 6.2 cm 32w2d (41n0e-67i0a) Hadl FL 22% CI 0.78 (0.70 - 0.86) HL 5.4 cm 31w2d (32h2j-38h3c) Fran HL 23% GA for sonogram 33w5d (72p9r-73w3i) Weight Estimate: based on (HL,BPD,HC,AC,FL) Avg Weight: [...] we agree that Stephanie can deliver in [place] and be scheduled for outpatient urologic evaluation. We will evaluate the kidneys one more time around 36 weeks to ensure that this plan remains appropriate closer to the time of anticipated delivery. We recommend weekly BPP/NST until delivery. Delivery can be per routine obstetric indications. RECOMMEND: - Weekly NST/BPP/RADHA - Reassess kidney appearance at 36 weeks at [facility] - If stable continue to plan delivery at [place] - Plan for antibiotic prophylaxis, imaging at > 48h of life, and outpatient urology follow up. Consult time: total time spent discussing the above issues was 45 minutes Thank you for allowing us the opportunity to care for your patient. Roxi Cavazos MD <Electronic Signature> 07/20/2018 04:55pm Roxi Cavazos MD [facility] ORDERABLES Care Teams Banquet Line Cook Relationship Specialty Start Date End Date Kush Llanos MD [id number] [place] [address] PCP - General 05/26/10
--- OUTSIDE RECORDS SUMMARY | 2024-04-19 13:51 | XMS_ITS | Encounter Summary ---
Author Organization [facility] Healthcare Address [address] [place] [address] Care Team Providers Care Home Theater Installer Name Role Phone Unknown, Notinfile Unavailable Unavailable Maddy Shen NP Primary Care Provider [phone] Encounter Details Date Type Department Care Team (Late st Contact Info) Description 04/06/2024 Orders Only [facility] Health Information Management [address] [place] [id number] Scanning, Provider Social History Tobacco Use Types Packs/Day Years Used Date Smoking Tobacco: Every Day Cigarettes 0.1 15 PHQ-2 Answer Date Recorded PHQ-2 Total Score (If total score is 3 or more points, staff should administer the PHQ-9) 1 07/01/2023 Personal Safety Answer Date Recorded Getting School Help Needed Not on file 02/04 Comments Unknown Sex and Gender Information Value Date Recorded Sex Assigned at Not on file Legal Sex Female 11:17 AM LICENSED ESTHETICIAN Gender Identity Not on file Sexual Orientation Straight 08/09/2022 3: 53 PM CDT documented as of this encounter Plan of Treatment Not on file documented as of this encounter Procedures Procedure Name Priority Date/Time Associated Diagnosis Comments SCAN - RADIOLOGY/IMAGING 04/06/2024 documented in this encounter Results * SCAN - RADIOLOGY/IMAGING (04/06/2024) Anatomical Region Laterality Modality Other us Provider Scanning Final Result documented in this encounter Visit Diagnoses Not on filedocumented in this encounter Care Teams Home Theater Installer Relationship Specialty Start Date End Date Maddy Shen NP [address] [place] [address] PCP - General Internal Medicine 08/16/22 Unknown, Notinfile 07/19/22 documented as of this encounter
== END 2024-04-19 12:15 | disposition home or self-care (01) ==
PROVIDERS: PCP Nurse Practitioner Family; Visit Provider Urology
DX: N20.0 Calculus of kidney (principal); Z96.0 Presence of urogenital implants
CPT/HCPCS: 74018

== ENCOUNTER 2024-09-30 09:30 | Emergency (ER) | payer OTHER, MEDICAID, SELFPAY ==
[2024-09-30 09:38] VITALS: BP 126/81; PULSE 70; RESP 16; TEMP 37.1; O2SAT 100
--- NOTE | 2024-09-30 09:59 | ED.SKABFB ---
HPI - Skin/Abscess/Foreign Bdy General Chief complaint: Skin/Abscess/Foreign Body Stated complaint: irritation on abdomen Time Seen by Provider: 09/30/24 09:45 Source: patient and RN notes reviewed Mode of arrival: ambulatory Limitations: no limitations History of Present Illness HPI narrative: Patient presents today complaining of an open wound to her midline lower abdomen. She had a tummy tuck in June of this year and subsequently had a seroma that had been freely draining from a very small hole. Patient states the fluid had always been clear yellow. This morning she noted a larger opening the normal and unknown material protruding from the hole. She has not notified her surgeon. No OTC treatment prior to arrival. Related Data Home Medications ?Medication ?Instructions ?Recorded ?Confirmed ?Last Taken ?Type dextromethorphan IR 45 1 tablet PO BID 07/27/22 04/06/24 04/05/24 History mg-bupropion ER 105 mg biphasic tablet (Auvelity) omeprazole 40 mg capsule,delayed 40 mg PO DAILY 12/23/22 04/06/24 04/05/24 History release bupropion HCl 75 mg tablet 150 mg PO DAILY 03/27/24 04/06/24 04/05/24 History lisdexamfetamine 40 mg capsule 40 mg PO DAILY 03/27/24 04/06/24 04/05/24 History (Vyvanse) escitalopram oxalate 10 mg tablet mg 09/30/24 Unknown History Allergies Allergy/AdvReac Type Severity Reaction Status Date / Time ciprofloxacin AdvReac Severe SWELLING Verified 09/30/24 09:52 naproxen AdvReac Severe Swelling Verified 09/30/24 09:52 hydromorphone AdvReac Intermediate EXTREME Verified 09/30/24 09:52 STOMACH CRAMPS PMFSH Past Medical History Medical History Postoperative nausea and vomiting Depression Renal stones Surgical History Surgical History History of cystoscopy History of placement of ureteral stent History of gastric surgery sleeve 11 years ago History of cholecystectomy History of section x2 Family History Family History Father Lung cancer Hypertension Mother Hypertension Family history of thyroid problem Heart problem Depression Sibling Pneumonia is from pneumonia Social History Social History Social History: Surrogate medical decision maker: Joesph Norman, spouse. Code status: Full code. Smoking packs per day: 0.5 Smoking cigarettes per day: 10.0 Years smoked: 20 Smoking pack-years: 10.00 Smoking status: Current every day smoker Tobacco type: cigarettes Second hand tobacco smoke exposure: Yes Alcohol intake: never Alcohol use details: rare alcohol use in moderation Substance use: never Substance use type: does not use Other substance usage details: CBD NEEDED 2-3 TIMES PER WEEK Lack of Transportation: No Lack of Food: Never True Current Housing: I Have Housing Concerned About Future Housing: Decline to Answer Difficulty Paying Gas/Electric Bills: Decline to Answer Difficulty Paying for Meds: Decline to Answer Currently Unemployed: Decline to Answer Education: Associate Degree Difficulty w/ Childcare or Family Care: No Living arrangements: with family Additional living arrangements comments: Lives with spouse and children in [place]. Additional occupation/education comments: [employer]. Spiritual care concerns: No Comments At time of signature, I have reviewed and agree with nursing past medical, surgical, social and family history unless otherwise noted. Please see nursing chart for further information. There is no relevant family history pertinent to the presenting complaint Exam Narrative: GENERAL: Well-appearing, well-nourished, and in no acute distress. HEAD: Normocephalic, atraumatic. EYES: EOMI. No redness or drainage. Conjunctivae normal. ENT: Mucous membranes pink and moist. NECK: Normal AROM. CHEST: No respiratory distress. ABDOMEN: Soft, nontender, nondistended, normal active bowel sounds. 0.7cm open wound to the lower midline abdomen with small amount of fat protruding. No surrounding erythema, induration, tenderness, drainage. Remainder of incision appeared healed. EXTREMITIES: Normal range of motion. No edema. SKIN: Warm, dry, no rash. Capillary refill normal. Normal skin turgor. NEURO: No focal deficits. Alert and oriented x3. Gait steady. PSYCH: Normal affect. No signs of depression or anxiety. Course Course Level of Care: Express Care Visit Vital Signs Vital signs: Vital Signs Temperature 98.7 F 09/30/24 09:38 Pulse Rate 70 09/30/24 09:38 Respiratory Rate 16 09/30/24 09:38 Blood Pressure 126/81 09/30/24 09:38 Pulse Oximetry 100 09/30/24 09:38 Oxygen Delivery Room Air 09/30/24 09:38 Temperature 98.7 F 09/30/24 09:38 Pulse Rate 70 09/30/24 09:38 Respiratory Rate 16 09/30/24 09:38 Blood Pressure 126/81 09/30/24 09:38 Pulse Oximetry 100 09/30/24 09:38 Oxygen Delivery Room Air 09/30/24 09:38 Reviewed MDM - Skin/Abscess/Foreign Bdy MDM Narrative Medical decision making narrative: 33-year-old female presents today 3mos s/p tummy tuck and subsequent seroma of the lower abdomen presents with complaint of larger wound opening with material protruding from it since this morning. No OTC treatment prior to arrival. Upon exam, patient has a 7 mm dehiscence with subcutaneous fat protruding. No surrounding erythema, edema, tenderness. No active drainage. Area was cleansed and dressed with antibiotic ointment and a Band-Aid. Recommend keeping covered and contacting surgeon tomorrow. Patient agrees with plan. Vital signs stable. Anticipatory guidance given. Differential Diagnosis Differential diagnosis: Likely abscess of skin or subcutaneous tissue, cellulitis and other (seroma) Critical Care Time Critical Care Time Critical Care Time: No Discharge Plan Discharge Clinical Impression: Open wound of abdomen Qualifiers: Encounter type: initial encounter Qualified Code(s): S31.109A - Unspecified open wound of abdominal wall, unspecified quadrant without penetration into peritoneal cavity, initial encounter Patient Disposition: Home Condition: Stable Additional Instructions: Your wound has been dressed today. Please call you surgeon tomorrow to notify them. Keep covered. Patient Language: Tamazight Prescriptions: No Action omeprazole 40 mg capsule,delayed release(DR/EC) 40 mg PO DAILY escitalopram oxalate 10 mg tablet Auvelity 45-105 mg tablet,IR,delayed rel,biphasic 1 tablet PO BID bupropion HCl 75 mg tablet 150 mg PO DAILY Rx Instructions: administer 6 hours apart lisdexamfetamine [Vyvanse] 40 mg capsule 40 mg PO DAILY tramadol 50 mg tablet 50 mg PO Q6H PRN (Reason: pain) Qty: 20 0RF Follow-up/Referrals: Hermelinda,ANNETTE Castañeda [Primary Care Provider, Unknown] Time of Disposition: 10:00
== END 2024-09-30 10:02 | disposition home or self-care (01) ==
PROVIDERS: Emergency Provider Nurse Practitioner; PCP Nurse Practitioner Family
DX: T81.31XA Disruption of external operation (surgical) wound, not elsewhere classified, initial encounter (principal); F17.210 Nicotine dependence, cigarettes, uncomplicated; F32.A Depression, unspecified
CPT/HCPCS: 99212; G0463